=== PATIENT | female | born 1955 | race Caucasian/White ===

== ENCOUNTER 2022-08-01 12:58 | Outpatient (OUT) | payer MEDICARE, SELFPAY | END 2022-08-01 12:59 | disposition home or self-care (01) | LOC: WC 12:58 | PROVIDERS: PCP Podiatrist Foot & Ankle Surgery; Visit Provider Podiatrist Foot & Ankle Surgery | DX: L60.3 Nail dystrophy (principal) | CPT/HCPCS: 11721 ==

== ENCOUNTER 2023-01-10 15:08 | Outpatient (OUT) | payer MEDICARE, SELFPAY | END 2023-01-10 15:09 | disposition home or self-care (01) | LOC: WC 15:08 | PROVIDERS: PCP Podiatrist Foot & Ankle Surgery; Visit Provider Podiatrist Foot & Ankle Surgery | DX: L60.3 Nail dystrophy (principal); L03.115 Cellulitis of right lower limb; L97.512 Non-pressure chronic ulcer of other part of right foot with fat layer exposed; M20.42 Other hammer toe(s) (acquired), left foot; M20.41 Other hammer toe(s) (acquired), right foot; K74.00 Hepatic fibrosis, unspecified; M76.822 Posterior tibial tendinitis, left leg; L97.522 Non-pressure chronic ulcer of other part of left foot with fat layer exposed; M13.80 Other specified arthritis, unspecified site | CPT/HCPCS: 11721 ==

== ENCOUNTER 2023-04-11 15:27 | Outpatient (OUT) | payer MEDICARE, SELFPAY | END 2023-04-11 15:28 | disposition home or self-care (01) | LOC: WC 15:27 | PROVIDERS: PCP Podiatrist Foot & Ankle Surgery; Visit Provider Physician Assistant | DX: M13.80 Other specified arthritis, unspecified site (principal); L60.3 Nail dystrophy; M79.661 Pain in right lower leg; M79.662 Pain in left lower leg | CPT/HCPCS: 11721 ==

== ENCOUNTER 2023-07-22 10:05 | Outpatient (OUT) | payer MEDICARE, SELFPAY ==
--- NOTE | 2023-07-22 | XR_ITS ---
The [address] [address] Patient Name: LUIS ANTONIO VOSS MRN: [id number] date: 1955 Sex: F Assigned Patient Location: Current Patient Location: Accession/Order Number: [id number] Exam Date: 07/22/2023 10:06 Report Date: 07/22/2023 15:55 At the request of: ANGEL BRADLEY Procedure: XR foot LT min 3V PROCEDURE: XR foot LT min 3V COMPARISON: 10/12/2021 HISTORY: LEFT FOOT PAIN FINDINGS: BONES:Flattening of the plantar arch. Progression of degenerative changes with valgus deformity of the forefoot. Overlap of the first and second toes related to valgus deformity of the first toe. No focal lytic or sclerotic changes. SOFT TISSUES:Negative. No visible soft tissue swelling. EFFUSION:None visible. OTHER: Negative. XR/XR foot LT min 3V IMPRESSION: No plain film evidence of osteomyelitis Electronically authenticated by: TANVIR WALL Date: 07/22/2023 15:55
== END 2023-07-22 10:06 | disposition home or self-care (01) ==
LOC: WC 10:05
PROVIDERS: PCP Podiatrist Foot & Ankle Surgery; Visit Provider Physician Assistant
DX: M79.672 Pain in left foot (principal); L60.3 Nail dystrophy; L97.521 Non-pressure chronic ulcer of other part of left foot limited to breakdown of skin
CPT/HCPCS: 11042; 11721; 73630

== ENCOUNTER 2023-07-30 13:26 | Outpatient (OUT) | payer MEDICARE, SELFPAY | END 2023-07-30 13:27 | disposition home or self-care (01) | LOC: WC 13:26 | PROVIDERS: PCP Podiatrist Foot & Ankle Surgery; Visit Provider Podiatrist Foot & Ankle Surgery | DX: L97.521 Non-pressure chronic ulcer of other part of left foot limited to breakdown of skin (principal) | CPT/HCPCS: G0463 ==

== ENCOUNTER 2024-05-28 14:43 | Outpatient (OUT) | payer MEDICARE, SELFPAY ==
--- NOTE | 2024-05-28 15:16 | PM.WCHP ---
Wound Care H&P: HPI History of Present Illness Narrative: The patient is a pleasant 68-year-old female who presents for routine toenail care. The patient has ambulation difficulties due to history of femur fracture. She notes pain when toenails are elongated and pain relief when they are trimmed. She denies cramping in her calves or foot pain. Exam Narrative: Exam Narrative: Dermatologic: Partial-thickness ulcer on the dorsum of the left fourth toe with no sign of infection. Ulcer is dry. Skin is thin, atrophic, and dry. Musculoskeletal: Bilateral bunion, bilateral hammertoe deformity Vascular exam PT pulses are nonpalpable bilaterally. Dorsalis pedis pulses are 1/4 bilaterally. Capillary refill is less than 3 seconds. Varicosities are present. The skin is warm. There is no edema. Digital hair is absent bilaterally. Neurologic: Sensation is grossly intact bilaterally, normal muscle tone Assessment and Plan Assessment and Plan (1) Tinea unguium: (2) Diminished pulses in lower extremity: (3) Gait instability: (4) Disorder of nail due to another disorder: Acute Procedures Nail Procedure Nail Procedure Time out: Yes Nail procedure: other (nail debridement) Number of affected nails: 10 Location (toes): left and right Method of drainage: other (nail nippers) Procedure successful: Yes Patient tolerated procedure: well and no complications Additional comments: Toenails 1 through 10 were sharply debrided without incident with nail nippers. The patient noted pain relief postprocedure. Podiatry Nail Debridement Class B Findings Absent posterior tibial pulse: bilateral Advanced trophic changes as evidenced by any three of the following: decreased hair growth, nail changes (thickening) and skin texture (thin or shiny) Class C Findings Claudication: No Temperature changes: No Edema: No Nail debridement paresthesia (abnormal spontaneous sensations in the feet): Yes Burning: Yes Qualifies If: Qualifiers If:: A patient qualifies for nail debridement if they have: 1 class A finding (Q7) 2 class B findings (Q8) OR 1 class B & 2 class C findings in addition to a primary condition (Q9)
== END 2024-05-28 14:44 | disposition home or self-care (01) ==
LOC: WC 14:43
PROVIDERS: Visit Provider Physician Assistant
DX: B35.1 Tinea unguium (principal); R09.89 Other specified symptoms and signs involving the circulatory and respiratory systems; R26.89 Other abnormalities of gait and mobility; L60.8 Other nail disorders
CPT/HCPCS: 11721

== ENCOUNTER 2024-09-10 14:45 | Outpatient (OUT) | payer MEDICARE, SELFPAY ==
--- OUTSIDE RECORDS SUMMARY | 2023-10-31 09:00 | XMS_ITS ---
Author Organization The [facility] in [place] Address [address] [place] [address] Care Team Providers Care Fire Prevention Specialist Name Role Phone None, Unknown or Primary Care Provider Unavailab george Anel Nelson Unavailable [phone] Allergies No Known Allergies REASON FOR VISIT NAIL CARE ( F/U FROM WOUND) Medications Medication SIG (Take, Route, Frequency, Duration) Notes Start Date End Date Status Aspirin Low Dose 81 MG CHEW AND SWALLOW 1 TABLET BY MOUTH ONCE DAILY IN THE MORNING Oral for 90 Days Active buPROPion HCl ER (XL) 150 MG TAKE 1 TABL ET BY MOUTH EVERY DAY IN THE MORNING Oral for 90 Days Active amLODIPine Besylate 5 MG TAKE 1 TABLET B Y MOUTH EVERY DAY IN THE MORNING Oral for [address] 500 MG Oral for 30 Days Active traZODone HCl 100 MG Oral for 90 Days Active oxyCODONE HCl 10 MG Oral for 30 Days Active buPROPion HCl ER (XL) 150 MG Oral for 90 Days Active lamoTRIgine 150 MG Oral for 90 Days Active Furosemide 40 MG Oral for 90 Days Active Ferrous Sulfate 325 (65 Fe) MG TAKE 1 TABLET BY MOUTH EVERY DAY WITH BREAKFAST Oral for 30 Days Active Sertraline HCl 100 MG Oral for 90 Days Active Omeprazole 40 MG Oral for 90 Days Active amLODIPine Besylate 5 MG Oral for 90 Days Active Levothyroxine Sodium 200 MCG Oral for 90 Days Active Atorvastatin Calcium 10 MG Oral for 90 Days Active Famotidine 20 MG Oral for 90 Days Active Klor-Con M20 20 MEQ Oral for 90 Days Active Social History Tobacco Use: Social History Observation Description Date Details (start date - stop date) Never Smoker NA - NA Tobacco Control (Standard) Question Answer Notes Tobacco use: Nonsmoker Problems Problem Type SNOMED Code ICD Code Onset Dates Problem Status W/U Status Risk Notes Problem 1324931132 Hallux valgus (acquired), left foot (M20.12) Active confirmed Problem 030006830 Other hammer toe(s) (acquired), left foot (M20.42) Active confirmed Vital Signs Temperature 97.5 degrees Fahrenheit 10/31/19 24 Heart Rate 87 /min 10/31/2023 Height 65 in 10/31/2023 Weight 157 lbs 10/31/2023 BMI 26.12 kg/m2 10/31/2023 Oximetry 99 % 10/31/2023 Encounters Encounter Location Date Provider Diagnosis [facility] (PODIATRY) [address] [place] [address] [place] [address] 10/31/2023 Anel Nelson Hallux valgus (acquired), left foot M20.12 and Other hammer toe(s) (acquired), left foot M20.42 Assessments Encounter Date Diagnosis (ICD Code) Assessment Notes Treatment Notes Treatment Clinical Notes Section Notes 10/31/2023 Hallux valgus (acquired), left foot (ICD-10 - M20.12) The patient is a 68-year-old female with history of severe hammertoe contractures and previous wound who presents for evaluation of elongated painful toenails. After verbal consent, toenails 1 through 10 were sharply debrided with nail nippers without incident. The patient noted pain relief postprocedure. She does have a preulcerative lesion on the dorsal second toe, which is completely curled under her foot. Callus was pared on the toe. The patient obtained a new silicone toe sleeve which she plans to wear to protect the area. She will follow-up as needed. 10/31/2023 Other hammer toe(s) (acquired), left foot (ICD-10 - M20.42) Plan Of Treatment Treatment Notes Assessment Notes Hallux valgus (acquired), left foot The patient is a 68-year-old female with history of severe hammertoe contractures and previous wound who presents for evaluation of elongated painful toenails. After verbal consent, toenails 1 through 10 were sharply debrided with nail nippers without incident. The patient noted pain relief postprocedure. She does have a preulcerative lesion on the dorsal second toe, which is completely curled under her foot. Callus was pared on the toe. The patient obtained a new silicone toe sleeve which she plans to wear to protect the area. She will follow-up as needed. Next Appt Details Follow Up: prn, Reason: Progress Notes * Devika VOSS LDOB:1955 (68 yo F)Acc No.[id number]:10/31/2023 New Patient Patient: Devika NERI Provider: Reymundo Nelson PA-C :1955 A ge:68 Y S ex:Female Date:10/31/2023 Address:[address] [place] [address], [id number] Pcp:Unknown or None Check In:01:01 PM ESTCheck O ut:01:29 PM EST Subjective: * Chief Complaints: * N AIL CARE ( F/U FROM WOUND) * HPI: G eneral: Patient in office today due to diabetic toenail care. Patient has been seen in wound care clinic in the past. * ROS: G eneral/Constitutional: Chills d enies. F ever d enies. W eight gain?denies. W eight loss d enies. S kin: Skin Ulcers d enies. S kin lesion(s) d enies. ? C ardiovascular: Difficulty breathing on exertion d enies. L eg cramps?denies. E tc d enies. C hest pain d enies. R espiratory: Difficulty breathing d enies. D yspnea d enies.?Cough d enies. G astrointestinal: Diarrhea d enies. N ausea d enies. V omiting?denies. M usculoskeletal: Bone/Joint Symptoms d enies. C eleuterio Pain d enies.?Leg cramps d enies. N eurologic: Numbness d enies. T ingling d enies . G ait abnormality d enies. ? H ematology: Anemia D enies. E asy bruising d enies. ? A ll Other Systems: Review of Systems (ROS) S ee HPI for details,All others negative except those mentioned in HPI. * Active Problem List L97.521 Chronic ulcer of lef t foot limited to breakdown of skin Modified On:08/13/2023W/U Status:confirmed M20.12 Hallux valgus (acqui red), left foot Modified On:10/31/2023W/U Status:confirmed M20.42 Other hammer toe(s) (acquired), left foot Modified On:10/31/2023W/U Status:confirmed * Medical History: * Surgical History: T AVR - heart procedure * Hospitalization/Major Diagno stic Procedure: * Family History: N on-Contributory. * Social History: T obacco Use: T obacco Control (Standard) T obacco use: N onsmoker * Medications: T akingamLODIPine Besylate 5 MG Tablet Oral amLODIPine Besylate 5 MG Tablet TAKE 1 TABLET BY MOUTH EVERY DAY IN THE MORNING Oral Aspirin Low Dose(Aspirin) 81 MG Tablet Chewable CHEW AND SWALLOW 1 TABLET BY MOUTH ONCE DAILY IN THE MORNING Oral Atorvastatin Calcium 10 MG Tablet Oral buPROPion HCl ER (XL) 150 MG Tablet Extended Release 24 Hour Oral buPROPion HCl ER (XL) 150 MG Tablet Extended Release 24 Hour TAKE 1 TABLET BY MOUTH EVERY DAY IN THE MORNING Oral Famotidine 20 MG Tablet Oral Ferrous Sulfate 325 (65 Fe) MG Tablet TAKE 1 TABLET BY MOUTH EVERY DAY WITH BREAKFAST Oral Furosemide 40 MG Tablet Oral Klor-Con M20(Potassium Chloride Zainab ER) 20 MEQ Tablet Extended Release Oral lamoTRIgine 150 MG Tablet Oral Levothyroxine Sodium 200 MCG Tablet Oral Naproxen DR 500 MG Tablet Delayed Release Oral Omeprazole 40 MG Capsule Delayed Release Oral oxyCODONE HCl 10 MG Tablet Oral Sertraline HCl 100 MG Tablet Oral traZODone HCl 100 MG Tablet Oral Taking amLODIPine Besylate 5 MG Tablet Oral Taking amLODIPine Besylate 5 MG Tablet TAKE 1 TABLET BY MOUTH EVERY DAY IN THE MORNING Oral Taking Aspirin Low Dose(Aspirin) 81 MG Tablet Chewable CHEW AND SWALLOW 1 TABLET BY MOUTH ONCE DAILY IN THE MORNING Oral Taking Atorvastatin Calcium 10 MG Tablet Oral Taking buPROPion HCl ER (XL) 150 MG Tablet Extended Release 24 Hour Oral Taking buPROPion HCl ER (XL) 150 MG Tablet Extended Release 24 Hour TAKE 1 TABLET BY MOUTH EVERY DAY IN THE MORNING Oral Taking Famotidine 20 MG Tablet Oral Taking Ferrous Sulfate 325 (65 Fe) MG Tablet TAKE 1 TABLET BY MOUTH EVERY DAY WITH BREAKFAST Oral Taking Furosemide 40 MG Tablet Oral Taking Klor-Con M20(Potassium Chloride Zainab ER) 20 MEQ Tablet Extended Release Oral Taking lamoTRIgine 150 MG Tablet Oral Taking Levothyroxine Sodium 200 MCG Tablet Oral Taking Naproxen DR 500 MG Tablet Delayed Release Oral Taking Omeprazole 40 MG Capsule Delayed Release Oral Taking oxyCODONE HCl 10 MG Tablet Oral Taking Sertraline HCl 100 MG Tablet Oral Taking traZODone HCl 100 MG Tablet Oral * Allergies: N .K.D.A.no[Allergies Verified] Objective: * Vitals: W t:157lbs, Ht: 65 in, Temp:97.5F, HR:87/min, BMI:26.12Index, Pain scale:21-10, Oxygen sat %:99%, Ht-cm: 165.1 cm, Wt-k.21 kg. * Examination: P odiatry Examination: SKIN: P reulceration noted on the dorsal aspect of the left second toe, which purchases the ground in stance. No open wounds identified Toenails 1 through 10 are elongated and painful..? MUSCULOSKELETAL: L EFT: Severe bunion deformity on the left with rigid contracture of the second toe. The second toenail purchases the ground in stance.? Less severe contractures of toes 3 through 5 are noted. RIGHT: Bunion deformity and contractures of the lesser toes. NEUROLOGICAL: L ight touch sensation is grossly intact in all nerve distributions, protective sensation intact, normal muscle tone. VASCULAR: P alpable pedal pulses bilaterally, No swelling, No calf pain on squeeze. Assessment: * Assessment: 1. H allux valgus (acquired), left foot - M20.12 (Primary) 2 . O ther hammer toe(s) (acquired), left foot - M20.42 Plan: * Treatment: * Procedure Codes: * Follow Up: p rn * * Sign off status: Completed Visit Status: C HK (Check Out) true * Provider: Reymundo Nelson PA-C Date: 0 10/31/2023 Generated for Liz camp/Gadiel/Angelinaitting on: 0 09/10/2024 02:47 PM EDT History and Physical Notes * Examination Category Sub-Category Detail Notes Category Not es Podiatry Examination SKIN: Preulcerati on noted on the dorsal aspect of the left second toe, which purchases the ground in stance. No open wounds identified Toenails 1 through 10 are elongated and painful. MUSCULOSKELETAL: LEFT: Severe bunion deformity on the left with rigid contracture of the second toe. The second toenail purchases the ground in stance. Less severe contractures of toes 3 through 5 are noted. RIGHT: Bunion deformity and contractures of the lesser toes NEUROLOGICAL: Light touch sensatio n is grossly intact in all nerve distributions, protective sensation intact, normal muscle tone VASCULAR: Palpable pedal pulse s bilaterally, No swelling, No calf pain on squeeze
--- OUTSIDE RECORDS SUMMARY | 2024-01-21 09:15 | XMS_ITS ---
Author Organization The [facility] in [place] Address [address] [place] [address] Care Team Providers Care Manager Animal Name Role Phone None, Unknown or Primary Care Provider Unavailab Troy Tabares Unavailable [phone] REASON FOR VISIT ingrown nail and nail care, left foot pain Encounters Encounter Location Date Provider Diagnosis [facility] (PODIATRY) [address] [place] [address] [place] [address] 01/21/2024 Troy Wharton Hallux valgus (acquired), left foot M20.12 Assessments Encounter Date Diagnosis (ICD Code) Assessment Notes Treatment Notes Treatment Clinical Notes Section Notes 01/21/2024 Hallux valgus (acquired), left foot (ICD-10 - M20.12) Plan Of Treatment Pending Test Test Name Order Date XR Foot LT (3 views) * 01/21/2024 Progress Notes * Devika VOSS LDOB:1955 (68 yo F)Acc No.[id number]:01/21/2024 UNLOCKED PROGRESS NOTE Follow Up Patient: Christiano NERIjanine Sloan Provider: Venessa Wharton DPM, MS :1955 A ge:68 Y S ex:Female Date:01/21/2024 Address:[address] [place], [place] [id number] Pcp:Unknown or None Subjective: * Chief Complaints: * 1 . Ingrown nail and nail care, left foot pain. * Medical History: Objective: * Vitals: Assessment: * Assessment: 1. H allux valgus (acquired), left foot - M20.12 Plan: * Treatment: * * Electronic signature of Carlin Wharton DPM on 09/10/2024 at 02:48 PM EDT Sign off status: Pending Visit Status: N /S N/C (No Show/No Charge) * Provider: Venessa Wharton DPM, MS Date: 1 03/23/2023 Generated for Liz ng/Gadiel/eTransmitting on: 0 09/10/2024 02:48 PM EDT
--- OUTSIDE RECORDS SUMMARY | 2024-03-26 09:10 | XMS_ITS ---
Author Organization The [facility] in [place] Address [address] [place] [address] Care Team Providers Care Billet Bed Operator Name Role Phone None, Unknown or Primary Care Provider Unavailab Anel Ortega Unavailable [phone] REASON FOR VISIT Nail Care Encounters Encounter Location Date Provider Diagnosis [facility] (PODIATRY) [address] [place] [address] [place] [address] 03/26/2024 Anel Nelson Other hammer toe(s) (acquired), left foot M20.42 Assessments Encounter Date Diagnosis (ICD Code) Assessment Notes Treatment Notes Treatment Clinical Notes Section Notes 03/26/2024 Other hammer toe(s) (acquired), left foot (ICD-10 - M20.42) Plan Of Treatment No Information Progress Notes * Devika VOSS LDOB:1955 (68 yo F)Acc No.[id number]:03/26/2024 Nurse Visit Patient: Christiano NERIjanine Sloan Provider: Reymundo Nelson PA-C :1955 A ge:68 Y S ex:Female Date:03/26/2024 Address:[address] [place], [place] [id number] Pcp:Unknown or None Check In:01:18 PM ESTCheck O ut:01:33 PM EST Subjective: * Chief Complaints: * N ail Care * HPI: G eneral: Patient in office today for nail care. Nails were curled under toes and elongated. Nails 1-10 were trimmed and filed to her liking. * Active Problem List L97.521 Chronic ulcer of lef t foot limited to breakdown of skin Modified On:08/13/2023W/U Status:confirmed M20.12 Hallux valgus (acqui red), left foot Modified On:10/31/2023W/U Status:confirmed M20.42 Other hammer toe(s) (acquired), left foot Modified On:10/31/2023/U Status:confirmed * Medical History: * Surgical History: * Hospitalization/Major Diagno stic Procedure: * Medications: Objective: * Vitals: Assessment: * Assessment: 1. O ther hammer toe(s) (acquired), left foot - M20.42 (Primary) Plan: * Treatment: * Procedure Codes: * * Sign off status: Completed Visit Status: C HK (Check Out) true * Provider: Reymundo Nelson PA-C Date: 0 03/26/2024 Generated for [facility] zoë/Gadiel/eTransmitting on: 0 09/10/2024 02:48 PM EDT History and Physical Notes * HPI (History of Present Illness) Category Sub-Category Detail Notes Category Not es General Patient in offi ce today for nail care. Nails were curled under toes and elongated. Nails 1-10 were trimmed and filed to her liking.
--- OUTSIDE RECORDS SUMMARY | 2024-09-07 13:00 | XMS_ITS | Encounter Summary ---
Author Organization [facility] Address [address] [place] [address] Care Team Providers Care Senior Publications Specialist Name Role Phone Delilah Jackson MD Primary Care Provider [phone] Justina Maddox SOFTWARE ASSET MANAGEMENT ANALYST-SURGICAL PHYSICIAN ASSISTANT Unavailable Rosy Rodriguez RN Unavailable [phone] Reason for Visit * Reason Comments Med Management Follow-up Encounter Details Date Type Department Care Team (Late st Contact Info) Description 09/07/2024 1:00 PM EDT Office Visit [facility] [address] [facility] [address] [place] [address] Justina Maddox, SOFTWARE ASSET MANAGEMENT ANALYST-SURGICAL PHYSICIAN ASSISTANT [address] [facility] [address] [place] [address] Bipolar II disorder (HCC); Generalized anxiety disorder Social History Tobacco Use Types Packs/Day Years Used Date Smoking Tobacco: Former Cigarettes Q uit: 2013 Smokeless Tobacco: Never Alcohol Use Standard Drinks/Week Comments Not Currently 0 (1 standard drink = 0.6 oz pure alcohol) Alcohol: 1 or 2 drinks, 2 to 4 times a week; Caffeine: 1 cup a day AUDIT-C Answer Date Recorded Q1: How often do you have a drink containing alc ohol? Monthly or less 12/18/2022 Q2: How many drinks containi ng alcohol do you have on a typical day when you are drinking? 1 or 2 12/18/2022 Q3: How often do you have si x or more drinks on one occasion? Never 12/18/2022 PHQ-2 Answer Date Recorded Patient Health Questionnaire-2 Score 2 07/02/2024 Education Answer Date Recorded What is the highest level of school you have completed or the highest degree you have received? High school graduate 08/26/2022 Comments Unknown Sex and Gender Information Value Date Recorded Sex Assigned at Not on file Legal Sex Female 7:26 PM EDT Gender Identity Female 04/25/2022 7:26 PM EDT Sexual Orientation Not on file Occupation Industry Job Start Date Job End Date Retired Not on file Not on file Not on file documented as of this encounter Last Filed Vital Signs Vital Sign Reading Time Taken Comments Blood Pressure 138/86 09/07/2024 12:52 PM EDT Pulse 95 09/07/2024 12:52 PM EDT Temperature - - Respiratory Rate - - Oxygen Saturation - - Inhaled Oxygen Concentration - - Weight 89.8 kg (198 lb) 09/07/2024 12:52 PM EDT Height - - Body Mass Index 31.96 07/23/2024 2:49 PM EDT documented in this encounter Plan of Treatment Upcoming Encounters Date Type Department Care Team (Late st Contact Info) Description 10/05/2024 1:40 PM EDT Office Visit [facility] [address] [facility] [address] [place] [address] Josef Horan MD [address] [facility] [address] [address] 10/19/2024 3:30 PM EDT Office Visit [facility] [address] [facility] [address] [place] [address] Justina Maddox APRN-SURGICAL PHYSICIAN ASSISTANT [address] [facility] [address] [place] [address] documented as of this encounter Visit Diagnoses Diagnosis Bipolar II disorder (HCC) Other bipolar disorders Generalized anxiety disorder Generalized anxiety disorder documented in this encounter Additional Health Concerns Assessment Noted Time PHQ-9 Depression Total Score: 10 025 1:04 PM EDT documented as of this encounter Care Teams Senior Publications Specialist Relationship Specialty Start Date End Date Delilah Jackson MD [address] [place], [place] [id number] PCP - General Family Medicine 07/19/22 Justina Maddox, SOFTWARE ASSET MANAGEMENT ANALYST-SURGICAL PHYSICIAN ASSISTANT [address] [place] [address] Nurse Practitioner Behavioral Health 07/19/22 Rosy Rodriguez, RN [address] [place] [address] Registered Nurse Family Medicine 12/24/22 documented as of this encounter
--- OUTSIDE RECORDS SUMMARY | 2024-09-10 14:47 | XMS_ITS | Encounter Summary ---
Author Organization [facility] Address [address] [place] [address] Care Team Providers Care Geriatric Nurse Practitioner Name Role Phone Delilah Jackson MD Primary Care Provider [phone] Justina Maddox SOAP DRIER TENDER-HOUSEFELLOW Unavailable Rosy Rodriguez RN Unavailable [phone] Reason for Visit * Reason Comments Med Change Request Encounter Details Date Type Department Care Team ([facility] Contact Info) Description 09/07/2024 Refill [facility] [address] [place] [address] Sally Zhu STOPPER GRINDER 14[address] [place], [place] [id number] Obesity (BMI 30.0-34.9) Social History Tobacco Use Types Packs/Day Years [...] on file documented as of this encounter Miscellaneous Notes * Telephone Encounter - Sally Zhu NP - 09/07/2024 4:45 PM EDT Let patient know it is not covered with the obesity code. She will need to contact her insurance tofind out what diagnosis they cover it under documented in this encounter Plan of Treatment Upcoming Encounters Date Type Department Care Team (Late st Contact Info) Description 10/05/2024 1:40 PM EDT Office Visit [facility] [address] [facility] 310 [place] [address] Josef Horan MD 9344 [facility] [address] [address] 10/19/2024 3:30 PM EDT Office Visit [facility] 112 [facility] 160 [place] [address] Justina Maddox APRN-HOUSEFELLOW 112 [facility] 160 [place] [address] documented as of this encounter Visit Diagnoses Diagnosis Obesity (BMI 30.0-34.9) documented in this encounter Additional Health Concerns Assessment Noted Time PHQ-9 Depression Total Score: 10 025 1:04 PM EDT documented as of this encounter Care Teams Geriatric Nurse Practitioner Relationship Specialty Start Date End Date Delilah Jackson MD 1479 [facility] [address] [place], [place] [id number] PCP - General Family Medicine 07/19/22 Justina Maddox, SOAP DRIER TENDER-HOUSEFELLOW 112 [facility] 160 [place] [address] Nurse Practitioner Behavioral Health 07/19/22 Rosy Rodriguez, VANDANA 1479 [facility] [place] [address] Registered Nurse Family Medicine 12/24/22 documented as of this encounter
--- OUTSIDE RECORDS SUMMARY | 2024-09-10 14:47 | XMS_ITS | Encounter Summary ---
Author Organization [facility] Address [address] [place] [address] Care Team Providers Care Assisted Living Executive Director Name Role Phone Delilah Jackson MD Primary Care Provider [phone] Justina Maddox WARE CARRIER-LABOR RELATIONS MANAGER Unavailable Rosy Rodriguez RN Unavailable [phone] Myesha Bell BOOTMAKER HAND Unavailable [phone] Reason for Visit * Reason Comments Med Refill Encounter Details Date Type Department Care Team (Late st Contact Info) Description 09/19/[address] [facility] Family Medicine 14[address] [place] [address] Sally Zhu SUPERVISOR MACHINE SETTER 14[address] [place] [address] Acquired hypothyroidism (Primary Dx) Social History Tobacco Use Types Packs/Day Years Used Date Smoking Tobacco: Former Cigarettes Smokeless Tobacco: Never Alcohol Use Standard Drinks/Week Comments Not Currently 0 (1 standard drink = 0.6 oz pure alcohol) Alcohol: 1 or 2 drinks, 2 to 4 times a month; Caffeine: 2-3cups/day AUDIT-C Answer Date Recorded Q1: How often do you have a drink containing alc ohol? 2-4 times a month 06/20/2022 Q2: How many drinks containi ng alcohol do you have on a typical day when you are drinking? 1 or 2 06/20/2022 Q3: How often do you have si x or more drinks on one occasion? Less than monthly 06/20/2022 Education Answer Date Recorded What is the [...] encounter Miscellaneous Notes * Telephone Encounter - Delilah Jackson MD - 09/19/2022 6:59 PM EDT Refills sent. documented in this encounter Plan of Treatment Upcoming Encounters Date Type Department Care Team (Late st Contact Info) Description 10/05/2024 1:40 PM EDT Office Visit [facility] [address] [facility] 310 [place] [address] Josef Horan MD 5320 [facility] [address] [address] 10/19/2024 3:30 PM EDT Office [facility] 112 [facility] 160 [place] [address] Justina Maddox APRN-LABOR RELATIONS MANAGER 112 [facility] 160 [place] [address] documented as of this encounter Visit Diagnoses Diagnosis Acquired hypothyroidism- Primary Unspecified hypothyroidism documented in this encounter Care Teams Assisted Living Executive Director Relationship Specialty Start Date End Date Delilah Jackson MD [address] [place] [address] PCP - General Family Medicine 07/19/22 Justina Maddox APRN-LABOR RELATIONS MANAGER [address] [place] [address] Nurse Practitioner Behavioral Health 07/19/22 Rosy Rodriguez, RN [address] [facility] [place] [address] Registered Nurse Family Medicine 12/24/22 Myesha Bell, JESSIE [address] [place], [place] [address] Mcat Instructor Family Medicine 04/15/23 06/15/24 documented as of this encounter
--- OUTSIDE RECORDS SUMMARY | 2024-09-10 14:47 | XMS_ITS | Encounter Summary ---
Author Organization [facility] Address [address] [place] [address] Care Team Providers Care Making Machine Operator Name Role Phone Delilah Jackson MD Primary Care Provider [phone] Justina Maddox LITERACY EDUCATION PROFESSOR-GENERAL OFFICE ASSISTANT Unavailable Rosy Rodriguez RN Unavailable [phone] Reason for Visit * Reason Comments Med Refill Encounter Details Date Type Department Care Team ([facility] st Contact Info) Description 09/07/2024 Refill [facility] [place] [place] [facility] 14[address] [place] [address] Isaura Walter NP 1479 [place], [place] [phone] Mixed hyperlipidemia Social History Tobacco Use Types Packs/Day Years [...] on file documented as of this encounter Plan of Treatment Upcoming Encounters Date Type Department Care Team (Late st Contact Info) Description 10/05/2024 1:40 PM EDT Office Visit [facility] [address] [facility] 310 [place] [address] Josef Horan MD 5361 [facility] [address] [phone] 10/19/2024 3:30 PM EDT Office Visit [facility] 112 [facility] 160 [place] [address] Justina Maddox, LITERACY EDUCATION PROFESSOR-GENERAL OFFICE ASSISTANT 112 [facility] 160 [place] [address] documented as of this encounter Visit Diagnoses Diagnosis Mixed hyperlipidemia Mixed hyperlipidemia documented in this encounter Additional Health Concerns Assessment Noted Time PHQ-9 Depression Total Score: 10 025 1:04 PM EDT documented as of this encounter Care Teams Making Machine Operator Relationship Specialty Start Date End Date Delilah Jackson MD [address] [place] [address] PCP - General Family Medicine 07/19/22 Justina Maddox, LITERACY EDUCATION PROFESSOR-GENERAL OFFICE ASSISTANT 112 [facility] 160 [place] [address] Nurse Practitioner Behavioral Health 07/19/22 Rosy Rodriguez, RN [address] [place] [address] Registered Nurse Family Medicine 12/24/22 documented as of this encounter
--- OUTSIDE RECORDS SUMMARY | 2024-09-10 14:47 | XMS_ITS | Encounter Summary ---
Author Organization [facility] Address [address] [place] [address] Care Team Providers Care Behavioral Specialist Name Role Phone Delilah Jackson MD Primary Care Provider [phone] Justina Maddox FILLER SIFTER MACHINE-INSURANCE CLAIMS SUPERVISOR Unavailable Rosy Rodriguez RN Unavailable [phone] Myesha Bell PARTS COUNTER SALESPERSON Unavailable [phone] Reason for Visit * Reason Comments Med Refill Encounter Details Date Type Department Care Team (Late st Contact Info) Description 07/29/2022 Refill [facility] [address] [facility] [address] [place] [address] Justina Maddox, FILLER SIFTER MACHINE-INSURANCE CLAIMS SUPERVISOR 112 [facility] 160 [place] [address] Social History Tobacco Use Types Packs/Day Years Used Date Smoking Tobacco: Former Cigarettes Smokeless Tobacco: Never Alcohol Use Standard Drinks/Week Comments Not Currently 0 (1 standard drink = 0.6 oz pur e alcohol) AUDIT-C Answer Date Recorded Q1: How often do you have a drink containing alc ohol? 2-4 times a month 06/20/2022 Q2: How many drinks containi ng alcohol do you have on a typical day when you are drinking? 1 or 2 06/20/2022 Q3: How often do you have si x or more drinks on one occasion? Less than monthly 06/20/2022 Comments Unknown Sex and Gender Information Value Date Recorded Sex Assigned at Not on file Legal Sex Female 7:26 PM EDT Gender Identity Female 04/25/2022 7:26 PM EDT Sexual Orientation Not on file documented as of this encounter Plan of Treatment Upcoming Encounters Date Type Department Care Team (Late st Contact Info) Description 10/05/2024 1:40 PM EDT Office Visit [facility] [address] [facility] 310 [place] [address] Josef Horan MD 5319 [facility] [address] [place] [address] 10/19/2024 3:30 PM EDT Office Visit [facility] 112 [facility] 160 [place] [address] Justina Maddox, FILLER SIFTER MACHINE-INSURANCE CLAIMS SUPERVISOR 112 [facility] 160 [place] [address] documented as of this encounter Visit Diagnoses Not on filedocumented in this encounter Care Teams Behavioral Specialist Relationship Specialty Start Date End Date Delilah Jackson MD 1479 [place] [address] PCP - General Family Medicine 07/19/22 Justina Maddox, FILLER SIFTER MACHINE-INSURANCE CLAIMS SUPERVISOR 112 [facility] 160 [place] [address] Nurse Practitioner Behavioral Health 07/19/22 Rosy Rodriguez, VANDANA 1479 [place] [address] Registered Nurse Family Medicine 12/24/22 Myesha Bell LSW 1479 [place] [address] Proof Plate Maker Family Medicine 04/15/23 06/15/24 documented as of this encounter
--- OUTSIDE RECORDS SUMMARY | 2024-09-10 14:47 | XMS_ITS | Encounter Summary ---
Author Organization [facility] Address [address] [place] [address] Care Team Providers Care Diesel Scoop Operator Name Role Phone Delilah Jackson MD Primary Care Provider [phone] Justina Maddox INSURANCE SERVICE REPRESENTATIVE-MOTION PICTURE EQUIPMENT MACHINIST Unavailable Rosy Rodriguez RN Unavailable Reason for Visit * Reason Comments Med Change Request Encounter Details Date Type Department Care Team (Late st Contact Info) Description 09/09/2024 Refill [facility] [address] [place] [address] Sally Zhu, QUARTER TRIMMER 14[address] [place] [address] Essential hypertension ; Obesity (BMI 30.0-34.9); Mixed hyperlipidemia Social History Tobacco Use Types [...] Telephone Encounter - Sally Zhu NP - 09/09/2024 11:26 AM EDT Can you please do prior auth on this thanks * Telephone Encounter - Sally Zhu NP - 09/09/2024 10:51 AM EDT Didn't you send this alreadyd? documented in this encounter Plan of Treatment Upcoming Encounters Date Type Department Care Team (Late st Contact Info) Description 10/05/2024 1:40 PM EDT Office Visit [facility] [address] [facility] 310 [place] [address] Josef Horan MD 3727 [facility] [address] [address] 10/19/2024 3:30 PM EDT Office Visit [facility] 112 [facility] 160 [place] [address] Justina Maddox APRN-MOTION PICTURE EQUIPMENT MACHINIST 112 [facility] 160 [place] [address] documented as of this encounter Visit Diagnoses Diagnosis Essential hypertension Unspecified essential hypertension Obesity (BMI 30.0-34.9) Mixed hyperlipidemia Mixed hyperlipidemia documented in this encounter Additional Health Concerns Assessment Noted Time PHQ-9 Depression Total Score: 10 025 1:04 PM EDT documented as of this encounter Care Teams Diesel Scoop Operator Relationship Specialty Start Date End Date Delilah Jackson MD [address] [place] [address] PCP - General Family Medicine 07/19/22 Justina Maddox, INSURANCE SERVICE REPRESENTATIVE-MOTION PICTURE EQUIPMENT MACHINIST [address] [place] [address] Nurse Practitioner Behavioral Health 07/19/22 Rosy Rodriguez, RN [address] [place] [address] Registered Nurse Family Medicine 12/24/22 documented as of this encounter
--- OUTSIDE RECORDS SUMMARY | 2024-09-10 14:47 | XMS_ITS | Encounter Summary ---
Author Organization [facility] Address [address] [place] [address] Care Team Providers Care Cutter And Presser Name Role Phone Delilha Jackosn MD Primary Care Provider [phone] Justina Maddox CURING PICKLING PACKER-POLITICAL CARTOONIST Unavailable Rosy Rodriguez RN Unavailable [phone] Myesha Bell .NET DEVELOPER Unavailable [phone] Reason for Visit * Reason Comments Med Refill Encounter Details Date Type Department Care Team (Late st Contact Info) Description 04/11/2024 Refill [facility] 112 [facility] 160 [place] [address] Justina Maddox, CURING PICKLING PACKER-POLITICAL CARTOONIST [address] [facility] 160 [place] [address] Bipolar II disorder (HCC) Social History Tobacco Use Types Packs/Day Years Used Date Smoking Tobacco: Former Cigarettes Q uit: 2013 Smokeless Tobacco: Never Alcohol Use Standard Drinks/Week Comments Not Currently 0 (1 standard drink = 0.6 oz pure alcohol) Alcohol: 1 or 2 drinks, 2 to 4 times a month; Caffeine: 1 cup a day AUDIT-C Answer [...] Answer Date Recorded Patient Health Questionnaire-2 Score 4 12/17/2023 Education Answer Date Recorded What is the [...] Visit [facility] [address] [facility] 310 [place] [address] Josef Horan MD 6523 [facility] [address] [id number] 10/19/2024 3:30 PM EDT Office Visit [facility] 112 [facility] 160 [place] [address] Justina Maddox CURING PICKLING PACKER-POLITICAL CARTOONIST [address] [facility] 160 [place] [address] documented as of this encounter Visit Diagnoses Diagnosis Bipolar II disorder (HCC) Other bipolar disorders documented in this encounter Additional Health Concerns Assessment Noted Time PHQ-9 Depression Total Score: 13 024 2:18 PM EST documented as of this encounter Care Teams Cutter And Presser Relationship Specialty Start Date End Date Delilah Jackson MD [address] [place] [address] PCP - General Family Medicine 07/19/22 Justina Maddox CURING PICKLING PACKER-POLITICAL CARTOONIST [address] [facility] 160 [place] [address] Nurse Practitioner Behavioral Health 07/19/22 Rosy Rodriguez, RN [address] [facility] [place], [place] [address] Registered Nurse Family Medicine 12/24/22 Myesha Bell LSW 1479 [place] [address] Strategy Manager Family Medicine 04/15/23 06/15/24 documented as of this encounter
--- OUTSIDE RECORDS SUMMARY | 2024-09-10 14:47 | XMS_ITS | Encounter Summary ---
Author Organization [facility] Address [address] [place] [address] Care Team Providers Care Customer Service Agent Name Role Phone Delilah Jackson MD Primary Care Provider [phone] Justina Maddox PANEL CUTTER-REFINERY OPERATOR VISBREAKING Unavailable Rosy Rodriguez RN Unavailable [phone] Myesha Bell DIRECTOR OF ASSISTED LIVING Unavailable [phone] Encounter Details Date Type Department Care Team (Late st Contact Info) Description 01/21/2023 Abstract [facility] 47[address] [place] [address] Delilah Jackson MD 60[address] [place] [address] Social History Tobacco Use Types Packs/Day Years Used Date Smoking Tobacco: Former Cigarettes Q uit: 2013 Smokeless Tobacco: Never Alcohol Use Standard Drinks/Week Comments Not Currently 0 (1 standard drink = 0.6 oz pure alcohol) Alcohol: 1 or 2 drinks, 2 to 4 times a month; Caffeine: none at this time AUDIT-C Answer Date Recorded Q1: How often do you have a drink containing alc ohol? Monthly or less 12/18/2022 Q2: How many drinks containi ng alcohol do you have on a typical day when you are drinking? 1 or 2 12/18/2022 Q3: How often do you have si x or more drinks on one occasion? Never 12/18/2022 Education Answer Date Recorded What is the [...] Visit [facility] [address] [facility] 310 [place] [address] Josef Horan MD 5363 [facility] [address] [id number] 10/19/2024 3:30 PM EDT Office Visit [facility] 112 [facility] 160 [place] [address] Justina Maddox, PANEL CUTTER-REFINERY OPERATOR VISBREAKING 112 [facility] 160 [place] [address] documented as of this encounter Visit Diagnoses Not on filedocumented in this encounter Care Teams Customer Service Agent Relationship Specialty Start Date End Date Delilah Jackson MD 14[address] [place] [address] PCP - General Family Medicine 07/19/22 Justina Maddox, PANEL CUTTER-REFINERY OPERATOR VISBREAKING 112 [facility] 160 [place] [address] Nurse Practitioner Behavioral Health 07/19/22 Rosy Rodriguez, RN [address] [place] [address] Registered Nurse Family Medicine 12/24/22 Myesha Bell LSW [address] [place] [address] Special Events Manager Family Medicine 04/15/23 06/15/24 documented as of this encounter
--- OUTSIDE RECORDS SUMMARY | 2024-09-10 14:47 | XMS_ITS | Encounter Summary ---
Author Organization [facility] Address [address] [place] [address] Care Team Providers Care Paper Reel Operator Name Role Phone Delilah Jackson MD Primary Care Provider [phone] Justina Maddox PLANT PROPAGATOR-WILDLIFE CONSERVATIONIST Unavailable Rosy Rodriguez RN Unavailable [phone] Myesha Bell DECISION UNIT RN Unavailable [phone] Encounter Details Date Type Department Care Team (Late st Contact Info) Description 10/25/2023 Orders Only [facility] Family Medicine 14[address] [place] [address] Delilah Jackson MD [address] [place] [address] Mixed hyperlipidemia (Primary Dx) Social History Tobacco Use Types [...] Answer Date Recorded Patient Health Questionnaire-2 Score 1 06/05/2023 Education Answer Date Recorded What is the [...] [facility] [address] [facility] 310 [place] [address] Josef Horan MD 5346 [facility] [address] [id number] 10/19/2024 3:30 PM EDT Office Visit [facility] 112 [facility] 160 [place] [address] Justina Maddox PLANT PROPAGATOR-WILDLIFE CONSERVATIONIST 112 [facility] 160 [place] [address] documented as of this encounter Visit Diagnoses Diagnosis Mixed hyperlipidemia- Primary Mixed hyperlipidemia documented in this encounter Additional Health Concerns Assessment Noted Time PHQ-9 Depression Total Score: 4 03/14/19 24 3:00 PM EST documented as of this encounter Care Teams Paper Reel Operator Relationship Specialty Start Date End Date Delilah Jackson MD [address] [place] [address] PCP - General Family Medicine 07/19/22 Justina Maddox, PLANT PROPAGATOR-WILDLIFE CONSERVATIONIST 112 [facility] 160 [place] [address] Nurse Practitioner Behavioral Health 07/19/22 Rosy Rodriguez, RN [address] [place] [address] [place], [place] [address] Registered Nurse Family Medicine 12/24/22 Myesha Bell LSW [address] [place] [place], [place] [address] Power Saw Operator Family Medicine 04/15/23 06/15/24 documented as of this encounter
--- OUTSIDE RECORDS SUMMARY | 2024-09-10 14:47 | XMS_ITS | Encounter Summary ---
Author Organization [facility] Address [address] [place] [address] Care Team Providers Care Front Desk Agent Name Role Phone Delilah Jackson MD Primary Care Provider [phone] Justina Maddox BOX TOE STITCHER-TIME ANALYSIS CLERK Unavailable Rosy Rodriguez RN Unavailable [phone] Encounter Details Date Type Department Care Team (Late st Contact Info) Description 09/08/2024 Patient Outreach [facility] [address] [place] [address] Rosy Rodriguez, RN [address] [place] [address] Social History Tobacco Use Types [...] on file documented as of this encounter Progress Notes * Rosy Rodriguez RN - 09/08/2024 8:17 AM EDT Pt lm yesterday at 5pm, stated she has been on the phone for over 2 hrs trying to thru to someone about her wegovy, stated she was transferred to some who told her she should qualify if it, pt struggled during vm to recall what it was she could qualify for, then she commented that the person she talked to said she would qualify for medicare part d and under her income it would be filled for 20 dollars. States she has been back and forth with them, she wants someone to call and update them on what she needs . Noted other encounter that Sally said her insurance is not covering the med dt thedx code. September 09, 2024 8:52 AM Rosy Rodriguez RN pt lm stating [facility]. Called pt. Discussed that she may not qualify if she does not have the right dx code. Researched online dx codes for wegovy. Will have script sent with added dx codes to see if she qualifies. Pt appreciative. * Sally Zhu NP - 09/08/2024 8:17 AM EDT Yes that's fine thanks documented in this encounter Plan of Treatment Upcoming Encounters Date Type Department Care Team (Late st Contact Info) Description 10/05/2024 1:40 PM EDT Office Visit [facility] [address] [place] [address] Josef Horan MD [address] [address] 10/19/2024 3:30 PM EDT Office Visit [facility] 112 [facility] 160 [place] [address] Justina Maddox, [facility] 112 [facility] 160 [place] [address] documented as of this encounter Visit Diagnoses Diagnosis Essential hypertension- Primary Unspecified essential hypertension Bipolar II disorder (HCC) Other bipolar disorders Obesity (BMI 30.0-34.9) Mixed hyperlipidemia Mixed hyperlipidemia documented in this encounter Additional Health Concerns Assessment Noted Time PHQ-9 Depression Total Score: 10 025 1:04 PM EDT documented as of this encounter Care Teams Front Desk Agent Relationship Specialty Start Date End Date Delilah Jackson MD 1479 [facility] [place] [address] PCP - General Family Medicine 07/19/22 Justina Maddox, BOX TOE STITCHER[facility] [address] [address] [place] [address] Nurse Practitioner Behavioral Health 07/19/22 Rosy Rodriguez, VANDANA 1479 [facility] [place] [address] Registered Nurse Family Medicine 12/24/22 documented as of this encounter
--- OUTSIDE RECORDS SUMMARY | 2024-09-10 14:47 | XMS_ITS | Encounter Summary ---
Author Organization [facility] Address [address] [place] [address] Care Team Providers Care Board Attendant Name Role Phone Delilah Jackson MD Primary Care Provider [phone] Justina Maddox MARBLEIZING MACHINE TENDER-STAFF FORESTER Unavailable Rosy Rodriguez RN Unavailable [phone] Myesha Bell HAND STRAIGHTENER Unavailable [phone] Reason for Visit * Reason Comments Med Refill Encounter Details Date Type Department Care Team (Late st Contact Info) Description 11/22/2023 Refill [facility] Family Medicine [address] [place] [address] Delilah Jackson MD [address] [place] [address] Acquired hypothyroidism Social History Tobacco Use Types Packs/Day Years [...] encounter Miscellaneous Notes * Telephone Encounter - Emily Ball MA - 11/25/2023 2:11 PM EDT Approving, but needs appt for additional refills. documented in this encounter Plan of Treatment Upcoming Encounters Date Type Department Care Team (Late st Contact Info) Description 10/05/2024 1:40 PM EDT Office Visit [facility] [address] [facility] 310 [place] [address] Josef Horan MD 7861 [facility] [address] [address] 10/19/2024 3:30 PM EDT Office Visit [facility] 112 [facility] 160 [place] [address] Justina Maddox APRN-STAFF FORESTER 112 [facility] 160 [place] [address] documented as of this encounter Visit Diagnoses Diagnosis Acquired hypothyroidism Unspecified hypothyroidism documented in this encounter Additional Health Concerns Assessment Noted Time PHQ-9 Depression Total Score: 4 03/14/19 24 3:00 PM EST documented as of this encounter Care Teams Board Attendant Relationship Specialty Start Date End Date Delilah Jackson MD [address] [facility] [place], [place] [address] PCP - General Family Medicine 07/19/22 Justina Maddox, MARBLEIZING MACHINE TENDER-STAFF FORESTER 112 [facility] 160 [place] [address] Nurse Practitioner Behavioral Health 07/19/22 Rosy Rodriguez, RN [address] [place] [address] Registered Nurse Family Medicine 12/24/22 Myesha Bell, JESSIE [address] [place], [place] [address] Rail Track Layer Family Medicine 04/15/23 06/15/24 documented as of this encounter
--- OUTSIDE RECORDS SUMMARY | 2024-09-10 14:47 | XMS_ITS | Encounter Summary ---
Author Organization [facility] Address [address] [place] [address] Care Team Providers Care Meat Molder Name Role Phone Delilah Jackson MD Primary Care Provider [phone] Justina Maddox SALES MANAGER [place]-ARTIST MANAGER Unavailable Rosy Rodriguez RN Unavailable [phone] Myesha Bell MANAGER MASSAGE DEPARTMENT Unavailable [phone] Reason for Visit * Reason Comments Med Refill Encounter Details Date Type Department Care Team (Late st Contact Info) Description 10/07/2022 Refill [facility] Family Medicine [address] [place] [address] Sally Zhu RING ATTACHER [address] [place] [address] Essential hypertension (Primary Dx) Social History Tobacco Use Types [...] encounter Miscellaneous Notes * Telephone Encounter - Delilha Jackson MD - 10/08/2022 3:52 PM EDT Approving, but needs appt for additional refills. documented in this encounter Plan of Treatment Upcoming Encounters Date Type Department Care Team (Late st Contact Info) Description 10/05/2024 1:40 PM EDT Office Visit [facility] [address] [facility] 310 [place] [address] Josef Horan MD 1005 [facility] [address] [address] 10/19/2024 3:30 PM EDT Office Visit [facility] 112 [facility] 160 [place] [address] Justina Maddox APRN-ARTIST MANAGER 112 [facility] 160 [place] [address] documented as of this encounter Visit Diagnoses Diagnosis Essential hypertension- Primary Unspecified essential hypertension documented in this encounter Care Teams Meat Molder Relationship Specialty Start Date End Date Delilah Jackson MD [address] [place] [address] PCP - General Family Medicine 07/19/22 Justina Maddox APRN-ARTIST MANAGER [address] [place] 160 [place] [address] Nurse Practitioner Behavioral Health 07/19/22 Rosy Rodriguez, RN [address] [facility] [place] [address] Registered Nurse Family Medicine 12/24/22 Myesha Bell LSW 1479 [facility] [place] [address] Career Development Coordinator/Teacher Family Medicine 04/15/23 06/15/24 documented as of this encounter
--- OUTSIDE RECORDS SUMMARY | 2024-09-10 14:47 | XMS_ITS | Encounter Summary ---
Author Organization [facility] Address [address] [place] [address] Care Team Providers Care Wood Setter Name Role Phone Delilah Jackson MD Primary Care Provider [phone] Justina Maddox GEROPSYCHOLOGIST-CUSTOMER SUPPORT ANALYST Unavailable Rosy Rodriguez RN Unavailable [phone] Myesha Bell SERVICE OR WORK DISPATCHER Unavailable [phone] Reason for Visit * Reason Comments Med Change Request Encounter Details Date Type Department Care Team (Late st Contact Info) Description 01/26/2023 Refill [facility] 112 [facility] 160 [place] [address] Justina Maddox, GEROPSYCHOLOGIST-CUSTOMER SUPPORT ANALYST 112 [facility] 160 [place] [address] Bipolar II disorder (HCC); Generalized anxiety disorder [...] Visit [facility] [address] [facility] 310 [place] [address] Josef Horan MD [address] [id number] 10/19/2024 3:30 PM EDT Office Visit [facility] 112 [facility] 160 [place] [address] Justina Maddox GEROPSYCHOLOGIST-CUSTOMER SUPPORT ANALYST 112 [place] [facility] 160 [place] [address] documented as of this encounter Visit Diagnoses Diagnosis Bipolar II disorder (HCC) Other bipolar disorders Generalized anxiety disorder Generalized anxiety disorder documented in this encounter Care Teams Wood Setter Relationship Specialty Start Date End Date Delilah Jackson MD [address] [place] [address] PCP - General Family Medicine 07/19/22 Justina Maddox, GEROPSYCHOLOGIST-CUSTOMER SUPPORT ANALYST 112 [place] [facility] 160 [place] [address] Nurse Practitioner Behavioral Health 07/19/22 Rosy Rodriguez, VANDANA [address] [facility] [place] [address] Registered Nurse Family Medicine 12/24/22 Myesha Bell, JESSIE [address] [place] [address] Investment Recovery Technician Family Medicine 04/15/23 06/15/24 documented as of this encounter
--- OUTSIDE RECORDS SUMMARY | 2024-09-10 14:47 | XMS_ITS | Encounter Summary ---
Author Organization [facility] Address [address] [place] [address] Care Team Providers Care Brand Strategist Name Role Phone Delilah Jackson MD Primary Care Provider [phone] Justina Maddox VISUALIZER-COMPUTING SERVICES DIRECTOR Unavailable Rosy Rodriguez RN Unavailable [phone] Myesha Bell ACCOUNTING SUPERVISOR Unavailable [phone] Encounter Details Date Type Department Care Team (Late st Contact Info) Description 12/17/2023 Abstract [facility] [place] [facility] 112 [facility] 160 [place] [address] Justina Maddox, VISUALIZER-COMPUTING SERVICES DIRECTOR 112 [facility] 160 [place] [address] Social History Tobacco Use Types Packs/Day Years [...] on file documented as of this encounter Functional Status * Over the past 2 weeks, how often have you been bothered by any of the following problems? Question Answer Date of Assessment Author Little interest or pleasure in doing things More than half the days 12/17/2023 2:18 PM Karla Jorgensen Feeling down, depressed, or hopeless More than half the days 12/17/2023 2:18 PM Karla Jorgensen Patient Health Questionnaire-2 Score 4 12/17/2023 2:18 PM Karla Jorgensen * Question Answer Date of Assessment Author Trouble falling or staying asleep, or sleeping too much Nearly every day 12/17/2023 2:18 PM Karla Jorgensen Feeling tired or having little energy Nearly every day 12/17/2023 2:18 PM Karla Jorgensen Poor appetite or overeating More than half the days 12/17/2023 2:18 PM Karla Jorgensen Feeling bad about yourself - or that you are a failure or have let yourself or your family down Not at all 12/17/2023 2:18 PM Karla Jorgensen Trouble concentrating on things, such as reading the newspaper or watching television Several days 12/17/2023 2:18 PM Karla Jorgensen Moving or speaking so slowly that other people could have noticed? Or the opposite - being so fidgety or restless that you have been moving around a lot more than usual. Not at all 12/17/2023 2:18 PM Karla Jorgensen Thoughts that you would be better off or hurting yourself in some way Not at all 12/17/2023 2:18 PM EST Karla Lizarraga Patient Health Questionnaire-9 Score 13 12/17/2023 2:18 PM EST ElhamChelseaKarla * If you checked off any problems on this questionnaire so far, Question Answer Date of Assessment Author How difficult have these problems made it for you to do your work, take care of things at home, or get along with other people? Somewhat difficult 12/17/2023 2:18 PM EST ElhamKarla documented as of this encounter Plan of Treatment Upcoming Encounters Date Type Department Care Team (Late st Contact Info) Description 10/05/2024 1:40 PM EDT Office Visit [facility] [address] [facility] 310 [place] [address] Josef Horan MD 5388 [facility] [address] [id number] 10/19/2024 3:30 PM EDT Office Visit [facility] 112 [facility] 160 [place] [address] Justina Maddox, VISUALIZER-COMPUTING SERVICES DIRECTOR 112 [facility] 160 [place] [address] documented as of this encounter Visit Diagnoses Not on filedocumented in this encounter Additional Health Concerns Assessment Noted Time PHQ-9 Depression Total Score: 13 024 2:18 PM EST documented as of this encounter Care Teams Brand Strategist Relationship Specialty Start Date End Date Delilah Jackson MD [address] [place] [address] PCP - General Family Medicine 07/19/22 Justina Maddox, VISUALIZER-COMPUTING SERVICES DIRECTOR [address] [facility] 160 [place] [address] Nurse Practitioner Behavioral Health 07/19/22 Rosy Rodriguez, RN [address] [place] [address] Registered Nurse Family Medicine 12/24/22 Myesha Bell LSW 1479 [facility] [place] [address] Commissioned Sales Associate Family Medicine 04/15/23 06/15/24 documented as of this encounter
--- OUTSIDE RECORDS SUMMARY | 2024-09-10 14:47 | XMS_ITS | Encounter Summary ---
Author Organization [facility] Address [address] [place] [address] Care Team Providers Care Community Living Specialist Name Role Phone Delilah Jackson MD Primary Care Provider [phone] Justina Maddox SUPERVISOR RESEARCH KENNEL-WELDING MANAGER Unavailable Rosy Rodriguez RN Unavailable [phone] Myesha Bell PLANT CULTURE MANAGER Unavailable [phone] Encounter Details Date Type Department Care Team (Late st Contact Info) Description 10/30/2022 Abstract [facility] [place] [facility] [address] [place] [address] Tiny Ho MD 112 [facility] 110 [place], [place] [address] Social History Tobacco Use Types Packs/Day Years [...] Visit [facility] [address] [facility] 310 [place] [address] Josef Horan MD 5375 [facility] [address] [id number] 10/19/2024 3:30 PM EDT Office Visit [facility] 112 [facility] 160 [place] [address] Justina Maddox, SUPERVISOR RESEARCH KENNEL-WELDING MANAGER 112 [facility] 160 [place] [address] documented as of this encounter Visit Diagnoses Not on filedocumented in this encounter Care Teams Community Living Specialist Relationship Specialty Start Date End Date Delilah Jackson MD 1479 [place] [address] PCP - General Family Medicine 07/19/22 Justina Maddox, SUPERVISOR RESEARCH KENNEL-WELDING MANAGER 112 [facility] 160 [place] [address] Nurse Practitioner Behavioral Health 07/19/22 Rosy Rodriguez, VANDANA [address] [place] [address] Registered Nurse Family Medicine 12/24/22 Myesha Bell LSW [address] [place] [address] Teenage Program Director Family Medicine 04/15/23 06/15/24 documented as of this encounter
--- OUTSIDE RECORDS SUMMARY | 2024-09-10 14:47 | XMS_ITS | Encounter Summary ---
Author Organization [facility] Address [address] [place] [address] Care Team Providers Care Infrastructure Director Name Role Phone Delilah Jackson MD Primary Care Provider [phone] Justina Maddox GRAIN ELEVATOR CLERK-SUPERVISOR ASSEMBLY DEPARTMENT Unavailable Rosy Rodriguez RN Unavailable [phone] Myesha Bell BALLAST INSPECTOR Unavailable [phone] Reason for Visit * Reason Comments Med Refill Encounter Details Date Type Department Care Team (Late st Contact Info) Description 11/23/2022 Refill [facility] [place] [facility] 112 [facility] 160 [place] [address] Justina Maddox, GRAIN ELEVATOR CLERK-SUPERVISOR ASSEMBLY DEPARTMENT 112 [facility] 160 [place] [address] Bipolar II disorder (HCC) Social History Tobacco [...] Visit [facility] [address] [facility] 310 [place] [address] Josef Horan MD [address] [id number] 10/19/2024 3:30 PM EDT Office Visit [facility] 112 [facility] 160 [place] [address] Justina Maddox GRAIN ELEVATOR CLERK-SUPERVISOR ASSEMBLY DEPARTMENT 112 [facility] 160 [place] [address] documented as of this encounter Visit Diagnoses Diagnosis Bipolar II disorder (HCC) Other bipolar disorders documented in this encounter Care Teams Infrastructure Director Relationship Specialty Start Date End Date Delilah Jackson MD 1479 [facility] [place] [address] PCP - General Family Medicine 07/19/22 Justina Maddox GRAIN ELEVATOR CLERK-SUPERVISOR ASSEMBLY DEPARTMENT 112 [facility] 160 [place] [address] Nurse Practitioner Behavioral Health 07/19/22 Rosy Rodirguez, VANDANA 1479 [facility] [place] [address] Registered Nurse Family Medicine 12/24/22 Myesha Bell, BALLAST INSPECTOR [address] [place] [address] Boat Dock Operator Family Medicine 04/15/23 06/15/24 documented as of this encounter
--- OUTSIDE RECORDS SUMMARY | 2024-09-10 14:47 | XMS_ITS | Encounter Summary ---
Author Organization [facility] Address [address] [place] [address] Care Team Providers Care Photo Retoucher Name Role Phone Delilah Jackson MD Primary Care Provider [phone] Justina Maddox OIL FIELD LABORER-BUTTER FAT TESTER Unavailable Rosy Rodriguez RN Unavailable [phone] Myesha Bell FURNITURE PACKER Unavailable [phone] Encounter Details Date Type Department Care Team (Late st Contact Info) Description 09/19/2022 Abstract [facility] 4[address] [place] [address] Tran Manzo MD 5[address] [place] [address] Social History Tobacco Use [...] Visit [facility] [address] [facility] 310 [place] [address] Josef Horan MD 5311 [facility] [address] [id number] 10/19/2024 3:30 PM EDT Office Visit [facility] 112 [facility] 160 [place] [address] Justina Maddox, OIL FIELD LABORER-BUTTER FAT TESTER 112 [facility] 160 [place] [address] documented as of this encounter Visit Diagnoses Not on filedocumented in this encounter Care Teams Photo Retoucher Relationship Specialty Start Date End Date Delilah Jackson MD 1479 [place] [address] PCP - General Family Medicine 07/19/22 Justina Maddox, OIL FIELD LABORER-BUTTER FAT TESTER 112 [facility] 160 [place] [address] Nurse Practitioner Behavioral Health 07/19/22 Rosy Rodriguez, RN [address] [place] [address] Registered Nurse Family Medicine 12/24/22 Myesha Bell LSW [address] [place] [address] Multiple Effect Evaporator Operator Family Medicine 04/15/23 06/15/24 documented as of this encounter
--- OUTSIDE RECORDS SUMMARY | 2024-09-10 14:47 | XMS_ITS | Patient Health Record ---
Author Organization [facility] [place] Address [address] [place] [address] Care Team Providers Care Assembler Handbags Name Role Phone None, Unknown or Primary Care Provider Unavailab Troy Tabares Unavailable [phone] Anel Nelson Unavailable [phone] Allergies No Known Allergies Reason For Referral No Information Medications Medication SIG (Take, Route, Frequency, Duration) Notes Start Date End Date Status oxyCODONE HCl 10 MG Oral for 30 Days Active buPROPion HCl ER (XL) 150 MG Oral for 90 Days Active lamoTRIgine 150 MG Oral for 90 Days Active Sertraline HCl 100 MG Oral for 90 Days Active Omeprazole 40 MG Oral for 90 Days Active amLODIPine Besylate 5 MG Oral for 90 Days Active Levothyroxine Sodium 200 MCG Oral for 90 Days Active Atorvastatin Calcium 10 MG Oral for 90 Days Active Famotidine 20 MG Oral for 90 Days Active Klor-Con M20 20 MEQ Oral for 90 Days Active Aspirin Low Dose 81 MG CHEW AND [...] 100 MG Oral for 90 Days Active Furosemide 40 MG Oral for 90 Days Active Ferrous Sulfate 325 (65 Fe) MG TAKE 1 TABLET BY MOUTH EVERY DAY WITH BREAKFAST Oral for 30 Days Active Social History Tobacco Use: Social History Observation Description Date Details (start date - stop date) Never Smoker NA - NA Tobacco Control (Standard) Question Answer Notes Tobacco use: Nonsmoker Problems Problem Type SNOMED Code ICD Code Onset Dates Problem Status W/U Status Risk Notes Problem 1168201215 Hallux valgus (acquired), left foot (M20.12) Active confirmed Problem 779959570 Other hammer toe(s) (acquired), left foot (M20.42) Active confirmed Problem Ulcer of left foot (disorder) (479822475) 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) Active confirmed Vital Signs Heart Rate 87 /min 10/31/2023 Temperature 97.5 degrees Fahrenheit 10/31/2023 Oximetry 99 % 10/31/2023 Height 65 in 10/31/2023 Weight 157 lbs 10/31/2023 BMI 26.12 kg/m2 10/31/2023 Encounters Encounter Location Date Provider Diagnosis [facility] (PODIATRY) [address] [place] [address] [place] [address] 10/31/2023 Anel Hillen Hallux valgus (acquired), left foot M20.12 and Other hammer toe(s) (acquired), left foot M20.42 [facility] (PODIATRY) [address] [place] [address] [place] [address] 03/26/2024 Anel Hillen Other hammer toe(s) (acquired), left foot M20.42 [...] toe(s) (acquired), left foot (ICD-10 - M20.42) 03/26/2024 Other hammer toe(s) (acquired), left foot (ICD-10 - M20.42) Plan Of Treatment No Information Insurance Providers Payer Name Payer Address Payer Phone Subscriber Number Group Number Insured Name Patient Relationship to Insured Coverage Start Date Coverage End Date [employer] MEDICARE ADV PLAN [address] [address] [place] [address] [id number] Devika Ellis Self - patient is the insured Medical (General) History Medical History History ICD Code arthritis nail dystrophy bilateral lower leg pain hammertoes, bilateral liver disease left posterior tibial tendinitis Surgical History Surgery Date(Month/Year) TAVR - heart procedure
--- OUTSIDE RECORDS SUMMARY | 2024-09-10 14:47 | XMS_ITS | Clinical Summary ---
Author Organization [facility] Address [address] [facility], [address] [place] [address] Care Team Providers Care Toy Stuffer Name Role Phone ZhuSally chaudhry EXCHANGE OPERATOR - INSURANCE AUDITOR Primary Care P rovider Allergies No known active allergies Medications levothyroxine (SYNTHROID) 150 MCG tablet Take 175 mcg by mouth Daily Active furosemide (LASIX) 40 MG tablet Take 40 mg by mouth 2 times daily. Active citalopram (CELEXA) 20 MG tablet Take 40 mg by mouth daily. Active topiramate (TOPAMAX) 100 MG tablet Take 100 mg by mouth 2 times daily. Active naproxen (NAPROSYN) 500 MG tablet Take 500 mg by mouth 2 times daily (with meals). Active diphenhydrAMINE (BENADRYL) 25 MG tablet Take 25 mg by mouth as needed. Active fluticasone (VERAMYST) 27.5 MCG/SPRAY nasal spray 1 spray by Nasal route daily. Active morphine (DALILA) 30 MG extended release capsule Take 30 mg by mouth 2 times daily. Active oxyCODONE (ROXICODONE) 5 MG immediate release tablet Take 10 mg by mouth 3 times daily as needed for Pain. Active potassium chloride (KLOR-CON 10) 10 MEQ extended release tablet Take 10 mEq by mouth daily Active lamoTRIgine (LAMICTAL) 100 MG tablet Take 100 mg by mouth daily Active clobetasol (TEMOVATE) 0.05 % ointment Apply topically 2 times daily as needed Apply topically 2 times daily. Active Active Problems Problem Noted Date Diagnosed Date Mild depression 08/01/2012 Resolved Problems Problem Noted Date Diagnosed Date Resolved Date Combined forms of age-relate d cataract of left eye 11/16/2018 11/17/2018 Combined forms of age-relate d cataract of right eye 11/02/2018 11/03/2018 Social History Tobacco Use Types Packs/Day Years Used Date Smoking Tobacco: Former Cigars Q uit: 2016 Smokeless Tobacco: Never Alcohol Use Standard Drinks/Week Comments Yes 0 (1 standard drink = 0.6 oz pur e alcohol) occasionally Comments Unknown Sex and Gender Information Value Date Recorded Sex Assigned at Not on file Legal Sex Female 8:56 AM EST Gender Identity Not on file Sexual Orientation Not on file Last Filed Vital Signs Vital Sign Reading Time Taken Comments Blood Pressure 116/67 11/17/2018 10:51 AM EDT Pulse 70 11/17/2018 10:51 AM EDT Temperature 36.4 C (97.6 F) 11/17/2018 10:36 AM EDT Respiratory Rate 16 11/17/2018 10:51 AM EDT Oxygen Saturation 98% 11/17/2018 10:51 AM EDT Inhaled Oxygen Concentration - - Weight 67.1 kg (148 lb) 11/17/2018 9:27 AM EDT Height 166.4 cm (5' 5.5 ) 11/17/2018 9:27 AM EDT Body Mass Index 24.25 11/17/2018 9:27 AM EDT Plan of Treatment Not on file Medical Devices Implanted Type Area Tetryl Boiling Tub Operator Device Identifier Shelf Expiration Date Model / Serial / Lot Lens Iol Envista Mx60 23.5d - [id number] Implanted:Qty: 1 on 11/03/2018 by Shaan Mensah MD at [facility] Eye Right: Eye [employer]CH [employer] LOMB-PMM 05/11/2021 MX60 23.5D / [id number] / Lens Iol Envista Mx60 23.0d - [id number] Implanted:Qty: 1 on 11/17/2018 by Shaan Mensah MD at [facility] Eye Left: Eye BA[employer]CH [employer] LOMB-PMM 06/10/2021 MX60 23.0D / [id number] / Insurance [facility] MEDICARE Advance Directives * Full Code (Latest Code Status on File) Date Activated Date Inactivated Comments 11/17/2018 10:41 AM 11/17/2018 1:07 PM * Full Code Date Activated Date Inactivated Comments 11/17/2018 9:26 AM 11/17/2018 10:41 AM * Full Code Date Activated Date Inactivated Comments 11/03/2018 10:50 AM 11/03/2018 1:24 PM * Full Code Date Activated Date Inactivated Comments 11/03/2018 9:33 AM 11/03/2018 10:45 AM Care Teams Toy Stuffer Relationship Specialty Start Date End Date Sally Zhu APRN - INSURANCE AUDITOR [address] [place] [address] PCP - General Nurse Practitioner, Family 10/28/18
--- OUTSIDE RECORDS SUMMARY | 2024-09-10 14:47 | XMS_ITS | Encounter Summary ---
Author Organization [facility] Address [address] [place] [address] Care Team Providers Care Acid Treater Name Role Phone Delilah Jackson MD Primary Care Provider [phone] Justina Maddox RESEARCH ANIMAL FACILITY SUPERVISOR-COMMERCIAL COUNSEL Unavailable Rosy Rodriguez RN Unavailable [phone] Reason for Visit * Reason Comments Med Change Request Encounter Details Date Type Department Care Team ([facility] Contact Info) Description 09/08/2024 Refill [facility] [address] [place] [address] Sally Zhu [place] [address] [place], [place] [id number] Obesity (BMI 30.0-34.9) Social History Tobacco Use [...] Visit [facility] [address] [place] [address] Josef Horan MD 5335 [facility] [address] [id number] 10/19/2024 3:30 PM EDT Office Visit [facility] 112 [facility] 160 [place] [address] Justina Maddox RESEARCH ANIMAL FACILITY SUPERVISOR-COMMERCIAL COUNSEL 112 [facility] 160 [place] [address] documented as of this encounter Visit Diagnoses Diagnosis Obesity (BMI 30.0-34.9) documented in this encounter Additional Health Concerns Assessment Noted Time PHQ-9 Depression Total Score: 10 025 1:04 PM EDT documented as of this encounter Care Teams Acid Treater Relationship Specialty Start Date End Date Delilah Jackson MD [address] [place] [address] PCP - General Family Medicine 07/19/22 Justina Maddox, RESEARCH ANIMAL FACILITY SUPERVISOR-COMMERCIAL COUNSEL 112 [facility] 160 [place] [address] Nurse Practitioner Behavioral Health 07/19/22 Rosy Rodriguez, RN [address] [place] [address] Registered Nurse Family Medicine 12/24/22 documented as of this encounter
--- OUTSIDE RECORDS SUMMARY | 2024-09-10 14:47 | XMS_ITS | Encounter Summary ---
Author Organization [facility] Address [address] [place] [address] Care Team Providers Care Mechanic Welder Name Role Phone Delilah Jackson MD Primary Care Provider [phone] Justina Maddox RUBBER PRODUCTION MACHINE OPERATOR-PERSONNEL GENERALIST MANAGER Unavailable Rosy Rodriguez RN Unavailable [phone] Encounter Details Date Type Department Care Team (Late st Contact Info) Description 09/07/2024 Bamboo flowsheet [facility] [address] [facility] [address] [place] [address] Justina Maddox, RUBBER PRODUCTION MACHINE OPERATOR-PERSONNEL GENERALIST MANAGER [address] [facility] 160 [place] [address] Social History Tobacco Use Types Packs/Day Years [...] [facility] [address] [facility] [address] [place] [address] Josef Horan MD 5390 [facility] [address] [id number] 10/19/2024 3:30 PM EDT Office Visit [facility] 112 [facility] 160 [place] [address] Justina Maddox, RUBBER PRODUCTION MACHINE OPERATOR-PERSONNEL GENERALIST MANAGER 112 [place] [facility] 160 [place] [address] documented as of this encounter Visit Diagnoses Not on filedocumented in this encounter Additional Health Concerns Assessment Noted Time PHQ-9 Depression Total Score: 10 025 1:04 PM EDT documented as of this encounter Care Teams Mechanic Welder Relationship Specialty Start Date End Date Delilah Jackson MD [address] [place] [address] PCP - General Family Medicine 07/19/22 Justina Maddox, RUBBER PRODUCTION MACHINE OPERATOR-PERSONNEL GENERALIST MANAGER [address] [facility] 160 [place] [address] Nurse Practitioner Behavioral Health 07/19/22 Rosy Rodriguez, RN [address] [place] [address] Registered Nurse Family Medicine 12/24/22 documented as of this encounter
--- OUTSIDE RECORDS SUMMARY | 2024-09-10 14:47 | XMS_ITS | Encounter Summary ---
Author Organization [facility] Address [address] [place] [address] Care Team Providers Care Clinical Radiologist Name Role Phone Delilah Jackson MD Primary Care Provider [phone] Justina Maddox BEAUTY SCHOOL INSTRUCTOR-GRANULATOR Unavailable Rosy Rodriguez RN Unavailable [phone] Myesha Bell CLAIMS COUNSEL Unavailable [phone] Reason for Visit * Reason Comments Med Refill Encounter Details Date Type Department Care Team (Late st Contact Info) Description 06/30/2023 Refill [facility] 112 [facility] 160 [place] [address] Justina Maddox, BEAUTY SCHOOL INSTRUCTOR-GRANULATOR 112 [facility] 160 [place] [address] Bipolar II disorder (HCC) Social History Tobacco [...] Visit [facility] [address] [facility] 310 [place] [address] Josef Horan MD 0668 [facility] [address] [id number] 10/19/2024 3:30 PM EDT Office Visit [facility] 112 [facility] 160 [place] [address] Justina Maddox BEAUTY SCHOOL INSTRUCTOR-GRANULATOR 112 [facility] 160 [place] [address] documented as of this encounter Visit Diagnoses Diagnosis Bipolar II disorder (HCC) Other bipolar disorders documented in this encounter Additional Health Concerns Assessment Noted Time PHQ-9 Depression Total Score: 4 03/14/19 24 3:00 PM EST documented as of this encounter Care Teams Clinical Radiologist Relationship Specialty Start Date End Date Delilah Jackson MD [address] [place] [address] PCP - General Family Medicine 07/19/22 Justina Maddox BEAUTY SCHOOL INSTRUCTOR-GRANULATOR 112 [facility] 160 [place] [address] Nurse Practitioner Behavioral Health 07/19/22 Rosy Rodriguez, RN 14[address] [facility] [place], [place] [id number] Registered Nurse Family Medicine 12/24/22 Myesha Bell LSW [address] [place] [address] Power System Electrical Engineer Family Medicine 04/15/23 06/15/24 documented as of this encounter
--- OUTSIDE RECORDS SUMMARY | 2024-09-10 14:47 | XMS_ITS | Encounter Summary ---
Author Organization [facility] Address [address] [place] [address] Care Team Providers Care Boat Hoist Operator Helper Name Role Phone Delilah Jackson MD Primary Care Provider [phone] Justina Maddox PART TIME FLEXIBLE CLERK-PYTHON CONSULTANT Unavailable Rosy Rodriguez RN Unavailable [phone] Reason for Visit * Reason Comments Med Refill Encounter Details Date Type Department Care Team (Late st Contact Info) Description 09/07/2024 Refill [facility] 112 [facility] 160 [place] [address] Justina Maddox, [facility]-PYTHON CONSULTANT 112 [facility] 160 [place] [address] Bipolar II disorder (HCC); Generalized anxiety disorder [...] Visit [facility] [address] [facility] 310 [place] [address] Josef Horan MD [address] [id number] 10/19/2024 3:30 PM EDT Office Visit [facility] 112 [facility] 160 [place] [address] Justina Maddox PART TIME FLEXIBLE CLERK-PYTHON CONSULTANT 112 [facility] 160 [place] [address] documented as of this encounter Visit Diagnoses Diagnosis Bipolar II disorder (HCC) Other bipolar disorders Generalized anxiety disorder Generalized anxiety disorder documented in this encounter Additional Health Concerns Assessment Noted Time PHQ-9 Depression Total Score: 10 025 1:04 PM EDT documented as of this encounter Care Teams Boat Hoist Operator Helper Relationship Specialty Start Date End Date Delilah Jackson MD [address] [place] [address] PCP - General Family Medicine 07/19/22 Justina Maddox, PART TIME FLEXIBLE CLERK-PYTHON CONSULTANT 112 [facility] 160 [place] [address] Nurse Practitioner Behavioral Health 07/19/22 Rosy Rodriguez, RN [address] [place] [address] Registered Nurse Family Medicine 12/24/22 documented as of this encounter
--- OUTSIDE RECORDS SUMMARY | 2024-09-10 14:47 | XMS_ITS | Encounter Summary ---
Author Organization [facility] Address [address] [place] [address] Care Team Providers Care Hand Therapist Name Role Phone Delilah Jackson MD Primary Care Provider [phone] Justina Maddox NEWS AGENT-PLATE CORRECTOR Unavailable Rosy Rodriguez RN Unavailable [phone] Myesha Bell FIRE PROTECTION ENGINEER Unavailable [phone] Encounter Details Date Type Department Care Team (Late st Contact Info) Description 07/01/2023 Abstract [facility] [address] [place] [address] Myesha Bell, FIRE PROTECTION ENGINEER [address] [place] [address] Social History Tobacco Use Types Packs/Day Years [...] [facility] [address] [facility] [address] [place] [address] Josef Horan MD 5323 [facility] [address] [id number] 10/19/2024 3:30 PM EDT Office Visit [facility] 112 [facility] 160 [place] [address] Justina Maddox, NEWS AGENT-PLATE CORRECTOR 112 [facility] 160 [place] [address] documented as of this encounter Visit Diagnoses Not on filedocumented in this encounter Additional Health Concerns Assessment Noted Time PHQ-9 Depression Total Score: 4 03/14/19 24 3:00 PM EST documented as of this encounter Care Teams Hand Therapist Relationship Specialty Start Date End Date Delilah Jackson MD [address] [place] [address] PCP - General Family Medicine 07/19/22 Justina Maddox, NEWS AGENT-PLATE CORRECTOR 112 [facility] 160 [place] [address] Nurse Practitioner Behavioral Health 07/19/22 Rosy Rodriguez, RN [address] [place] [address] Registered Nurse Family Medicine 12/24/22 Myesha Bell LSW [address] [place] [address] Vb Net Programmer Family Medicine 04/15/23 06/15/24 documented as of this encounter
--- OUTSIDE RECORDS SUMMARY | 2024-09-10 14:47 | XMS_ITS | Encounter Summary ---
Author Organization [facility] Address [id number] [address] [place] [address] Care Team Providers Care Laborer Drying Department Name Role Phone Tran Manzo MD Primary Care Provider [phone] Encounter Details Date Type Department Care Team (Late st Contact Info) Description 11/01/2022 Telephone [facility] [address] [place] [address] Yamel Prajapati, PAMarciaC [address] [place] [address] Social History Tobacco Use Types Packs/Day Years Used Date Smoking Tobacco: Former Smokeless Tobacco: Never Alcohol Use Standard Drinks/Week Comments Yes 0 (1 standard drink = 0.6 oz pur e alcohol) rare Social Connection and Isolat ion Panel [NHANES] Answer Date Recorded In a typical week, how many times do you talk on the phone with family, friends, or neighbors? More than three times a week 04/20/2020 How often do you get togethe r with friends or relatives? More than three times a week 04/20/2020 How often do you attend chur ch or yazdanism services? Never 04/20/2020 Do you belong to any clubs o r organizations such as adventism groups, unions, fraternal or athletic groups, or school groups? No 04/20/2020 How often do you attend meet ings of the clubs or organizations you belong to? Never 04/20/2020 Are you , , di vorced, , never , or living with a partner? Never 04/20/2020 AUDIT-C Answer Date Recorded Q1: How often do you have a drink containing alc ohol? Monthly or less 09/19/2022 Q2: How many drinks containi ng alcohol do you have on a typical day when you are drinking? 1 or 2 09/19/2022 Q3: How often do you have si x or more drinks on one occasion? Never 09/19/2022 Overall Financial Resource Strain (CARDIA) Answe r Date Recorded How hard is it for you to pa y for the very basics like food, housing, medical care, and heating? Not hard at all 04/20/2020 PHQ-2 Answer Date Recorded Total Score 0 09/19/2022 [facility] Occupat ional Health - Occupational Stress Questionnaire Answer Date Recorded Do you feel stress - tense, restless, nervous, or anxious, or unable to sleep at night because your mind is troubled all the time - these days? To some extent 04/20/2020 Exercise Vital Sign Answer Date Recorde d On average, how many days pe r week do you engage in moderate to strenuous exercise (like a brisk walk)? 5 days 04/20/2020 On average, how many minutes do you engage in exercise at this level? 60 min 04/20/2020 PRAPARE - Transportation Answer Date Re corded In the past 12 months, has l ack of transportation kept you from medical appointments or from getting medications? Patient declined 04/20/2020 In the past 12 months, has l ack of transportation kept you from meetings, work, or from getting things needed for daily living? Patient declined 04/20/2020 Housing Instability Answer Date Recorde d Are you worried or concerned that in the next two months you may not have stable housing that you own, rent or stay in as a part of a household? No 09/24/2022 Childcare Answer Date Recorded Do problems getting child ca re make it difficult for you to work or study? No 04/20/2020 Employment Answer Date Recorded Do you need help finding a l al career center and/or a training program? No 04/20/2020 Hunger Screening Answer Date Recorded Within the past 12 months we worried whether our food would run out before we got money to buy more. Never True 10/22/2022 Within the past 12 months th e food we bought just didn't last and we didn't have money to get more. Never True 10/22/2022 Purpose - Life Answer Date Recorded I have a purpose and direction in my life. Bradyn gly Agree 04/20/2020 Comments No Sex and Gender Information Value Date Recorded Sex Assigned at Not on file Legal Sex Female 11:28 AM EDT Gender Identity Not on file Sexual Orientation Not on file documented as of this encounter Miscellaneous Notes * Telephone Encounter - Yamel Prajapati PA-C - 11/01/2022 1:51 PM EDT Images from the original note were not included. Spoke with patient regarding recent radiographs. She is 6 weeks out from operative stabilization ofher right medial condyle fracture. She is tolerating transfers with therapy. We discussed that it will be another 6 weeks however before we can advance her to full weight-bearing. She states that insurance is giving her some pushback. Unfortunately she lives at home by herself. I informed her that I will further discuss her case with Dr. Giles as she has formed a significant healing response on her x-rays. Potentially, we could progress her weight-bearing 50 lb per week however again I will haveto have him confirm this as typically the nonweightbearing course is 12 weeks. YAMEL PRAJAPATI PA-C documented in this encounter Plan of Treatment Upcoming Encounters Date Type Department Care Team (Late st Contact Info) Description 09/30/2024 1:45 PM EDT Office Visit [facility] [address] [place] [address] Gretta Rdyer MD [address] [place] [address] documented as of this encounter Goals Goal Patient Goal Type Associated Problems Recent Progress Patient-Stated? Author <enter goal here> General Yes Amaya Menard, VANDANA Note: Evaluation of progress towards goal: patient plans for a safe discharge to a snf facility on discharge. documented as of this encounter Visit Diagnoses Not on filedocumented in this encounter Additional Health Concerns Assessment Noted Time PHQ-9 Depression Total Score: 0 09/20/19 11:04 AM EDT documented as of this encounter Care Teams Laborer Drying Department Relationship Specialty Start Date End Date Tran Manzo MD PCP - General Family Medicine 09/18/22 documented as of this encounter
--- OUTSIDE RECORDS SUMMARY | 2024-09-10 14:47 | XMS_ITS ---
Author Organization [facility] Address [address] [place] [address] Care Team Providers Care Transfer Knitter Name Role Phone Delilah Jackson MD Primary Care Provider [phone] Justina Maddox APRN-PIG CASTING MACHINE OPERATOR Unavailable Rosy Rodriguez RN Unavailable [phone] Chronic Care Management (CCM) Status:Enrolled (Active) Start date:12/17/2022 Enrollment date:12/24/2022 Overview Addresses patients in need of care management services. 12/24/22, 1:58 PM - Rosy Rodriguez RN- Patient gives verbal consent to be enrolled in CCM Program and understands there could be a bill for this service. Case Team Name Relationship Phone Rosy Rodriguez RN(Responsible Staff) Registered Nurse [phone] Continued Care and Services Coordination
--- OUTSIDE RECORDS SUMMARY | 2024-09-10 14:47 | XMS_ITS | Clinical Summary ---
Author Organization [facility] Address [address] [place] [address] Care Team Providers Care Meter Tester Name Role Phone Delilah Jackson MD Primary Care Provider [phone] Justina Maddox INSPECTOR AND CLERK-SPRAY MACHINE OPERATOR Unavailable Rosy Rodriguez RN Unavailable [phone] Allergies Active Allergy Reactions Criticality Noted Date Comments Octacosanol 07/24/2022 Medications hydrOXYzine pamoate (Vistaril) 25 MG capsule Take 25 mg by mouth every 8 (eight) hours if needed for anxiety (1-2 cap) Active Calcium Carbonate-Vitami n D (Oyster Shell Calcium/D) 500-5 MG-MCG tablet Take 1 tablet by mouth Daily OTC Active spironolactone (Aldactone) 25 MG tablet Take 25 mg by mouth in the morning. Active cholecalciferol (Vitamin D-3) 25 MCG (1000 UT) tablet Take 1,000 Units by mouth in the morning. Active furosemide (Lasix) 40 MG tabletIndication s:Essential hypertension TAKE 1 TABLET TWICE DAILY 180 tablet 3 Active amLODIPine (Norvasc) 5 MG tabletIndication s:Essential hypertension TAKE 1 TABLET BY MOUTH EVERY DAY IN THE MORNING 90 tablet [address] 500 MG tablet delayed-release Take 1 tablet by mouth as needed in the morning and 1 tablet as needed in the evening. 024 Active KLOR-CON 20 MEQ ER tabletIndication s:Hypokalemia TAKE 1 TABLET BY MOUTH DAILY 90 tablet 1 025 Active traZODone (Desyrel) 100 MG tabletIndication s:Insomnia, uncontrolled Take 3 tablets (300 mg) by mouth as needed at bedtime for sleep 90 tablet 2 025 Active montelukast (Singulair) 10 MG tabletIndication s:Seasonal allergies Take 1 tablet (10 mg) by mouth at bedtime 30 tablet 11 025 2025 Active famotidine (Pepcid) 20 MG tabletIndication s:Dyspepsia TAKE 1 TABLET BY MOUTH EVERY DAY 90 tablet 025 Active ferrous sulfate 325 (65 Fe) MG tabletIndication s:Iron deficiency anemia, unspecified iron deficiency anemia type TAKE 1 TABLET BY MOUTH EVERY DAY IN THE MORNING WITH MEALS 90 tablet 1 025 Active pregabalin (Lyrica) 50 MG capsuleIndicatio ns:Neuropathy Take 1 capsule (50 mg) by mouth in the morning and 1 capsule (50 mg) in the evening and 1 capsule (50 mg) before bedtime. 90 capsule 2 025 2024 Active magnesium oxide (Mag-Ox) 400 mg tabletIndication s:Neuropathy Take 1 tablet (400 mg) by mouth Daily 30 tablet 2 025 Active omeprazole (PriLOSEC) [address] capsuleIndicatio ns:Gastroesophag eal reflux disease without esophagitis Take 1 capsule (40 mg) by mouth in the morning. 90 capsule 1 025 Active levothyroxine (Synthroid, Levoxyl) 200 MCG tabletIndication s:Acquired hypothyroidism TAKE 1 TABLET BY MOUTH IN THE MORNING. TAKE BEFORE MEALS. 90 tablet 025 Active buPROPion XL (Wellbutrin XL) 150 MG 24 hr tabletIndication s:Bipolar II disorder (HCC) Take 1 tablet (150 mg) by mouth in the morning. 90 tablet 025 Active lamoTRIgine (LaMICtal) 150 MG tabletIndication s:Bipolar II disorder (HCC) Take 1 tablet (150 mg) by mouth Daily 30 tablet 2 025 08/27/ 2025 Active sertraline (Zoloft) 100 MG tabletIndication s:Bipolar II disorder (HCC),Generalize d anxiety disorder Take 1.5 tablets (150 mg) by mouth Daily 135 tablet 025 2024 Active atorvastatin (Lipitor) 10 MG tabletIndication s:Mixed hyperlipidemia TAKE 1 TABLET (10 MG) BY MOUTH DAILY. 90 tablet 1 Active Semaglutide-Weig ht Management (Wegovy) 0.25 MG/0.5ML solution auto-injectorInd ications:Essenti al hypertension,Obe sity (BMI 30.0-34.9),Mixed hyperlipidemia Inject 0.25 mg under the skin 1 (one) time per week 2 mL 1 Active atorvastatin (Lipitor) 10 MG tabletIndication s:Mixed hyperlipidemia TAKE 1 TABLET (10 MG) BY MOUTH DAILY. 90 tablet 1 025 2024 Discontinued levothyroxine (Synthroid, Levoxyl) 200 MCG tabletIndication s:Acquired hypothyroidism TAKE 1 TABLET BY MOUTH IN THE MORNING. TAKE BEFORE MEALS. 90 tablet 025 2024 Discontinued lamoTRIgine (LaMICtal) 150 MG tabletIndication s:Bipolar II disorder (HCC) Take 1 tablet (150 mg) by mouth Daily 30 tablet 2 025 2024 Discontinued(R eorder) buPROPion XL (Wellbutrin XL) 150 MG 24 hr tabletIndication s:Bipolar II disorder (HCC) Take 1 tablet (150 mg) by mouth in the morning. 90 tablet 025 2024 Discontinued(R eorder) sertraline (Zoloft) 100 MG tabletIndication s:Bipolar II disorder (HCC),Generalize d anxiety disorder Take 1.5 tablets (150 mg) by mouth Daily 135 tablet 025 2024 Discontinued(R eorder) omeprazole (PriLOSEC) [address] capsuleIndicatilidia ns:Gastroesophag eal reflux disease without esophagitis TAKE 1 CAPSULE (40 MG) BY MOUTH IN THE MORNING 90 capsule 1 025 2024 Discontinued(R eorder) Semaglutide-Weig ht Management (Wegovy) 0.25 MG/0.5ML solution auto-injectorInd ications:Obesity (BMI 30.0-34.9) Inject 0.25 mg under the skin 1 (one) time per week 2 mL 1 025 2024 Discontinued Semaglutide-Weig ht Management (Wegovy) 0.25 MG/0.5ML solution auto-injectorInd ications:Obesity (BMI 30.0-34.9) INJECT 0.25 MG SUBCUTANEOUSLY WEEKLY 2 mL 1 025 2024 Discontinued Active Problems Problem Noted Date Diagnosed Date Traumatic incomplete tear of right rotator cuff 07/23/2024 New daily persistent headache 07/23/2024 Chronic bilateral low back pain with bilateral s ciatica 04/08/2024 Cervical radiculopathy 03/11/2024 S/p TAVR (transcatheter aort ic valve replacement), bioprosthetic 08/08/2023 Displaced fracture of medial condyle of right femur, initial encounter for closed fracture 09/19/2022 Abnormal finding on screening procedure 08/29/19 Acquired hallux valgus of left foot 08/28/2022 Acute idiopathic gout of right foot 08/28/2022 Chronic pain due to injury 08/28/2022 Cognitive disorder 08/28/2022 Heart murmur 08/28/2022 Hepatitis C virus infection 08/28/2022 History of hysterectomy 08/28/2022 Major depression 08/28/2022 Mixed hyperlipidemia 08/28/2022 Mood disorder 08/28/2022 Neuropathy 08/28/2022 Hereditary and idiopathic neuropathy, unspecifie d 08/28/2022 Obesity (BMI 30.0-34.9) 08/28/2022 Peripheral vascular disease 08/28/2022 Prurigo nodularis 08/28/2022 Shoulder joint pain 08/28/2022 Bipolar II disorder 06/20/2022 Generalized anxiety disorder 06/20/2022 Iron deficiency anemia 03/30/2022 Acquired hypothyroidism 03/20/2022 Anxiety 03/20/2022 Arthritis 03/20/2022 Asthma 03/20/2022 Overview (08/28/2022): childhood Essential hypertension 03/20/2022 Fibromyalgia, primary 03/20/2022 Infectious viral hepatitis 03/20/2022 Overview (08/28/2022): hepatitis c, received treatment Seizure 03/20/2022 Overview (08/28/2022): x2 in life, one related to opiate withdrawal Acute blood loss anemia 03/01/2022 Nonrheumatic aortic valve stenosis 09/02/2017 Resolved Problems Problem Noted Date Diagnosed Date Resolved Date Joint contracture of the ankle and foot 12/18/2022 03/17/2023 Fall 09/19/2022 03/17/2023 Menopausal disorder 08/28/2022 03/17/19 24 Other hammer toe(s) (acquired), left foot 08/28/2022 03/17/2023 Acquired hammer toe of left foot 08/28/2022 03/17/2023 Pain of left hand 08/28/2022 03/17/2023 Pain in right hand 08/28/2022 Other hammer toe(s) (acquired), right foot 08/28/2022 03/17/2023 Hypokalemia 04/20/2020 03/17/2023 Mild depression 08/01/2012 03/17/2023 Encounters Date Type Department Care Team Description 09/09/2024 Refill [facility] [address] [place] [address] Sally Zhu NP Essential hypertension ; Obesity (BMI 30.0-34.9); Mixed hyperlipidemia 09/08/2024 Refill [facility] [address] [place] [address] Sally Zhu NP Obesity (BMI 30.0-34.9) 09/08/2024 Patient Outreach [facility] [address] [place] [address] Rosy Rodriguez RN 09/07/2024 1:00 PM EDT Office Visit [facility] [address] [facility] [address] [place] [phone] Mela-Nossek, Justina M, INSPECTOR AND CLERK-SPRAY MACHINE OPERATOR Bipolar II disorder (HCC); Generalized anxiety disorder 09/07/2024 Refill [facility] [address] [place] [phone] Sally Zhu NP Obesity (BMI 30.0-34.9) 09/07/2024 Refill [facility] [address] [facility] [address] [place] [phone] Mela-Nossek, Justina M, INSPECTOR AND CLERK-SPRAY MACHINE OPERATOR Bipolar II disorder (HCC); Generalized anxiety disorder 09/07/2024 [facility] [address] [place] [phone] Isaura Walter NP Mixed hyperlipidemia 09/07/2024 Bamboo flowsheet [facility] [address] [facility] [address] [place] [phone] Mela-NosseKelsie chaudhryJustina M, INSPECTOR AND CLERK-SPRAY MACHINE OPERATOR 09/07/2024 Travel 09/02/2024 [facility] [address] [place] [phone] Sally Zhu NP Obesity (BMI 30.0-34.9) (Primary Dx) 09/02/2024 Patient Outreach [facility] [address] [place] [phone] Rosy Rodriguez, VANDANA 08/28/2024 Refill [facility] [address] [facility] [address] [place] [phone] Mela-NossekKelsieJustina M, INSPECTOR AND CLERK-SPRAY MACHINE OPERATOR Bipolar II disorder (HCC); Insomnia, uncontrolled 08/27/2024 Refill [facility] [address] [facility] [address] [place] [phone] Mela-Nossek, Justina M, INSPECTOR AND CLERK-SPRAY MACHINE OPERATOR Bipolar II disorder (HCC); Generalized anxiety disorder 08/19/2024 Results Follow-Up [facility] [address] [facility] [place] [address] Isaura Walter NP 08/19/[address] [facility] [address] [facility] [place] [phone] Odette Blue NP Acquired hypothyroidism 08/18/2024 9:30 AM EDT Ancillary Procedure [facility] [address] [facility] [address] [facility] [phone] Lump on neck; Family history of thyroid cancer 08/18/2024 Travel 08/17/[address] [facility] [address] [facility] [place] [phone] Delilah Jackson MD Gastroesophageal reflux disease without esophagitis; Hiatal hernia 08/13/2024 Patient Outreach [address] [place] [address] Rosy Rodriguez RN 08/12/[address] [facility] [address] [facility] [place] [phone] Delilah Jackson MD 08/11/2024 11:00 AM EDT Ancillary Procedure [facility] [address] [facility] [address] [place] [phone] New daily persistent headache 08/11/2024 10:15 AM EDT Ancillary Procedure [facility] [address] [facility] [address] [place] [phone] Traumatic incomplete tear of right rotator cuff, subsequent encounter 08/11/2024 9:30 AM EDT Office Visit [facility] [address] [facility] [place] [phone] Sally Zhu NP Lump on neck (Primary Dx); Family history of thyroid cancer; New daily persistent headache; Essential hypertension ; Acquired hypothyroidism 08/11/[address] [facility] [address] [facility] [place] [address] Sally Zhu NP 08/11/2024 Travel 07/23/2024 2:40 PM EDT [facility] [address] [place] [phone] Josef Horan MD New daily persistent headache (Primary Dx); Neuropathy; Traumatic incomplete tear of right rotator cuff, subsequent encounter 07/23/2024 Travel 07/23/2024 Patient Outreach [facility] [address] [place] [place] [phone] Rosy Rodriguez RN 07/22/2024 1:00 PM EDT Clinical Support [facility] [address] [place] [address] 07/22/2024 Travel 07/21/[address] [facility] [address] [place] [phone] Emily Ball MA 07/10/[address] [facility] [address] [place] [phone] Sally Zhu NP Gastroesophageal reflux disease without esophagitis 07/05/[address] [facility] [address] [place] [phone] Sally Zhu NP Dyspepsia; Iron deficiency anemia, unspecified iron deficiency anemia type 07/02/2024 1:00 PM EDT Office Visit [facility] [address] [facility] [address] [place] [phone] Justina Maddox, INSPECTOR AND CLERK-SPRAY MACHINE OPERATOR Bipolar II disorder (HCC); Generalized anxiety disorder 07/02/2024 Bamboo flowsheet [facility] [address] [facility] [address] [place] [phone] Justina Maddox INSPECTOR AND CLERK-SPRAY MACHINE OPERATOR 07/02/2024 Travel 07/01/[address] [facility] [address] [place] [address] Sally Zhu NP Seasonal allergies (Primary Dx) 06/29/2024 Patient Outreach [facility] [address] [place] [address] Rosy Rodriguez RN 06/15/2024 Patient Outreach [facility] [address] [place] [address] Myesha Bell, JESSIE 06/14/[address] [facility] [address] [place] [facility] [place] [address] Sally Zhu NP Dyspepsia from Last 3 Months Immunizations Immunization Administration Dates Next Due Influenza Whole 11/27/2006 Influenza, High-dose Seasona l, Quadrivalent, Preservative Free 11/23/2021 Influenza, injectable, MDCK, preservative free, quadrivalent 03/21/2021 Influenza, injectable, quadrivalent 11/29/2017,1 Influenza, injectable, quadr ivalent, preservative free 11/10/2019,10/16/2018,12/07/2015 Pneumococcal Conjugate PCV 13 11/29/2016, 017 Pneumococcal Conjugate PCV 20 05/05/2024 Td (adult), 5 Lf tetanus tox oid, preservative free, adsorbed 12/12/2011 Zoster, Recombinant 02/10/2019,10/24/2018 Family History Medical History Relation Name Comments Bipolar disorder Father Hypertension Father Bipolar disorder Sister 1 Rosa Clotting disorder Sister 2 Relation Name Status Comments Father Mother Sister 1 Rosa Alive Sister 2 Alive Vet services Social History Tobacco Use Types Packs/Day Years Used Date Smoking Tobacco: Former Cigarettes Q uit: 2013 Smokeless Tobacco: Never Tobacco Cessation:Counseling Given: Not Answered Alcohol Use Standard Drinks/Week Comments Not Currently [...] file Not on file Not on file Last Filed Vital Signs Vital Sign Reading Time Taken Comments Blood Pressure 138/86 09/07/2024 12:52 PM EDT Pulse 95 09/07/2024 12:52 PM EDT Temperature 36.3 C (97.4 F) 08/11/2024 9:36 AM EDT Respiratory Rate 20 03/14/2023 3:04 PM EST Oxygen Saturation 95% 01/22/2023 2:05 PM EST Inhaled Oxygen Concentration - - Weight 89.8 kg (198 lb) 09/07/2024 12:52 PM EDT Height 167.6 cm (5' 6 ) 07/23/2024 2:49 PM EDT Body Mass Index 31.96 07/23/2024 2:49 PM EDT Plan of Treatment Upcoming Encounters Date Type Department Care Team (Late st Contact Info) Description 10/05/2024 1:40 PM EDT Office Visit [facility] [address] [facility] [address] [place] [address] Josef Horan MD [address] [facility] [address] [place] [address] 10/19/2024 3:30 PM EDT Office Visit [facility] [address] [facility] [address] [place] [phone] Justina Maddox, INSPECTOR AND CLERK-SPRAY MACHINE OPERATOR [address] [facility] [address] [place] [address] Health Maintenance Due Date Last Done Comments CT Colonography 1956 FIT 1956 FOBT 1955 Sigmoidoscopy 1955 FIT-DNA 07/08/2020 07/08/2017 Influenza Vaccine (#1) 2024 , 03/21/2021, 11/10/2019, Additional history exists Mammogram 05/05/2025 05/05/2024, 03/14, 03/22/2022, Additional history exists Medicare Annual Wellness (AWV) 05/05/2025 0 05/05/2024, 05/05/2024, 03/14/2023, Additional history exists Colonoscopy 07/20/2032 07/20/2022, 08/29/2017 Colorectal Cancer Screening 07/20/2032 Pneumococcal Vaccine: 65+ Years Completed 05/05/2024, 11/29/2016, 11/29/2016 Procedures Procedure Name Priority Date/Time Associated Diagnosis Comments US HEAD NECK SOFT TISSUE Routine 08/18/2024 9:56 AM EDT Lump on neck Family history of thyroid cancer MR BRAIN WO CONTRAST Routine 08/11/2024 11:15 AM EDT New daily persistent headache MR SHOULDER RIGHT WO IV CONTRAST Routine 08/11/2024 10:54 AM EDT Traumatic incomplete tear of right rotator cuff, subsequent encounter BI MAMMOGRAM SCREENING TOMOSYNTHESIS BILATERAL Routine 05/05/2024 1:01 PM EDT Encounter for screening mammogram for breast cancer COLONOSCOPY Routine 08/29/2017 12:00 PM EDT from Last 3 Months or Most Recently Relevant to Health Maintenance Results * US head neck soft tissue (08/18/2024 9:56 AM EDT) Anatomical Region Laterality Modality Head, Neck Ultrasound 08/18/2024 1:10 PM EDT Impressions 08/18/2024 1:13 PM EDT No suspicious thyroid nodules. Heterogeneous thyroid. Please note that description of thyroid nodules in this report is based on the 2017 Thyroid Imaging, Reporting and Data System (TI- RADS) established by the [employer] to help provide guidance regarding management of thyroid nodules based on their appearance. These are offered in an attempt to assist the referring physician in their decision process and help address the current over diagnosis of thyroid cancer. These guidelines are considered recommendations and guidance and do not represent rules or absolute standards of care ELECTRONICALLY SIGNED BY: Ho Dutton MD Narrative 08/18/2024 1:13 PM EDT EXAMINATION: THYROID ULTRASOUND HISTORY: Neck lump. TECHNIQUE: Sonography and Doppler imaging of the thyroid was performed. Images were obtained and stored in a permanent archive. COMPARISON: None. RESULT: RIGHT LOBE: 3.6 x 1.3 x 1.9 cm; heterogeneous echogenicity, expected vascular flow LEFT LOBE: 4.2 x 1.5 x 1.4 cm; heterogeneous echogenicity, expected vascular flow ISTHMUS: 0.3 cm Nodules: Possible TR 3 nodule versus area of heterogeneous parenchyma measuring around 1.1 cm in the right thyroid, not requiring further follow-up. Possible 0.9 cm TR 3 nodule left thyroid, not requiring follow-up. Tiny cyst or nodule within the left thyroid measuring 5 mm, not requiring follow-up. No suspicious thyroid nodules. Lymph nodes: No enlarged cervical lymph nodes. Procedure Note Ho Dutton MD - 08/18/2024 EXAMINATION: THYROID ULTRASOUND HISTORY: Neck lump. TECHNIQUE: Sonography and Doppler imaging of the thyroid was performed.Images were obtained and stored in a permanent archive. COMPARISON: None. RESULT: RIGHT LOBE: 3.6 x 1.3 x 1.9 cm; heterogeneous echogenicity, expectedvascular flow LEFT LOBE: 4.2 x 1.5 x 1.4 cm; heterogeneous echogenicity, expectedvascular flow ISTHMUS: 0.3 cm Nodules: Possible TR 3 nodule versus area of heterogeneous parenchymameasuring around 1.1 cm in the right thyroid, not requiring furtherfollow-up. Possible 0.9 cm TR 3 nodule left thyroid, not requiringfollow-up. Tiny cyst or nodule within the left thyroid measuring 5 mm, notrequiring follow-up. No suspicious thyroid nodules. Lymph nodes: No enlarged cervical lymph nodes. IMPRESSION: No suspicious thyroid nodules. Heterogeneous thyroid. Please note that description of thyroid nodules in this report is based onthe 2017 Thyroid Imaging, Reporting and Data System (TI- RADS) establishedby the [employer] to help provide guidance regardingmanagement of thyroid nodules based on their appearance. These areoffered in an attempt to assist the referring physician in theirdecision process and help address the current over diagnosis of thyroidcancer. These guidelines are considered recommendations and guidance anddo not represent rules or absolute standards of care ELECTRONICALLY SIGNED BY: Ho Dutton MD us Sally Zhu NP IMG US PROCEDURES Final Result * MR brain wo contrast (08/11/2024 11:15 AM EDT) Anatomical Region Laterality Modality Brain Magnetic Resonan ce 08/11/2024 2:57 PM EDT Impressions 08/11/2024 2:59 PM EDT No acute intracranial process. Generalized parenchymal volume loss and nonspecific white matter findings most compatible with chronic small vessel ischemic changes in a patient of this age. ELECTRONICALLY SIGNED BY: Ced Muñiz DO Narrative 08/11/2024 2:59 PM EDT EXAM: MR BRAIN WO CONTRAST History: new daily persistent headache Technique: Multiplanar multisequence MRI of the brain was performed without contrast. Comparison: CT brain November 12, 2023 Findings: Areas of hyperintense T2/FLAIR signal within the bilateral supratentorial white matter are nonspecific but are most likely due to chronic small vessel ischemic changes in a patient of this age. Prominence of the sulci and ventricles compatible with mild generalized parenchymal volume loss. No acute hemorrhage, mass, mass effect, midline shift, or abnormal extra-axial fluid collection. Midline structures are within normal limits. The posterior fossa is within normal limits. There is no diffusion restriction. No susceptibility artifact is identified on the gradient echo sequence. The major intracranial vascular flow voids are maintained. Cranial nerve 7/8 complexes appear grossly unremarkable. The visualized paranasal sinuses are clear. Trace fluid within the bilateral mastoid air cells compatible with nonspecific mastoid air cell effusions. Procedure Note Ced Muñiz DO - 08/11/2024 EXAM: MR BRAIN WO CONTRAST History: new daily persistent headache Technique: Multiplanar multisequence MRI of the brain was performedwithout contrast. Comparison: CT brain November 12, 2023 Findings: Areas of hyperintense T2/FLAIR signal within the bilateral supratentorialwhite matter are nonspecific but are most likely due to chronic smallvessel ischemic changes in a patient of this age. Prominence of the sulci and ventricles compatible with mild generalizedparenchymal volume loss. No acute hemorrhage, mass, mass effect, midlineshift, or abnormal extra-axial fluid collection. Midline structures arewithin normal limits. The posterior fossa is within normal limits. There is no diffusion restriction. No susceptibility artifact isidentified on the gradient echo sequence. The major intracranial vascular flow voids are maintained. Cranial nerve7/8 complexes appear grossly unremarkable. The visualized paranasalsinuses are clear. Trace fluid within the bilateral mastoid air cellscompatible with nonspecific mastoid air cell effusions. IMPRESSION: No acute intracranial process. Generalized parenchymal volume loss and nonspecific white matter findingsmost compatible with chronic small vessel ischemic changes in a patient ofthis age. ELECTRONICALLY SIGNED BY: Ced Muñiz DO us Josef Horan MD IM MRI PROCEDURES Final Resu lt * MR shoulder right wo IV contrast (08/11/2024 10:54 AM EDT) Anatomical Region Laterality Modality Upper Extremities, Shoulder Right Magn etic Resonance 08/11/2024 2:48 PM EDT Impressions 08/11/2024 2:50 PM EDT Advanced glenohumeral osteoarthritis. Mild supraspinatus and subscapularis tendinosis. Mild long head biceps tendinosis. ELECTRONICALLY SIGNED BY: Ced Muñiz DO Narrative 08/11/2024 2:50 PM EDT EXAM: MR SHOULDER RIGHT WO IV CONTRAST HISTORY: Shoulder pain and limited range of motion TECHNIQUE: Multiplanar multisequence MRI of the shoulder was performed Without contrast. COMPARISON: None available FINDINGS: Mild degenerative changes of the acromioclavicular joint without undersurface osteophyte formation. Slight lateral downsloping of the acromion. The acromion is flat. Coracoclavicular ligament intact. No subacromial/subdeltoid bursal fluid. Mild supraspinatus and subscapularis tendinosis. Infraspinatus and teres minor tendons are intact. No atrophy or fatty infiltration of the rotator cuff musculature. The intra-articular and extra-articular long head biceps tendon is intact. Mild long head biceps tendinosis. The biceps tendon resides within the bicipital groove. Advanced glenohumeral osteoarthritis including full-thickness cartilage loss of the majority of the humeral head and glenoid, remodeling of the glenoid, small medial humeral head marginal osteophyte formation, and subcortical cyst formation of the glenoid. Mild bone marrow edema of the medial humeral head and glenoid. Diffuse labral degeneration/tearing. Small glenohumeral joint effusion . Procedure Note Ced Muñiz, DO - 08/11/2024 EXAM: MR SHOULDER RIGHT WO IV CONTRAST HISTORY: Shoulder pain and limited range of motion TECHNIQUE: Multiplanar multisequence MRI of the shoulder was performedWithout contrast. COMPARISON: None available FINDINGS: Mild degenerative changes of the acromioclavicular joint withoutundersurface osteophyte formation. Slight lateral downsloping of theacromion. The acromion is flat. Coracoclavicular ligament intact. Nosubacromial/subdeltoid bursal fluid. Mild supraspinatus and subscapularis tendinosis. Infraspinatus and teresminor tendons are intact. No atrophy or fatty infiltration of the rotatorcuff musculature. The intra-articular and extra-articular long head biceps tendon is intact.Mild long head biceps tendinosis. The biceps tendon resides within thebicipital groove. Advanced glenohumeral osteoarthritis including full-thickness cartilageloss of the majority of the humeral head and glenoid, remodeling of theglenoid, small medial humeral head marginal osteophyte formation, andsubcortical cyst formation of the glenoid. Mild bone marrow edema of themedial humeral head and glenoid. Diffuse labral degeneration/tearing. Small glenohumeral joint effusion . IMPRESSION: Advanced glenohumeral osteoarthritis. Mild supraspinatus and subscapularis tendinosis. Mild long head biceps tendinosis. ELECTRONICALLY SIGNED BY: Ced Muñiz DO Josef Horan MD IMG MRI PROCEDURES Final Resu lt * Bilateral screening mammogram with tomosynthesis (05/05/2024 1:01 PM EDT) Anatomical Region Laterality Modality Breast Bilateral Mammography 05/06/2024 11:3 8 AM EDT Impressions 05/06/2024 11:45 AM EDT Impression: No specific evidence of malignancy seen in either breast. BIRADS 2 - Benign Findings DENSITY: The breasts are almost entirely fatty. FOLLOW-UP: Routine Screening Mammogram ELECTRONICALLY SIGNED BY: Jose Elias Hancock M.D. Narrative 05/06/2024 11:45 AM EDT Examination: BI MAMMOGRAM SCREENING TOMOSYNTHESIS BILATERAL Clinical History: screening for breast cancer Technique: Screening digital mammography study of both breasts was performed with 2-D and 3-D tomosynthesis imaging. Study was compared to the prior exam dated 03/28/2023. Findings: There is no evidence of interval dominant spiculated mass, grouped microcalcifications, or skin thickening which would be suggestive of malignancy. Mild benign-appearing calcifications including vascular calcifications are noted bilaterally. Axillary lymph nodes are noted bilaterally which appear grossly unremarkable. Procedure Note Jose Elias Hancock MD - 05/06/2024 Examination: BI MAMMOGRAM SCREENING TOMOSYNTHESIS BILATERAL Clinical History: screening for breast cancer Technique: Screening digital mammography study of both breasts wasperformed with 2-D and 3-D tomosynthesis imaging. Study was compared tothe prior exam dated 03/28/2023. Findings: There is no evidence of interval dominant spiculated mass,grouped microcalcifications, or skin thickening which would be suggestiveof malignancy. Mild benign-appearing calcifications including vascular calcifications arenoted bilaterally. Axillary lymph nodes are noted bilaterally which appeargrossly unremarkable. IMPRESSION: Impression: No specific evidence of malignancy seen in either breast. BIRADS 2 - Benign Findings DENSITY: The breasts are almost entirely fatty. FOLLOW-UP: Routine Screening Mammogram ELECTRONICALLY SIGNED BY: Jose Elias Hancock M.D. Sally Zhu OVER HAULER HELPER IMG BI PROCEDURES Final Result * Colonoscopy (08/29/2017 12:00 PM EDT) Anatomical Region Laterality Modality Endoscopy 08/29/2017 12:0 0 PM EDT Narrative 03/06/2022 12:00 PM EST PERFORMED AT [facility] LOCATION:[id number] Procedure Note CONVERSION, GENERIC - 06/27/2022 PERFORMED AT [facility] LOCATION:[id number] us Delilah Jackson MD ENDOSCOPY PROCEDURE ORDERABLE S Final Result from Last 3 Months or Most Recently Relevant to Health Maintenance Insurance [employer] MEDICARE ADVANTAGE MEDICAID [place] Care Teams Meter Tester Relationship Specialty Start Date End Date Delilah Jackson MD [address] [place] [address] PCP - General Family Medicine 07/19/22 Justina Maddox APRN-SPRAY MACHINE OPERATOR [address] [address] Nurse Practitioner Behavioral Health 07/19/22 Rosy Rodriguez, VANDANA [address] [place] [address] Registered Nurse Family Medicine 12/24/22
--- OUTSIDE RECORDS SUMMARY | 2024-09-10 14:47 | XMS_ITS | Encounter Summary ---
Author Organization [facility] Address [address] [place] [address] Care Team Providers Care Network Specialist Name Role Phone Delilah Jackson MD Primary Care Provider [phone] Justina Maddox HUMAN FACTORS SPECIALIST-WAFER POLISHER Unavailable Rosy Rodriguez RN Unavailable [phone] Myesha Bell COMPENSATION AGENT Unavailable [phone] Encounter Details Date Type Department Care Team (Late st Contact Info) Description 09/24/2022 Abstract [facility] [address] [place] [address] Tran Manzo MD [address] [place] [address] Social History Tobacco Use Types [...] Visit [facility] [address] [facility] [address] [place] [address] Josef Horan MD 5355 [facility] [address] [id number] 10/19/2024 3:30 PM EDT Office Visit [facility] 112 [facility] 160 [place] [address] Justina Maddox, HUMAN FACTORS SPECIALIST-WAFER POLISHER 112 [facility] 160 [place] [address] documented as of this encounter Visit Diagnoses Not on filedocumented in this encounter Care Teams Network Specialist Relationship Specialty Start Date End Date Delilah Jackson MD [address] [place] [address] PCP - General Family Medicine 07/19/22 Justina Maddox, HUMAN FACTORS SPECIALIST-WAFER POLISHER 112 [facility] 160 [place] [address] Nurse Practitioner Behavioral Health 07/19/22 Rosy Rodriguez, RN [address] [place] [address] Registered Nurse Family Medicine 12/24/22 Myesha Bell LSW [address] [place] [address] Account Installation Specialist Family Medicine 04/15/23 06/15/24 documented as of this encounter
--- OUTSIDE RECORDS SUMMARY | 2024-09-10 14:47 | XMS_ITS | Encounter Summary ---
Author Organization [facility] Address [address] [place] [address] Care Team Providers Care Optical Systems Engineer Name Role Phone Delilah Jackson MD Primary Care Provider [phone] Justina Maddox SUPERVISOR TILE AND MOTTLE-TAR POT WORKER Unavailable Rosy Rodriguez RN Unavailable [phone] Myesha Bell POWER BRAKE REBUILDER Unavailable [phone] Reason for Visit * Reason Comments Med Refill Encounter Details Date Type Department Care Team (Late st Contact Info) Description 04/26/2024 Refill [facility] 112 [facility] 160 [place] [address] Justina Maddox, SUPERVISOR TILE AND MOTTLE-TAR POT WORKER 112 [facility] 160 [place] [address] Generalized anxiety disorder ; Bipolar II disorder (HCC) Social History Tobacco [...] Visit [facility] [address] [email or web address] 310 [place] [phone] Josef Horan MD 5397 [facility] [address] [address] 10/19/2024 3:30 PM EDT Office Visit [facility] [address] [facility] 160 [place] [address] Justina Maddox SUPERVISOR TILE AND MOTTLE-TAR POT WORKER [address] [facility] 160 [place] [address] documented as of this encounter Visit Diagnoses Diagnosis Generalized anxiety disorder Generalized anxiety disorder Bipolar II disorder (HCC) Other bipolar disorders documented in this encounter Additional Health Concerns Assessment Noted Time PHQ-9 Depression Total Score: 13 024 2:18 PM EST documented as of this encounter Care Teams Optical Systems Engineer Relationship Specialty Start Date End Date Delilah Jackson MD [address] [place] [address] PCP - General Family Medicine 07/19/22 Justina Maddox, SUPERVISOR TILE AND MOTTLE-TAR POT WORKER [address] [address] Nurse Practitioner Behavioral Health 07/19/22 Rosy Rodriguez, RN [address] [place] [address] Registered Nurse Family Medicine 12/24/22 Myesha Bell LSW [address] [place] [address] Manager Benefit Family Medicine 04/15/23 06/15/24 documented as of this encounter
--- OUTSIDE RECORDS SUMMARY | 2024-09-10 14:48 | XMS_ITS | Encounter Summary ---
Author Organization [facility] Address [id number] [address] [place] [address] Care Team Providers Care Aws Consultant Name Role Phone Tran Manzo MD Primary Care Provider [phone] Reason for Visit * Reason Comments Med Refill Encounter Details Date Type Department Care Team (Late Contact Info) Description 09/03/2018 Refill [facility] [address] [place] [phone] Sally Zhu, CAGE TENDER-BONSAI TENDER [address] [place] [address] Social History Tobacco Use Types Packs/Day Years Used Date Smoking Tobacco: Former Smokeless Tobacco: Never Alcohol Use Standard Drinks/Week Comments Yes 0 (1 standard drink = 0.6 oz pur e alcohol) rare Childcare Answer Date Recorded Childcare Unknown 07/23/2018 Employment Answer Date Recorded Employment Unknown 07/23/2018 Comments No Sex and Gender Information Value Date Recorded Sex Assigned at Not on file Legal Sex Female 11:28 AM EDT Gender Identity Not on file Sexual Orientation Not on file documented as of this encounter Plan of Treatment Upcoming Encounters Date Type Department Care Team (Late Contact Info) Description 09/30/2024 1:45 PM EDT Office Visit [facility] [address] [place] [phone] Gretta Ryder MD [address] [place] [address] documented as of this encounter Visit Diagnoses Not on filedocumented in this encounter Care Teams Aws Consultant Relationship Specialty Start Date End Date Tran Manzo MD PCP - General Family Medicine 09/18/22 documented as of this encounter
--- OUTSIDE RECORDS SUMMARY | 2024-09-10 14:48 | XMS_ITS | Encounter Summary ---
Author Organization [employer] Sys tem Address [id number] [address] [place] [address] Care Team Providers Care Supervisor Shaving And Splitting Name Role Phone Tran Manzo MD Primary Care Provider [phone] Reason for Visit * Reason Comments Med Change Request Encounter Details Date Type Department Care Team (Late st Contact Info) Description 08/30/2023 Refill [facility] [address] [place] [id number] Eloise Luis, [place] [address] [id number] Med Change Request Social History Tobacco Use Types Packs/Day Years Used Date Smoking Tobacco: Former Cigarettes Smokeless Tobacco: Never Alcohol Use Standard Drinks/Week Comments Yes 0 (1 standard drink = 0.6 oz pur e alcohol) social use [employer] Utilities Answer Date Recorded In the past 12 months has [employer], gas, oil, or water [employer] threatened to shut off services in your home? No 07/31/2023 Social Connection and Isolat ion Panel [NHANES] Answer Date Recorded In a typical week, how many times do you talk on the phone with family, friends, or neighbors? More than three times a week 04/20/2020 How often do you get togethe r with friends or relatives? More than three times a week 04/20/2020 How often do you attend chur ch or quaker services? Never 04/20/2020 Do you belong to any clubs o r organizations such as muslim groups, unions, fraternal or athletic groups, or school groups? No 04/20/2020 How often do you attend meet ings of the clubs or organizations you belong to? Never 04/20/2020 Are you , , di vorced, , never , or living with a partner? Never 04/20/2020 AUDIT-C Answer Date Recorded Q1: How often do you have a drink containing alc ohol? Monthly or less 07/31/2023 Q2: How many drinks containi ng alcohol do you have on a typical day when you are drinking? 1 or 2 07/31/2023 Q3: How often do you have si x or more drinks on one occasion? Never 07/31/2023 Overall Financial Resource Strain (CARDIA) Answe r Date Recorded How hard is it for you to pa y for the very basics like food, housing, medical care, and heating? Not hard at all 07/31/2023 PHQ-2 Answer Date Recorded Total Score 0 07/31/2023 [facility] of Occupat ional Health - Occupational Stress [...] from medical appointments or from getting medications? No 07/12 In the past 12 months, has l ack of transportation kept you from meetings, work, or from getting things needed for daily living? No 07/31/2023 Housing Instability Answer Date Recorde d Are you worried or concerned that in the next two months you may not have stable housing that you own, rent or stay in as a part of a household? No 07/31/2023 Childcare Answer Date Recorded Do problems getting child ca re make it difficult for you to work or study? No 04/20/2020 Employment Answer Date Recorded Do you need help finding a [facility] career center and/or a training program? No 04/20/2020 Hunger Screening Answer Date Recorded Within the past 12 months we worried whether our food would run out before we got money to buy more. Never True 07/31/2023 Within the past 12 months th e food we bought just didn't last and we didn't have money to get more. Never True 07/31/2023 Purpose - Life Answer Date Recorded I have a purpose and direction in my life. Stron gly Agree 04/20/2020 Comments No Sex and Gender Information Value Date Recorded Sex Assigned at Not on file Legal Sex Female 11:28 AM EDT Gender Identity Not on file Sexual Orientation Not on file documented as of this encounter Miscellaneous Notes * Telephone Encounter - Lashonda Jiang RN - 08/30/2023 1:32 PM EDT 08/08/23 off note; She was started on iron for her chronic iron deficiency anemia and advised to follow-up further with PCP PCP to address further documented in this encounter Plan of Treatment Upcoming Encounters Date Type Department Care Team (Late st Contact Info) Description 09/30/2024 1:45 PM EDT Office Visit [facility] [address] [place] [phone] Gretta Ryder MD [address] [place], [place] [address] documented as of this encounter Goals Goal Patient Goal Type Associated Problems Recent Progress Patient-Stated? Author <enter goal here> General Yes Amaya Menard RN Note: Evaluation of progress towards goal: patient plans for a safe discharge to a fdc facility on discharge. documented as of this encounter Visit Diagnoses Not on filedocumented in this encounter Additional Health Concerns Assessment Noted Time PHQ-9 Depression Total Score: 0 07/31/19 6:16 PM EDT documented as of this encounter Care Teams Supervisor Shaving And Splitting Relationship Specialty Start Date End Date Tran Manzo MD PCP - General Family Medicine 09/18/22 documented as of this encounter
--- OUTSIDE RECORDS SUMMARY | 2024-09-10 14:48 | XMS_ITS | Encounter Summary ---
Author Organization [facility] Address [address] [place] [address] Care Team Providers Care Center Sales And Service Associate Name Role Phone Delilah Jackson MD Primary Care Provider [phone] Justina Maddox CALL CENTER SUPPORT REPRESENTATIVE-DOOR REPAIRER BUS Unavailable Rosy Rodriguez RN Unavailable [phone] Myesha Bell TANGIBLE PERSONAL PROPERTY APPRAISER Unavailable [phone] Reason for Visit * Reason Comments Med Refill Encounter Details Date Type Department Care Team (Late st Contact Info) Description 02/26/2024 Refill [facility] 112 [facility] 160 [place] [address] Justina Maddox, CALL CENTER SUPPORT REPRESENTATIVE-DOOR REPAIRER BUS 112 [facility] 160 [place] [address] Insomnia, uncontrolled Social History Tobacco Use Types Packs/Day Years [...] Visit [facility] [address] [facility] 310 [place] [address] Josef Horan MD 1566 [facility] [address] [id number] 10/19/2024 3:30 PM EDT Office Visit [facility] 112 [facility] 160 [place] [address] Justina Maddox CALL CENTER SUPPORT REPRESENTATIVE-DOOR REPAIRER BUS [address] [place] [address] documented as of this encounter Visit Diagnoses Diagnosis Insomnia, uncontrolled documented in this encounter Additional Health Concerns Assessment Noted Time PHQ-9 Depression Total Score: 13 024 2:18 PM EST documented as of this encounter Care Teams Center Sales And Service Associate Relationship Specialty Start Date End Date Delilah Jackson MD [address] [place], [place] [phone] PCP - General Family Medicine 07/19/22 Justina Maddox, CALL CENTER SUPPORT REPRESENTATIVE-DOOR REPAIRER BUS 112 [facility] 160 [place] [address] Nurse Practitioner Behavioral Health 07/19/22 Rosy Rodriguez, RN [address] [place], [place] [phone] Registered Nurse Family Medicine 12/24/22 Myesha Bell LSW [address] [place] [address] Applications Engineering Manager Family Medicine 04/15/23 06/15/24 documented as of this encounter
--- OUTSIDE RECORDS SUMMARY | 2024-09-10 14:48 | XMS_ITS | Encounter Summary ---
Author Organization [facility] Address [address] [place] [address] Care Team Providers Care Concrete Pipe Machine Operator Name Role Phone Delilah Jacskon MD Primary Care Provider Justina Maddox ELEMENTARY SCHOOL SOCIAL WORKER-WATERSHED COORDINATOR Unavailable Rosy Rodriguez RN Unavailable [phone] Myesha Bell PLATE WORKER HELPER Unavailable [phone] Reason for Visit * Reason Comments Med Refill Encounter Details Date Type Department Care Team (Late st Contact Info) Description 04/27/2024 Refill [facility] 112 [facility] 160 [place] [address] Justina Maddox, ELEMENTARY SCHOOL SOCIAL WORKER-WATERSHED COORDINATOR 112 [facility] 160 [place] [address] Bipolar II disorder (HCC) Social History Tobacco [...] Visit [facility] [address] [facility] [address] [place] [address] Josef Horan MD 9717 [facility] [address] [id number] 10/19/2024 3:30 PM EDT Office Visit [facility] 112 [facility] 160 [place] [address] Justina Maddox ELEMENTARY SCHOOL SOCIAL WORKER-WATERSHED COORDINATOR 112 [facility] 160 [place] [address] documented as of this encounter Visit Diagnoses Diagnosis Bipolar II disorder (HCC) Other bipolar disorders documented in this encounter Additional Health Concerns Assessment Noted Time PHQ-9 Depression Total Score: 13 024 2:18 PM EST documented as of this encounter Care Teams Concrete Pipe Machine Operator Relationship Specialty Start Date End Date Delilah Jackson MD [address] [place] [address] PCP - General Family Medicine 07/19/22 Justina Maddox ELEMENTARY SCHOOL SOCIAL WORKER-WATERSHED COORDINATOR 112 [facility] 160 [place] [address] Nurse Practitioner Behavioral Health 07/19/22 Rosy Rodriguez, RN 1479 N [facility] [place], [place] [phone] Registered Nurse Family Medicine 12/24/22 Myesha Bell LSW [address] [place] [address] Radiology Clerk Family Medicine 04/15/23 06/15/24 documented as of this encounter
--- OUTSIDE RECORDS SUMMARY | 2024-09-10 14:48 | XMS_ITS | Encounter Summary ---
Author Organization [employer] Address [id number] [address] [place] [address] Care Team Providers Care Sole Seamer Name Role Phone Tran Manzo MD Primary Care Provider [phone] Encounter Details Date Type Department Care Team (Late st Contact Info) Description 08/01/2023 Telephone [facility] [address] [place] [phone] Milagros Griffin Social History Tobacco Use Types Packs/Day Years Used Date Smoking Tobacco: Former Cigarettes Smokeless Tobacco: Never Alcohol Use Standard Drinks/Week Comments Yes 0 (1 standard drink = 0.6 oz pur e alcohol) social use [facility] Utilities Answer Date Recorded In the past 12 months has [employer] electric, gas, oil, or water company threatened to shut off services in your [...] often do you attend chur ch or scientology services? Never 04/20/2020 Do you belong to any clubs o r organizations such as alevism groups, unions, fraternal or athletic groups, or [...] Answer Date Recorded Total Score 0 07/31/2023 [facility] of Occupat ional Health - Occupational Stress [...] Do you need help finding a l ocal career center and/or a training program? No [...] Cardiology [address] [place] [phone] Gretta Ryder MD [address] [place], [place] [address] documented as of this encounter Goals Goal Patient Goal Type Associated Problems Recent Progress Patient-Stated? Author <enter goal here> General Yes Amaya Menard, RN Note: Evaluation of progress towards goal: patient plans for a safe discharge to a group home facility on discharge. documented as of this encounter Visit Diagnoses Not on filedocumented in this encounter Additional Health Concerns Assessment Noted Time PHQ-9 Depression Total Score: 0 07/31/19 24 6:16 PM EDT documented as of this encounter Care Teams Sole Seamer Relationship Specialty Start Date End Date Tran Manzo MD PCP - General Family Medicine 09/18/22 documented as of this encounter
--- OUTSIDE RECORDS SUMMARY | 2024-09-10 14:49 | XMS_ITS | Encounter Summary ---
Author Organization [facility] Address [address] [place] [address] Care Team Providers Care Global Implementation Manager Name Role Phone Delilah Jackson MD Primary Care Provider [phone] Justina Maddox WORKGROUP LEADER-MANAGER SUPPORT SERVICES Unavailable Rosy Rodriguez RN Unavailable [phone] Reason for Visit * Reason Comments Med Refill Encounter Details Date Type Department Care Team (Late st Contact Info) Description 08/27/2024 Refill [facility] 112 [facility] 160 [place] [address] Justina Maddox, [facility]MANAGER SUPPORT SERVICES 112 [facility] 160 [place] [address] Bipolar II disorder (HCC); Generalized anxiety disorder [...] Visit [facility] [address] [facility] 310 [place] [address] Josfe Horan MD [address] [id number] 10/19/2024 3:30 PM EDT Office Visit [facility] 112 [facility] 160 [place] [address] Justina Maddox WORKGROUP LEADER-MANAGER SUPPORT SERVICES 112 [facility] 160 [place] [address] documented as of this encounter Visit Diagnoses Diagnosis Bipolar II disorder (HCC) Other bipolar disorders Generalized anxiety disorder Generalized anxiety disorder documented in this encounter Additional Health Concerns Assessment Noted Time PHQ-9 Depression Total Score: 10 025 1:04 PM EDT documented as of this encounter Care Teams Global Implementation Manager Relationship Specialty Start Date End Date Delilah Jackson MD [address] [place] [address] PCP - General Family Medicine 07/19/22 Justina Maddox, WORKGROUP LEADER-MANAGER SUPPORT SERVICES 112 [facility] 160 [place] [address] Nurse Practitioner Behavioral Health 07/19/22 Rosy Rodriguez, RN [address] [place] [address] Registered Nurse Family Medicine 12/24/22 documented as of this encounter
--- OUTSIDE RECORDS SUMMARY | 2024-09-10 14:49 | XMS_ITS | Encounter Summary ---
Author Organization [facility] Address [address] [place] [address] Care Team Providers Care Spout Positioner Name Role Phone Delilah Jackson MD Primary Care Provider [phone] Justina Maddox PROGRAM MANAGER RN-METAL RECLAMATION KETTLE TENDER Unavailable Rosy Rodriguez RN Unavailable [phone] Encounter Details Date Type Department Care Team (Late st Contact Info) Description 08/19/2024 Results Follow-Up [facility] Family Medicine [address] [place] [address] Isaura Walter NP [address] [place] [address] Social History Tobacco Use Types [...] Visit [facility] [address] [facility] 310 [place] [address] Josef Horan MD 5358 [facility] [address] [id number] 10/19/2024 3:30 PM EDT Office Visit [facility] 112 [facility] 160 [place] [address] Justina Maddox PROGRAM MANAGER RN-METAL RECLAMATION KETTLE TENDER 112 [facility] 160 [place] [address] documented as of this encounter Visit Diagnoses Not on filedocumented in this encounter Additional Health Concerns Assessment Noted Time PHQ-9 Depression Total Score: 10 025 1:04 PM EDT documented as of this encounter Care Teams Spout Positioner Relationship Specialty Start Date End Date Delilah Jackson MD [address] [place] [address] PCP - General Family Medicine 07/19/22 Justina Maddox, PROGRAM MANAGER RN-METAL RECLAMATION KETTLE TENDER 112 [facility] 160 [place] [address] Nurse Practitioner Behavioral Health 07/19/22 Rosy Rodriguez, VANDANA [address] [place] [address] Registered Nurse Family Medicine 12/24/22 documented as of this encounter
--- OUTSIDE RECORDS SUMMARY | 2024-09-10 14:49 | XMS_ITS | Encounter Summary ---
Author Organization [facility] Address [address] [place] [address] Care Team Providers Care Program Coordinator For Residence Life Name Role Phone Delilah Jackson MD Primary Care Provider [phone] Justina Maddox TRAUMA REGISTRAR-DIRECTOR OCCUPATIONAL Unavailable Rosy Rodriguez RN Unavailable [phone] Encounter Details Date Type Department Care Team (Late st Contact Info) Description 09/02/2024 Patient Outreach [facility] [address] [place] [address] Rosy Rodriguez, RN [address] [place] [address] Social History Tobacco Use Types [...] Progress Notes * Rosy Rodriguez RN - 09/02/2024 3:00 PM EDT Received call from pt. States she is waiting to hear if she will be prescribed the wegovy. Informedpt ccm will check with Sally and let pt know. * Sally Zhu NP - 09/02/2024 3:00 PM EDT Sent please make appointment for 4 weeks after starting * Rosy Rodriguez RN - 09/02/2024 3:00 PM EDT Pt notified documented in this encounter Plan of Treatment Upcoming Encounters Date Type Department Care Team (Late st Contact Info) Description 10/05/2024 1:40 PM EDT Office Visit [facility] [address] [facility] [address] [place] [address] Josef Horan MD 2884 [facility] [address] [address] 10/19/2024 3:30 PM EDT Office Visit [facility] [address] [facility] 160 [place] [address] Justina Maddox, TRAUMA REGISTRAR-DIRECTOR OCCUPATIONAL 112 [facility] 160 [place] [address] documented as of this encounter Visit Diagnoses Diagnosis Essential hypertension- Primary Unspecified essential hypertension Anxiety disorder, unspecified type documented in this encounter Additional Health Concerns Assessment Noted Time PHQ-9 Depression Total Score: 10 025 1:04 PM EDT documented as of this encounter Care Teams Program Coordinator For Residence Life Relationship Specialty Start Date End Date Delilah Jackson MD [address] [place] [address] PCP - General Family Medicine 07/19/22 Justina Maddox APRN-DIRECTOR OCCUPATIONAL 112 [facility] 160 [place] [address] Nurse Practitioner Behavioral Health 07/19/22 Rosy Rodriguez RN [address] [place] [address] Registered Nurse Family Medicine 12/24/22 documented as of this encounter
--- OUTSIDE RECORDS SUMMARY | 2024-09-10 14:49 | XMS_ITS | Encounter Summary ---
Author Organization [facility] Address [address] [place] [address] Care Team Providers Care Lion Tamer Name Role Phone Delilah Jackson MD Primary Care Provider [phone] Justina Maddox POULTRY HUSBANDMAN-PANELBOARD OPERATOR Unavailable Rosy Rodriguez RN Unavailable [phone] Myesha Bell CAR DISTRIBUTOR Unavailable [phone] Encounter Details Date Type Department Care Team (Late st Contact Info) Description 06/20/2022 Orders Only [facility] [address] [place] [address] [place] [address] Marilyn Garcia LPN Social History Tobacco Use Types Packs/Day Years Used Date Smoking Tobacco: Former Cigarettes Smokeless Tobacco: Never Tobacco Cessation:Counseling Given: Not Answered AUDIT-C Answer Date Recorded Q1: How often [...] as of this encounter Functional Status * Audit-C Score Answer Date of Assessment Author 3 06/20/2022 10:06 AM EDT Marilyn Garcia LPN * Question Answer Date of Assessment Author Q1: How often do you have a drink containing alcohol? 2-4 times a month 06/20/2022 10:06 AM EDT Marilyn Garcia L PN Q2: How many drinks containing alcohol do you have on a typical day when you are drinking? 1 or 2 06/20/2022 10:06 AM EDT Marilyn Garcia L PN Q3: How often do you have six or more drinks on one occasion? Less than monthly 06/20/2022 10:06 AM EDT Marilyn Garcia L PN documented as of this encounter Plan of Treatment Upcoming Encounters Date Type Department Care Team (Late st Contact Info) Description 10/05/2024 1:40 PM EDT Office Visit [facility] [address] [facility] 310 [place] [address] Josef Horan MD 8063 [facility] [address] [id number] 10/19/2024 3:30 PM EDT Office Visit [facility] [address] [facility] 160 [place] [address] Justina Maddox, POULTRY HUSBANDMAN-PANELBOARD OPERATOR [address] [facility] 160 [place] [address] documented as of this encounter Visit Diagnoses Not on filedocumented in this encounter Care Teams Lion Tamer Relationship Specialty Start Date End Date Delilah Jackson MD 1479 [facility] [place] [address] PCP - General Family Medicine 07/19/22 Justina Maddox, POULTRY HUSBANDMAN-PANELBOARD OPERATOR [address] [facility] 160 [place] [address] Nurse Practitioner Behavioral Health 07/19/22 Rosy Rodriguez, VANDANA [address] [place] [address] Registered Nurse Family Medicine 12/24/22 Myesha Bell LSW [address] [place] [address] Game Programer Family Medicine 04/15/23 06/15/24 documented as of this encounter
--- OUTSIDE RECORDS SUMMARY | 2024-09-10 14:49 | XMS_ITS | Encounter Summary ---
Author Organization [facility] Address [address] [place] [address] Care Team Providers Care Curriculum Facilitator Name Role Phone Delilah Jackson MD Primary Care Provider [phone] Justina Maddox SHOOTER HELPER-ECONOMIC GEOGRAPHER Unavailable Rosy Rodriguez RN Unavailable [phone] Myesha Bell PUBLIC SERVICE ADMINISTRATOR Unavailable [phone] Reason for Visit * Reason Comments Med Refill Encounter Details Date Type Department Care Team (Late st Contact Info) Description 07/24/2022 Refill [facility] [address] [facility] [address] [place] [address] Justina Maddox, SHOOTER HELPER-ECONOMIC GEOGRAPHER 112 [facility] 160 [place] [address] Social History Tobacco Use Types Packs/Day Years [...] Visit [facility] [address] [facility] [address] [place] [address] Josef Horan MD 5319 [facility] [address] [place] [address] 10/19/2024 3:30 PM EDT Office Visit [facility] 112 [facility] 160 [place] [address] Justina Maddox, SHOOTER HELPER-ECONOMIC GEOGRAPHER 112 [facility] 160 [place] [address] documented as of this encounter Visit Diagnoses Not on filedocumented in this encounter Care Teams Curriculum Facilitator Relationship Specialty Start Date End Date Delilah Jackson MD [address] [place] [address] PCP - General Family Medicine 07/19/22 Justina Maddox, SHOOTER HELPER-ECONOMIC GEOGRAPHER 112 [facility] 160 [place] [address] Nurse Practitioner Behavioral Health 07/19/22 Rosy Rodriguez, VANDANA [address] [place] [address] Registered Nurse Family Medicine 12/24/22 Myesha Bell LSW [address] [place] [address] Vice President Tax Family Medicine 04/15/23 06/15/24 documented as of this encounter
--- OUTSIDE RECORDS SUMMARY | 2024-09-10 14:49 | XMS_ITS | Encounter Summary ---
Author Organization [facility] Address [address] [place] [address] Care Team Providers Care Hand Stitcher Name Role Phone Delilah Jackson MD Primary Care Provider [phone] Justina Maddox NEWSAGENT-DENTAL PATIENT COORDINATOR Unavailable Rosy Rodriguez RN Unavailable [phone] Myesha Bell LENS FINISHER Unavailable [phone] Encounter Details Date Type Department Care Team (Late st Contact Info) Description 09/16/2023 Abstract [facility] [address] [place] [address] Myesha Bell, LENS FINISHER [address] [place] [address] Social History Tobacco Use Types Packs/Day Years [...] Visit [facility] [address] [facility] 310 [place] [address] Josef Horan MD 5352 [facility] [address] [id number] 10/19/2024 3:30 PM EDT Office Visit [facility] 112 [facility] 160 [place] [address] Justina Maddox, NEWSAGENT-DENTAL PATIENT COORDINATOR 112 [facility] [address] [place] [address] documented as of this encounter Visit Diagnoses Not on filedocumented in this encounter Additional Health Concerns Assessment Noted Time PHQ-9 Depression Total Score: 4 03/14/19 24 3:00 PM EST documented as of this encounter Care Teams Hand Stitcher Relationship Specialty Start Date End Date Delilah Jackson MD [address] [place] [address] PCP - General Family Medicine 07/19/22 Justina Maddox, NEWSAGENT-DENTAL PATIENT COORDINATOR 112 [facility] 160 [place] [address] Nurse Practitioner Behavioral Health 07/19/22 Rosy Rodriguez, RN [address] [place] [address] Registered Nurse Family Medicine 12/24/22 Myesha Bell LSW [address] [place] [place] [address] Banana Grader Family Medicine 04/15/23 06/15/24 documented as of this encounter
--- OUTSIDE RECORDS SUMMARY | 2024-09-10 14:49 | XMS_ITS | Encounter Summary ---
Author Organization [facility] Address [address] [place] [address] Care Team Providers Care E Business Manager Name Role Phone Delilah Jackson MD Primary Care Provider [phone] Justina Maddox PANEL MACHINE SETTER-WILLOW MACHINE TENDER Unavailable Rosy Rodriguez RN Unavailable [phone] Reason for Visit * Reason Comments Med Refill Encounter Details Date Type Department Care Team (Late st Contact Info) Description 08/28/2024 Refill [facility] 112 [facility] 160 [place] [address] Justina Maddox, [facility]-WILLOW MACHINE TENDER 112 [facility] 160 [place] [address] Bipolar II disorder (HCC); Insomnia, uncontrolled Social History Tobacco Use Types [...] encounter Miscellaneous Notes * Telephone Encounter - Marilyn Garcia LPN - 08/28/2024 5:45 PM EDT Has appt 09/01 will be renewed at time of appt documented in this encounter Plan of Treatment Upcoming Encounters Date Type Department Care Team (Late st Contact Info) Description 10/05/2024 1:40 PM EDT Office Visit [facility] [address] [facility] 310 [place] [address] Josef Horan MD 4635 [facility] [address] [address] 10/19/2024 3:30 PM EDT Office Visit [facility] 112 [facility] 160 [place] [address] Justina Maddox APRN-WILLOW MACHINE TENDER 112 [facility] 160 [place] [address] documented as of this encounter Visit Diagnoses Diagnosis Bipolar II disorder (HCC) Other bipolar disorders Insomnia, uncontrolled documented in this encounter Additional Health Concerns Assessment Noted Time PHQ-9 Depression Total Score: 10 025 1:04 PM EDT documented as of this encounter Care Teams E Business Manager Relationship Specialty Start Date End Date Delilah Jackson MD [address] [facility] [place] [address] PCP - General Family Medicine 07/19/22 Justina Maddox APRN-WILLOW MACHINE TENDER 112 [facility] 160 [place] [address] Nurse Practitioner Behavioral Health 07/19/22 Rosy Rodriguez RN [address] [place] [address] Registered Nurse Family Medicine 12/24/22 documented as of this encounter
--- OUTSIDE RECORDS SUMMARY | 2024-09-10 14:49 | XMS_ITS | Encounter Summary ---
Author Organization [facility] Address [address] [place] [address] Care Team Providers Care Computer Science Instructor Name Role Phone Delilah Jackson MD Primary Care Provider [phone] Justina Maddox SOLAR PV INSTALLER-GRAPHICS ARTIST Unavailable Rosy Rodriguez RN Unavailable [phone] Encounter Details Date Type Department Care Team (Latest Contact Info) Description 09/07/2024 Travel Social History Tobacco Use Types Packs/Day Years [...] [facility] [address] [facility] 310 [place] [address] Josef Horan MD 5308 [facility] [address] [place] [address] 10/19/2024 3:30 PM EDT Office Visit [facility] [address] [facility] 160 [place] [address] Justina Maddox SOLAR PV INSTALLER-GRAPHICS ARTIST [address] [place] [facility] 160 [place] [address] documented as of this encounter Visit Diagnoses Not on filedocumented in this encounter Additional Health Concerns Assessment Noted Time PHQ-9 Depression Total Score: 10 025 1:04 PM EDT documented as of this encounter Care Teams Computer Science Instructor Relationship Specialty Start Date End Date Delilah Jackson MD [address] [place] [address] PCP - General Family Medicine 07/19/22 Justina Maddox, SOLAR PV INSTALLER-GRAPHICS ARTIST [address] [place] [facility] 160 [place] [address] Nurse Practitioner Behavioral Health 07/19/22 Rosy Rodriguez, RN [address] [place] [address] Registered Nurse Family Medicine 12/24/22 documented as of this encounter
--- OUTSIDE RECORDS SUMMARY | 2024-09-10 14:49 | XMS_ITS | Clinical Summary ---
Author Organization [employer] Address [id number] [address] [place] [address] Care Team Providers Care Field Administrator Name Role Phone Tran Manzo MD Primary Care Provider [phone] Allergies No known active allergies Medications lamoTRIgine (LaMICtal) 100 mg tablet Take 1 tablet (100 mg total) by mouth in the morning and 1 tablet (100 mg total) before bedtime. Active levothyroxine (SYNTHROID, LEVOTHROID) 200 MCG tablet Take 1 tablet (200 mcg total) by mouth in the morning. Active buPROPion XL (WELLBUTRIN XL) 150 mg 24 hr tablet Take 1 tablet (150 mg total) by mouth in the morning. Active traZODone (DESYREL) 100 mg tablet Take 2 tablets (200 mg total) by mouth as needed. Active sertraline (ZOLOFT) 100 mg tablet Take 1.5 tablets (150 mg total) by mouth in the morning. Active calcium carbonate-vitam in D3 (CALCIUM 500 + D) 500 mg(1,250mg) -200 units per tablet Take 1 tablet by mouth in the morning and 1 tablet in the evening. Take with meals. Active LYSINE HCL ORAL Take by mouth daily. Active omeprazole (PriLOSEC) 40 mg capsule Take 1 capsule (40 mg total) by mouth in the morning. 30 capsule 2 08/03/2022 Active spironolactone (ALDACTONE) 25 mg tablet Take 1 tablet (25 mg total) by mouth in the morning. 90 tablet 2 09/24/2022 Active atorvastatin (LIPITOR) 10 mg tablet Take 1 tablet (10 mg total) by mouth in the morning. Active oxyCODONE (OxyCONTIN) 10 mg 12 hr tablet Take 1 tablet (10 mg total) by mouth every 6 (six) hours as needed. Active cholecalciferol 1,000 units tablet Take 1 tablet (1,000 Units total) by mouth in the morning. Active diphenhydrAMINE (BENADRYL) 50 mg capsule Take 1 capsule (50 mg total) by mouth every 6 (six) hours as needed for itching. Active potassium chloride (K-TAB,KLOR-CON ) 10 MEQ CR tablet Take 1 tablet (10 mEq total) by mouth in the morning. Active aspirin 81 mg chewable tablet Chew 1 tablet (81 mg total) and swallow in the morning. 30 tablet 11 08/02/2023 Active ferrous sulfate 325 (65 FE) mg tablet Take 1 tablet (325 mg total) by mouth daily with breakfast. 30 tablet 08/02/2023 Active furosemide (LASIX) 40 mg tablet Take 1 tablet (40 mg total) by mouth daily. 08/08/2023 Active Active Problems Problem Noted Date Diagnosed Date S/p TAVR (transcatheter aort ic valve replacement), bioprosthetic 08/08/2023 Severe aortic stenosis 05/03/2023 Fall 09/19/2022 Displaced fracture of medial condyle of right femur, initial encounter for closed fracture 09/19/2022 EUGENIO (iron deficiency anemia) 03/30/2022 Anxiety 03/20/2022 Arthritis 03/20/2022 Asthma 03/20/2022 Overview (03/20/2022): childhood Depression 03/20/2022 Fibromyalgia, primary 03/20/2022 Hypertension 03/20/2022 Hypothyroidism 03/20/2022 Infectious viral hepatitis 03/20/2022 Overview (03/20/2022): hepatitis c, received treatment Seizures 03/20/2022 Overview (03/20/2022): x2 in life, one related to opiate withdrawal Acute blood loss anemia 03/01/2022 Hypokalemia 04/20/2020 Nonrheumatic aortic valve stenosis 09/02/2017 Resolved Problems Problem Noted Date Diagnosed Date Resolved Date Cardiac arrhythmia 09/02/2017 2 Encounters Date Type Department Care Team Description 08/06/2024 12:56 PM EDT - 08/06/2024 11:59 PM EDT Hospital Encounter [facility] - [facility] [address] [place] [address] Venessa Vizcaino MD S/p TAVR (transcatheter aortic valve replacement), bioprosthetic Discharge Disposition: Home 08/06/2024 Travel 06/29/2024 Orders Only [facility] [address] [place] [address] Venessa Vizcaino MD S/p TAVR (transcatheter aortic valve replacement), bioprosthetic (Primary Dx) 06/28/2024 Refill [facility] [address] [place] [address] Eloise Luis, PA Med Refill from Last 3 Months Immunizations Immunization Administration Dates Next Due Influenza Whole 11/27/2006 Influenza, High-dose, Quadrivalent 11/23/2021 Influenza, Injectable, Mdck, Preservative Free, Quad 03/21/2021 Influenza, Injectable, Quadrivalent 11/29/2017,1 Influenza, Injectable, quadrivalent (PF) 020,10/16/2018,12/07/2015 Pneumococcal Conjugate 13-Valent 11/29/2016,11/11 Td (adult), 5 Lf tetanus tox oid, preservative free, adsorbed 12/12/2011 Zoster Vaccine Recombinant 02/10/2019,10/24/2018 Family History Medical History Relation Name Comments Heart disease Father Hypertension Father Stroke Father Cancer Mother Thyroid disease Mother Breast cancer Neg Hx Relation Name Status Comments Father Maternal Grandmother Mother Social History Tobacco Use Types Packs/Day Years Used Date Smoking Tobacco: Former Cigarettes Smokeless Tobacco: Never Alcohol Use Standard Drinks/Week Comments Yes 0 (1 standard drink = 0.6 oz pur e alcohol) social use [facility] Utilities Answer Date Recorded In the past 12 months has [employer] ([employer]), gas, oil, or water [employer] threatened to shut off services in your [...] often do you attend chur ch or zoroastrianism services? Never 04/20/2020 Do you belong to any clubs o r organizations such as presybeterian groups, unions, fraternal or athletic groups, or [...] Answer Date Recorded Total Score 0 07/31/2023 [facility] - Occupational Stress Questionnaire Answer Date [...] Recorded Do you need help finding a [facility] career center and/or a training program? [...] Sign Reading Time Taken Comments Blood Pressure 159/72 09/13/2023 2:58 PM EDT Pulse 86 09/13/2023 2:58 PM EDT Temperature 37.1 C (98.8 F) 08/01/2023 11:00 AM EDT Respiratory Rate 18 08/01/2023 2:00 PM EDT Oxygen Saturation 97% 08/08/2023 1:38 PM EDT Inhaled Oxygen Concentration - - Weight 88.9 kg (196 lb) 09/13/2023 2:58 PM EDT Height 165.1 cm (5' 5 ) 09/13/2023 2:58 PM EDT Body Mass Index 32.62 09/13/2023 2:58 PM EDT Plan of Treatment Upcoming Encounters Date Type Department Care Team (Late st Contact Info) Description 09/30/2024 1:45 PM EDT Office Visit [facility] [address] [place] [address] Gretta Ryder MD [address] [place] [address] Health Maintenance Due Date Last Done Comments Adult BMI Follow Up Plan 1974 Fall Risk Screening 2021 DTaP,Tdap and Td Vaccines (2 - Td or Tdap) 12/11/2021 12/12/2011 COVID-19 Vaccine (5 - 2023-2 5 season) 2023 11/23/2021, 03/21/2021, 07/29/2020, Additional history exists Depression Screening 07/30/2024 07/31/2023 Tobacco Screening 08/07/2024 08/08/2023 Adult BMI Screening 09/12/2024 09/13/2023 Influenza Vaccine 10/12/2024 11/23/2021, , 11/10/2019, Additional history exists Zoster (Shingles) Vaccine Completed 02/10/2019, Goals Goal Patient Goal Type Associated Problems Recent Progress Patient-Stated? Author <enter goal here> General Yes Amaya Menard, RN Note: Evaluation of progress towards goal: patient plans for a safe discharge to a fpc facility on discharge. Medical Devices Implanted Type Area Firewall Administrator Device Identifier Shelf Expiration Date Model / Serial / Lot Valve Aor Evolut Fx 29mm - [id number] Implanted:Qty : 1 on 07/31/2023 by Venessa Vizcaino MD at [facility] Implant Valve [employer] 11/14/2024 EVOLUT FX- 29 / / Wire Fx Krsh 2mm 150mm Troc Tip Ss Ns Rpl [id number] - [id number] Implanted:Qty : 2 on 09/20/2022 by Giovanni Giles MD at [facility] Orthopedic Implant [employer] SALES 292.20 / / Plate Bn 10g45m4.5mm Std 3 Hle/Shft Lck Cmpr Precnt Lcp Cmbn - [id number] Implanted:Qty : 1 on 09/20/2022 by Giovanni Giles MD at [facility] Plate DEPU[employer] SALES 241.901 / / Screw Bn 34mm 3.5mm 2.[address] St Lck Strdr Cncl Hd Ss T15 Ft Ns - [id number] Implanted:Qty : 1 on 09/20/2022 by Giovanni Giles MD at [facility] Screw [employer] SALES 212.113 / / Screw Bn 38mm 3.5mm 2[address] Lck Strdr Cncl Hd Ss T15 Ft Ns Rpl [id number] - [id number] Implanted:Qty : 1 on 09/20/2022 by Giovanni Giles MD at [facility] Screw [employer] SALES 212.116 / / Screw Bn 42mm 3.5mm 2[address] Lck Strdr Cncl Hd Ss T15 Ft Ns - [id number] Implanted:Qty : 1 on 09/20/2022 by Giovanni Giles MD at [facility] Screw [employer] SALES 212.118 / / Screw Bn 46mm 3.5mm 2[address] Lck Strdr Cncl Hd Ss T15 Ft Ns Rpl [id number] - [id number] Implanted:Qty : 1 on 09/20/2022 by Giovanni Giles MD at [facility] Screw [employer] SALES 212.136 / / Screw Bn 45mm 3.5mm [address] St Lp Hd Sm Hex Sckt Oc Ss 2.5mm - [id number] Implanted:Qty : 1 on 09/20/2022 by Giovanni Giles MD at [facility] Screw [employer] SALES 204.845 / / Screw Bn 55mm 4mm Canc Ft - [id number] Implanted:Qty : 1 on 09/20/2022 by Giovanni Giles MD at [facility] Screw [employer] SALES 206.055 / / Procedures Procedure Name Priority Date/Time Associated Diagnosis Comments ECHO COMPLETE W CONTRAST Routine 08/06/2024 2:07 PM EDT S/p TAVR (transcatheter aortic valve replacement), bioprosthetic from Last 3 Months Results * Echo complete W/ contrast (08/06/2024 2:07 PM EDT) GLS -10 % XCELERA GLS triplane (3P) A4C -[id number] % XCELERA GLS triplane (3P) A3C -10.716896 [id number] % XCELERA GLS triplane (3P) A2C -11.066966 [id number] % XCELERA TDI 10.10 cm/s XCELERA MV TDI E' (medial) 5.98 cm/s XCELERA LA Volume Index 78.0 mL/m2 XCELERA TR max adriano 2.80 m/s XCELERA E/A ratio 1.30 XCELERA E/E' ratio 18.00 XCELERA MV E' average 8.0 cm/s XCELERA RA area 16.3 cm2 XCELERA TR Peak Adriano 2.8 m/s XCELERA RV Peak Systolic Pressure 34 mmHg XCELERA Est. RA pressure 3 mmHg XCELERA MV mean gradient 5.00 mmHg XCELERA MV peak gradient 11.00 mmHg XCELERA Left ventricular stroke volume 94.00 cc XCELERA DI/DVI 0.6 XCELERA AV mechanical size in mm 29 mm XCELERA AV mn grad prosthesis 5.0 mmHg XCELERA EOA 1.0 cm2 XCELERA Pk grad prosthesis 15.0 mmHg XCELERA Anatomical Region Laterality Modality Chest N/A Ultrasound Narrative 08/06/2024 3:04 PM EDT Left Ventricle: Left ventricle is mildly dilated. Systolic function is low normal to mildly decreased with an ejection fraction of 50-55%. Unable to assess diastolic function due to valve repair/replacement. Calculation of the global longitudinal strain revealed a strain rate of -10%. Lateral E' is 10.10 cm/s. Medial E' is 5.98 cm/s. Average E' is 8.0 cm/s. Aortic Valve: There is a 29 mm Evolut Fx bioprosthetic valve. The prosthetic valve appears well-seated. The prosthetic valve estimated orifice area is 1.0 cm2. The prosthetic valve peak gradient is 15.0 mmHg. The prosthetic valve mean gradient is 5.0 mmHg. Left Atrium: Left atrium volume index is severely increased. The left atrial volume index is 78.0 mL/m2. Mitral Valve: There is severe annular calcification. The mitral valve leaflets are calcified and demonstrate restricted mobility. There is mild to moderate regurgitation. There is moderate stenosis. The mean gradient is 5.00 mmHg. The peak gradient is 11.00 mmHg. Tricuspid Valve: There is mild regurgitation. The tricuspid valve regurgitation jet is central. There is no evidence of tricuspid valve stenosis. Left Ventricle Left ventricle is mildly dilated. There is mild asymmetric increased wall thickness/hypertrophy. Systolic function is low normal to mildly decreased with an ejection fraction of 50-55%. See wall score diagram for wall motion abnormalities. There is abnormal septal motion. Unable to assess diastolic function due to valve repair/replacement. Calculation of the global longitudinal strain revealed a strain rate of -10%. Lateral E' is 10.10 cm/s. Medial E' is 5.98 cm/s. Average E' is 8.0 cm/s. Right Ventricle Right ventricular size appears normal. Normal tricuspid annular plane systolic excursion. Abnormal systolic excursion velocity by TDI (<9.5cm/s). Left Atrium Left atrium volume index is severely increased. The left atrial volume index is 78.0 mL/m2. Right Atrium Right atrium is normal in size. The right atrial area is 16.3 cm2. IVC/SVC The right atrial pressure is estimated at 3 mmHg. There is normal collapse with deep inspiration. Mitral Valve The leaflets are moderately thickened. There is severe annular calcification. The mitral valve leaflets are calcified and demonstrate restricted mobility. There is mild to moderate regurgitation. There is moderate stenosis. The mean gradient is 5.00 mmHg. The peak gradient is 11.00 mmHg. Tricuspid Valve The leaflets are mildly thickened. There is mild regurgitation. The tricuspid valve regurgitation jet is central. There is no evidence of tricuspid valve stenosis. RVSP calculated at 34 mmHg. RVSP is based on RA pressure of 3 mmHg. Aortic Valve There is a 29 mm Evolut Fx bioprosthetic valve. The prosthetic valve appears well-seated. The prosthetic valve estimated orifice area is 1.0 cm2. The prosthetic valve peak gradient is 15.0 mmHg. The prosthetic valve mean gradient is 5.0 mmHg. There is no regurgitation. The gradient recorded across the prosthetic aortic valve is within the expected range. Pulmonic Valve The pulmonic valve was not well visualized. Pulmonic valve structure is grossly normal. There is trace regurgitation. There is no evidence of pulmonic valve stenosis. Ascending Aorta The aortic root is normal in size. Pericardium The pericardium has a fat pad. Study Details A complete echo was performed using complete 2D, color flow Doppler and spectral Doppler. Definity study was performed. Overall the study quality was adequate. The study was difficult due to patient's body habitus. BP 188/81 Wall Scoring Baseline Score Index: 1.29 The following segments are hypokinetic: basal anteroseptal, basal inferoseptal, mid anteroseptal, mid inferoseptal and apical septal. All other segments are normal. P Uriel Vizcaino MD CV ECHO ORDERABLES Final Re sult from Last 3 Months Insurance [employer] MEDICARE MEDICAID [place] Advance Directives * Full Code (Latest Code Status on File) Date Activated Date Inactivated Comments 08/01/2023 1:01 PM 08/01/2023 6:12 PM * Full Code Date Activated Date Inactivated Comments 09/19/2022 5:57 AM 09/24/2022 6:07 PM * Full Code Date Activated Date Inactivated Comments 03/01/2022 5:50 PM 03/03/2022 4:09 PM * Full Code Date Activated Date Inactivated Comments 04/21/2020 8:00 AM 04/21/2020 6:00 PM Care Teams Field Administrator Relationship Specialty Start Date End Date Tran Manzo MD PCP - General Family Medicine 09/18/22
--- OUTSIDE RECORDS SUMMARY | 2024-09-10 14:49 | XMS_ITS | Clinical Summary ---
Author Organization [facility] Address [address] [place], [place] [address] Care Team Providers Care Steel Welder Name Role Phone Angelica Duncan MD, Ramos Damon Primary Care Provider Allergies No known active allergies Medications ZESTRIL 20 MG TAB Take one(1) tablet twice daily. 0 03/01/2005 Active PAXIL 30 MG TAB Take one(1) tablet daily. 0 03/01/2005 Active Active Problems Problem Noted Date Diagnosed Date Myalgia and myositis, unspecified 03/01/2005 Social History Tobacco Use Types Packs/Day Years Used Date Smoking Tobacco: Every Day Cigarettes Alcohol Use Standard Drinks/Week Comments Yes 0 (1 standard drink = 0.6 oz pur e alcohol) Comments No Sex and Gender Information Value Date Recorded Sex Assigned at Not on file Legal Sex Female 9:36 AM EST Gender Identity Not on file Sexual Orientation Not on file Last Filed Vital Signs Vital Sign Reading Time Taken Comments Blood Pressure 141/103 03/01/2005 2:40 PM EST Pulse 93 03/01/2005 2:40 PM EST Temperature - - Respiratory Rate - - Oxygen Saturation - - Inhaled Oxygen Concentration - - Weight - - Height - - Body Mass Index - - Plan of Treatment Health Maintenance Due Date Last Done Comments Anxiety Screening 1974 Depression Screening 1974 DTaP,Tdap,Td Vaccine (1 - Tdap) 10/15/[address] Colonography 2001 Cologuard (FIT-DNA) 2001 Colonoscopy 2001 Colorectal Cancer Screening 2001 Diabetes Screening 2001 Fecal Occult Blood 2001 Lipid Screening 2001 Sigmoidoscopy 2001 Pneumococcal Vaccine: 50+ (1 of 1 - PCV) 2006 Shingrix Vaccine (1 of 2) 2006 Bone Density Screening 2021 Advance Directive Discussion 02/12/2024 Influenza Vaccine (#1) 2024 RSV Vaccine (1 - 1-dose 75+ series) 10/15/2031 Hepatitis C Screening Completed 07/13/1999 Procedures Procedure Name Priority Date/Time Associated Diagnosis Comments HEPATITIS C VIRUS (HCV) RNA, QUANTITATIVE PCR, PLASMA/SERUM 07/13/1999 11:11 AM EDT from Last 3 Months or Most Recently Relevant to Health Maintenance Results * HEP C VIRAL LOAD (07/13/1999 11:11 AM EDT) Pathologist [facility] HCV RNA by PCR 905,000 [facility] Comment: IU/mL 2,397,027 copies/ml of Hepatitis C virus RNA detected. Please note reporting change. HCV RNA results are now reported in IU/mL (International Units/mL), the WHO International Standard. Copies/mL will continue to be reported along with the new IU/mL designation for approximately 3 months. This test was developed and its performance characteristics determined by the Clinical Laboratories of the [facility]. It has not been cleared or approved by the US Food and Drug Administration. The FDA has determined that such clearance or approval is not necessary. 07/13/1999 11:1 1 AM EDT us [facility] Eloise wallace Result [facility] [address] [place] [address] from Last 3 Months or Most Recently Relevant to Health Maintenance Insurance [employer] Care Teams Steel Welder Relationship Specialty Start Date End Date Ramos Dominguez Jr., MD [address] [place] [address] PCP - General 05/21/00
--- OUTSIDE RECORDS SUMMARY | 2024-09-10 14:49 | XMS_ITS | Encounter Summary ---
Author Organization [facility] Address [address] [place] [address] Care Team Providers Care Corporate Planner Name Role Phone Delilha Jackson MD Primary Care Provider [phone] Justina Maddox BLACK PICKLER-ELECTRIC METER INSTALLER HELPER Unavailable Rosy Rodriguez RN Unavailable [phone] Encounter Details Date Type Department Care Team (Late st Contact Info) Description 09/02/2024 Orders Only General acute hospital Family Medicine [address] [place] [address] Sally Zhu NP [address] [place], [place] [phone] Obesity (BMI 30.0-34.9) (Primary Dx) Social History Tobacco Use Types [...] as of this encounter Progress Notes * Sally Zhu NP - 09/02/2024 3:09 PM EDT Prescription sent documented in this encounter Plan of Treatment Upcoming Encounters Date Type Department Care Team (Late st Contact Info) Description 10/05/2024 1:40 PM EDT Office Visit [facility] [address] [facility] [address] [place] [address] Josef Horan MD [address] [facility] [address] [id number] 10/19/2024 3:30 PM EDT Office Visit [facility] [address] [facility] [address] [place] [address] Justina Maddox APRN-ELECTRIC METER INSTALLER HELPER [address] [facility] [address] [place] [address] documented as of this encounter Visit Diagnoses Diagnosis Obesity (BMI 30.0-34.9)- Primary documented in this encounter Additional Health Concerns Assessment Noted Time PHQ-9 Depression Total Score: 10 025 1:04 PM EDT documented as of this encounter Care Teams Corporate Planner Relationship Specialty Start Date End Date Delilah Jackson MD [address] [place], [place] [phone] PCP - General Family Medicine 07/19/22 Justina Maddox, BLACK PICKLER-ELECTRIC METER INSTALLER HELPER 112 [facility] [address] [place] [address] Nurse Practitioner Behavioral Health 07/19/22 Rosy Rodriguez, RN [address] [place], [place] [phone] Registered Nurse Family Medicine 12/24/22 documented as of this encounter
--- OUTSIDE RECORDS SUMMARY | 2024-09-10 14:49 | XMS_ITS | Encounter Summary ---
Author Organization [employer] Address [id number] [address] [place] [address] Care Team Providers Care Public Information Officer Name Role Phone Tran Manzo MD Primary Care Provider [phone] Encounter Details Date Type Department Care Team (Late st Contact Info) Description 03/05/2022 Orders Only [facility] [address] [place] [phone] Rosa Gardner, ENAMEL BURNER-KIER TENDER [address] [place] [address] Acute blood loss anemia Social History Tobacco Use Types Packs/Day Years [...] often do you attend chur ch or orthodoxy services? Never 04/20/2020 Do you belong to any clubs o r organizations such as episcopalian groups, unions, fraternal or athletic groups, or school groups? No 04/20/2020 How often do you attend meet ings of the clubs or organizations you belong to? Never 04/20/2020 Are you , , di vorced, , never , or living with a partner? Never 04/20/2020 Overall Financial Resource Strain (CARDIA) Answe r Date Recorded How hard is it for you to pa y for the very basics like food, housing, medical care, and heating? Not hard at all 04/20/2020 PHQ-2 Answer Date Recorded Total Score 0 04/20/2020 [facility] - Occupational Stress [...] needed for daily living? Patient declined 04/20/2020 Childcare Answer Date Recorded Do problems getting child ca re make it difficult for you to work or study? No 04/20/2020 Employment Answer Date Recorded Do you need help finding a [facility] career center and/or a training program? No 04/20/2020 Purpose - Life Answer Date Recorded I have a purpose and direction in my life. Stron gly Agree 04/20/2020 Comments No Sex and Gender Information Value Date Recorded Sex Assigned at Not on file Legal Sex Female 11:28 AM EDT Gender Identity Not on file Sexual Orientation Not on file COVID-19 Exposure Response Date Recorded In the last month, have you been in contact with someone who was confirmed or suspected to have Coronavirus / COVID-19? No / Unsure 03/01/2022 2:37 PM EST documented as of this encounter Progress Notes * Rosa Gardner APRN-BRIAN - 03/05/2022 8:38 AM EST Reviewed. documented in this encounter Plan of Treatment Upcoming Encounters Date Type Department Care Team (Late st Contact Info) Description 09/30/2024 1:45 PM EDT Office Visit [facility] [address] [place] [phone] Gretta Ryder MD [address] [place], [place] [phone] documented as of this encounter Procedures Procedure Name Priority Date/Time Associated Diagnosis Comments RETICULOCYTES Add-On 03/03/2022 5:53 AM EST VITAMIN B12 Add-On 03/03/2022 5:53 AM EST documented in this encounter Results * (ABNORMAL) Reticulocytes (03/03/2022 5:53 AM EST) Reticulocyte 2.7(H) 0.4 - 2.2 % 03/05/2022 2:30 PM EST [facility] Blood / Unknown 03/03/2022 5 :53 AM EST 03/03/2022 9:08 AM EST us Rosa RUBIO LAB BLOOD ORDERABLES Final Result [facility] [address] [facility] [facility] [place] [address] * Vitamin B12 (03/03/2022 5:53 AM EST) Vitamin B-12 332 180 - 914 pg/mL 03/05/2022 3:06 PM EST [facility] Serum / Unknown 03/03/2022 5 :53 AM EST 03/03/2022 9:08 AM EST us Rosa Kendra ENAMEL BURNER-KIER TENDER LAB BLOOD ORDERABLES Final Result [facility] [address] [place] [address] documented in this encounter Visit Diagnoses Diagnosis Acute blood loss anemia Acute posthemorrhagic anemia documented in this encounter Additional Health Concerns Assessment Noted Time PHQ-9 Depression Total Score: 0 04/21/19 21 8:00 PM EST documented as of this encounter Care Teams Public Information Officer Relationship Specialty Start Date End Date Tran Manzo MD PCP - General Family Medicine 09/18/22 documented as of this encounter
--- OUTSIDE RECORDS SUMMARY | 2024-09-10 14:49 | XMS_ITS | Encounter Summary ---
Author Organization [facility] Address [address] [place] [address] Care Team Providers Care Crm Solution Architect Name Role Phone Delilah Jackson MD Primary Care Provider [phone] Justina Maddox MAJOR GIFTS OFFICER-CERAMIC TILE INSTALLER Unavailable Rosy Rodriguez RN Unavailable [phone] Myesha Bell MEDICAL DEVICE Unavailable [phone] Reason for Visit * Reason Comments Med Refill Encounter Details Date Type Department Care Team (Late st Contact Info) Description 08/10/2023 Refill [facility] Family Medicine [address] [place] [address] Delilah Jackson MD [address] [place] [address] Dyspepsia Social History Tobacco Use Types Packs/Day Years [...] Telephone Encounter - Delilah Jackson MD - 08/10/2023 10:27 AM EDT Approving, but needs appt for additional refills. documented in this encounter Plan of Treatment Upcoming Encounters Date Type Department Care Team (Late st Contact Info) Description 10/05/2024 1:40 PM EDT Office Visit [facility] [address] [facility] [address] [place] [address] Josef Horan MD 6902 [facility] [address] [address] 10/19/2024 3:30 PM EDT Office Visit [facility] 112 [facility] 160 [place] [address] Justina Maddox APRN-CERAMIC TILE INSTALLER 112 [facility] 160 [place] [address] documented as of this encounter Visit Diagnoses Diagnosis Dyspepsia Dyspepsia and other specified disorders of function of stomach documented in this encounter Additional Health Concerns Assessment Noted Time PHQ-9 Depression Total Score: 4 03/14/19 24 3:00 PM EST documented as of this encounter Care Teams Crm Solution Architect Relationship Specialty Start Date End Date Delilah Jackson MD [address] [place] [address] PCP - General Family Medicine 07/19/22 Justina Maddox, MAJOR GIFTS OFFICER-CERAMIC TILE INSTALLER 112 [facility] 160 [place] [address] Nurse Practitioner Behavioral Health 07/19/22 Rosy Rodriguez, VANDANA [address] [facility] [place] [address] Registered Nurse Family Medicine 12/24/22 Myesha Bell LSW [address] [place], [place] [id number] Hand Touch Up Painter Family Medicine 04/15/23 06/15/24 documented as of this encounter
--- NOTE | 2024-09-10 15:06 | PM.WCHP ---
Exam Narrative: Exam Narrative: Dermatologic: Partial-thickness ulcer on the dorsum of the left fourth toe with no sign of infection. Ulcer is dry. Skin is thin, atrophic, and dry. Toenails 1-10 are elongated, thickened, and mycotic. Musculoskeletal: Bilateral bunion, bilateral hammertoe deformity Vascular exam: PT pulses are nonpalpable bilaterally. Dorsalis pedis pulses are 1/4 bilaterally. Capillary refill is less than 3 seconds. Varicosities are present. The skin is warm. There is no edema. Digital hair is absent bilaterally. Neurologic: Vibratory sensation is present but decreased bilaterally, Achilles deep tendon reflex is 0+ bilaterally.? Protective sensation was tested with a monofilament and is present in 1/5 areas tested on the right and 0/5 areas tested on the left.? Assessment and Plan Assessment and Plan (1) Disorder of nail due to another disorder: (2) Gait instability: (3) Diminished pulses in lower extremity: (4) Tinea unguium: (5) Hammertoe, bilateral: Plan Routine nail care performed without incident. Follow-up in 3 months, sooner if any issues arise. Acute Procedures Podiatry Nail Debridement Class B Findings Absent posterior tibial pulse: bilateral Advanced trophic changes as evidenced by any three of the following: decreased hair growth, nail changes (thickening), pigmentary changes (discoloring) and skin texture (thin or shiny) Class C Findings Claudication: No Temperature changes: Yes Edema: No Nail debridement paresthesia (abnormal spontaneous sensations in the feet): No Burning: No Qualifies If: Qualifiers If:: A patient qualifies for nail debridement if they have: 1 class A finding (Q7) 2 class B findings (Q8) OR 1 class B & 2 class C findings in addition to a primary condition (Q9) Nail Procedure Nail Procedure Time out: Yes Nail procedure: other (Toenail debridement) Number of affected nails: 10 Location (toes): left and right Procedure successful: Yes Patient tolerated procedure: well and no complications Additional comments: Toenails 1 through 10 were sharply debrided with nail nippers without incident.
== END 2024-09-10 14:46 | disposition home or self-care (01) ==
LOC: WC 14:45
PROVIDERS: Visit Provider Physician Assistant
DX: B35.1 Tinea unguium (principal); L60.8 Other nail disorders; R26.81 Unsteadiness on feet; I70.213 Atherosclerosis of native arteries of extremities with intermittent claudication, bilateral legs; M20.42 Other hammer toe(s) (acquired), left foot; M20.41 Other hammer toe(s) (acquired), right foot
CPT/HCPCS: 11721

== ENCOUNTER 2024-11-05 15:09 | Outpatient (OUT) | payer MEDICARE, SELFPAY ==
--- OUTSIDE RECORDS SUMMARY | 2024-01-21 09:15 | XMS_ITS ---
Author Organization The [facility] in [place] Address [address] [place] [address] Care Team Providers Care Pipe Coverer Name Role Phone None, Unknown or Primary Care Provider Unavailab Troy Tabares Unavailable [phone] REASON FOR VISIT ingrown nail and nail care, left foot pain Encounters Encounter Location Date Provider Diagnosis [facility] (PODIATRY) [address] [place] [address] [place] [address] 01/21/2024 Troy Wharton Hallux valgus (acquired), left foot M20.12 Assessments Encounter Date Diagnosis (ICD Code) Assessment Notes Treatment Notes Treatment Clinical Notes Section Notes 01/21/2024 Hallux valgus (acquired), left foot (ICD-10 - M20.12) Plan Of Treatment Pending Test Test Name Order Date XR Foot LT (3 views) * 01/21/2024 Progress Notes * BIPIN Devika LDOB:1955 (69 yo F)Acc No.[id number]:01/21/2024 UNLOCKED PROGRESS NOTE Follow Up Patient: Christiano NERIjanine Sloan Provider: Venessa Wharton DPM, MS :1955 A ge:68 Y S ex:Female Date:01/21/2024 Address:[address] [place], [place] [id number] Pcp:Unknown or None Subjective: * Chief Complaints: * 1 . Ingrown nail and nail care, left foot pain. * Medical History: Objective: * Vitals: Assessment: * Assessment: 1. H allux valgus (acquired), left foot - M20.12 Plan: * Treatment: * * Electronic signature of Carlin Wharton DPM on 11/05/2024 at 03:17 PM EDT Sign off status: Pending Visit Status: N /S N/C (No Show/No Charge) * Provider: Venessa Wharton DPM, MS Date: 1 03/23/2023 Generated for Noyi ng/Gadiel/eTransmitting on: 0 11/05/2024 03:17 PM EDT
--- OUTSIDE RECORDS SUMMARY | 2024-10-27 15:00 | XMS_ITS | Encounter Summary ---
Author Organization [facility] Address [address] [place] [address] Care Team Providers Care Cyber Forensic Specialist Name Role Phone Delilah Jackson MD Primary Care Provider [phone] Justina Maddox APRN-BONING ROOM WORKER Unavailable Rosy Rodriguez RN Unavailable [phone] Tran Manzo MD Unavailable Reason for Referral * Rehabilitation - Outpatient (Routine) - Authorized Specialty Diagnoses / Procedures Referred By Rosalind gallardo Referred To Contact Physical Therapy Diagnoses At high risk for injury related to fall Unsteady gait Procedures NM OFFICE/OUTPATIENT NEW HIGH MDM 60 MINUTES Sally Zhu NP [address] [place] [address] Phone: tel: fax: Ina Perez PT Referral ID Status Reason Start Date Expiration Date Visits Requested Visits Authorized [id number] Authorized Specialty Services Required 11/11/2024 01/11/2025 8 8 Reason for Visit * Reason Comments Follow-up Encounter Details Date Type Department Care Team ([facility] Contact Info) Description 10/27/2024 3:00 PM EDT Office Visit [facility] Family Medicine [address] [place] [phone] Sally Zhu NP [address] [place] [address] 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); Cognitive disorder; At high risk for injury related to fall; Unsteady gait Social History Tobacco Use Types Packs/Day Years [...] Sign Reading Time Taken Comments Blood Pressure 136/82 10/27/2024 3:07 PM EDT Pulse 86 10/27/2024 3:07 PM EDT Temperature 36.4 C (97.5 F) 10/27/2024 3:07 PM EDT Respiratory Rate - - Oxygen Saturation 98% 10/27/2024 3:07 PM EDT Inhaled Oxygen Concentration - - Weight 94.8 kg (209 lb) 10/27/2024 3:07 PM EDT Height - - Body Mass Index 33.73 07/23/2024 2:49 PM EDT documented in this encounter Progress Notes * Sally Zhu NP - 10/27/2024 3:00 PM EDTAssociated Problem(s): Chronic pain due to injury * Sally Zhu NP - 10/27/2024 3:00 PM EDTAssociated Problem(s): Cognitive disorder * Sally Zhu NP - 10/27/2024 3:00 PM EDT Subjective ?Quick Links Last Note in Specialty Snapshot Edit RFV/CC Edit Screenings Current Meds Patient ID: Devika Ellis is a 69 y.o. female who presents for Follow-up. HPI History of Present Illness The patient presents for evaluation of weight management, head injury, and shoulder pain. No LOC. No headache. No dizziness. Patient reports she tripped and fell while she was rushing to neurology office. Declines xrays at this time. She reports a decrease in her weight from 213 to 203 pounds. She is currently on Wegovy and requires a refill at this time. She experienced an ankle sprain while walking, which was accompanied by pain. She has been using a cane for mobility but expresses a lack of confidence due to occasional vertigo. She has applied a bandage and used ice for relief. The swelling has since subsided, leading her to believe that the ankle is not fractured. Declines xrays at this time. Six days ago, she fell and hit her head while rushing for a doctor's appointment. She did not lose consciousness or experience any neck pain. However, she notes increased tenderness in the area of impact. She is not on any anticoagulant therapy and has not had any headaches since the incident. She is under the care of Dr. Horan for neurological conditions. She had a thyroid ultrasound done in 08/2024 and an MRI of her brain, both of which were normal. ?Quick Review Review Full History Edit History Meds - amLODIPine (Norvasc) 5 MG tablet atorvastatin (Lipitor) 10 MG tablet buPROPion XL (Wellbutrin XL) 150 MG 24 hr tablet Calcium Carbonate-Vitamin D (Oyster Shell Calcium/D) 500-5 MG-MCG tablet cholecalciferol (Vitamin D-3) 25 MCG (1000 UT) tablet famotidine (Pepcid) 20 MG tablet ferrous sulfate 325 (65 Fe) MG tablet furosemide (Lasix) 40 MG tablet hydrOXYzine pamoate (Vistaril) 25 MG capsule KLOR-CON 20 MEQ ER tablet lamoTRIgine (LaMICtal) 150 MG tablet levothyroxine (Synthroid, Levoxyl) 200 MCG tablet magnesium oxide (Mag-Ox) 400 mg tablet montelukast (Singulair) [address] 500 MG tablet delayed-release omeprazole (PriLOSEC) [address] capsule pregabalin (Lyrica) 50 MG capsule Semaglutide-Weight Management (Wegovy) 0.25 MG/0.5ML solution auto-injector sertraline (Zoloft) 100 MG tablet spironolactone (Aldactone) 25 MG tablet traZODone (Desyrel) 100 MG tablet --- PMH - Acute autonomic neuropathy Allergy-induced asthma (HCC) Anxiety Benign hypertension Broken femur (CMS-HCC) Bulging lumbar disc Chronic pain Depression Ear infection Excoriation of periwound skin Gout H/O bilateral cataract extraction H/O tubal ligation Heart murmur Hepatitis C History of being hospitalized History of carpal tunnel release History of lumbar surgery History of open reduction and internal fixation (ORIF) procedure History of selective injection of anesthetic agent around lumbar nerve root History of stomach ulcers History of tonsillectomy and adenoidectomy Hypothyroid Liver disease Major depression Obesity Seizure (HCC) Urinary problem Vision problem Objective ?Quick Links Add Vitals Timeline (Adult) Labs Imaging Results Review Trend Vitals ?? Avoid pulling in long tables of results. Comment on relevant results to support your medical decision making. There were no vitals taken for this visit. Review of Systems Constitutional: Negative for chills and fatigue. HENT: Negative for ear discharge, ear pain, rhinorrhea and sore throat. Eyes: Negative for pain and redness. Respiratory: Negative for cough and chest tightness. Cardiovascular: Negative for chest pain and palpitations. Gastrointestinal: Negative for abdominal distention and abdominal pain. Genitourinary: Negative for difficulty urinating and frequency. Musculoskeletal: Negative for arthralgias and gait problem. Skin: Negative. Neurological: Negative for dizziness, tremors, facial asymmetry, speech difficulty, weakness, light-headedness, numbness and headaches. Endocrine: Negative. Allergic/Immunologic: Negative. Physical Exam Vitals reviewed. Cardiovascular: Rate and Rhythm: Normal rate and regular rhythm. Pulses: Normal pulses. Heart sounds: Normal heart sounds. Pulmonary: Effort: Pulmonary effort is normal. Breath sounds: Normal breath sounds. Abdominal: General: Abdomen is flat. Bowel sounds are normal. Palpations: Abdomen is soft. Musculoskeletal: General: Normal range of motion. Skin: General: Skin is warm and dry. Neurological: General: No focal deficit present. Mental Status: She is oriented to person, place, and time. Physical Exam Head: Mild tenderness noted on palpation due to recent fall. Respiratory: Clear to auscultation, no wheezing, rales or rhonchi Extremities: No swelling noted on the ankle due to recent sprain. ?Quick Links Full Problem List Allergy Asthma Back Pain Cardiology CHF Chronic Pain COPD GI Headache Hypertension Thyroid Assessment & Plan Chronic pain due to injury Cognitive disorder At high risk for injury related to fall Orders: Ambulatory referral to Physical Therapy; Future Unsteady gait Orders: Ambulatory referral to Physical Therapy; Future Assessment & Plan 1. Weight management: - Weight has decreased from 213 to 203 pounds. - A prescription for Wegovy will be provided. 2. Ankle sprain: - Reports spraining her ankle while walking, resulting in pain and initial swelling. - She has been using a bandage and icing the ankle. No further treatment is required at this time. 3. Head injury: - Fell and hit her head 6 days ago, resulting in tenderness but no loss of consciousness or headaches. - If she experiences headaches or worsening dizziness, she should inform the clinic immediately. Declines any radiological studies at this time. 4. Shoulder pain: - She is following up with Dr. Horan for her shoulder pain. - No additional treatment is required at this time. 5. Health maintenance: - Blood pressure is 136/82, which is within acceptable range. - Previous thyroid, kidney, and liver function tests were normal. - No labs are needed today. 6. Physical therapy: - An order for physical therapy will be placed at [facility]. - If she does not receive a response within a week, she should contact the clinic. Follow-up: A follow-up visit is scheduled in 3 months. Diagnoses and all orders for this visit: Chronic pain due to injury Cognitive disorder At high risk for injury related to fall - Ambulatory referral to Physical Therapy; Future Unsteady gait - Ambulatory referral to Physical Therapy; Future documented in this encounter Plan of Treatment Upcoming Encounters Date Type Department Care Team (Late st Contact Info) Description 11/10/2024 2:00 PM EDT Office Visit [facility] 14[address] [facility] [place] [address] Sally Zhu NP [address] [place], [place] [address] 11/11/2024 11:30 AM EDT Evaluation [facility] [address] [facility] [address] [place] [address] Ina Perez, PT 12/03/2024 2:30 PM EDT Office Visit [facility] [address] [place] [address] Jenifer Rust, CANDY DEPOSITING MACHINE OPERATOR-WHEEL AND PINION INSPECTOR 53[address] [facility] [place] [address] 12/14/2024 3:00 PM EST Office Visit [facility] [address] [place] [address] Justina Maddox, CANDY DEPOSITING MACHINE OPERATOR-BONING ROOM WORKER [address] [place] [address] 01/28/2025 2:00 PM EST Office Visit [facility] 14[address] [facility] [place] [address] Sally Zhu NP [address] [place], [place] [phone] Scheduled Referrals Name Type Priority Associated Diagnoses Order Schedule Ambulatory referral to Physical Therapy Outpatient Referral Routine At high risk for injury related to fall Unsteady gait Expected: 10/27/2024 (Approximate), Expires: 04/26/2025 documented as of this encounter Visit Diagnoses Diagnosis Chronic pain due to injury- Primary Chronic pain due to trauma Cognitive disorder Unspecified persistent mental disorders due to conditions classified elsewhere At high risk for injury related to fall Unsteady gait Abnormality of gait documented in this encounter Additional Health Concerns Assessment Noted Time PHQ-9 Depression Total Score: 10 025 1:04 PM EDT documented as of this encounter Care Teams Cyber Forensic Specialist Relationship Specialty Start Date End Date Delilah Jackson MD [address] [place], [place] [phone] PCP - General Family Medicine 07/19/22 Tran Manzo MD 1479 [facility] [place], [place] [address] PCP - [employer] 12/12/17 Justina Maddox APRN-BONING ROOM WORKER [address] [facility] 160 [place] [address] Nurse Practitioner Behavioral Health 07/19/22 Rosy Rodriguez, VANDANA 1479 [facility] [place] [address] Registered Nurse Family Medicine 12/24/22 documented as of this encounter
--- OUTSIDE RECORDS SUMMARY | 2024-11-05 15:13 | XMS_ITS | Encounter Summary ---
Author Organization [facility] Address [address] [place] [address] Care Team Providers Care Senior Software Engineering Manager Name Role Phone Delilah Jackson MD Primary Care Provider [phone] Justina Maddox STRAW HAT BRIM CUTTER OPERATOR-INSTRUMENT LENS GRINDER APPRENTICE Unavailable Rosy Rodriguez RN Unavailable [phone] Tran Manzo MD Unavailable Encounter Details Date Type Department Care Team (Latest Contact Info) Description 10/27/2024 Travel Social History Tobacco Use Types Packs/Day [...] 11/10/2024 2:00 PM EDT Office Visit [facility] [address] [place] [address] Sally Zhu NP [address] [place] [address] 11/11/2024 11:30 AM EDT Evaluation [facility] [address] [place] [address] Ina Perez, PT 12/03/2024 2:30 PM EDT Office Visit [facility] [address] [place] [address] Jenifer Rust, STRAW HAT BRIM CUTTER OPERATOR-ARRANGING FUNERAL DIRECTOR 53[address] [facility] [place] [address] 12/14/2024 3:00 PM EST Office Visit [facility] [place] [facility] [address] [place] [address] Justina Maddox, STRAW HAT BRIM CUTTER OPERATOR-INSTRUMENT LENS GRINDER APPRENTICE [address] [place] [address] 01/28/2025 2:00 PM EST Office Visit [facility] [address] [place] [address] Sally Zhu NP [address] [place], [place] [phone] documented as of this encounter Visit Diagnoses Not on filedocumented in this encounter Additional Health Concerns Assessment Noted Time PHQ-9 Depression Total Score: 10 025 1:04 PM EDT documented as of this encounter Care Teams Senior Software Engineering Manager Relationship Specialty Start Date End Date Delilah Jackson MD [address] [place], [place] [phone] PCP - General Family Medicine 07/19/22 Tran Manzo MD 1479 [facility] [place], [place] [address] PCP - [employer] 12/12/17 Justina Maddox, STRAW HAT BRIM CUTTER OPERATOR-INSTRUMENT LENS GRINDER APPRENTICE [address] [place] [address] Nurse Practitioner Behavioral Health 07/19/22 Rosy Rodriguez, RN [address] [place] [address] Registered Nurse Family Medicine 12/24/22 documented as of this encounter
--- OUTSIDE RECORDS SUMMARY | 2024-11-05 15:13 | XMS_ITS | Encounter Summary ---
Author Organization [facility] Address [address] [place] [address] Care Team Providers Care Airport Ramp Agent Name Role Phone Delilah Jackson MD Primary Care Provider [phone] Justina Maddox OIL LABORATORY ANALYST-MOTION STUDY ANALYST Unavailable Rosy Rodriguez RN Unavailable [phone] Tran Manzo MD Unavailable Encounter Details Date Type Department Care Team (Late st Contact Info) Description 10/29/2024 Refill [facility] [address] [place] [address] Delilah Jackson MD [address] [place] [address] Essential hypertension ; Obesity (BMI [...] 11/10/2024 2:00 PM EDT Office Visit [facility] [address] [place] [address] Sally Zhu NP [address] [place], [place] [phone] 11/11/2024 11:30 AM EDT Evaluation [facility] [address] [facility] [address] [place] [address] Ina Perez, RORY 12/03/2024 2:30 PM EDT Office Visit [facility] [address] [facility] [address] [place] [address] Jenifer Rust, OIL LABORATORY ANALYST-RESPIRATORY SUPERVISOR [address] [facility] [address] 12/14/2024 3:00 PM EST Office Visit [facility] 112 [facility] 160 [place] [phone] Justina Maddox, OIL LABORATORY ANALYST-MOTION STUDY ANALYST [address] [facility] [address] [place] [address] 01/28/2025 2:00 PM EST Office Visit [facility] [address] [place] [address] Sally Zhu NP [address] [place] [address] documented as of this encounter Visit Diagnoses Diagnosis Essential hypertension Unspecified essential hypertension Obesity (BMI 30.0-34.9) Mixed hyperlipidemia documented in this encounter Additional Health Concerns Assessment Noted Time PHQ-9 Depression Total Score: 10 025 1:04 PM EDT documented as of this encounter Care Teams Airport Ramp Agent Relationship Specialty Start Date End Date Delilah Jackson MD [address] [place], [place] [phone] PCP - General Family Medicine 07/19/22 Tran Manzo MD [address] [place] [address] PCP - [employer] 12/12/17 Justina Maddox, OIL LABORATORY ANALYST-MOTION STUDY ANALYST [address] [place] [address] Nurse Practitioner Behavioral Health 07/19/22 Rosy Rodriguez, RN [address] [place] [address] Registered Nurse Family Medicine 12/24/22 documented as of this encounter
--- OUTSIDE RECORDS SUMMARY | 2024-11-05 15:13 | XMS_ITS | Encounter Summary ---
Author Organization [facility] Address [address] [place] [address] Care Team Providers Care Dye Reel Operator Name Role Phone Delilah Jackson MD Primary Care Provider [phone] Justina Maddox APRN-VOICE OVER ANNOUNCER Unavailable Rosy Rodriguez RN Unavailable [phone] Tran Manzo MD Unavailable Encounter Details Date Type Department Care Team (Late st Contact Info) Description 10/22/2024 Patient Outreach [facility] [address] [place] [address] Rosy Rodriguez, RN [address] [place] [address] Social History Tobacco Use Types [...] Progress Notes * Rosy Rodriguez RN - 10/22/2024 2:24 PM EDT Received vm from pt stating she thought she had an appt but she fell and can't come in, states the person who transferred her call said she should talk to this nurse. Returned her call. States this morning she was going to get into the shower and fell hitting her head which caused bleeding. States she was able to get the bleeding under control, she knew she had anappt today, she remembered it was with neuro, states she called and had to leave a message at neurooffice informing them that she could not come in. Attempted to get pt scheduled in this office but she refused stating she feels fine, actually said she feels the best that she has in awhile. Pt is scheduled with this office on 10/27 and plans to keep appt. Encouraged to seek er if headaches, visionchanges, uncontrolled bleeding, dizziness. * Katina Rangel NP - 10/22/2024 2:24 PM EDT Lou please call and see if patient is doing okay. She has appointment with Jenifer in a month. documented in this encounter Plan of Treatment Upcoming Encounters Date Type Department Care Team (Late st Contact Info) Description 11/10/2024 2:00 PM EDT Office Visit [facility] [address] [place] [address] Sally Zhu [facility] [address] [facility] [place] [address] 11/11/2024 11:30 AM EDT Evaluation [facility] [address] [facility] [address] [place] [address] Ina Perez, PT 12/03/2024 2:30 PM EDT Office Visit [facility] [address] [place] [address] Jenifer Rust, GEOPHYSICAL MANAGER-OIL INSPECTOR [address] [place], [place] [address] 12/14/2024 3:00 PM EST Office Visit [facility] [place] [facility] [address] [facility] [address] [place] [phone] Justina Maddox, GEOPHYSICAL MANAGER-VOICE OVER ANNOUNCER [address] [facility] 160 [place] [address] 01/28/2025 2:00 PM EST Office Visit [facility] [address] [facility] [place] [address] Sally Zhu [facility] [address] [facility] [place] [address] documented as of this encounter Visit Diagnoses Diagnosis Essential hypertension- Primary Unspecified essential hypertension Bipolar II disorder (HCC) Other bipolar disorders documented in this encounter Additional Health Concerns Assessment Noted Time PHQ-9 Depression Total Score: 10 025 1:04 PM EDT documented as of this encounter Care Teams Dye Reel Operator Relationship Specialty Start Date End Date Delilah Jackson MD 1479 [facility] [place], [place] [phone] PCP - General Family Medicine 07/19/22 Tran Manzo MD [address] [place] [address] PCP - [employer] 12/12/17 Justina Maddox, GEOPHYSICAL MANAGER-VOICE OVER ANNOUNCER 112 [facility] 160 [place] [address] Nurse Practitioner Behavioral Health 07/19/22 Rosy Rodriguez, VANDANA 14[address] [facility] [place] [address] Registered Nurse Family Medicine 12/24/22 documented as of this encounter
--- OUTSIDE RECORDS SUMMARY | 2024-11-05 15:13 | XMS_ITS | Encounter Summary ---
Author Organization [facility] Address [address] [facility] [place] [address] Care Team Providers Care Bank Guard Name Role Phone Delilah Jackson MD Primary Care Provider [phone] Justina Maddox ALUMINIZER-RN EMBEDDED Unavailable Rosy Rodriguez RN Unavailable [phone] Tran Manzo MD Unavailable Reason for Visit * Reason Comments Med Refill Encounter Details Date Type Department Care Team (Late st Contact Info) Description 11/01/2024 Refill [facility] [place] [facility] [address] [facility] 310 [place] [address] Josef Horan MD [address] [facility] [address] [place] [address] Polyneuropathy, unspecified (Primary Dx) Social History Tobacco Use Types [...] Office Visit [facility] 1479 [place] [address] Sally Zhu RAIL MAINTENANCE WORKER 1479 [place] [address] 11/11/2024 11:30 AM EDT Evaluation [facility] [address] [facility] 170 [place] [address] Ina Perez, PT 12/03/2024 2:30 PM EDT Office Visit [facility] [address] [place] [address] Jenifer Rust, ALUMINIZER-LEAD AUDITOR [address] [facility] [place] [address] 12/14/2024 3:00 PM EST Office Visit [facility] 112 [facility] 160 [place] [address] Justina Maddox, ALUMINIZER-RN EMBEDDED [address] [facility] 160 [place] [address] 01/28/2025 2:00 PM EST Office Visit [facility] 1479 [place] [address] Sally Zhu NP 1479 [place] [address] documented as of this encounter Visit Diagnoses Diagnosis Polyneuropathy, unspecified- Primary documented in this encounter Additional Health Concerns Assessment Noted Time PHQ-9 Depression Total Score: 10 025 1:04 PM EDT documented as of this encounter Care Teams Bank Guard Relationship Specialty Start Date End Date Delilah Jackson MD [facility]9 [place], [place] [address] PCP - General Family Medicine 07/19/22 Tran Manzo MD [facility]9 [place], [place] [address] PCP - [employer] 12/12/17 Justina Maddox, ALUMINIZER-RN EMBEDDED [address] [place] [address] Nurse Practitioner Behavioral Health 07/19/22 Rosy Rodriguez, RN 1479 [place] [address] Registered Nurse Family Medicine 12/24/22 documented as of this encounter
--- OUTSIDE RECORDS SUMMARY | 2024-11-05 15:13 | XMS_ITS | Encounter Summary ---
Author Organization [facility] Address [address] [place] [address] Care Team Providers Care Welding Tester Name Role Phone Delilah Jackson MD Primary Care Provider [phone] Justina Maddox RECEIVER/LABORER-CLOTH FEEDER Unavailable Rosy Rodriguez RN Unavailable [phone] Tran Manzo MD Unavailable Encounter Details Date Type Department Care Team (Late st Contact Info) Description 10/27/2024 Bamboo flowsheet [facility] Family Medicine 1479 [place] [address] Sally Zhu NP 14[address] [place] [address] Social History Tobacco Use Types [...] Office Visit [facility] 1479 [place] [address] Sally Zhu NP [address] [place], [place] [address] 11/11/2024 11:30 AM EDT Evaluation [facility] [address] [facility] 170 [place] [address] Ina Perez, RORY 12/03/2024 2:30 PM EDT Office Visit [facility] [address] [place] [address] Jenifer Rust, RECEIVER/LABORER-SPEECH CORRECTION ASSISTANT 5319 [facility] [place] [address] 12/14/2024 3:00 PM EST Office Visit [facility] [address] [facility] 160 [place] [address] Justina Maddox, RECEIVER/LABORER-CLOTH FEEDER [address] [facility] 160 [place] [address] 01/28/2025 2:00 PM EST Office Visit [facility] [address] [place] [address] Sally Zhu NP 1479 [place], [place] [address] documented as of this encounter Visit Diagnoses Not on filedocumented in this encounter Additional Health Concerns Assessment Noted Time PHQ-9 Depression Total Score: 10 025 1:04 PM EDT documented as of this encounter Care Teams Welding Tester Relationship Specialty Start Date End Date Delilah Jackson MD 1479 [place], [place] [address]100[address] PCP - General Family Medicine 07/19/22 Tran Manzo MD 1479 [place], [place] [address] PCP - [employer] 12/12/17 Justina Maddox, RECEIVER/LABORER-CLOTH FEEDER [address] [place] [address] Nurse Practitioner Behavioral Health 07/19/22 Rosy Rodriguez, RN 1479 [place] [address] Registered Nurse Family Medicine 12/24/22 documented as of this encounter
--- OUTSIDE RECORDS SUMMARY | 2024-11-05 15:14 | XMS_ITS | Encounter Summary ---
Author Organization [facility] Address [address] [place] [address] Care Team Providers Care Cable Engineer Outside Plant Name Role Phone Delilah Jackson MD Primary Care Provider [phone] Justina Maddox DECORATING SUPERVISOR-TEACHER DANCING Unavailable Rosy Rodriguez RN Unavailable Tran Manzo MD Unavailable Reason for Visit * Reason Comments Med Refill Encounter Details Date Type Department Care Team (Late st Contact Info) Description 09/07/2024 Refill [facility] [place] [facility] 112 [facility] 160 [place] [address] Justina Maddox, DECORATING SUPERVISOR-TEACHER DANCING 112 [facility] 160 [place] [address] Bipolar II disorder (HCC); Generalized anxiety disorder [...] Office Visit [facility] 1479 [place] [address] Sally Zhu NP 1479 [place] [address] 11/11/2024 11:30 AM EDT Evaluation [facility] [address] [facility] 170 [place] [address] Ina Perez, PT 12/03/2024 2:30 PM EDT Office Visit [facility] [address] [facility] 310 [place] [address] Jenifer Rust, DECORATING SUPERVISOR-TEXTILE COLORIST DYER [address] [facility] [place] [address] 12/14/2024 3:00 PM EST Office Visit [facility] 112 [facility] 160 [place] [address] Justina Maddox, DECORATING SUPERVISOR-TEACHER DANCING [address] [facility] 160 [place] [address] 01/28/2025 2:00 PM EST Office Visit [facility] 1479 [place] [address] Sally Zhu NP 1479 [place] [address] documented as of this encounter Visit Diagnoses Diagnosis Bipolar II disorder (HCC) Other bipolar disorders Generalized anxiety disorder documented in this encounter Additional Health Concerns Assessment Noted Time PHQ-9 Depression Total Score: 10 025 1:04 PM EDT documented as of this encounter Care Teams Cable Engineer Outside Plant Relationship Specialty Start Date End Date Delilah Jackson MD [facility]9 [place] [address] PCP - General Family Medicine 07/19/22 Tran Manzo MD [facility]9 [place] [address] PCP - [employer] 12/12/17 Justina Maddox APRN-TEACHER DANCING [address] [facility] 160 [place] [address] Nurse Practitioner Behavioral Health 07/19/22 Rosy Rodriguez, RN [address] [facility] [place] [address] Registered Nurse Family Medicine 12/24/22 documented as of this encounter
--- OUTSIDE RECORDS SUMMARY | 2024-11-05 15:14 | XMS_ITS | Patient Health Record ---
Author Organization [facility] [place] Address [address] [place] [address] Care Team Providers Care Property Utilization Officer Name Role Phone None, Unknown or Primary Care Provider Unavailab Troy Tabares Unavailable [phone] ErskineAnel harris Unavailable [phone] Allergies No Known Allergies Reason For Referral No Information Medications Medication SIG (Take, Route, Frequency, Duration) Notes Start Date End Date Status oxyCODONE HCl 10 MG Oral; Duration: 30 Days Active buPROPion HCl ER (XL) 150 MG Oral; Duration: 90 Days Active lamoTRIgine 150 MG Oral; Duration: 90 Days Active Sertraline HCl 100 MG Oral; Duration: 90 Days Active Omeprazole 40 MG Oral; Duration: 90 Days Active amLODIPine Besylate 5 MG Oral; Duration: 90 Days Active Levothyroxine Sodium 200 MCG Oral; Duration: 90 Days Active Atorvastatin Calcium 10 MG Oral; Duration: 90 Days Active Famotidine 20 MG Oral; Duration: 90 Days Active Klor-Con M20 20 MEQ Oral; Duration: 90 Days Active Aspirin Low Dose 81 MG CHEW AND SWALLOW 1 TABLET BY MOUTH ONCE DAILY IN THE MORNING Oral; Duration: 90 Days Active buPROPion HCl ER (XL) 150 MG TAKE 1 TABL ET BY MOUTH EVERY DAY IN THE MORNING Oral; Duration: 90 Days Active amLODIPine Besylate 5 MG TAKE 1 TABLET B Y MOUTH EVERY DAY IN THE MORNING Oral; Duration: [address] 500 MG Oral; Duration: 30 Days Active traZODone HCl 100 MG Oral; Duration: 90 Days Active Furosemide 40 MG Oral; Duration: 90 Days Active Ferrous Sulfate 325 (65 Fe) MG TAKE 1 TABLET BY MOUTH EVERY DAY WITH BREAKFAST Oral; Duration: 30 Days Active Social History Tobacco Use: Social History Observation Description Date Details (start date - stop date) Never Smoker NA - NA Tobacco Control (Standard) Question Answer Notes Tobacco use: Nonsmoker Problems Problem Type SNOMED Code ICD Code Onset Dates Problem Status W/U Status Risk Notes Problem Acquired hallux valgus (87801539) Hallux valgus (acquired), left foot (M20.12) Active confirmed Problem Acquired hammer toe of left foot (8303706639646 103) Other hammer toe(s) (acquired), left foot (M20.42) Active confirmed Problem Ulcer of left foot (disorder) (260576827) 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) Active confirmed Encounters Encounter Location Date Provider Diagnosis [facility] [place] (PODIATRY) [address] [place] [address] [place] [address] 03/26/2024 Anel Omar Other hammer toe(s) (acquired), left foot M20.42 [...] Date [employer] MEDICARE ADV PLAN [address] [address] [place] [address] [phone] [id number] Devika Ellis Self - patient is the insured Medical (General) History Medical History History ICD Code arthritis nail dystrophy bilateral lower leg pain hammertoes, bilateral liver disease left posterior tibial tendinitis Surgical History Surgery Date(Month/Year) TAVR - heart procedure
--- OUTSIDE RECORDS SUMMARY | 2024-11-05 15:14 | XMS_ITS | Encounter Summary ---
Author Organization [facility] Address [address] [place] [address] Care Team Providers Care Metallurgy Teacher Name Role Phone Delilah Jackson MD Primary Care Provider [phone] Justina Maddox GAS PUMPING STATION HELPER-CLERICAL ASSISTANT Unavailable Rosy Rodriguez RN Unavailable [phone] Myesha Bell WAISTLINE JOINER LOCKSTITCH Unavailable [phone] Tran Manzo MD Unavailable Reason for Visit * Reason Comments Med Refill Encounter Details Date Type Department Care Team ([facility] Contact Info) Description 07/29/2022 Refill [facility] [place] [facility] [address] [facility] 300 [place] [address] Justina Maddox, GAS PUMPING STATION HELPER-CLERICAL ASSISTANT 112 [facility] 160 [place] [address] Social History Tobacco Use Types Packs/Day Years [...] Office Visit [facility] 1479 [place] [address] Sally Zhu NP 1479 [place] [address] 11/11/2024 11:30 AM EDT Evaluation [facility] [address] [facility] 170 [place] [address] Ina Perez, RORY 12/03/2024 2:30 PM EDT Office Visit [facility] [address] [place] [address] Jenifer Rust, GAS PUMPING STATION HELPER-WHEEL PRESS OPERATOR 5319 [facility] [place] [address] 12/14/2024 3:00 PM EST Office Visit [facility] 112 [facility] 160 [place] [address] Justina Maddox, GAS PUMPING STATION HELPER-CLERICAL ASSISTANT 112 [facility] 160 [place] [address] 01/28/2025 2:00 PM EST Office Visit [facility] 14[address] [place] [address] Sally Zhu NP 1479 [place], [place] [address] documented as of this encounter Visit Diagnoses Not on filedocumented in this encounter Care Teams Metallurgy Teacher Relationship Specialty Start Date End Date Delilah Jackson MD 1479 [place] [address] PCP - General Family Medicine 07/19/22 Tran Manzo MD 1479 [place] [address] PCP - [employer] 12/12/17 Justina Maddox, GAS PUMPING STATION HELPER-CLERICAL ASSISTANT 112 [facility] 160 [place] [address] Nurse Practitioner Behavioral Health 07/19/22 Rosy Rodriguez, RN 1479 [place] [address] Registered Nurse Family Medicine 12/24/22 Myesha Bell LSW 1479 [place] [address] Blow Mold Operator Family Medicine 04/15/23 06/15/24 documented as of this encounter
--- OUTSIDE RECORDS SUMMARY | 2024-11-05 15:14 | XMS_ITS | Encounter Summary ---
Author Organization [facility] Address [address] [place] [address] Care Team Providers Care Printed Circuit Designer Name Role Phone Delilah Jackson MD Primary Care Provider [phone] Justina Maddox SAND SLINGER-IRRIGATION SERVICE TECHNICIAN Unavailable Rosy Rodriguez RN Unavailable [phone] Myesha Bell SHEEP FARMER Unavailable [phone] Tran Manzo MD Unavailable Reason for Visit * Reason Comments Med Refill Encounter Details Date Type Department Care Team ([facility] Contact Info) Description 09/19/2022 [facility] 14[address] [place] [address] Sally Zhu SCIENTIFIC RESEARCH ASSOCIATE 1479 [place] [address] Acquired hypothyroidism (Primary Dx) Social [...] 11/10/2024 2:00 PM EDT Office Visit [facility] 14[address] [place] [address] Sally Zhu NP 1479 [place], [place] [address] 11/11/2024 11:30 AM EDT Evaluation [facility] [address] [place] [address] Ina Perez, RORY 12/03/2024 2:30 PM EDT Office Visit [facility] [place] [facility] [address] [place] [address] Jenifer Rust, SAND SLINGER-CARDING SUPERVISOR [address] [facility] [address] [place], [place] [address] 12/14/2024 3:00 PM EST Office Visit [facility] [address] [place] [address] Justina Maddox, [facility] SL[facility]ER[facility] 112 [facility] 160 [place] [address] 01/28/2025 2:00 PM EST Office Visit [facility] 1479 [facility] [place] [address] Sally Zhu NP 1479 [facility] [place] [address] documented as of this encounter Visit Diagnoses Diagnosis Acquired hypothyroidism- Primary Unspecified hypothyroidism documented in this encounter Care Teams Printed Circuit Designer Relationship Specialty Start Date End Date Delilah Jackson MD 1479 [facility] [place] [address] PCP - General Family Medicine 07/19/22 Tran Manzo MD 1479 [facility] [place] [address] PCP - Hum[employer] 12/12/17 Justina Maddox, [facility]AND SL[facility]ER[facility] [address] [facility] 160 [place] [address] Nurse Practitioner Behavioral Health 07/19/22 Rosy Rodriguez, RN 1479 [place] [address] Registered Nurse Family Medicine 12/24/22 Myesha Bell LSW 14[address] [place] [address] Flying Squad Worker Family Medicine 04/15/23 06/15/24 documented as of this encounter
--- OUTSIDE RECORDS SUMMARY | 2024-11-05 15:14 | XMS_ITS | Encounter Summary ---
Author Organization [facility] Address [address] [place] [address] Care Team Providers Care Analytical Data Miner Name Role Phone Delilah Jackson MD Primary Care Provider [phone] Justina Maddox BEEF FARMER-SUPERVISOR FIBERGLASS BOAT ASSEMBLY Unavailable Rosy Rodriguez RN Unavailable [phone] Myesha Bell PROFESSOR COMPUTER SCIENCE Unavailable [phone] Tran Manzo MD Unavailable Reason for Visit * Reason Comments Med Refill Encounter Details Date Type Department Care Team ([facility] Contact Info) Description 11/22/2023 Refill [facility] Family [facility] 1479 [place] [address] Delilah Jackson MD [address] [place] [address] Acquired hypothyroidism Social History Tobacco [...] Office Visit [facility] 1479 [place] [address] Sally Zhu NP 1479 [place], [place] [address] 11/11/2024 11:30 AM EDT Evaluation [facility] [address] [place] [address] Ina Perez, RORY 12/03/2024 2:30 PM EDT Office Visit [facility] [address] [place] [address] Jenifer Rust APRN-REED CLEANER 53[address] [facility] [place] [address] 12/14/2024 3:00 PM EST Office Visit [facility] [address] [place] [address] Justina Maddox, BEEF FARMER-SUPERVISOR FIBERGLASS BOAT ASSEMBLY 112 [facility] 160 [place] [address] 01/28/2025 2:00 PM EST Office Visit [facility] 1479 [facility] [place] [address] Sally Zhu NP 1479 [facility] [place] [address] documented as of this encounter Visit Diagnoses Diagnosis Acquired hypothyroidism Unspecified hypothyroidism documented in this encounter Additional Health Concerns Assessment Noted Time PHQ-9 Depression Total Score: 4 03/14/19 3:00 PM EST documented as of this encounter Care Teams Analytical Data Miner Relationship Specialty Start Date End Date Delilah Jackson MD 1479 [facility] [place] [address] PCP - General Family Medicine 07/19/22 Tran Manzo MD 1479 [facility] [place] [address] PCP - Hum[employer] 12/12/17 Justina Maddox, BEEF FARMER-SUPERVISOR FIBERGLASS BOAT ASSEMBLY 112 [facility] 160 [place] [address] Nurse Practitioner Behavioral Health 07/19/22 Rosy Rodriguez, RN [address] [facility] [address] [facility] [place] [address] Registered Nurse Family Medicine 12/24/22 Myesha Bell LSW 1479 [facility] [place] [address] Process Lead Family Medicine 04/15/23 06/15/24 documented as of this encounter
--- OUTSIDE RECORDS SUMMARY | 2024-11-05 15:14 | XMS_ITS | Encounter Summary ---
Author Organization [facility] Address [address] [place] [address] Care Team Providers Care Netsuite Consultant Name Role Phone Delilah Jackson MD Primary Care Provider [phone] Justina Maddox INSECT CONTROL INSPECTOR-HELPDESK ADMINISTRATOR Unavailable Rosy Rodriguez RN Unavailable [phone] Myesha Bell SUPERVISOR LOGGING Unavailable [phone] Tran Manzo MD Unavailable Encounter Details Date Type Department Care Team (Late st Contact Info) Description 12/17/2023 Abstract [facility] [place] [facility] 112 [facility] 160 [place] [address] Justina Maddox, INSECT CONTROL INSPECTOR-HELPDESK ADMINISTRATOR 112 [facility] 160 [place] [address] Social History Tobacco Use Types Packs/Day Years [...] way Not at all 12/17/2023 2:18 PM Karla Jorgensen Patient Health Questionnaire-9 Score 13 12/17/2023 2:18 PM Karla Jorgensen * If you checked off any problems on this questionnaire so far, Question Answer Date of Assessment Author How difficult have these problems made it for you to do your work, take care of things at home, or get along with other people? Somewhat difficult 12/17/2023 2:18 PM Karla Jorgensen documented as of this encounter Plan of Treatment Upcoming Encounters Date Type Department Care Team (Late st Contact Info) Description 11/10/2024 2:00 PM EDT Office Visit [facility] 14[address] [place] [address] Sally Zhu NP 1479 [place], [place] [address] 11/11/2024 11:30 AM EDT Evaluation [facility] [address] [facility] 170 [place] [address] Ina Perez, RORY 12/03/2024 2:30 PM EDT Office Visit [facility] [address] [place] [address] Jenifer Rust, INSECT CONTROL INSPECTOR-GARMENT SEWER HAND 5319 [facility] [place] [address] 12/14/2024 3:00 PM EST Office Visit [facility] [address] [facility] 160 [place] [address] Justina Maddox, INSECT CONTROL INSPECTOR-HELPDESK ADMINISTRATOR [address] [facility] 160 [place] [address] 01/28/2025 2:00 PM EST [facility] 1479 [place] [address] Sally Zhu, RUBBER MOLDER 1479 [place] [address] documented as of this encounter Visit Diagnoses Not on filedocumented in this encounter Additional Health Concerns Assessment Noted Time PHQ-9 Depression Total Score: 13 024 2:18 PM EST documented as of this encounter Care Teams Netsuite Consultant Relationship Specialty Start Date End Date Delilah Jackson MD 1479 [place] [address] PCP - General Family Medicine 07/19/22 Tran Manzo MD 1479 [place] [address] PCP - [employer] 12/12/17 Justina Maddox APRN-HELPDESK ADMINISTRATOR [address] [place] [address] Nurse Practitioner Behavioral Health 07/19/22 Rosy Rodriguez, RN 1479 [place] [address] Registered Nurse Family Medicine 12/24/22 Myesha Bell LSW 1479 [place] [address] Forest Patrolman Family Medicine 04/15/23 06/15/24 documented as of this encounter
--- OUTSIDE RECORDS SUMMARY | 2024-11-05 15:14 | XMS_ITS | Encounter Summary ---
Author Organization [facility] Address [address] [place] [address] Care Team Providers Care Manager Poker Name Role Phone Delilah Jackson MD Primary Care Provider [phone] Justina Maddox QUICK MIXER OPERATOR-FUSE COILER Unavailable Rosy Rodriguez RN Unavailable [phone] Myesha Bell GENERAL REPAIR MECHANIC Unavailable [phone] Tran Manzo MD Unavailable Encounter Details Date Type Department Care Team (Late st Contact Info) Description 01/21/2023 Abstract [facility] 1479 [place] [address] Delilah Jackson MD 1473 [place] [address] Social History Tobacco Use Types [...] Office Visit [facility] 1479 [place] [address] Sally Zhu NP 1479 [facility], [place] [address] 11/11/2024 11:30 AM EDT Evaluation [facility] [address] [facility] 170 [place] [address] Ina Perez, PT 12/03/2024 2:30 PM EDT Office Visit [facility] [address] [place] [address] Jenifer Rust, QUICK MIXER OPERATOR-SHIPPER RECEIVER 5319 [facility] [place] [address] 12/14/2024 3:00 PM EST Office Visit [facility] [address] [facility] 160 [place] [address] Justina Maddox, QUICK MIXER OPERATOR-FUSE COILER [address] [facility] 160 [place] [address] 01/28/2025 2:00 PM EST Office Visit [facility] 1479 [place] [address] Sally Zhu NP 1479 [place] [address] documented as of this encounter Visit Diagnoses Not on filedocumented in this encounter Care Teams Manager Poker Relationship Specialty Start Date End Date Delilah Jackson MD [address] [place] [id number] PCP - General Family Medicine 07/19/22 Tran Manzo MD [facility]9 [place], [place] [address] PCP - [employer] 12/12/17 Justina Maddox APRN-FUSE COILER 112 [facility] 160 [place] [address] Nurse Practitioner Behavioral Health 07/19/22 Rosy Rodriguez, RN 1479 [place] [address] Registered Nurse Family Medicine 12/24/22 Myesha Bell LSW 1479 [place] [address] Contract Coordinator Family Medicine 04/15/23 06/15/24 documented as of this encounter
--- OUTSIDE RECORDS SUMMARY | 2024-11-05 15:14 | XMS_ITS | Encounter Summary ---
Author Organization [facility] Address [address] [place] [address] Care Team Providers Care Hat Body Inspector Name Role Phone Delilah Jackson MD Primary Care Provider [phone] Justina Maddox CERTIFIED ALCOHOL DRUG COUNSELOR-CUT OUT AND MARKING MACHINE OPERATOR Unavailable Rosy Rodriguez RN Unavailable [phone] Myesha Bell LIME MIXER TENDER Unavailable [phone] Tran Manzo MD Unavailable Reason for Visit * Reason Comments Med Change Request Encounter Details Date Type Department Care Team ([facility] Contact Info) Description 01/26/2023 Refill [facility] [address] [facility] [address] [place] [address] Justina Madodx, CERTIFIED ALCOHOL DRUG COUNSELOR-CUT OUT AND MARKING MACHINE OPERATOR [address] [facility] [address] [place] [address] Bipolar II disorder (HCC); Generalized anxiety disorder [...] Office Visit [facility] [address] [place] [phone] Sally Zhu NP [address] [place] [address] 11/11/2024 11:30 AM EDT Evaluation [facility] [address] [facility] [address] [place] [address] Ina Perez, PT 12/03/2024 2:30 PM EDT Office Visit [facility] [address] [place] [address] Jenifer Ruts, CERTIFIED ALCOHOL DRUG COUNSELOR-CELL PHONE REPAIR TECHNICIAN [address] [place] [address] 12/14/2024 3:00 PM EST Office Visit [facility] [address] [facility] [address] [place] [phone] Justina Maddox, CERTIFIED ALCOHOL DRUG COUNSELOR-CUT OUT AND MARKING MACHINE OPERATOR [address] [facility] [address] [place] [address] 01/28/2025 2:00 PM EST Office Visit [facility] [address] [place] [address] Sally Zhu NP [address] [place] [address] documented as of this encounter Visit Diagnoses Diagnosis Bipolar II disorder (HCC) Other bipolar disorders Generalized anxiety disorder documented in this encounter Care Teams Hat Body Inspector Relationship Specialty Start Date End Date Delilah Jackson MD [facility]9 [place] [address] PCP - General Family Medicine 07/19/22 Tran Manzo MD [facility]9 [place] [address] PCP - [employer] 12/12/17 Justina Maddox APRN-CUT OUT AND MARKING MACHINE OPERATOR [address] [place] [address] [address] [place] [address] Nurse Practitioner Behavioral Health 07/19/22 Rosy Rodriguez, RN [address] [place] [address] Registered Nurse Family Medicine 12/24/22 Myesha Bell LSW [address] [place] [address] Hardboard Supervisor Family Medicine 04/15/23 06/15/24 documented as of this encounter
--- OUTSIDE RECORDS SUMMARY | 2024-11-05 15:15 | XMS_ITS | Encounter Summary ---
Author Organization [facility] Address [address] [place] [address] Care Team Providers Care Blower Blast Furnace Name Role Phone Delilah Jackson MD Primary Care Provider Justina Maddox TECHNICAL OPERATOR-HISTOTECHNOLOGIST Unavailable Rosy Rodriguez RN Unavailable [phone] Myesha Bell SALON DESIGNER Unavailable [phone] Tran Manzo MD Unavailable Encounter Details Date Type Department Care Team (Late st Contact Info) Description 09/19/2022 Abstract [facility] [address] [place] [address] Tran Manzo MD [address] [place] [address] Social History Tobacco Use Types [...] Office Visit [facility] [address] [place] [phone] Salyl Zhu NP [address] [facility] [place] [id number] 11/11/2024 11:30 AM EDT Evaluation [facility] [address] [facility] [address] [place] [address] Ina Perez, PT 12/03/2024 2:30 PM EDT Office Visit [facility] [address] [place] [address] Jenifer Rust, TECHNICAL OPERATOR-[employer]S SUPERINTENDENT [address] [facility] [place] [address] 12/14/2024 3:00 PM EST Office Visit [facility] [address] [facility] 160 [place] [address] Justina Maddox, TECHNICAL OPERATOR-HISTOTECHNOLOGIST [address] [facility] 160 [place] [address] 01/28/2025 2:00 PM EST Office Visit [facility] [address] [place] [phone] Sally Zhu NP [address] [place] [address] documented as of this encounter Visit Diagnoses Not on filedocumented in this encounter Care Teams Blower Blast Furnace Relationship Specialty Start Date End Date Delilah Jackson MD [address] [place] [phone] PCP - General Family Medicine 07/19/22 Tran Manzo MD [facility] [place], [place] [phone] PCP - [employer] 12/12/17 Justina Maddox APRN-HISTOTECHNOLOGIST 112 [facility] 160 [place] [address] Nurse Practitioner Behavioral Health 07/19/22 Rosy Rodriguez, RN [address] [place] [address] Registered Nurse Family Medicine 12/24/22 Myesha Bell LSW [address] [place] [address] Food Services Manager Family Medicine 04/15/23 06/15/24 documented as of this encounter
--- OUTSIDE RECORDS SUMMARY | 2024-11-05 15:15 | XMS_ITS | CCD ---
Author Organization [facility] Care Team Providers Care Rib Chopper Name Role Phone Sally Zhu Primary Care Provider SHAAN THORNTON Admitting Unavailable SHAAN THORNTON Attending Unavailable SALLY ZHU Primary Care Unavailab SHAAN Goetz Admitting Unavailable SHAAN THORNTON Attending Unavailable SALLY ZHU Primary Care Unavailab ANGEL Ortega Attending Unavailable DR RUBEN ANTHONY Consulting Unavailable ANGEL BRADLEY Admitting Unavailable ANGEL BRADLEY Consulting Unavailable CARLIE SALCEDO Attending Unavailable HIGHLANDERCARLIE Admitting Unavailable HIGHLANDER, CARLIE Costa Attending Unavailable HIGHLANDERCARLIE Admitting Unavailable HIGHLANDER, CARLIE Costa Attending Unavailable HIGHLCARLIE HALL Admitting Unavailable HIGHLANDER, CARLIE Costa Attending Unavailable HIGHLCARLIE HALL Admitting Unavailable Delilah Jackson MD Primary Care Provider Aime LANDIN-Melvina RANDALL M Unavailable Jennifer ROSS, Rosy Unavailable Unavailable CHARIS, P URIEL Attending Unavailable WILMAR POPE Referring Unavailable JOVANY, TRAN F Primary Care Unavailable DAKOTA LUIS Referring Unavailable JOVANY, TRAN F Primary Care Unavailable TYRELL DALY Admitting Unavailable AMANDASEYTYRELL Attending Unavailable JOVANY, TRAN F Primary Care Unavailable NEPTALI PAGE Attending Unavailable JOVANY, TRAN F Referring Unavailable JOVANY, TRAN F Primary Care Unavailable CHARIS, P URIEL Admitting Unavailable CHARIS, P URIEL Attending Unavailable JOVANY, TRAN F Primary Care Unavailable DAKOTA LUIS Referring Unavailable JOVANY, TRAN F Primary Care Unavailable MIKE DELANEY Attending Unavailable JOVANY, TRAN F Primary Care Unavailable DAKOTA LUIS Attending Unavailable TRAN MANZO Referring Unavailable TRAN MANZO Primary Care Unavailable Jennifer ROSS, Crystal Unavailable [phone] Ray CULTURE MEDIA LABORATORY ASSISTANT, Myesha Unavailable Jovany AGUIRRE, Tran Brooks Primary Care Provider Jovany AGUIRRE, Tran Brooks Primary Care Provider [phone] Jovany AGUIRRE, Tran Brooks Primary Care Provider Jovany AGUIRRE, Tran Brooks Primary Care Provider [phone] Jennifer ROSS, Crystal Unavailable ADONAY NATH Referring Unavailable TRAN MANZO Primary Care Unavailable Venessa VIZCAINO Attending Unavailable Venessa VIZCAINO Referring Unavailable TRAN MANZO Primary Care Unavailable JOEY RYDER Attending Unavailable TRAN MANZO Referring Unavailable TRAN MANZO Primary Care Unavailable Jovany AGUIRRE, Tran Brooks Unavailable SHERITA HORAN Attending Unavailable ZHUSALLY Dwyer Referring Unavailab le ZHU, SALLY Doherty Attending Unavailab le MELA-NOSSEKMELVINA Attending Unavailab le MELA-NOSSEKMELVINA Attending Unavailab le HORANSHERITA WILKERSON Attending Unavailable ZHUSALLY Attending Unavailab le HORANSHERITA WILKERSON Referring Unavailable SHERITA HORAN Referring Unavailable ZHU, SALLY Doherty Referring Unavailab le MELA-NOSSEKMELVINA Attending Unavailab le MELA-NOSSEKMELVINA Attending Unavailab le ZHUSALLY Attending Unavailab le ZHUSALLY Referring Unavailab le ZHU, SALLY Doherty Attending Unavailab le MELA-NOSSEKMELVINA Attending Unavailab le ZHU, SALLY Doherty Attending Unavailab le HORANSHERITA WILKERSON Attending Unavailable ZHU, SALLY Doherty Attending Unavailab le Allergies Allergy Classification Reported Allergen(s) Allergy Type Date of Onset Reaction(s) Facility (20 sources) Octacosanol Propensity to adverse reactions 3 [facility] Medications Current Medications Medication Drug Class(es) Dates Sig (Normalized) Sig (Original) amitriptyline hydrochloride 25 mg oral tablet (5 sources) Tricyclic Antidepressant take 1 tablet by mouth once daily amitriptyline (ELAVIL) 25 mg tablet Take 1 tablet (25 mg total) by mouth nightly. 0 Active amLODIPine 5 mg oral tablet (20 sources) Dihydropyridine Calcium Channel Alberto Start: 01-22-2023 End: 10-31-2023 take 1 tablet by mouth once daily in the morning amLODIPine (Norvasc) 5 MG tablet Indications: Essential hypertension TAKE 1 TABLET BY MOUTH EVERY DAY IN THE MORNING 90 tablet 3 10/31/2023 Active amoxicillin 500 mg oral capsule (1 source) Penicillin-class Antibacterial Start: 05-06-2024 End: 05-13-2024 take 1 capsule by mouth in the morning amoxicillin (Amoxil) 500 MG capsule Indications: Acute left otitis media Take 1 capsule (500 mg) by mouth in the morning and 1 capsule (500 mg) before bedtime. Do all this for 7 days. 14 capsule 05/06/2024 05/13/2024 Active aspirin 81 mg chewable tablet (20 sources) Platelet Aggregation Inhibitor, Nonsteroidal Anti-inflammatory Drug Start: 08-02-2023 End: 05-05-2024 aspirin 81 mg chewable tablet Chew 1 tablet (81 mg total) and swallow in the morning. 30 tablet 11 08/02/2023 Active atorvastatin 10 mg oral tablet (20 sources) HMG-CoA Reductase Inhibitor Start: 10-25-2023 End: 10-24-2024 take 1 tablet by mouth once daily atorvastatin (Lipitor) 10 MG tablet Indications: Mixed hyperlipidemia TAKE 1 TABLET (10 MG) BY MOUTH DAILY. 90 tablet 1 09/07/2024 Active 168 hr buprenorphine 0.005 mg/hr transdermal system (3 sources) Partial Opioid Agonist Start: 04-08-2023 apply 1 dose transdermal route every week buprenorphine (BUTRANS) 5 mcg/hour patch weekly Place 1 patch on the skin once a week. 0 04/08/2023 Active 24 hr buPROPion hydrochloride 150 mg extended release oral tablet (20 sources) Aminoketone Start: 08-29-2023 End: 10-19-2024 take 1 tablet by mouth every twenty-four hours in the morning buPROPion XL (Wellbutrin XL) 150 MG 24 hr tablet Indications: Bipolar II disorder (HCC) Take 1 tablet (150 mg) by mouth in the morning. 90 tablet 10/19/2024 Active Start: 01-29-2023 End: 04-29-2023 take 1 tablet by mouth every twenty-four hours in the morning buPROPion XL (Wellbutrin XL) 150 MG 24 hr tablet Indications: Bipolar II disorder (CMS/HCC) Take 1 tablet (150 mg) by mouth in the morning. Do not crush, chew, or split.. 90 tablet 0 01/29/2023 04/29/2023 Active calcium carbonate 1250 mg / cholecalciferol 200 unt oral tablet (20 sources) Vitamin D take 1 tablet by mouth once daily Calcium Carbonate-Vitamin D (Oyster Shell Calcium/D) 500-5 MG-MCG tablet Take 1 tablet by mouth Daily OTC Active take 1 tablet by ira th once in the morning, then take 1 tablet by mouth once at mealtime Calcium Carbonate-Vitamin D (Oyster Mariela l Calcium/D) 500-5 MG-MCG tablet Take 1 tablet by mouth in the morning and 1 tablet in the evening. Take with meals. Active cholecalciferol 0.025 mg oral tablet (20 sources) Vitamin D take 1 tablet by mouth in the morning cholecalciferol (Vitamin D-3) 25 MCG (1000 UT) tablet Take 1,000 Units by mouth in the morning. Active citalopram 20 mg oral tablet (2 sources) Serotonin Reuptake Inhibitor take 2 tablets by mouth once daily citalopram (CELEXA) 20 MG tablet Take 40 mg by mouth daily. 0 Active clobetasol propionate 0.0005 mg/mg topical ointment (2 sources) Corticosteroid clobetasol (MARICRUZ VATE) 0.05 % ointment Apply topically 2 times daily as needed Apply topically 2 times daily. 0 Active diphenhydrAMINE hydrochloride 50 mg oral capsule (20 sources) Histamine-1 Receptor Antagonist take 1 capsule by mouth every six hours as needed diphenhydrAMINE (BENADRYL) 50 mg capsule Take 1 capsule (50 mg total) by mouth every 6 (six) hours as needed for itching. Active take 1 tablet by ira th once daily as needed for sleep diphenhydrAMINE (SOMINEX) 25 mg tablet T cassie 1 tablet (25 mg total) by mouth nightly as needed for sleep. Suspended famotidine 20 mg oral tablet (20 sources) Histamine-2 Receptor Antagonist Start: 06-15-2024 End: 07-07-2024 take 1 tablet by mouth once daily famotidine (Pepcid) 20 MG tablet Indications: Dyspepsia TAKE 1 TABLET BY MOUTH EVERY DAY 90 tablet 07/07/2024 Active Start: 08-12-2023 End: 03-11-2024 take 1 tablet by mouth once daily famotidine (Pepcid) 20 MG tablet Indications: Dyspepsia TAKE 1 TABLET BY MOUTH EVERY DAY 90 tablet 03/11/2024 Active ferrous sulfate 325 mg oral tablet (20 sources) Start: 08-02-2023 End: 07-07-2024 take 1 tablet by mouth once daily at mealtime ferrous sulfate 325 (65 Fe) MG tablet Indications: Iron deficiency anemia, unspecified iron deficiency anemia type TAKE 1 TABLET BY MOUTH EVERY DAY IN THE MORNING WITH MEALS 90 tablet 1 07/07/2024 Active Start: 03-03-2022 End: 05-22-2022 take 1 tablet by mouth once daily at breakfast ferrous sulfate 325 (65 FE) mg tablet Take 1 tablet (325 mg total) by mouth daily with breakfast. 30 tablet 0 03/03/2022 05/22/2022 Discontinued (Therapy completed) furosemide 40 mg oral tablet (20 sources) Loop Diuretic Start: 10-13-2024 take 1 tablet by mouth in the morning furosemide (Lasix) 40 MG tablet Indications: Essential hypertension Take 1 tablet (40 mg) by mouth in the morning and 1 tablet (40 mg) before bedtime. 180 tablet 3 10/13/2024 Active Start: 08-08-2023 take 1 tablet by ira once daily furosemide (LASIX) 40 mg tablet Take 1 tablet (40 mg total) by mouth daily. 08/08/2023 Active Start: 08-01-2023 End: 08-08-2023 take 2 tablets by mouth once daily furosemide (LASIX) 20 mg tablet Take 2 tablets (40 mg total) by mouth daily. 08/01/2023 08/08/2023 Discontinued Start: 03-04-2023 End: 10-13-2024 furosemide (Lasix) 40 MG tab let Indications: Essential hypertension TAKE 1 TABLET TWICE DAILY 180 tablet 3 03/04/2023 10/13/2024 Discontinued (Reorder) take 1 tablet by ira th once daily furosemide (LASIX) 20 mg tablet Take 1 tablet (20 mg total) by mouth daily. Suspended take 1 tablet by ira th twice daily furosemide (LASIX) 40 MG tablet Take 40 mg by mouth 2 times daily. 0 Active hydrOXYzine pamoate 25 mg oral capsule (20 sources) Antihistamine Start: 10-19-2024 hydrOXYzine pa moate (Vistaril) 25 MG capsule Indications: Generalized anxiety disorder Take 1 capsule (25 mg) by mouth every 8 (eight) hours if needed for anxiety (1-2 cap) 30 capsule 1 10/19/2024 Active Start: 11-29-2021 End: 10-19-2024 take 1 capsule by mouth every eight hours as needed for anxiety hydrOXYzine pamoate (Vistaril) 25 MG capsule Take 25 mg by mouth every 8 (eight) hours if needed for anxiety (1-2 cap) 11/29/2021 10/19/2024 Discontinued (Reorder) lamoTRIgine 150 mg oral tablet (20 sources) Mood Stabilizer, Anti-epileptic Agent Start: 05-28-2024 End: 01-17-2025 take 1 tablet by mouth once daily lamoTRIgine (LaMICtal) 150 MG tablet Indications: Bipolar II disorder (HCC) Take 1 tablet (150 mg) by mouth Daily 90 tablet 10/19/2024 01/17/2025 Active Start: 12-17-2023 End: 12-16-2024 take 1 tablet by mouth once daily lamoTRIgine (LaMICtal) 200 MG tablet Indications: Bipolar II disorder (CMS/HCC) TAKE 1 TABLET BY MOUTH EVERY DAY 90 tablet 01/13/2024 05/28/2024 Discontinued Start: 08-29-2023 End: 12-17-2023 take 1 tablet by mouth in the morning lamoTRIgine (LaMICtal) 150 MG tablet Indications: Bipolar II disorder (CMS/HCC) Take 1 tablet (150 mg) by mouth in the morning and 1 tablet (150 mg) before bedtime. 180 tablet 08/29/2023 12/17/2023 Discontinued Start: 01-29-2023 End: 04-29-2023 take 1 tablet by mouth in the morning lamoTRIgine (LaMICtal) 150 MG tablet Indications: Bipolar II disorder (CMS/HCC) Take 1 tablet (150 mg) by mouth in the morning and 1 tablet (150 mg) before bedtime. 180 tablet 0 01/29/2023 04/29/2023 Active take 1 tablet by ira th in the morning, then take 1 tablet by mouth at bedtime lamoTRIgine (LaMICtal) 100 mg tablet Take 1 tablet (100 mg total) by mouth in the morning and 1 tablet (100 mg total) before bedtime. Active take 1.5 tablets by mouth in the morning, then take 1.5 tablets by mouth at bedtime lamoTRIgine (LaMICtal) 100 mg tablet Take 1.5 tablets (150 mg total) by mouth in the morning and 1.5 tablets (150 mg total) before bedtime. 0 Active levothyroxine sodium 0.2 mg oral tablet (20 sources) l-Thyroxine Start: 08-19-2024 take 1 tablet by mouth before mealtime levothyroxine (Synthroid, Levoxyl) 200 MCG tablet Indications: Acquired hypothyroidism TAKE 1 TABLET BY MOUTH IN THE MORNING. TAKE BEFORE MEALS. 90 tablet 08/19/2024 Active Start: 02-20-2024 End: 05-23-2024 take 1 tablet by mouth before mealtime levothyroxine (Synthroid, Levoxyl) 200 MCG tablet Indications: Acquired hypothyroidism TAKE 1 TABLET BY MOUTH IN THE MORNING. TAKE BEFORE MEALS. 90 tablet 05/23/2024 Active Start: 11-25-2023 take 1 tablet by ira th before mealtime levothyroxine (Synthroid, Levoxyl) 200 MCG tablet Indications: Acquired hypothyroidism (CMS/HCC) TAKE 1 TABLET BY MOUTH IN THE MORNING. TAKE BEFORE MEALS. 90 tablet 11/25/2023 Active Start: 03-13-2023 End: 06-11-2023 take 1 tablet by mouth before mealtime levothyroxine (Synthroid, Levoxyl) 200 MCG tablet Indications: Acquired hypothyroidism (CMS/HCC) TAKE 1 TABLET BY MOUTH IN THE MORNING. TAKE BEFORE MEALS. 90 tablet 1 05/10/2023 Active levothyroxine (S YNTHROID) 150 MCG tablet Take 175 mcg by mouth Daily 0 Active Lysine (19 sources) LYSINE HCL ORAL Take by mouth in the morning. Active LYSINE HCL ORAL Take by mouth daily. Suspended LYSINE HCL ORAL Take by mouth daily. Active LYSINE HCL ORAL Take by mouth daily. 0 Active magnesium oxide 400 mg oral tablet (17 sources) Start: 07-23-2024 take 1 tablet by mouth once daily magnesium oxide (Mag-Ox) 400 mg tablet Indications: Neuropathy Take 1 tablet (400 mg) by mouth Daily 30 tablet 2 07/23/2024 Active montelukast 10 mg oral tablet (20 sources) Leukotriene Receptor Antagonist Start: 07-01-2024 End: 07-01-2025 take 1 tablet by mouth at bedtime montelukast (Singulair) 10 MG tablet Indications: Seasonal allergies Take 1 tablet (10 mg) by mouth at bedtime 30 tablet 11 07/01/2024 07/01/2025 Active naproxen 500 mg delayed release oral tablet (20 sources) Nonsteroidal Anti-inflammatory Drug Start: 10-04-[address] 500 MG tablet delayed-release Take 1 tablet by mouth as needed in the morning and 1 tablet as needed in the evening. 10/04/2023 Active take 1 tablet by ira th twice daily at mealtime naproxen (NAPROSYN) 500 MG tablet Take 5 00 mg by mouth 2 times daily (with meals). 0 Active omeprazole 40 mg delayed release oral capsule (20 sources) Proton Pump Inhibitor Start: 08-17-2024 take 1 capsule by mouth in the morning omeprazole (PriLOSEC) [address] capsule Indications: Gastroesophageal reflux disease without esophagitis Take 1 capsule (40 mg) by mouth in the morning. 90 capsule 1 08/17/2024 Active Start: 08-03-2022 End: 11-04-2023 take 1 capsule by mouth in the morning omeprazole (PriLOSEC) [address] capsule Indications: Gastroesophageal reflux disease without esophagitis Take 1 capsule (40 mg) by mouth in the morning. 90 capsule 1 08/17/2024 Active 2 ml ondansetron 2 mg/ml injection (2 sources) Serotonin-3 Receptor Antagonist Start: 11-17-2018 ondansetron (ZOFRAN) injection 4 mg Start: 11-03-2018 ondansetron (Z OFRAN) injection 4 mg microencapsulated potassium chloride 20 meq extended release oral tablet (20 sources) Start: 05-21-2023 End: 05-12-2024 take 1 tablet by mouth once daily KLOR-CON 20 MEQ ER tablet Indications: Hypokalemia TAKE 1 TABLET BY MOUTH DAILY 90 tablet 1 05/12/2024 Active End: 11-03-2018 potassium chloride (K-TAB,KL OR-CON) 10 MEQ CR tablet Take 1 tablet (10 mEq total) by mouth in the morning. Active End: 09-19-2022 take 2 tablets by mouth in the morning potassium chloride (KLOR-CON M) 20 MEQ CR tablet Take 2 tablets (40 mEq total) by mouth in the morning. 0 09/19/2022 Discontinued (Therapy completed) potassium chlori de CR (Klor-Con M20) 20 MEQ ER tablet Take 20 mEq by mouth in the morning. 0 Active take 1 tablet by ira th once daily, then take 1 tablet by mouth potassium chloride (KLOR-CON 10) 10 MEQ extended release tablet Take 10 mEq by mouth daily 0 Active pregabalin 50 mg oral capsule (20 sources) Start: 07-23-2024 End: 10-21-2024 take 1 capsule by mouth in the morning, then take 1 capsule by mouth in the evening, then take 1 capsule by mouth at bedtime pregabalin (Lyrica) 50 MG capsule Indications: Neuropathy Take 1 capsule (50 mg) by mouth in the morning and 1 capsule (50 mg) in the evening and 1 capsule (50 mg) before bedtime. 90 capsule 2 07/23/2024 Active Start: 04-20-2024 End: 07-23-2024 take 1 capsule by mouth in the morning, then take 1 capsule by mouth in the evening, then take 1 capsule by mouth at bedtime pregabalin (Lyrica) 25 MG capsule Indications: Neuropathy Take 1 capsule (25 mg) by mouth in the morning and 1 capsule (25 mg) in the evening and 1 capsule (25 mg) before bedtime. 90 capsule 2 04/20/2024 07/23/2024 Discontinued (Reorder) semaglutide, weight loss, (WEGOVY) 0.25 mg/0.5 mL pen injector (1 source) semaglutide, janny ght loss, (WEGOVY) 0.25 mg/0.5 mL pen injector Inject under the skin every 7 days. Active Semaglutide-Weight Management (Wegovy) 0.25 MG/0.5ML solution auto-injector (12 sources) Start: 09-23-2024 inject 0.25 mg by subcutaneous injection every week Semaglutide-Weight Management (Wegovy) 0.25 MG/0.5ML solution auto-injector Indications: Essential hypertension , Obesity (BMI 30.0-34.9) , Mixed hyperlipidemia Inject 0.25 mg under the skin 1 (one) time per week 2 mL 1 09/23/2024 Active Start: 09-02-2024 inject 0.25 mg by richardson bcutaneous injection every week Semaglutide-Weight Management (Wegovy) 0.25 MG/0.5ML solution auto-injector Indications: Obesity (BMI 30.0-34.9) Inject 0.25 mg under the skin 1 (one) time per week 2 mL 1 09/02/2024 Active sertraline 100 mg oral tablet (20 sources) Serotonin Reuptake Inhibitor Start: 08-29-2023 End: 01-17-2025 take 1.5 tablets by mouth once daily sertraline (Zoloft) 100 MG tablet Indications: Bipolar II disorder (HCC) , Generalized anxiety disorder Take 1.5 tablets (150 mg) by mouth Daily 135 tablet 10/19/2024 01/17/2025 Active Start: 01-29-2023 End: 04-29-2023 take 1.5 tablets by mouth in the morning sertraline (Zoloft) 100 MG tablet Indications: Bipolar II disorder (CMS/HCC) , Generalized anxiety disorder (CMS/HCC) Take 1.5 tablets (150 mg) by mouth in the morning. 135 tablet 0 01/29/2023 04/29/2023 Active 3 ml sodium chloride 9 mg/ml injection (6 sources) Start: 11-17-2018 sodium chlorid e flush 0.9 % injection 10 mL Start: 11-17-2018 End: 11-17-2018 0.9 % sodium chloride infusi on Start: 11-03-2018 sodium chlorid e flush 0.9 % injection 10 mL Start: 11-03-2018 0.9 % sodium c hloride infusion spironolactone 25 mg oral tablet (20 sources) Aldosterone Antagonist Start: 09-26-2021 End: 09-19-2022 take 1 tablet by mouth in the morning spironolactone (Aldactone) 25 MG tablet Take 25 mg by mouth in the morning. 09/26/2021 Active tetracaine hydrochloride 5 mg/ml ophthalmic solution (1 source) January Local Anesthetic Start: 11-03-2018 tetracaine (TETRAVISC) 0.5 % ophthalmic solution 1 drop topiramate 100 mg oral tablet (2 sources) take 1 tablet by mouth twice daily topiramate (TOPAMAX) 100 MG tablet Take 100 mg by mouth 2 times daily. 0 Active traZODone hydrochloride 100 mg oral tablet (20 sources) Serotonin Reuptake Inhibitor Start: 08-29-2023 End: 08-26-2024 traZODone (Desyrel) 100 MG tablet Indications: Insomnia, uncontrolled Take 3 tablets (300 mg) by mouth as needed at bedtime for sleep 90 tablet 2 05/28/2024 Active Start: 01-29-2023 End: 04-29-2023 take 2 tablets by mouth at bedtime traZODone (Desyrel) 100 MG tablet Indications: Insomnia, uncontrolled Take 2 tablets (200 mg) by mouth at bedtime 180 tablet 0 01/29/2023 04/29/2023 Active Completed/Discontinued Medications Medication Drug Class(es) Dates Sig (Normalized) Sig (Original) acetaminophen 500 mg oral tablet (5 sources) End: 05-05-2024 take 1 tablet by mouth every six hours as needed for pain acetaminophen (Tylenol) 500 MG tablet Take 500 mg by mouth every 6 (six) hours if needed for mild pain OTC brand 05/05/2024 Discontinued (Therapy completed) diazePAM 10 mg oral tablet (1 source) Benzodiazepine End: 11-03-2018 take 1 tablet by mouth three times daily as needed diazepam (VALIUM) 10 MG tablet Take 10 mg by mouth 3 times daily as needed. 0 11/03/2018 Discontinued (LIST CLEANUP) dicyclomine hydrochloride 20 mg oral tablet (1 source) Anticholinergic End: 11-03-2018 take 1 tablet by mouth every six hours dicyclomine (BENTYL) 20 MG tablet Take 20 mg by mouth every 6 hours. 0 11/03/2018 Discontinued (LIST CLEANUP) docusate sodium 100 mg oral capsule (11 sources) take 1 capsule by mouth in the morning, then take 1 capsule by mouth at bedtime docusate sodium (COLACE) 100 mg capsule Take 1 capsule (100 mg total) by mouth in the morning and 1 capsule (100 mg total) before bedtime. Suspended 0.4 ml enoxaparin sodium 100 mg/ml prefilled syringe (11 sources) Low Molecular Weight Heparin enoxaparin (LOVENOX) 40 mg/0.4 mL syringe Inject under the skin daily. Suspended fluticasone furoate 0.0275 mg/actuat metered dose nasal spray (13 sources) Corticosteroid take 1 spray(s) nasal route in the morning fluticasone (VERAMYST) 27.5 mcg/actuation nasal spray Administer 1 spray into each nostril in the morning. Suspended fluticasone (SENIA AMYST) 27.5 MCG/SPRAY nasal spray 1 spray by Nasal route daily. 0 Active lisinopril 20 mg oral tablet (1 source) Angiotensin Converting Enzyme Inhibitor End: 11-03-2018 take 1 tablet by mouth once daily lisinopril (PRINIVIL;ZESTRIL) 20 MG tablet Take 20 mg by mouth daily. 0 11/03/2018 Discontinued (LIST CLEANUP) morphine sulfate 15 mg extended release oral tablet (3 sources) Opioid Agonist End: 05-22-2022 take 1 tablet by mouth three times daily morphine (MS CONTIN) 15 mg 12 hr tablet Take 1 tablet (15 mg total) by mouth 3 (three) times a day. 0 05/22/2022 Discontinued (Alternate therapy) take 1 capsule by mouth twice da jin morphine (DALILA) 30 MG extended release capsule Take 30 mg by mouth 2 times daily. 0 Active oxyCODONE hydrochloride 10 mg oral tablet (20 sources) Opioid Agonist Start: 12-12-2022 End: 05-05-2024 take 1 tablet by mouth every four hours as needed for pain and pain oxyCODONE (Roxicodone) 10 MG immediate release tablet Take 10 mg by mouth every 4 (four) hours if needed for moderate pain or severe pain (max 5 tablets daily). 12/12/2022 05/05/2024 Discontinued (Therapy completed) take 10 mg by mouth every six hours as needed oxyCODONE (OxyCONTIN) 10 mg 12 hr tablet Take 1 tablet (10 mg total) by mouth every 6 (six) hours as needed. Active End: 09-19-2022 oxyCODONE (OXY-IR) 5 mg caps ule Take 3 capsules (15 mg total) by mouth in the morning and 3 capsules (15 mg total) at noon and 3 capsules (15 mg total) in the evening and 3 capsules (15 mg total) before bedtime. 0 09/19/2022 Discontinued (Therapy completed) take 2 tablets by mo uth three times daily as needed for pain, then take 1 tablet by mouth as needed for pain oxyCODONE (ROXICODONE) 5 MG immediate release tablet Take 10 mg by mouth 3 times daily as needed for Pain. 0 Active phenylephrine hydrochloride 25 mg/ml ophthalmic solution (2 sources) alpha-1 Adrenergic Agonist Start: 11-17-2018 End: 11-17-2018 phenylephrine (MYDFRIN) 2.5 % ophthalmic solution 1 drop Start: 11-03-2018 phenylephrine (MYDFRIN) 2.5 % ophthalmic solution 1 drop tropicamide 10 mg/ml ophthalmic solution (2 sources) Anticholinergic Start: 11-17-2018 End: 11-17-2018 tropicamide (MYDRIACYL) 1 % ophthalmic solution 1 drop Start: 11-03-2018 tropicamide (M YDRIACYL) 1 % ophthalmic solution 1 drop Problems Active Problems Problem Classification Problem Date Documented Date Episodic/Chronic Abdominal pain (2 sources) Indigestion; Translations: [Epigastric pain] 03-11-2024 Episodic Acquired foot deformities (20 sources) Other hammer toe(s) (acquired), left foot; Translations: [Acquired left hallux valgus] Onset: 10-12-2021 Resolved: 03-17-2023 Chronic Anxiety disorders (20 sources) Generalized anxiety disorder; Translations: [Generalized anxiety disorder] Onset: 03-20-2022 06-20-2022 Chronic Asthma (20 sources) Asthma; Translations: [Unspecified asthma, uncomplicated] Onset: 03-20-2022 08-28-2022 Chronic Cardiac dysrhythmias (1 source) Palpitations; Translations: [PALPITATIONS] Onset: 05-02-2022 Episodic Chronic obstructive pulmonary disease and bronchiectasis (2 sources) Pulmonary emphysema; Translations: [Emphysema, unspecified] 05-16-2024 Chronic Chronic ulcer of skin (6 sources) Non-pressure chronic ulcer of other part of right foot with fat layer exposed; Translations: [Non-pressure chronic ulcer of other part of left foot with fat layer exposed] Onset: 02-01-2022 Chronic Conditions associated with dizziness or vertigo (4 sources) Dizziness; Translations: [Dizziness and giddiness] 11-12-2023 Episodic Congestive heart failure; nonhypertensive (2 sources) Chronic systolic heart failure; Translations: [Chronic systolic (congestive) heart failure] 05-16-2024 Chronic Delirium, dementia, and amnestic and other cognitive disorders (20 sources) Cognitive disorder; Translations: [Unspecified mental disorder due to known physiological condition] Onset: 08-28-2022 08-28-2022 Chronic Disorders of lipid metabolism (20 sources) Mixed hyperlipidemia; Translations: [Mixed hyperlipidemia] Onset: 08-28-2022 08-28-2022 Chronic Esophageal disorders (1 source) Gastroesophageal reflux disease without esophagitis; Translations: [Gastro-esophageal reflux disease without esophagitis] 11-04-2023 Chronic Essential hypertension (20 sources) Essential hypertension; Translations: [Essential (primary) hypertension] Onset: 03-20-2022 08-28-2022 Chronic Gout and other crystal arthropathies (20 sources) Primary gout; Translations: [Idiopathic gout, right ankle and foot] Onset: 08-28-2022 08-28-2022 Chronic Headache; including migraine (20 sources) New daily persistent headache; Translations: [New daily persistent headache (NDPH)] Onset: 07-23-2024 07-23-2024 Chronic Headache; including migraine (2 sources) Acute headache; Translations: [Acute intractable headache, unspecified headache type] 11-12-2023 Episodic Heart valve disorders (20 sources) Aortic stenosis, non-rheumatic ; Translations: [Nonrheumatic aortic (valve) stenosis] Onset: 09-02-2017 08-28-2022 Chronic Immunizations and screening for infectious disease (2 sources) Vaccination needed; Translations: [Encounter for immunization] 05-05-2024 Episodic Mood disorders (20 sources) Mild depression; Translations: [Bipolar II disorder] Onset: 08-01-2012 Resolved: 03-17-2023 08-01-2012 Chronic Nutritional deficiencies (2 sources) Vitamin D deficiency; Translations: [Vitamin D deficiency, unspecified] 05-05-2024 Chronic Osteoarthritis (20 sources) Unspecified osteoarthritis, unspecified site; Translations: [Arthritis] Onset: 03-20-2022 08-28-2022 Chronic Other connective tissue disease (1 source) Posterior tibial tendinitis, left leg; Translations: [POSTERIOR TIBIAL TENDINITIS LT LEG] Onset: 05-02-2022 Episodic Other injuries and conditions due to external causes (4 sources) At risk for injury due to fall; Translations: [History of falling] 10-27-2024 Episodic Other lower respiratory disease (4 sources) Interstitial lung disease; Translations: [Interstitial pulmonary disease, unspecified] 12-03-2023 Chronic Other nervous system disorders (1 source) Polyneuropathy, unspecified; Translations: [POLYNEUROPATHY UNSPECIFIED] Onset: 05-02-2022 Chronic Other nervous system disorders (20 sources) Chronic pain due to injury; Translations: [Chronic pain due to trauma] Onset: 08-28-2022 08-28-2022 Chronic Other nervous system disorders (20 sources) Neuropathy; Translations: [Polyneuropathy, unspecified] Onset: 08-28-2022 08-28-2022 Chronic Other nervous system disorders (20 sources) Disorder of the peripheral nervous system; Translations: [Hereditary and idiopathic neuropathy, unspecified] Onset: 08-28-2022 08-28-2022 Chronic Other nervous system disorders (4 sources) Abnormal gait; Translations: [Unsteadiness on feet] 10-27-2024 Episodic Other non-traumatic joint disorders (1 source) Other specified arthritis, unspecified site; Translations: [OTHER SPECIFIED ARTHRITIS UNS SITE] Onset: 11-29-2021 Chronic Other nutritional; endocrine; and metabolic disorders (20 sources) Obese class I; Translations: [Obesity, unspecified] Onset: 08-28-2022 08-28-2022 Chronic Other screening for suspected conditions (not mental disorders or infectious disease) (4 sources) Patient encounter status; Translations: [Encounter for screening mammogram for malignant neoplasm of breast] 03-14-2023 Episodic Other skin disorders (5 sources) Nail dystrophy; Translations: [NAIL DYSTROPHY] Onset: 02-08-2022 Episodic Other skin disorders (2 sources) Mass of neck; Translations: [Localized swelling, mass and lump, neck] 08-11-2024 Episodic Other upper respiratory disease (1 source) Seasonal allergy; Translations: [Other seasonal allergic rhinitis] 07-01-2024 Chronic Otitis media and related conditions (1 source) Acute left otitis media; Translations: [Otitis media, unspecified, left ear] 05-06-2024 Episodic Peripheral and visceral atherosclerosis (20 sources) Peripheral vascular disease; Translations: [Peripheral vascular disease, unspecified] Onset: 08-28-2022 08-28-2022 Chronic Pulmonary heart disease (4 sources) Pulmonary hypertension; Translations: [Pulmonary hypertension, unspecified] 11-16-2023 Chronic Residual codes; unclassified (2 sources) Insomnia; Translations: [Insomnia, unspecified] 05-28-2024 Episodic Residual codes; unclassified (2 sources) Family history of malignant neoplasm of thyroid; Translations: [Family history of malignant neoplasm of other organs or systems] 08-11-2024 Episodic Skin and subcutaneous tissue infections (1 source) Cellulitis of right lower limb; Translations: [CELLULITIS OF RIGHT LOWER LIMB] Onset: 05-02-2022 Episodic Thyroid disorders (20 sources) Acquired hypothyroidism; Translations: [Hypothyroidism, unspecified] Onset: 03-20-2022 08-28-2022 Chronic Unclassified (4 sources) HEPATIC FIBROSIS UNSPECIFIED; Translations: [HEPATIC FIBROSIS UNSPECIFIED] Onset: 10-31-2021 Unclassified (1 source) New Patient Onset: 04-26-2023 Unclassified (1 source) Cardiac Valve Problem Onset: 04-26-2023 Unclassified (1 source) Dental Inquiry Onset: 04-26-2023 Past or Other Problems Problem Classification Problem Date Documented Date Episodic/Chronic Acquired foot deformities (20 sources) Other hammer toe(s) (acquired), right foot; Translations: [Acquired hallux malleus] Onset: 05-02-2022 Resolved: 03-17-2023 08-28-2022 Chronic Acute posthemorrhagic anemia (20 sources) Acute posthemorrhagic anemia; Translations: [Acute posthemorrhagic anemia] Onset: 03-01-2022 08-28-2022 Episodic Cardiac dysrhythmias (20 sources) Cardiac arrhythmia; Translations: [Cardiac arrhythmia, unspecified] Onset: 09-02-2017 Resolved: 05-16-2021 05-16-2021 Chronic Cataract (3 sources) Combined form of senile cataract; Translations: [Combined forms of age-related cataract of right eye] Onset: 11-02-2018 Resolved: 11-17-2018 11-03-2018 Chronic Deficiency and other anemia (20 sources) Iron deficiency anemia; Translations: [Iron deficiency anemia, unspecified] Onset: 03-30-2022 08-28-2022 Episodic E Codes: Fall (20 sources) Fall; Translations: [Unspecified fall, initial encounter] Onset: 09-19-2022 Resolved: 03-17-2023 12-18-2022 Episodic Epilepsy; convulsions (20 sources) Seizure; Translations: [Unspecified convulsions] Onset: 03-20-2022 08-28-2022 Episodic Fluid and electrolyte disorders (20 sources) Hypokalemia; Translations: [Hypokalemia] Onset: 04-20-2020 Resolved: 03-17-2023 08-28-2022 Episodic Fracture of lower limb (20 sources) Closed fracture distal femur, medial condyle ; Translations: [Displaced fracture of medial condyle of right femur, initial encounter for closed fracture] Onset: 09-19-2022 12-18-2022 Episodic Heart valve disorders (20 sources) Heart murmur; Translations: [Cardiac murmur, unspecified] Onset: 08-28-2022 08-28-2022 Episodic Hepatitis (20 sources) Viral hepatitis C; Translations: [Unspecified viral hepatitis C without hepatic coma] Onset: 03-20-2022 08-28-2022 Episodic Menopausal disorders (20 sources) Disorder associated with menstruation AND/OR menopause; Translations: [Unspecified menopausal and perimenopausal disorder] Onset: 08-28-2022 Resolved: 03-17-2023 08-28-2022 Chronic Mood disorders (20 sources) Mood disorders Onset: 03-14-2023 Resolved: 07-02-2024 03-14-2023 Other acquired deformities (20 sources) Joint contracture of the ankle and foot; Translations: [Contracture, unspecified ankle] Onset: 12-18-2022 Resolved: 03-17-2023 12-18-2022 Chronic Other connective tissue disease (1 source) Pain in left foot; Translations: [PAIN IN LEFT FOOT] Onset: 11-29-2021 Episodic Other connective tissue disease (20 sources) Primary fibromyalgia syndrome; Translations: [Fibromyalgia] Onset: 03-20-2022 08-28-2022 Episodic Other connective tissue disease (20 sources) Pain of left hand; Translations: [Pain in left hand] Onset: 08-28-2022 Resolved: 03-17-2023 08-28-2022 Episodic Other connective tissue disease (20 sources) Pain in right hand; Translations: [Pain in right hand] Onset: 08-28-2022 Resolved: 03-17-2023 08-28-2022 Episodic Other inflammatory condition of skin (20 sources) Prurigo nodularis; 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] Onset: 08-28-2022 08-28-2022 Episodic Other lower respiratory disease (1 source) Dyspnea; Translations: [Shortness of breath] 07-12-2023 Episodic Other non-traumatic joint disorders (20 sources) Shoulder joint pain; Translations: [Pain in unspecified shoulder] Onset: 08-28-2022 08-28-2022 Episodic Other skin disorders (1 source) Onychogryphosis; Translations: [ONYCHOGRYPHOSIS] Onset: 11-29-2021 Episodic Other skin disorders (1 source) Corns and callosities; Translations: [CORNS AND CALLOSITIES] Onset: 11-29-2021 Episodic Residual codes; unclassified (20 sources) Abnormal finding on screening procedure; Translations: [Other general symptoms and signs] Onset: 08-28-2022 08-28-2022 Episodic Spondylosis; intervertebral disc disorders; other back problems (20 sources) Chronic low back pain; Translations: [Lumbago with sciatica, left side] Onset: 10-10-2023 01-22-2024 Episodic Sprains and strains (19 sources) Strain of muscle(s) and tendon(s) of the rotator cuff of right shoulder, subsequent encounter; Translations: [Other specified aftercare] Onset: 07-23-2024 07-23-2024 Episodic Unclassified (1 source) HEPATIC FIBROSIS UNSPECIFIED; Translations: [HEPATIC FIBROSIS UNSPECIFIED] Onset: 10-20-2021 Unclassified (2 sources) Traumatic incomplete tear of right rotator cuff, subsequent encounter 07-23-2024 Results Test Name Value Interpretation Reference Range Facility POCT EKGOrdered By: [facility] NECK SOFT TISSUEon 0 08-18-2024 US HEAD NECK SOFT TISSUE EXAMINATION: THYROID ULTRASOUND HISTORY: Neck lump. TECHNIQUE: [...] Data System (TI- RADS) established by the [employer] to help provide guidance [...] care ELECTRONICALLY SIGNED BY: Ho Dutton MD Normal Not Available MR BRAIN WO CONTRASTon 08-11 MR BRAIN WO CONTRAST EXAM: MR BRAIN WO CONTRAST History: new [...] compatible with nonspecific mastoid air cell effusions. IMPRESSION: No acute intracranial process. Generalized parenchymal volume loss and nonspecific white matter findings most compatible with chronic small vessel ischemic changes in a patient of this age. ELECTRONICALLY SIGNED BY: Wilmar Muñiz DO Normal Not Available MR SHOULDER RIGHT WO IV CONT Bishnu 08-11-2024 MR SHOULDER RIGHT WO IV CONTRAST EXAM: MR SHOULDER RIGHT WO IV CONTRAST [...] long head biceps tendinosis. ELECTRONICALLY SIGNED BY: Wilmar Muñiz, DO Normal Not Available CBC W Auto Differential pane l (Bld)on 05-06-2024 Basophils (Bld) [#/Vol] 73 10*3/uL [facility] Basophils/100 WBC (Bld) 1.1 % [facility] Eosinophils (Bld) [#/Vol] 244 10*3/uL [facility] Eosinophils/100 WBC (Bld) 3.7 % [facility] Erythrocyte distribution width (RBC) [Ratio] 15.6 % High 11.0 - 15.0 % [facility] Hematocrit (Bld) [Volume fraction] 39.4 % 35.0 - 45.0 % [facility] Hemoglobin (Bld) [Mass/Vol] 12.5 g/dL 11.7 - 15.5 g/dL [facility] Lymphocytes (Bld) [#/Vol] 1346 10*3/uL [facility] Lymphocytes/100 WBC (Bld) 20.4 % [facility] MCH (RBC) [Entitic mass] 32.1 pg 27.0 - 33.0 pg [facility] MCHC (RBC) [Mass/Vol] 31.7 g/dL Low 32.0 - 36.0 g/dL [facility] Comment on above: For adults, a slight decrease in the calculated MCHC value (in the range of 30 to 32 g/dL) is most likely not clinically significant; however, it should be interpreted with caution in correlation with other red cell parameters and the patient's clinical condition. MCV (RBC) [Entitic vol] 101 fL High 80.0 - 100.0 fL [facility] Monocytes (Bld) [#/Vol] 673 10*3/uL [facility] Monocytes/100 WBC (Bld) 10.2 % [facility] Neutrophils (Bld) [#/Vol] 4264 10*3/uL [facility] Neutrophils/100 WBC (Bld) 64.6 % [facility] Platelet mean volume (Bld) [Entitic vol] 10.4 fL 7.5 - 12.5 fL [facility] Platelets (Bld) [#/Vol] 212 10*3/uL [facility] RBC (Bld) [#/Vol] 3.9 10*6/uL [facility] WBC (Bld) [#/Vol] 6.6 10*3/uL [facility] Laboratory - Chemistry and C hemistry - challengeon 05-06-2024 Albumin [Mass/Vol] 4.2 g/dL 3.6 - 5.1 g/dL [facility] Albumin/Globulin [Mass ratio] 1.2 {ratio} [facility] ALP [Catalytic activity/Vol] 93 U/L 37 - 153 U/L [facility] ALT [Catalytic activity/Vol] 18 U/L 6 - 29 U/L [facility] AST [Catalytic activity/Vol] 22 U/L 10 - 35 U/L [facility] Bilirubin [Mass/Vol] 0.2 mg/dL 0.2 - 1 .2 mg/dL [facility] Calcium [Mass/Vol] 9.3 mg/dL 8.6 - 10. 4 mg/dL [facility] Chloride [Moles/Vol] 104 mmol/L 98 - 11 0 mmol/L [facility] CO2 [Moles/Vol] 25 mmol/L 20 - 32 mmol/L [facility] Creatinine [Mass/Vol] 0.87 mg/dL 0.50 - 1.05 mg/dL [facility] GFR/1.73 sq M.predicted among non-blacks MDRD (S/P/Bld) [Vol rate/Area] 73 mL/min/{1.73_m2} > OR = 60 mL/min/1.73m2 [facility] Globulin (S) [Mass/Vol] 3.4 g/dL [facility] Glucose [Mass/Vol] 88 mg/dL 65 - 99 mg/dL [facility] Comment on above: Fasting reference interval Potassium [Moles/Vol] 3.8 mmol/L 3.5 - 5.3 mmol/L [facility] Protein [Mass/Vol] 7.6 g/dL 6.1 - 8.1 g/dL [facility] Sodium [Moles/Vol] 141 mmol/L 135 - 146 mmol/L [facility] TSH Qn 1.92 m[IU]/L [facility] Urea nitrogen [Mass/Vol] 26 mg/dL High 7 - 25 mg/dL [facility] Urea nitrogen/Creatinine [Mass ratio] 30 mg/mg High [facility] Lipid 1996 panelon 5 Cholesterol [Mass/Vol] 202 mg/dL High NINF - 200 mg/dL [facility] Cholesterol in HDL [Mass/Vol] 114 mg/dL > OR = 50 [facility] Cholesterol in LDL [Mass/Vol] 72 mg/dL mg/dL (calc) [facility] Comment on above: Reference range: <10 0 Desirable range <100 mg/dL for primary prevention; <70 mg/dL for patients with CHD or diabetic patients with > or = 2 CHD risk factors. LDL-C is now calculated using the Jeffry calculation, which is a validated novel method providing better accuracy than the Friedewald equation in the estimation of LDL-C. Flo DUBON et al. JANICE. 2013;310(19): 9603-9436 (http://education.SingOn/faq/JRR867) Cholesterol non HDL [Mass/Vol] 88 mg/dL [facility] Comment on above: For patients with di abetes plus 1 major ASCVD risk factor, treating to a non-HDL-C goal of <100 mg/dL (LDL-C of <70 mg/dL) is considered a therapeutic option. Cholesterol.total/Ch olesterol in HDL [Mass ratio] 1.8 {ratio} [facility] Triglyceride [Mass/Vol] 79 mg/dL [facility] - 150 mg/dL [facility] No Panel Informationon 05-06 Interpretation and review of laboratory results Abnormal [facility] Performing Organization Information Site ID: QPT Name: [facility] Address: [address] [place] [address], [address] [place] [phone] Director: Ishaan Denny MD [facility] BI MAMMOGRAM SCREENING TOMOS YNTHESIS BILATERALon 05-05-2024 BI MAMMOGRAM SCREENING TOMOSYNTHESIS BILATERAL This is a summary report. The complete report is available in the patient's medical record. If you cannot access the medical record, please contact the sending organization for a detailed fax or copy. Examination: BI MAMMOGRAM SCREENING TOMOSYNTHESIS BILATERAL Clinical [...] are noted bilaterally which appear grossly unremarkable. IMPRESSION: Impression: No specific evidence of malignancy seen in either breast. BIRADS 2 - Benign Findings DENSITY: The breasts are almost entirely fatty. FOLLOW-UP: Routine Screening Mammogram ELECTRONICALLY SIGNED BY: Jose Elias Hancock M.D. Normal Not Available CBC W Auto Differential pane l (Bld)on 11-13-2023 Basophils (Bld) [#/Vol] 68 10*3/uL [facility] Basophils/100 WBC (Bld) 0.9 % [facility] Eosinophils (Bld) [#/Vol] 315 10*3/uL [facility] Eosinophils/100 WBC (Bld) 4.2 % [facility] Erythrocyte distribution width (RBC) [Ratio] 17.1 % High 11.0 - 15.0 % [facility] Hematocrit (Bld) [Volume fraction] 32.7 % Low 35.0 - 45.0 % [facility] Hemoglobin (Bld) [Mass/Vol] 10.1 g/dL Low 11.7 - 15.5 g/dL [facility] Lymphocytes (Bld) [#/Vol] 1553 10*3/uL [facility] Lymphocytes/100 WBC (Bld) 20.7 % [facility] MCH (RBC) [Entitic mass] 27.8 pg 27.0 - 33.0 pg [facility] MCHC (RBC) [Mass/Vol] 30.9 g/dL Low 32.0 - 36.0 g/dL [facility] Comment on above: For adults, a slight decrease in the calculated MCHC value (in the range of 30 to 32 g/dL) is most likely not clinically significant; however, it should be interpreted with caution in correlation with other red cell parameters and the patient's clinical condition. MCV (RBC) [Entitic vol] 90.1 fL 80.0 - 100.0 fL [facility] Monocytes (Bld) [#/Vol] 638 10*3/uL [facility] Monocytes/100 WBC (Bld) 8.5 % [facility] Neutrophils (Bld) [#/Vol] 4928 10*3/uL [facility] Neutrophils/100 WBC (Bld) 65.7 % [facility] Platelet mean volume (Bld) [Entitic vol] 9.4 fL 7.5 - 12.5 fL [facility] Platelets (Bld) [#/Vol] 312 10*3/uL [facility] RBC (Bld) [#/Vol] 3.63 10*6/uL Low [facility] WBC (Bld) [#/Vol] 7.5 10*3/uL [facility] Laboratory - Chemistry and C hemistry - challengeon 11-13-2023 Albumin [Mass/Vol] 3.7 g/dL 3.6 - 5.1 g/dL [facility] Albumin/Globulin [Mass ratio] 1.0 {ratio} [facility] ALP [Catalytic activity/Vol] 79 U/L 37 - 153 U/L [facility] ALT [Catalytic activity/Vol] 12 U/L 6 - 29 U/L [facility] AST [Catalytic activity/Vol] 23 U/L 10 - 35 U/L [facility] Bilirubin [Mass/Vol] 0.2 mg/dL 0.2 - 1 .2 mg/dL [facility] Calcium [Mass/Vol] 8.6 mg/dL 8.6 - 10. 4 mg/dL [facility] Chloride [Moles/Vol] 98 mmol/L 98 - 11 0 mmol/L [facility] CO2 [Moles/Vol] 24 mmol/L 20 - 32 mmol/L [facility] Creatinine [Mass/Vol] 0.94 mg/dL 0.50 - 1.05 mg/dL [facility] GFR/1.73 sq M.predicted among non-blacks MDRD (S/P/Bld) [Vol rate/Area] 67 mL/min/{1.73_m2} > OR = 60 mL/min/1.73m2 [facility] Globulin (S) [Mass/Vol] 3.7 g/dL [facility] Glucose [Mass/Vol] 95 mg/dL 65 - 99 mg/dL [facility] Comment on above: Fasting reference interval Potassium [Moles/Vol] 3.1 mmol/L Low 3.5 - 5.3 mmol/L [facility] Protein [Mass/Vol] 7.4 g/dL 6.1 - 8.1 g/dL [facility] Sodium [Moles/Vol] 138 mmol/L 135 - 146 mmol/L [facility] TSH Qn 3.98 m[IU]/L [facility] Urea nitrogen [Mass/Vol] 18 mg/dL 7 - 25 mg/dL [facility] Urea nitrogen/Creatinine [Mass ratio] SEE NOTE: [facility] Comment on above: Not Reported: BUN an d Creatinine are within reference range. No Panel Informationon 11-12 Interpretation and review of laboratory results Abnormal [facility] Performing Organization Information Site ID: QPT Name: [facility] Address: [address] [place] [address], [address] [place] [phone] Director: Ishaan Denny MD [facility] CT HEAD WO IV CONTRASTon CT HEAD WO IV CONTRAST TITLE OF EXAM: CT - CT HEAD WITHOUT CONTRAST REASON FOR EXAM: Fell recently, hit head TECHNIQUE: Axial CT of the head COMPARISON: None. FINDINGS: Brain and intracranial structures: The ventricles and extra-axial spaces are normal in size and configuration for age. Moderate to severe near concentric calcific arteriosclerosis of the cavernous internal carotid arteries. No mass lesion, hemorrhage, or acute infarct. Skull/scalp: Normal. Orbits and face (included portions): Normal. Paranasal sinuses and mastoid air cells (included portions): Clear. IMPRESSION: No hemorrhage or other acute intracranial abnormality. DICTATED ON: 11/12/2023 2:00 PM This report has been electronically signed in approved by the interpreting radiologist. Electronically Signed Neptali Hillman M.D. 2023-11-12 14:02:03 Normal Not Available Comment on above: Order Comment: RADHA RECENTLY, FREQUENT MIGRAINES FOR [address] Head WO contraston 2023 TITLE OF EXAM: CT - CT HEAD WITHOUT CONTRAST REASON FOR EXAM: , hit head TECHNIQUE: Axial CT of the head COMPARISON: None. FINDINGS: Brain and intracranial structures: The ventricles and extra-axial spaces are normal in size and configuration for age. Moderate to severe near concentric calcific arteriosclerosis of the cavernous internal carotid arteries. No mass lesion, hemorrhage, or acute infarct. Skull/scalp: Normal. Orbits and face (included portions): Normal. Paranasal sinuses and mastoid air cells (included portions): Clear. IMPRESSION: No hemorrhage or other acute intracranial abnormality. DICTATED ON: 11/12/2023 2:00 PM This report has been electronically signed in approved by the interpreting radiologist. Electronically Signed Neptali Hillman M.D. 2023-11-12 14:02:03 IMAGING Burton Hillman MD - 11/12/2023 TITLE OF EXAM: CT - CT HEAD WITHOUT CONTRAST REASON FOR EXAM: , hit head TECHNIQUE: Axial CT of the head COMPARISON: None. FINDINGS: Brain and intracranial structures: The ventricles and extra-axial spaces are normal in size and configuration for age. Moderate to severe near concentric calcific arteriosclerosis of the cavernous internal carotid arteries. No mass lesion, hemorrhage, or acute infarct. Skull/scalp: Normal. Orbits and face (included portions): Normal. Paranasal sinuses and mastoid air cells (included portions): Clear. IMPRESSION: No hemorrhage or other acute intracranial abnormality. DICTATED ON: 11/12/2023 2:00 PM This report has been electronically signed in approved by the interpreting radiologist. Electronically Signed Neptali Hillman M.D. 2023-11-12 14:02:03 [facility] Radiology Study observation (narrative) [facility] CT Head WO contrastOrdered B y: IgorJessica Rafy on 11-12-2023 [facility] [employer] Work Phone: Glucose (Bld) [Mass/Vol]on 1 Glucose Blood, POC 138 mg/dL [facility] MR LUMBAR SPINE WO CONTon MR LUMBAR SPINE WO CONT MR LUMBAR SPINE WO CONT MR LUMBAR SPINE WO CONT HISTORY: Lumbar radiculopathy, spinal stenosis, neurogenic claudication, chronic back pain COMPARISON: MRI lumbar spine 11/29/2020 TECHNIQUE: Multisequence, multiplanar images of the lumbar spine without intravenous contrast. FINDINGS: Posterior spinous process fixation hardware at the L4 vertebral levels. Adjacent susceptibility artifact. Unremarkable bone marrow signal. 5 mm (grade 1) anterolisthesis of L3 on L4. 2 mm retrolisthesis of L2 on L3. No compression deformities. Degenerative intervertebral disc space narrowing at all levels with disc desiccation. Modic type II changes at L5-S1. Multilevel Schmorl's nodes. The visualized cord is within normal limits. Normal appearance of the cauda equina nerve roots. The conus medullaris terminates at L1. Fatty atrophy of the bilateral paraspinous musculature. Visualized intra-abdominal contents are within normal limits. Left renal simple cyst. Level by level: T11-T12: Disc bulge which is partially evaluated, mild thecal sac stenosis. T12-L1: No significant disc herniation. No thecal sac stenosis. No neural foraminal narrowing. L1-2: Circumferential disc bulging with mild ligamentum flavum hypertrophy. Mild thecal sac stenosis. No neural foraminal narrowing. L2-3: Circumferential disc bulging, mild facet arthropathy and prominent dorsal epidural fat.. Mild thecal sac stenosis. Mild bilateral neural foraminal narrowing. L3-4: Disc bulge in combination with moderate facet hypertrophy, greater on the left side, and ligamentum flavum thickening. Mild to moderate thecal sac stenosis and mild to moderate bilateral neural foraminal narrowing. L4-5: Disc bulge and correlation with mild to moderate bilateral facet hypertrophy and ligamentum flavum thickening. Resultant mild thecal sac stenosis, mild right neural foraminal narrowing, and moderate left neural foraminal narrowing. L5-S1: Circumferential disc bulging with left foraminal zone disc protrusion, ligamentum flavum thickening, and facet arthropathy. Mild thecal sac stenosis. Moderate right and moderate to severe left neural foraminal narrowing with abutment of the exiting left L5 nerve root. IMPRESSION: * Multilevel degenerative changes of the lumbar spine without high-grade thecal sac stenosis throughout. Moderate to severe left neural foraminal stenosis at the L5-S1 level with abutment of the exiting nerve root. This has progressed compared to prior examination. Approved by Resident: Rolando Chan DO on 10/11/2023 9:53 AM I, Axel Tran MD have personally reviewed the image(s) and agree with and/or edited the report Finalized by Axel Tran MD on 10/11/2023 1:23 PM Normal [facility] BASIC METABOLIC PANLon 07-31 Anion gap [Moles/Vol] 9 mmol/L Normal 5-15 [facility] Comment on above: Performed By: #### C BCA, PINR, BMP, FEPR, 2276-4 #### [facility] ([id number]) [address], [address] [place] [address] Calcium [Mass/Vol] 8.2 mg/dL Low 8.5-10.5 [facility] Comment on above: Performed By: #### C BCA, PINR, BMP, FEPR, 2276-4 #### [facility] ([id number]) [address], [address] [place] [address] Chloride [Moles/Vol] 103 mmol/L Normal 98-109 [facility] Comment on above: Performed By: #### C BCA, PINR, BMP, FEPR, 2276-4 #### [facility] ([id number]) [address], [address] [place] [address] CO2 [Moles/Vol] 26 mmol/L Normal 22-32 [facility] Comment on above: Performed By: #### C BCA, PINR, BMP, FEPR, 6-4 #### [facility] ([id number]) [address] [address] [place] [address] Creatinine [Mass/Vol] 0.95 mg/dL Normal 0.40-1.00 [facility] Comment on above: Result Comment: METH OD TRACEABLE TO IDMS STANDARD Performed By: #### C BCA, PINR, BMP, FEPR, 6-4 #### [facility] ([id number]) [address] [address] GFR/1.73 sq M.predicted among non-blacks MDRD (S/P/Bld) [Vol rate/Area] 66 mL/min/{1.73_m2} Normal >59 [facility] Comment on above: Result Comment: Reported eGFR is based on the CKD-EPI 2020 equation that does not use a race coefficient. Performed By: #### C BCA, PINR, BMP, FEPR, 2275-4 #### [facility] ([id number]) [address] [address] Glucose [Mass/Vol] 135 mg/dL High 65-99 [facility] Comment on above: Performed By: #### C BCA, PINR, BMP, FEPR, 2275-4 #### [facility] ([id number]) [address] [address] Potassium [Moles/Vol] 3.7 mmol/L Normal 3.5-5.0 [facility] Comment on above: Performed By: #### C BCA, PINR, BMP, FEPR, 6-4 #### [facility] ([id number]) [address] [address] Sodium [Moles/Vol] 138 mmol/L Normal 134-146 [facility] Comment on above: Performed By: #### C BCA, PINR, BMP, FEPR, 2276-4 #### [facility] ([id number]) [address] [address] [place] [address] Urea nitrogen [Mass/Vol] 11 mg/dL Normal 5-27 [facility] Comment on above: Performed By: #### C BCA, PINR, BMP, FEPR, 4 #### [facility] ([id number]) [address] [address] [place] [address] CBC AND AUTO DIFFon 07-31- 24 ABSOLUTE BASOPHIL 0.1 X10E9/L Normal 0.0-0.2 [facility] Comment on above: Performed By: #### C BCA, PINR, BMP, FEPR, 4 #### [facility] ([id number]) [address] [address] ABSOLUTE NEUTROPHIL 5.2 X10E9/L Normal 1.5-6.6 [facility] Comment on above: Performed By: #### C BCA, PINR, BMP, FEPR, 2275-05 #### [facility] ([id number]) [address] [address] Basophils/100 WBC (Bld) 1.3 % Normal [facility] Comment on above: Performed By: #### C BCA, PINR, BMP, FEPR, 2275-05 #### [facility] ([id number]) [address], [facility] [address] [place] [address] Eosinophils (Bld) [#/Vol] 0.6 10*3/uL High 0.0-0.4 [facility] Comment on above: Performed By: #### C BCA, PINR, BMP, FEPR, 2275-05 #### [facility] ([id number]) [address] [address] [place] [address] Eosinophils/100 WBC (Bld) 7.4 % Normal [facility] Comment on above: Performed By: #### C BCA, PINR, BMP, FEPR, 4 #### [facility] ([id number]) [address] [address] [place] [address] Erythrocyte distribution width (RBC) [Ratio] 20.8 % High 11.5-15.0 [facility] Comment on above: Performed By: #### C BCA, PINR, BMP, FEPR, 2275-4 #### [facility] ([id number]) [address] [address] Hematocrit (Bld) [Volume fraction] 24.5 % Low 35-47 [facility] Comment on above: Performed By: #### C BCA, PINR, BMP, FEPR, 4 #### [facility] ([id number]) [address] [address] Hemoglobin (Bld) [Mass/Vol] 7.7 g/dL Low 11.7-15.5 [facility] Comment on above: Performed By: #### C BCA, PINR, BMP, FEPR, 4 #### [facility] ([id number]) [address] [address] Lymphocytes (Bld) [#/Vol] 1.2 10*3/uL Normal 1.0-3.5 [facility] Comment on above: Performed By: #### C BCA, PINR, BMP, FEPR, 4 #### [facility] ([id number]) [address] [address] Lymphocytes/100 WBC (Bld) 15.4 % Normal [facility] Comment on above: Performed By: #### C BCA, PINR, BMP, FEPR, 4 #### [facility] ([id number]) [address] [address] MCH (RBC) [Entitic mass] 23.1 pg Low 27-34 [facility] Comment on above: Performed By: #### C BCA, PINR, BMP, FEPR, 2275-4 #### [facility] ([id number]) [address] [address] [place] [address] MCHC (RBC) [Mass/Vol] 31.3 g/dL Low 32-36 [facility] Comment on above: Performed By: #### C BCA, PINR, BMP, FEPR, 2275-05 #### [facility] ([id number]) [address] [address] [place] [address] MCV (RBC) [Entitic vol] 74 fL Low 80-100 [facility] Comment on above: Performed By: #### C BCA, PINR, BMP, FEPR, 4 #### [facility] ([id number]) [address] [address] [place] [address] Monocytes (Bld) [#/Vol] 0.6 10*3/uL Normal 0-0.9 [facility] Comment on above: Performed By: #### C BCA, PINR, BMP, FEPR, 4 #### [facility] ([id number]) [address] [address] [place] [address] Monocytes/100 WBC (Bld) 8.3 % Normal [facility] Comment on above: Performed By: #### C BCA, PINR, BMP, FEPR, 4 #### [facility] ([id number]) [address] [address] [place] [address] Neutrophils/100 WBC (Bld) 67.6 % Normal [facility] Comment on above: Performed By: #### C BCA, PINR, BMP, FEPR, 4 #### [facility] ([id number]) [address], [facility] [address] [place] [address] Platelet mean volume (Bld) [Entitic vol] 7.9 fL Normal 7-12 [facility] Comment on above: Performed By: #### C BCA, PINR, BMP, FEPR, 2275-4 #### [facility] ([id number]) [address] [address] Platelets (Bld) [#/Vol] 280 10*3/uL Normal 150-450 [facility] Comment on above: Performed By: #### C BCA, PINR, BMP, FEPR, 2275-4 #### [facility] ([id number]) [address] [address] RBC COUNT 3.31 X10E12/L Low 3.80-5.20 [facility] Comment on above: Performed By: #### C BCA, PINR, BMP, FEPR, 2275-4 #### [facility] ([id number]) [address] [address] WBC (Bld) [#/Vol] 7.7 10*3/uL Normal 4.0-11.0 [facility] Comment on above: Performed By: #### C BCA, PINR, BMP, FEPR, 2275-4 #### [facility] ([id number]) [address] [address] Calcium.ionized (Bld) [Mass/ Vol]on 08-01-2023 IONIZED CALCIUM 4.7 mg/dL Normal 4.5-5.3 [facility] Comment on above: Performed By: #### 3 8230-9, 53228-3 #### [facility] ([id number]) [address] [address] FERRITINon 08-01-2023 Ferritin [Mass/Vol] 19 ng/mL Normal 11-307 [facility] Comment on above: Performed By: #### C BCA, PINR, BMP, FEPR, 2275- #### [facility] ([id number]) [address] [address] [place] [address] HGB AND HCTon 08-01-2023 Hematocrit (Bld) [Volume fraction] 26.1 % Low 35-47 [facility] Comment on above: Performed By: #### 6 298-4 #### [facility] ([id number]) [address] [place] [address] Hemoglobin (Bld) [Mass/Vol] 7.9 g/dL Low 11.7-15.5 [facility] Comment on above: Performed By: #### 6 298-4 #### [facility] ([id number]) [address] [place] [address] IRON PROFILEon 08-01-2023 Iron [Mass/Vol] 21 ug/dL Low 50-170 [facility] Comment on above: Performed By: #### C BCA, PINR, BMP, FEPR, 2276-4 #### [facility] ([id number]) [address], [address] [place] [address] IRON BINDING 407 ug/dL Normal 250-425 [facility] Comment on above: Performed By: #### C BCA, PINR, BMP, FEPR, 2276-4 #### [facility] ([id number]) [address], [address] [place] [address] IRON SATURATION 5 % SATURATION Low 15-50 [facility] Comment on above: Performed By: #### C BCA, PINR, BMP, FEPR, 2276-4 #### [facility] ([id number]) [address], [address] [place] [address] Magnesium Ionized ISE (Bld) [Moles/Vol]on 08-01-2023 Magnesium [Moles/Vol] 0.55 mmol/L Normal 0.45-0.74 [facility] Comment on above: Result Comment: NEW REFERENCE RANGE Performed By: #### 6 298-4 #### [facility] ([id number]) [address] [place] [address] Magnesium [Moles/Vol] 0.44 mmol/L Low 0.45-0.74 [facility] Comment on above: Result Comment: NEW REFERENCE RANGE Performed By: #### 6 298-4 #### [facility] ([id number]) [address] [place] [address] POTASSIUMon 08-01-2023 Potassium [Moles/Vol] 3.8 mmol/L Normal 3.5-5.0 [facility] Comment on above: Performed By: #### 6 298-4 #### [facility] ([id number]) [address] [place] [address] PROTIME AND INRon 08-01-2023 INR Coag (PPP) [Relative time] 1.3 {INR} High 0.8-1.1 [facility] Comment on above: Performed By: #### C BCA, PINR, BMP, FEPR, 2276-4 #### [facility] ([id number]) [address], [address] [place] [address] PT Coag (PPP) [Time] 15.2 s High 9.8-13.2 [facility] Comment on above: Performed By: #### C BCA, PINR, BMP, FEPR, 2276-4 #### [facility] ([id number]) [address], [address] [place] [address] Glucose Glucometer (BldC) [M ass/Vol]on 07-31-2023 Glucose [Mass/Vol] 114 mg/dL High 65-99 [facility] XR CHEST 1 VWon 07-31-2023 XR CHEST 1 VW XR CHEST 1 VW HISTORY AND/OR TECH NOTES tavr Follow-up valve replacement PROCEDURE AP chest COMPARISON September 18 FINDINGS Aortic heart valve stent in place with mild cardiomediastinal prominence There is congestion and granular and interstitial opacity bilaterally suggesting pulmonary edema Confluent density in the left suprahilar region thought likely relate to confluent congested vessels There is a small nodule again seen in the lingula presumably granuloma There is no lobar collapse or consolidation seen No significant pleural effusion No visible pneumothorax IMPRESSION: Aortic valve stent placed without pleural effusion or pneumothorax Cardiomediastinal prominence and congestion with suggestion of some increased fullness near expected hiatal hernia Suggestion mild pulmonary edema without lobar collapse or consolidation Small nodule in the lingula presumably related to granuloma with additional nodular confluent density in the left suprahilar region probably confluence of vascular markings Suggest follow-up imaging to document clearing and normalization, PA and lateral views when appropriate ----- Finalized by Melvin Hilton MD on 07/31/2023 3:46 PM Normal [facility] Potassium (Bld) [Moles/Vol]o n 05-23-2023 Potassium [Moles/Vol] 4.6 mmol/L Normal 3.5-5.0 [facility] Comment on above: Performed By: #### 6 298-4 #### [facility] ([id number]) [address] [place] [address] CT CTA TAVRon 05-09-[address] CTA TAVR STUDY: CT angiography of the chest, abdomen and pelvis with contrast TAVR CLINICAL HISTORY: Severe aortic stenosis COMPARISON: CT chest without contrast 09/18/2022. TECHNIQUE: CT Angiography of the chest, abdomen and pelvis was performed utilizing thin section gated CTA of the chest following the uneventful administration of 100 ml Omnipaque 350 nonionic intravenous contrast. 3D volume rendered reformatted images were generated and reviewed on an independent workstation under concurrent physician supervision. All CT scans at this facility use dose modulation, iterative reconstruction, and/or weight based dosing when appropriate to reduce radiation dose to as low as reasonably achievable FINDINGS: Aortic valve: Trileaflet, moderate to severe valve leaflet calcification. Aortic valve calcium score 1434. Aortic annulus: 19.70 x 27.00 mm. Aortic annulus area is approximately 4.22 sq cm. Annulus perimeter 75.90 mm. Sinus cusp measurements: R: 27.04 mm N: 30.51 mm L: 29.69 mm Sinotubular junction: CPR: 30.50 mm MPR: 29.42 mm Right coronary artery ostium to annulus: 12.43 mm Left coronary artery ostium to annulus: 11.81 mm Minimal diameter (millimeter), area (square millimeter): Left common carotid: 3.80, 24.60 Left subclavian: 6.20, 41.00 Right brachycephalic: 12.30, 131.40 Right side: Mid common iliac: 9.20, 66.60 Common iliac:7.90, 54.10 External iliac:7.40, 52.70 Femoral: 7.30, 49.40 Left side: Mid common iliac:9.20, 74.40 Common iliac: 9.00, 72.10 External iliac: 6.80, 41.70 Femoral: 7.50, 48.30 Degree of right common iliac, external iliac, and common femoral artery calcification: Trace Degree of left common iliac, external iliac, and common femoral arterial calcification: Trace Chest: No enlarged mediastinal or axillary lymph nodes. Stable 3 mm right middle lobe lung nodule. No new lung nodules. Small calcified. Minimal lingular segment left upper lobe. Moderate hiatal hernia. Mitral annulus calcifications. Heavy coronary artery calcifications. No pleural pericardial effusions. Mild paraseptal emphysematous changes. Abdomen: Liver, spleen, pancreas, glands and kidneys within normal limits. Gallbladder within normal limits. No enlarged lymph nodes. No abdominal aortic aneurysm. Stable partly calcified 3 mm soft tissue nodule right paracolic gutter. Pelvis: No dilated bowel loops or pericolonic fat stranding. Mild sigmoid diverticulosis without diverticulitis. Hysterectomy. No enlarged lymph nodes. No urinary tract obstruction. Intact spinous process fusion hardware L4-5. Moderate right hip osteoarthritis. IMPRESSION: Trileaflet aortic valve with moderate to severe valve leaflet calcifications. Minimal calcified plaque in the thoracoabdominal aorta and branching vessels. No high-grade stenosis. Finalized by Ruben Rodriguez MD on 05/09/2023 9:35 AM Normal [facility] - Chemistry and C hemistry - challengeon 03-15-2023 Free T4 [Mass/Vol] 0.7 ng/dL Low 0.8 - 1.8 ng/dL [facility] TSH Qn 21.53 m[IU]/L High [facility] Lipid 1996 panelon 4 Cholesterol [Mass/Vol] 244 mg/dL High [facility] - 200 mg/dL [facility] Cholesterol in HDL [Mass/Vol] 139 mg/dL > OR = 50 [facility] Cholesterol in LDL [Mass/Vol] 90 mg/dL mg/dL (calc) [facility] Comment on above: Reference range: <10 0 Desirable range <100 mg/dL for primary prevention; <70 mg/dL for patients with CHD or diabetic patients with > or = 2 CHD risk factors. LDL-C is now calculated using the Jeffry calculation, which is a validated novel method providing better accuracy than the Friedewald equation in the estimation of LDL-C. Flo DUBON et al. JANICE. 2013;310(19): 9662-1117 (http://education.SingOn/faq/NSU035) Cholesterol non HDL [Mass/Vol] 105 mg/dL [facility] Comment on above: For patients with di abetes plus 1 major ASCVD risk factor, treating to a non-HDL-C goal of <100 mg/dL (LDL-C of <70 mg/dL) is considered a therapeutic option. Cholesterol.total/Ch olesterol in HDL [Mass ratio] 1.8 {ratio} [facility] Interpretation and review of laboratory results Abnormal [facility] Triglyceride [Mass/Vol] 66 mg/dL [facility] - 150 mg/dL [facility] Information Site ID: QPT Name: [facility] Address: [address] [place], [place] [id number] Director: Ishaan Denny MD [facility] No Panel Informationon 03-15 Interpretation and review of laboratory results Abnormal [facility] Information Site ID: QPT Name: [facility] Address: [address] [place], [place] [id number] Director: Ishaan Denny MD [facility] Vital Signs Date Time Vital Sign Value Performing Clinician Dinorah andrade 10-27-2024 15:07-0400 Body mass index (BMI) [Ratio] 33.73 kg/m2 Sally Burgerk TERRITORY ACCOUNT EXECUTIVE Work Phone: [facility] 10-27-2024 15:07-0400 Body temperature 97.5 [degF] Sally Nayaktrick TERRITORY ACCOUNT EXECUTIVE Work Phone: [facility] 10-27-2024 15:07-0400 Body weight 94.8 kg Sally Burgerk TERRITORY ACCOUNT EXECUTIVE Work Phone: [facility] 10-27-2024 15:07-0400 Diastolic blood pressure 82 mm[Hg] Sally Burgerk TERRITORY ACCOUNT EXECUTIVE Work Phone: [facility] 10-27-2024 15:07-0400 Heart rate 86 /min Sally Burgerk TERRITORY ACCOUNT EXECUTIVE Work Phone: [facility] 10-27-2024 15:07-0400 SaO2% (BldA) [Mass fraction] 98 % Sally Burgerk TERRITORY ACCOUNT EXECUTIVE Work Phone: [facility] 10-27-2024 15:07-0400 Systolic blood pressure 136 mm[Hg] Sally Burgerk TERRITORY ACCOUNT EXECUTIVE Work Phone: [facility] 10-19-2024 15:36-0400 Body mass index (BMI) [Ratio] 33.41 kg/m2 Melvina Mela-Nossek FISH LIVER SORTER-EVENT DECORATOR AND DESIGNER Work Phone: [facility] 10-19-2024 15:36-0400 Body weight 93.89 kg Melvina Mela-Nossek FISH LIVER SORTER-EVENT DECORATOR AND DESIGNER Work Phone: [facility] 10-19-2024 15:36-0400 Diastolic blood pressure 84 mm[Hg] Melvina Mela-Nossek FISH LIVER SORTER-EVENT DECORATOR AND DESIGNER Work Phone: [facility] 10-19-2024 15:36-0400 Heart rate 99 /min Melvina Mela-Nossek FISH LIVER SORTER-EVENT DECORATOR AND DESIGNER Work Phone: [facility] 10-19-2024 15:36-0400 Systolic blood pressure 130 mm[Hg] Melvina Mela-Nossek FISH LIVER SORTER-EVENT DECORATOR AND DESIGNER Work Phone: [facility] 09-30-2024 13:23-0400 Body height 165.1 cm Joey Ryder MD Work Phone: [facility] 09-30-2024 13:23-0400 Body mass index (BMI) [Ratio] 35.28 kg/m2 Joey Ryder MD Work Phone: [facility] 09-30-2024 13:23-0400 Body weight 96.16 kg Joey Ryder MD Work Phone: [facility] 09-30-2024 13:23-0400 Diastolic blood pressure 90 mm[Hg] Joey Ryder MD Work Phone: [facility] 09-30-2024 13:23-0400 Heart rate 75 /min Joey Ryder MD Work Phone: [facility] 09-30-2024 13:23-0400 SaO2% (BldA) [Mass fraction] 96 % Joey Ryder MD Work Phone: [facility] 09-30-2024 13:23-0400 Systolic blood pressure 158 mm[Hg] Joey Ryder MD Work Phone: [facility] 09-07-2024 12:52-0400 Body mass index (BMI) [Ratio] 31.96 kg/m2 Melvina Mela-Nossek FISH LIVER SORTER-EVENT DECORATOR AND DESIGNER Work Phone: [facility] 09-07-2024 12:52-0400 Body weight 89.81 kg Melvina Mela-Nossek FISH LIVER SORTER-EVENT DECORATOR AND DESIGNER Work Phone: [facility] 09-07-2024 12:52-0400 Diastolic blood pressure 86 mm[Hg] Melvina Mela-Nossek FISH LIVER SORTER-EVENT DECORATOR AND DESIGNER Work Phone: [facility] 09-07-2024 12:52-0400 Heart rate 95 /min Melvina Salomon FISH LIVER SORTER-EVENT DECORATOR AND DESIGNER Work Phone: [facility] 09-07-2024 12:52-0400 Systolic blood pressure 138 mm[Hg] Melvina Salomon FISH LIVER SORTER-EVENT DECORATOR AND DESIGNER Work Phone: [facility] 08-11-2024 09:36-0400 Body mass index (BMI) [Ratio] 31.96 kg/m2 Sally Maldonadozpatrick TERRITORY ACCOUNT EXECUTIVE Work Phone: [facility] 08-11-2024 09:36-0400 Body temperature 97.39 [degF] Sally Pintopatrick TERRITORY ACCOUNT EXECUTIVE Work Phone: [facility] 08-11-2024 09:36-0400 Body weight 89.81 kg Sally Pintopatrick TERRITORY ACCOUNT EXECUTIVE Work Phone: [facility] 08-11-2024 09:36-0400 Diastolic blood pressure 64 mm[Hg] Sally Maldonadozpatrick TERRITORY ACCOUNT EXECUTIVE Work Phone: [facility] 08-11-2024 09:36-0400 Systolic blood pressure 120 mm[Hg] Sally Maldonadozpatrick TERRITORY ACCOUNT EXECUTIVE Work Phone: [facility] 07-23-2024 14:49-0400 Body height 167.6 cm Sherita Horan MD Work Phone: [facility] 07-23-2024 14:49-0400 Body mass index (BMI) [Ratio] 32.77 kg/m2 Sherita Horan MD Work Phone: [facility] 07-23-2024 14:49-0400 Body weight 92.08 kg Sherita Horan MD Work Phone: [facility] 07-23-2024 14:49-0400 Diastolic blood pressure 81 mm[Hg] Sherita Horan MD Work Phone: [facility] 07-23-2024 14:49-0400 Heart rate 85 /min Sherita Horan MD Work Phone: [facility] 07-23-2024 14:49-0400 Systolic blood pressure 168 mm[Hg] Sherita Horan MD Work Phone: [facility] 05-28-2024 13:29-0400 Body mass index (BMI) [Ratio] 33.13 kg/m2 Melvina Mela-Nossek FISH L[employer] SORTER-EVENT DECORATOR AND DESIGNER Work Phone: [facility] 05-28-2024 13:29-0400 Body weight 86.18 kg Melvina Mela-Nossek [employer] L[employer]TER-EVENT DECORATOR AND DESIGNER Work Phone: [facility] 05-28-2024 13:29-0400 Diastolic blood pressure 86 mm[Hg] Melvina Mela-Nossek [employer] L[employer]TER-EVENT DECORATOR AND DESIGNER Work Phone: [facility] 05-28-2024 13:29-0400 Heart rate 106 /min Melvina Mela-Nossek [employer] L[employer] S[employer]TER-EVENT DECORATOR AND DESIGNER Work Phone: [facility] 05-28-2024 13:29-0400 Systolic blood pressure 146 mm[Hg] Melvina Mela-Nossek [employer] L[employer]TER-EVENT DECORATOR AND DESIGNER Work Phone: [facility] 05-05-2024 13:05-0400 Body mass index (BMI) [Ratio] 33.27 kg/m2 Sally Zhu TERRITORY ACCOUNT EXECUTIVE Work Phone: [facility] 05-05-2024 13:05-0400 Body temperature 97.39 [degF] Sally Zhu TERRITORY ACCOUNT EXECUTIVE Work Phone: [facility] 05-05-2024 13:05-0400 Body weight 86.55 kg Aslly Hzu TERRITORY ACCOUNT EXECUTIVE Work Phone: [facility] 05-05-2024 13:05-0400 Diastolic blood pressure 80 mm[Hg] Sally Zhu TERRITORY ACCOUNT EXECUTIVE Work Phone: [facility] 05-05-2024 13:05-0400 Systolic blood pressure 140 mm[Hg] Sally Zhu TERRITORY ACCOUNT EXECUTIVE Work Phone: [facility] 04-16-2024 14:10-0500 Body height 161.3 cm Sherita Horan MD Work Phone: [facility] 04-16-2024 14:10-0500 Body mass index (BMI) [Ratio] 32.26 kg/m2 Sherita Horan MD Work Phone: [facility] 04-16-2024 14:10-0500 Body weight 83.92 kg Sheirta Horan MD Work Phone: [facility] 04-16-2024 14:10-0500 Diastolic blood pressure 88 mm[Hg] Sherita Horan MD Work Phone: [facility] 04-16-2024 14:10-0500 Systolic blood pressure 142 mm[Hg] Sherita Horan MD Work Phone: [facility] 01-22-2024 13:43-0500 Body height 161.3 cm Sherita Horan MD Work Phone: [facility] 01-22-2024 13:43-0500 Body mass index (BMI) [Ratio] 32.95 kg/m2 Sherita Horan MD Work Phone: [facility] 01-22-2024 13:43-0500 Body weight 85.73 kg Sherita Horan MD Work Phone: [facility] 12-31-2023 14:29-0500 Body mass index (BMI) [Ratio] 33.72 kg/m2 Sally Pintopatrick TERRITORY ACCOUNT EXECUTIVE Work Phone: [facility] 12-31-2023 14:29-0500 Body temperature 97.39 [degF] Sally Pintopatrick TERRITORY ACCOUNT EXECUTIVE Work Phone: [facility] 12-31-2023 14:29-0500 Body weight 87.73 kg Sally Pintopatrick TERRITORY ACCOUNT EXECUTIVE Work Phone: [facility] 12-31-2023 14:29-0500 Diastolic blood pressure 90 mm[Hg] Sally Zhu TERRITORY ACCOUNT EXECUTIVE Work Phone: [facility] 12-31-2023 14:29-0500 Systolic blood pressure 144 mm[Hg] Sally Zhu TERRITORY ACCOUNT EXECUTIVE Work Phone: [facility] 12-17-2023 14:11-0500 Body mass index (BMI) [Ratio] 33.48 kg/m2 Melvina Mela-Nossek FISH L[employer] SORTER-EVENT DECORATOR AND DESIGNER Work Phone: [facility] 12-17-2023 14:110500 Body weight 87.09 kg Melvina Mela-Nossek FISH L[employer] SORTER-EVENT DECORATOR AND DESIGNER Work Phone: [facility] 12-17-2023 14:11-0500 Diastolic blood pressure 86 mm[Hg] Melvina Mela-Nossek [employer] L[employer] SORTER-EVENT DECORATOR AND DESIGNER Work Phone: [facility] 12-17-2023 14:11-0500 Heart rate 95 /min Melvina Mela-Nossek [employer] L[employer] SORTER-EVENT DECORATOR AND DESIGNER Work Phone: [facility] 12-17-2023 14:11-0500 Systolic blood pressure 146 mm[Hg] Melvina Mela-Nossek [employer] L[employer] SORTER-EVENT DECORATOR AND DESIGNER Work Phone: [facility] 12-03-2023 14:24-0400 Body mass index (BMI) [Ratio] 33.55 kg/m2 Sally Zhu TERRITORY ACCOUNT EXECUTIVE Work Phone: [facility] 12-03-2023 14:24-0400 Body temperature 97.39 [degF] Sally Zhu TERRITORY ACCOUNT EXECUTIVE Work Phone: [facility] 12-03-2023 14:24-0400 Body weight 87.27 kg Sally Zhu TERRITORY ACCOUNT EXECUTIVE Work Phone: [facility] 12-03-2023 14:24-0400 Diastolic blood pressure 72 mm[Hg] Sally Zhu TERRITORY ACCOUNT EXECUTIVE Work Phone: [facility] 12-03-2023 14:24-0400 Systolic blood pressure 136 mm[Hg] Sally Zhu TERRITORY ACCOUNT EXECUTIVE Work Phone: [facility] 11-12-2023 14:09-0400 Body mass index (BMI) [Ratio] 33.48 kg/m2 Sally Zhu TERRITORY ACCOUNT EXECUTIVE Work Phone: [facility] 11-12-2023 14:09-0400 Body temperature 97.39 [degF] Sally Zhu TERRITORY ACCOUNT EXECUTIVE Work Phone: [facility] 11-12-2023 14:09-0400 Body weight 87.09 kg Sally Zhu TERRITORY ACCOUNT EXECUTIVE Work Phone: [facility] 11-12-2023 14:09-0400 Diastolic blood pressure 80 mm[Hg] Sally Burgerk TERRITORY ACCOUNT EXECUTIVE Work Phone: [facility] 11-12-2023 14:09-0400 Systolic blood pressure 138 mm[Hg] Sally Burgerk TERRITORY ACCOUNT EXECUTIVE Work Phone: [facility] 08-08-2023 13:38-0400 Body height 165.1 cm Dakota Luis PA Work Phone: [facility] 08-08-2023 13:38-0400 Body mass index (BMI) [Ratio] 32.62 kg/m2 Dakota Luis PA Work Phone: [facility] 08-08-2023 13:38-0400 Body weight 88.91 kg Dakota Luis PA Work Phone: [facility] 08-08-2023 13:38-0400 Diastolic blood pressure 64 mm[Hg] Dakota Luis PA Work Phone: [facility] 08-08-2023 13:38-0400 Heart rate 88 /min Dakota Luis PA Work Phone: [facility] 08-08-2023 13:38-0400 SaO2% (BldA) [Mass fraction] 97 % Dakota Luis PA Work Phone: [facility] 08-08-2023 13:38-0400 Systolic blood pressure 134 mm[Hg] Dakota BHATIA Work Phone: [facility] 06-26-2023 10:41-0400 Body mass index (BMI) [Ratio] 32.95 kg/m2 Neptali Page MD Work Phone: [facility] 06-26-2023 10:41-0400 Body temperature 97.2 [degF] Neptali Page MD Work Phone: [facility] 06-26-2023 10:41-0400 Body weight 89.81 kg Neptali Page MD Work Phone: [facility] 06-26-2023 10:41-0400 Diastolic blood pressure 65 mm[Hg] Neptali Page MD Work Phone: [facility] 06-26-2023 10:41-0400 Heart rate 90 /min Neptali Page MD Work Phone: [facility] 06-26-2023 10:41-0400 Respiratory rate 18 /min Neptali Page MD Work Phone: [facility] 06-26-2023 10:41-0400 SaO2% (BldA) [Mass fraction] 94 % Neptali Page MD Work Phone: [facility] 06-26-2023 10:41-0400 Systolic blood pressure 149 mm[Hg] Neptali Page MD Work Phone: [facility] 04-26-2023 14:13-0400 Body height 165.1 cm VIRGILIO Vizcaino MD Work Phone: [facility] 03-14-2023 15:56-0500 Diastolic blood pressure 80 mm[Hg] Sally Zhu TERRITORY ACCOUNT EXECUTIVE Work Phone: [facility] 03-14-2023 15:56-0500 Systolic blood pressure 142 mm[Hg] Sally Zhu TERRITORY ACCOUNT EXECUTIVE Work Phone: [facility] 03-14-2023 15:04-0500 Body height 161.3 cm Sally Nayaktrick TERRITORY ACCOUNT EXECUTIVE Work Phone: [facility] 03-14-2023 15:04-0500 Body mass index (BMI) [Ratio] 34.35 kg/m2 Sally Pintopatrick TERRITORY ACCOUNT EXECUTIVE Work Phone: [facility] 03-14-2023 15:04-0500 Body weight 89.36 kg Sally Nayaktrick TERRITORY ACCOUNT EXECUTIVE Work Phone: [facility] 03-14-2023 15:04-0500 Heart rate 100 /min Sally Nayaktrick TERRITORY ACCOUNT EXECUTIVE Work Phone: [facility] 03-14-2023 15:04-0500 Respiratory rate 20 /min Sally Nayaktrick TERRITORY ACCOUNT EXECUTIVE Work Phone: [facility] 11-17-2018 10:51-0400 BP Diastolic 67 mm[Hg] [place], [place] 11-17-2018 10:51-0400 BP Systolic 116 mm[Hg] [place] 11-17-2018 10:51-0400 Pulse (Heart Rate) 70 /min [place], [place] 11-17-2018 10:51-0400 Pulse Oximetry 98 % [place] 11-17-2018 10:51-0400 Respiratory Rate 16 /min [place] 11-17-2018 10:36-0400 Body Temperature 97.59 [degF] [place] 11-17-2018 09:27-0400 BMI (Body Mass Index) 24.25 kg/m2 [place] 11-17-2018 09:27-0400 Body weight 67.13 kg [place] 11-17-2018 09:27-0400 Height 166.4 cm [place] 11-03-2018 11:15-0400 BP Diastolic 61 mm[Hg] [place] 11-03-2018 11:15-0400 BP Systolic 107 mm[Hg] Shaan Alegria [facility] 11-03-2018 11:15-0400 Pulse (Heart Rate) 74 /min Shaan Alegria [facility] 11-03-2018 11:15-0400 Pulse Oximetry 98 % Shaan Alegria [facility] 11-03-2018 11:15-0400 Respiratory Rate 16 /min Shaan Alegria [facility] 11-03-2018 09:45-0400 BMI (Body Mass Index) 25.4 kg/m2 Shaan Alegria [facility] 11-03-2018 09:45-0400 Body Temperature 97.39 [degF] [facility]-03-2018 09:45-0400 Body weight 70.31 kg Shaan Alegria [facility] 11-03-2018 09:45-0400 Height 166.4 cm Shaan Alegria [facility] Encounters Encounter Date Encounter Type Care Provider Facility Start: 10-27-2024 End: 10-27-2024 ambulatory SALLY ZHU Not Available Start: 10-27-2024 End: 10-27-2024 Office outpatient visit 25 minutes Sally Zhu TERRITORY ACCOUNT EXECUTIVE Work Phone: [facility] Comment on above: 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); Cognitive disorder; At high risk for injury related to fall; Unsteady gait Start: 10-27-2024 End: 10-27-2024 Bamboo flowsheet Sally Zhu TERRITORY ACCOUNT EXECUTIVE Work Phone: [facility] Start: 10-27-2024 End: 10-27-2024 Bamboo flowsheet Sally Zhu TERRITORY ACCOUNT EXECUTIVE Work Phone: [facility] Start: 10-19-2024 End: 10-19-2024 ambulatory MELVINA SALOMON Not Available Start: 10-19-2024 End: 10-19-2024 Office outpatient visit 40 minutes Melvina Salomon FISH LIVER SORTER-EVENT DECORATOR AND DESIGNER Work Phone: [facility] Comment on above: Bipolar II disorder (HCC); Generalized anxiety disorder Start: 10-19-2024 End: 10-19-2024 Bamboo flowsheet Melvina Radha Mela-Nossek FISH LIVER SORTER-EVENT DECORATOR AND DESIGNER Work Phone: [facility] Start: 10-19-2024 End: 10-19-2024 Bamboo flowsheet Melvina M Mela-Nossek FISH LIVER SORTER-EVENT DECORATOR AND DESIGNER Work Phone: [facility] Start: 10-13-2024 End: 10-13-2024 Orders Only Sally Zhu NP Work Phone: [facility] Comment on above: Essential hypertensi on Start: 09-30-2024 End: 09-30-2024 Office outpatient visit 25 minutes Joey Ryder MD Work Phone: [facility] Comment on above: Nonrheumatic aortic valve stenosis (Primary Dx) Start: 09-30-2024 End: 09-30-2024 ambulatory JOEY RYDER [facility] Start: 09-29-2024 End: 09-29-2024 Telephone encounter Maggi Bower CMA [facility] Start: 09-23-2024 End: 09-23-2024 Latoya Jackson MD Work Phone: [facility] Comment on above: Essential hypertensi on ; Obesity (BMI 30.0-34.9); Mixed hyperlipidemia Start: 09-07-2024 End: 09-07-2024 Bamboo flowsheet Melvina Radha Mela-Nossek FISH LIVER SORTER-EVENT DECORATOR AND DESIGNER Work Phone: [facility] Start: 09-07-2024 End: 09-07-2024 Bamboo flowsheet Melvina Radha Mela-Nossek FISH LIVER SORTER-EVENT DECORATOR AND DESIGNER Work Phone: [facility] Start: 09-07-2024 End: 09-07-2024 Office outpatient visit 40 minutes Melvina Ivoryor-Nossek FISH LIVER SORTER-EVENT DECORATOR AND DESIGNER Work Phone: [facility] Comment on above: Bipolar II disorder (HCC); Generalized anxiety disorder Start: 09-07-2024 End: 09-07-2024 ambulatory MELVINA Garcia AIME Not Available Start: 09-02-2024 End: 09-02-2024 Orders Only Sally Zhu TERRITORY ACCOUNT EXECUTIVE Work Phone: [facility] Comment on above: Obesity (BMI 30.0-34 .9) (Primary Dx) Start: 08-18-2024 End: 08-18-2024 ambulatory SALLY ZHU Not Available Start: 08-11-2024 End: 08-11-2024 Bamboo flowsheet Sally Pintopatrick TERRITORY ACCOUNT EXECUTIVE Work Phone: [facility] Start: 08-11-2024 End: 08-11-2024 Bamboo flowsheet Sally Nayaktrick TERRITORY ACCOUNT EXECUTIVE Work Phone: [facility] Start: 08-11-2024 End: 08-11-2024 ambulatory SHERITA HORAN Not Available Start: 08-11-2024 End: 08-11-2024 Office outpatient visit 25 minutes Sally Zhu TERRITORY ACCOUNT EXECUTIVE Work Phone: [facility] Comment on above: Lump on neck (Primar y Dx); Family history of thyroid cancer; New daily persistent headache; Essential hypertension ; Acquired hypothyroidism Start: 08-06-2024 End: 08-06[facility]20[facility] Start: 07-23-[facility]24 End: 07-23-2024 ambulatory SHERITA HORAN Not Available Start: 07-23-2024 End: 07-23-2024 Office outpatient visit 25 minutes Sherita Horan MD Work Phone: [facility] Comment on above: New daily persistent headache (Primary Dx); Neuropathy; Traumatic incomplete tear of right rotator cuff, subsequent encounter Start: 07-22-2024 End: 07-22-2024 ambulatory SHERITA HORAN Not Available Start: 07-21-2024 End: 07-21-2024 Telephone encounter Emily Ball MA [facility] Start: 07-05-2024 End: 07-07-2024 Refill Sally Zhu TERRITORY ACCOUNT EXECUTIVE Work Phone: [facility] Comment on above: Dyspepsia; Iron deficiency anemia, unspecified iron deficiency anemia type Start: 07-02-2024 End: 07-02-2024 ambulatory MELVINA IVORYOR-NOSSEK Not Available Start: 07-01-2024 End: 07-01-2024 Orders Only Sally Zhu TERRITORY ACCOUNT EXECUTIVE Work Phone: [facility] Comment on above: Seasonal allergies ( Primary Dx) Start: 06-29-2024 End: 06-29-2024 Orders Only P Uriel Vizcaino MD Work Phone: [facility] Comment on above: S/p TAVR (transcathe ter aortic valve replacement), bioprosthetic (Primary Dx) Start: 06-28-2024 End: 06-28-2024 Refill Dakota BHATIA Work Phone: [facility] Comment on above: Med Refill Start: 06-09-2024 End: 06-09-2024 Telephone encounter Venessa Vizcaino MD Work Phone: [facility] Start: 05-28-2024 End: 05-28-2024 Bamboo flowsheet Melvina Radha Mela-Nossek FISH LIVER SORTER-EVENT DECORATOR AND DESIGNER Work Phone: [facility] Start: 05-28-2024 End: 05-28-2024 Bamboo flowsheet Melvina Radha Mela-Nossek FISH LIVER SORTER-EVENT DECORATOR AND DESIGNER Work Phone: [facility] Start: 05-28-2024 End: 05-28-2024 Office outpatient visit 40 minutes Melvina Garcia Mela-Nossek FISH LIVER SORTER-EVENT DECORATOR AND DESIGNER Work Phone: [facility] Comment on above: Bipolar II disorder (CMS/HCC) (Primary Dx); Insomnia, uncontrolled; Generalized anxiety disorder (CMS/HCC) Start: 05-28-2024 End: 05-28-2024 ambulatory MELVINA Garcia AIME Not Available Start: 05-23-2024 End: 05-23-2024 Latoya Jackson MD Work Phone: [facility] Comment on above: Acquired hypothyroid ism (CMS/HCC) Start: 05-06-2024 End: 05-06-2024 Orders Only Sally Zhu TERRITORY ACCOUNT EXECUTIVE Work Phone: [facility] Comment on above: Acute left otitis me mitchel (Primary Dx) Start: 05-05-2024 End: 05-05-2024 Patient encounter procedure Sally Zhu TERRITORY ACCOUNT EXECUTIVE Work Phone: [facility] Comment on above: Need for vaccination (Primary Dx); Encounter for annual wellness exam in Medicare patient; Bipolar II disorder (CMS/HCC); Generalized anxiety disorder (CMS/HCC) ; Acquired hypothyroidism (CMS/HCC); Asthma, unspecified asthma severity, unspecified whether complicated, unspecified whether persistent (CMS/HCC); Essential hypertension (CMS/HCC); Hepatitis C virus infection without hepatic coma, unspecified chronicity (CMS/HCC); Major depressive disorder, remission status unspecified, unspecified whether recurrent (CMS/HCC); Mixed hyperlipidemia (CMS/HCC) ; Mood disorder (CMS/HCC); Peripheral vascular disease (CMS/HCC); Acute blood loss anemia; Fibromyalgia, primary; Heart murmur; S/p TAVR (transcatheter aortic valve replacement), bioprosthetic; Pulmonary hypertension, unspecified (CMS/HCC); Seizure (CMS/HCC); Vitamin D deficiency; Interstitial pulmonary disease, unspecified (CMS/HCC); Emphysema, unspecified (CMS/HCC); Chronic systolic (congestive) heart failure (CMS/HCC) Start: 05-05-2024 End: 05-05-2024 ambulatory SALLY ZHU Not Available Start: 04-16-2024 End: 04-16-2024 ambulatory SHERITA HORAN Not Available Start: 04-16-2024 End: 04-16-2024 Bamboo flowsheet Sherita Horan MD Work Phone: [facility] Start: 04-16-2024 End: 04-16-2024 Bamboo flowsheet Sherita Horan MD Work Phone: [facility] Start: 04-16-2024 End: 04-16-2024 Office outpatient visit 25 minutes Sherita Horan MD Work Phone: [facility] Comment on above: Neuropathy (Primary Dx); Chronic bilateral low back pain with bilateral sciatica Start: 03-11-2024 End: 03-11-2024 Refill Sally Zhu TERRITORY ACCOUNT EXECUTIVE Work Phone: [facility] Comment on above: Dyspepsia Start: 03-11-2024 End: 03-11-2024 ambulatory SHERITA HORAN Not Available Start: 02-27-2024 End: 02-27-2024 ambulatory SHERITA HORAN Not Available Start: 02-16-2024 End: 02-17-2024 Refill Sally Zhu TERRITORY ACCOUNT EXECUTIVE Work Phone: [facility] Comment on above: Iron deficiency anem ia, unspecified iron deficiency anemia type Start: 01-26-2024 End: 01-30-2024 Refill Delilah Jackson MD Work Phone: [facility] Comment on above: Mixed hyperlipidemia (CMS/HCC) Start: 01-22-2024 End: 01-22-2024 Bamboo flowsheet Sherita Horan MD Work Phone: [facility] Start: 01-22-2024 End: 01-22-2024 Bamboo flowsheet Sherita Horan MD Work Phone: [facility] Start: 01-22-2024 End: 01-22-2024 Office outpatient new 45 minutes Sherita Horan MD Work Phone: [facility] Comment on above: Chronic bilateral lo w back pain with bilateral sciatica (Primary Dx); Cervical radiculopathy Start: 01-22-2024 End: 01-22-2024 ambulatory SHERITA HORAN Not Available Start: 12-31-2023 End: 12-31-2023 Office outpatient visit 25 minutes Sally Zhu TERRITORY ACCOUNT EXECUTIVE Work Phone: [facility] Comment on above: Essential hypertensi on (CMS/HCC) (Primary Dx); Dizziness; Iron deficiency anemia, unspecified iron deficiency anemia type Start: 12-31-2023 End: 12-31-2023 ambulatory SALLY NAYAKTRICK Not Available Start: 12-31-2023 End: 12-31-2023 Bamboo flowsheet Sally Burgerk TERRITORY ACCOUNT EXECUTIVE Work Phone: [facility] Start: 12-31-2023 End: 12-31-2023 Bamboo flowsheet Sally Nayaktrick TERRITORY ACCOUNT EXECUTIVE Work Phone: [facility] Start: 12-17-2023 End: 12-17-2023 ambulatory MELVINA SALOMON Not Available Start: 12-17-2023 End: 12-17-2023 Office outpatient visit 40 minutes Melvina Plaza-Narciso FISH LIVER SORTER-EVENT DECORATOR AND DESIGNER Work Phone: [facility] Comment on above: Bipolar II disorder (CMS/HCC) Start: 12-03-2023 End: 12-03-2023 Office outpatient visit 25 minutes Sally Zhu TERRITORY ACCOUNT EXECUTIVE Work Phone: [facility] Comment on above: Essential hypertensi on (CMS/HCC) (Primary Dx); Interstitial pulmonary disease, unspecified (CMS/HCC); Iron deficiency anemia, unspecified iron deficiency anemia type Start: 12-03-2023 End: 12-03-2023 ambulatory SALLY NAYAKTRICK Not Available Start: 11-20-2023 End: 11-20-2023 Orders Only Sally Nayaktrick TERRITORY ACCOUNT EXECUTIVE Work Phone: [facility] Comment on above: Hypokalemia (Primary Dx) Start: 11-12-2023 End: 11-12-2023 ambulatory SALLY NAYAKTRICK Not Available Start: 11-12-2023 End: 11-12-2023 ambulatory SALLY ZHU Not Available Start: 11-12-2023 End: 11-12-2023 Bamboo flowsheet Sally Zhu TERRITORY ACCOUNT EXECUTIVE Work Phone: [facility] Start: 11-12-2023 End: 11-12-2023 Bamboo flowsheet Sally Zhu TERRITORY ACCOUNT EXECUTIVE Work Phone: [facility] Start: 11-12-2023 End: 11-12-2023 Office outpatient visit 25 minutes Sally Zhu TERRITORY ACCOUNT EXECUTIVE Work Phone: [facility] Comment on above: Dizziness (Primary D x); Essential hypertension (CMS/HCC); Obesity (BMI 30.0-34.9); Generalized anxiety disorder (CMS/HCC); Acute intractable headache, unspecified headache type; Neuropathy; Pulmonary hypertension, unspecified (CMS/HCC) Start: 11-10-2023 End: 11-11-2023 Refill Sally Zhu TERRITORY ACCOUNT EXECUTIVE Work Phone: [facility] Comment on above: Hypokalemia Start: 11-04-2023 End: 11-04-2023 Refill Delilah Jackson MD Work Phone: [facility] Comment on above: Gastroesophageal ref lux disease without esophagitis Start: 10-31-2023 End: 10-31-2023 Refill Sally Zhu TERRITORY ACCOUNT EXECUTIVE Work Phone: [facility] Comment on above: Essential hypertensi on (CMS/HCC) Start: 10-21-2023 End: 10-21-2023 Telephone encounter Emily Ball MA [facility] Start: 10-10-2023 End: 10-10-2023 ambulatory ADONAY NATH [facility] Start: 10-04-2023 End: 10-09-2023 Telephone encounter Concepcion Browne Chas [facility] Start: 09-19-2023 End: 09-19-2023 Orders Only Dakota BHATIA Work Phone: [facility] Comment on above: S/p TAVR (transcathe ter aortic valve replacement), bioprosthetic (Primary Dx) Start: 08-08-2023 End: 08-08-2023 Office outpatient visit 25 minutes Dakota BHATIA Work Phone: [facility] Comment on above: S/p TAVR (transcathe ter aortic valve replacement), bioprosthetic (Primary Dx); Nonrheumatic aortic valve stenosis Start: 08-08-2023 End: 08-08-2023 ambulatory DAKOTA Dwyer MASOUD [facility] Start: 08-02-2023 End: 08-02-2023 Evaluation and management of inpatient MIKE DELANEY [facility] Start: 08-01-2023 End: 08-01-2023 Telephone encounter Milagros Griffin [facility] [address] Start: 07-31-2023 End: 07-31-2023 ambulatory DAKOTA Dwyer MASOUD [facility] Start: 07-31-2023 End: 08-01-2023 Evaluation and management of inpatient P URIEL VIZCAINO [facility] Start: 07-29-2023 End: 07-29-2023 Telephone encounter [facility] Start: 07-12-2023 End: 07-12-2023 Orders Only Ines Spann RN [facility] Comment on above: Nonrheumatic aortic valve stenosis (Primary Dx); Shortness of breath Start: 06-28-2023 End: 06-28-2023 Documentation procedure Dakota BHATIA Work Phone: [facility] Comment on above: TAVR Instructions Start: 06-28-2023 End: 07-02-2023 Telephone encounter Dakota BHATIA Work Phone: [facility] Start: 06-26-2023 End: 06-26-2023 ambulatory NEPTALI PAGE [facility] Start: 06-26-2023 End: 06-26-2023 Office consultation new/estab patient 30 min Neptali Page MD Work Phone: [facility] - Jed Zhao Comment on above: Severe aortic stenos is (Primary Dx) Start: 05-23-2023 End: 05-23-2023 ambulatory TYRELL DALY [facility] Start: 05-08-2023 End: 05-08-2023 ambulatory DAKOTA LUIS [facility] Start: 04-26-2023 End: 04-26-2023 ambulatory Venessa VIZCAINO [facility] Start: 04-26-2023 End: 04-26-2023 Phys/qhp telephone evaluation 11-20 min Venessa Vizcaino MD Work Phone: [facility] Comment on above: Nonrheumatic aortic valve stenosis Start: 04-26-2023 Documentation procedure Dakota BHATIA Work Phone: [facility] Comment on above: shc cath Start: 04-26-2023 Telephone encounter Dakota BHATIA Work Phone: [facility] [facility] Comment on above: sh ct Start: 03-21-2023 Telephone encounter Milly Luo MD [facility] Start: 03-14-2023 End: 03-14-2023 Patient encounter procedure Sally Zhu TERRITORY ACCOUNT EXECUTIVE Work Phone: [facility] Comment on above: Encounter for wellne ss examination (Primary Dx); Encounter for screening mammogram for breast cancer; Screening for colon cancer; Seizure (CMS/HCC); Cognitive disorder; Neuropathy; Hereditary and idiopathic neuropathy, unspecified; Chronic pain due to injury; Prurigo nodularis; Asthma, unspecified asthma severity, unspecified whether complicated, unspecified whether persistent (CMS/HCC); Nonrheumatic aortic valve stenosis; Essential hypertension (CMS/HCC); Heart murmur; Peripheral vascular disease (CMS/HCC); Hepatitis C virus infection without hepatic coma, unspecified chronicity (CMS/HCC); Infectious viral hepatitis; Acute blood loss anemia; Iron deficiency anemia, unspecified iron deficiency anemia type; Bipolar II disorder ([facility]); Generalized anxiety disorder ([facility]); Abnormal finding on screening procedure; Anxiety; History of hysterectomy; Acquired hypothyroidism ([facility]); Obesity (BMI 30.0-34.9); Acquired hallux valgus of left foot; Acute idiopathic gout of right foot; Arthritis; Fibromyalgia, primary; Arthralgia of shoulder, unspecified laterality; Displaced fracture of medial condyle of right femur, initial encounter for closed fracture ([facility]); Major depressive disorder, remission status unspecified, unspecified whether recurrent ([facility]); Mixed hyperlipidemia ([facility]); Mood disorder ([facility]) Start: 03-14-2023 End: 03-14-2023 Patient encounter status Sally Zhu TERRITORY ACCOUNT EXECUTIVE Work Phone: [facility] Work Phone: Start: 03-14-2023 [employer] Sally Zhu TERRITORY ACCOUNT EXECUTIVE Work Phone: [facility] Start: 03-14-2023 [employer] Sally Zhu TERRITORY ACCOUNT EXECUTIVE Work Phone: [facility] Start: 03-13-2023 Telephone encounter Dakota BHATIA Work Phone: [facility] Start: 04-18-2022 End: 04-19-2022 ambulatory [facility] Facility:H1 Start: 04-03-2022 Telephone encounter Sanjuanita Atkinson [facility] Start: 02-01-2022 End: 02-02-2022 ambulatory [facility] Facility:H1 Start: 11-17-2021 End: 11-18-2021 ambulatory [facility] Facility:H1 Start: 10-20-2021 End: 10-21-2021 ambulatory [facility] Facility:H1 Start: 10-12-2021 End: 10-13-2021 ambulatory [facility] Facility:H1 Start: 11-17-2018 End: 11-17-2018 Patient encounter procedure SHAAN THORNTON [facility] Start: 11-17-2018 End: 11-17-2018 Subsequent hospital visit by physician Shaan Thornton Work Phone: [facility] Start: 11-03-2018 End: 11-03-2018 Patient encounter procedure SHAAN THORNTON [facility] Start: 11-03-2018 End: 11-03-2018 Subsequent hospital visit by physician Shaan Thornton Work Phone: [facility] Procedures Date Procedure Procedure Detail Performing Clinician Start: 09-30-2024 Ecg routine ecg w/least 12 lds w/i&r Joey Ryder MD Work Phone: Start: 09-30-2024 Follow-up visit Follow-up JOEY RYDER Start: 05-05-2024 Complete blood count with white cell differential, automated Sally Zhu TERRITORY ACCOUNT EXECUTIVE Work Phone: Start: 05-05-2024 Comprehensive metabolic panel Sally Zhu TERRITORY ACCOUNT EXECUTIVE Work Phone: Start: 05-05-2024 Lipid panel Sally dwyer TERRITORY ACCOUNT EXECUTIVE Work Phone: Start: 05-05-2024 TSH W/REFLEX TO FT4 Sally dwyer TERRITORY ACCOUNT EXECUTIVE Work Phone: Start: 05-05-2024 Mammography Sally Zhu TERRITORY ACCOUNT EXECUTIVE Work Phone: Start: 11-12-2023 Complete blood count with white cell differential, automated Sally Zhu TERRITORY ACCOUNT EXECUTIVE Work Phone: Start: 11-12-2023 End: 11-12-2023 Comprehensive metabolic panel Sally Zhu TERRITORY ACCOUNT EXECUTIVE Work Phone: Start: 11-12-2023 TSH W/REFLEX TO FT4 Sally dwyer TERRITORY ACCOUNT EXECUTIVE Work Phone: Start: 08-08-2023 Follow-up visit Follow-up DAKOTA LUIS Start: 07-31-2023 Adult depression screening assessment Milagros Griffin Start: 03-28-2023 Mammography Emily Ball MA Start: 03-14-2023 Assay of free thyroxine Sally ludwig TERRITORY ACCOUNT EXECUTIVE Work Phone: Start: 03-14-2023 TSH W/REFLEX TO FT4 Sally dwyer TERRITORY ACCOUNT EXECUTIVE Work Phone: Start: 03-14-2023 Lipid panel Sally dwyer TERRITORY ACCOUNT EXECUTIVE Work Phone: Start: 09-19-2022 Adult depression screening assessment Dakota Yejeannieemily PA Work Phone: Start: 08-28-2022 H/O: hysterectomy History of hysterectomy Sally diaz TERRITORY ACCOUNT EXECUTIVE Work Phone: Start: 07-20-2022 Colonoscopy Sally Zhu TERRITORY ACCOUNT EXECUTIVE Work Phone: Start: 03-22-2022 Mammography Sally Zhu TERRITORY ACCOUNT EXECUTIVE Work Phone: Start: 11-17-2018 INITIATE OXYGEN THERAPY PROTOCOL SHAAN Start: 11-17-2018 NURSING COMMUNICATION SHAAN Start: 11-17-2018 DIET GENERAL SHAAN Start: 11-17-2018 FULL CODE SHAAN Start: 11-17-2018 VITAL SIGNS Start: 11-17-2018 DISCHARGE PATIENT Start: 11-17-2018 INITIATE OXYGEN THERAPY PROTOCOL SHAAN Start: 11-17-2018 NOTIFY PHYSICIAN (SPECIFY) SHAAN Start: 11-17-2018 NURSING COMMUNICATION SHAAN Start: 11-17-2018 VERIFY INFORMED CONSENT Start: 11-17-2018 VITAL SIGNS Start: 11-03-2018 DIET GENERAL SHAAN Start: 11-03-2018 FULL CODE SHAAN Start: 11-03-2018 INITIATE OXYGEN THERAPY PROTOCOL SHAAN Start: 11-03-2018 NURSING COMMUNICATION SHAAN Start: 11-03-2018 VITAL SIGNS Start: 11-03-2018 DISCHARGE PATIENT SHAAN Start: 11-03-2018 INITIATE OXYGEN THERAPY PROTOCOL SHAAN Start: 11-03-2018 NOTIFY PHYSICIAN (SPECIFY) SHAAN Start: 11-03-2018 NURSING COMMUNICATION SHAAN Start: 11-03-2018 VERIFY INFORMED CONSENT Start: 11-03-2018 VITAL SIGNS SHAAN H/O: hysterectomy History of hysterectomy Sally Zhu TERRITORY ACCOUNT EXECUTIVE Work Phone: Plan of Treatment Date Care Activity Detail Author Start: 07-20-2032 Screening for malignant neoplasm of colon [facility] Start: 05-05-2025 Medicare Annual Wellness (AWV) Medicare Annual Wellness (AWV) [facility] Start: 05-05-2025 Screening for malignant neoplasm of breast Mammogram [facility] Start: 01-28-2025 End: 01-28-2025 Patient encounter procedure 01/28/2025 2:00 PM EST Office Visit [facility] [address] [place] [phone] Sally Zhu NP [address] [place] [address] [facility] Start: 12-14-2024 End: 12-14-2024 Patient encounter procedure 12/14/2024 3:00 PM EST [facility] [address] [facility] [address] [place] [address] Melvina Salomon, [facility] [address] [facility] [address] [place] [address] [facility] Start: 12-03-2024 End: 12-03-2024 Patient encounter procedure 12/03/2024 2:30 PM EDT Office Visit [facility] [address] [place] [address] Jenifer Rust, [facility] [address] [facility] [place] [address] [facility] Start: 10-27-2024 End: 10-27-2024 Patient encounter procedure 10/27/2024 3:00 PM EDT Office Visit [facility] [address] [place] [phone] Sally Zhu NP [address] [place] [address] [facility] Start: 10-22-2024 End: 10-22-2024 Patient encounter procedure 10/22/2024 1:00 PM EDT Office Visit [facility] [address] [place] [address] Jenifer Rust, FISH LIVER SORTER-OPERATIONS SUPERVISOR [employer] [address] [facility] [address] [facility] [place] [id number] [facility] [facility] Start: 10-19-2024 End: 10-19-2024 Patient encounter procedure 10/19/2024 3:30 PM EDT Office Visit [facility] [address] [place] [phone] Melvina Salomon, [facility] [address] [place] [address] [facility] Start: 10-12-2024 Influenza vaccination [facility] Start: 10-05-2024 End: 10-05-2024 Patient encounter procedure [facility] Start: 09-30-2024 End: 09-30-2024 Patient encounter procedure 09/30/2024 1:45 PM EDT Office Visit [facility] [address] [place] [phone] Joey Ryder MD [address] [place] [address] [facility] Start: 09-12-2024 Adult BMI Screening Adult BMI Screening [facility] Start: 09-07-2024 End: 09-07-2024 Patient encounter procedure [facility] Comment on above: Arrived Start: 09-01-2024 End: 09-01-2024 Patient encounter procedure 09/01/2024 2:00 PM EDT Office Visit [facility] [address] [place] [phone] Melvina Salomon, [facility] [address] [facility] [address] [place] [address] [facility] Start: 08-27-2024 End: 08-27-2024 Patient encounter procedure 08/27/2024 1:30 PM EDT Office Visit [facility] [address] [facility] [address] [place] [address] Melvina Salomon, [facility] [address] [facility] [address] [place] [address] [facility] Start: 08-18-2024 End: 08-18-2024 Professional / ancillary services management 08/18/2024 9:30 AM EDT Ancillary Procedure [facility] [address] [facility] [address] [place] [phone] [facility] Start: 08-14-2024 End: 09-18-2024 Echo complete W/O contrast Echo complete W/O contrast Echocardiography Routine S/p TAVR (transcatheter aortic valve replacement), bioprosthetic Expected: 08/14/2024, Expires: 09/18/2024 [facility] Work Phone: Comment on above: Expected: 08/14/2024, Expires: Start: 08-13-2024 End: 08-13-2024 Patient encounter procedure 08/13/2024 1:00 PM EDT Office Visit [facility] [address] [place] [phone] Sally Zhu NP [address] [place], [place] [phone] [facility] Start: 08-11-2024 End: 08-11-2025 US Head and neck soft tissue US head neck soft tissue Imaging Routine Lump on neck Family history of thyroid cancer Expected: 08/11/2024, Expires: 08/11/2025 [facility] Work Phone: Comment on above: Expected: 08/11/2024, Expires: Start: 08-11-2024 End: 08-11-2024 Professional / ancillary services management [facility] Start: 08-07-2024 Adult BMI Screening Adult BMI Screening [facility] Start: 08-07-2024 Tobacco Screening Tobacco Screening [facility] Start: 08-06-2024 End: 08-06-2024 Patient encounter procedure 08/06/2024 1:00 PM EDT Appointment [facility] Cardiovascular [address] [place] [phone] Venessa Vizcaino MD [address] [place] [address] [facility] Start: 07-30-2024 Adult BMI Screening Adult BMI Screening [facility] Start: 07-30-2024 Depression Screening Depression Screening [facility] Start: 07-30-2024 Tobacco Screening Tobacco Screening [facility] Start: 07-23-2024 End: 07-23-2024 Patient encounter procedure [facility] Start: 07-23-2024 End: 07-23-2025 Functional MR Brain for motor function MR head functional motor Imaging Routine New daily persistent headache Expected: 07/23/2024, Expires: 07/23/2025 [facility] Work Phone: Comment on above: Expected: 07/23/2024, Expires: Start: 07-23-2024 End: 07-23-2025 MR Shoulder - right WO contrast MR shoulder right wo IV contrast Imaging Routine Traumatic incomplete tear of right rotator cuff, subsequent encounter Expected: 07/23/2024, Expires: 07/23/2025 [facility] Comment on above: Expected: 07/23/2024, Expires: Start: 07-22-2024 End: 07-22-2024 Clinical Support 07/22/2024 1:00 PM EDT Clinical Support [facility] [address] [place] [address] [facility] Start: 07-02-2024 End: 07-02-2024 Patient encounter procedure 07/02/2024 1:00 PM EDT Office Visit [facility] [address] [place] [phone] Melvina Salomon, FISH LIVER SORTER-EVENT DECORATOR AND DESIGNER [address] [place] [address] [facility] Start: 06-29-2024 End: 06-29-2025 Echo complete W/Strain Imaging Echo complete W/Strain Imaging Echocardiography Routine S/p TAVR (transcatheter aortic valve replacement), bioprosthetic Expected: 06/29/2024, Expires: 06/29/2025 [facility] Work Phone: Comment on above: Expected: 06/29/2024, Expires: Start: 06-25-2024 Adult BMI Screening Adult BMI Screening [facility] Start: 05-28-2024 End: 05-28-2024 Patient encounter procedure 05/28/2024 1:30 PM EDT Office [facility] [address] [place] [address] Melvina Salomon, FISH LIVER SORTER-EVENT DECORATOR AND DESIGNER [address] [place] [address] Arrived [facility] Comment on above: Arrived Start: 05-25-2024 End: 05-25-2024 Patient encounter procedure 05/25/2024 4:00 PM EDT Office Visit [facility] [address] [place] [phone] Melvina Salomon, FISH LIVER SORTER-EVENT DECORATOR AND DESIGNER [address] [place] [address] [facility] Start: 05-22-2024 Adult BMI Screening Adult BMI Screening [facility] Start: 05-22-2024 Tobacco Screening Tobacco Screening [facility] Start: 05-05-2024 End: 05-05-2025 25-hydroxyvitamin D3 [Mass/volume] in Serum or Plasma Vitamin D 25 hydroxy Lab Routine Vitamin D deficiency Expected: 05/05/2024 (Approximate), Expires: 05/05/2025 [facility] Work Phone: Comment on above: Expected: 05/05/2024 (Approximate), Expi res: 05/05/2025 Start: 04-25-2024 Tobacco Screening Tobacco Screening [facility] Start: 04-23-2024 End: 04-23-2024 Patient encounter procedure 04/23/2024 1:00 PM EDT Office Visit [facility] [address] [place] [phone] Salyl Zhu TERRITORY ACCOUNT EXECUTIVE [address] [place] [facility] [place] [address] [facility] Start: 04-23-2024 End: 04-23-2024 Professional / ancillary services management 04/23/2024 12:30 PM EDT Ancillary Procedure [facility] [address] [facility] [address] [place] [address] [facility] Start: 04-22-2024 End: 04-22-2024 Patient encounter procedure 04/22/2024 10:30 AM EDT Office Visit [facility] [address] [facility] [address] [place] [address] Melvina Salomon, FISH LIVER SORTER-EVENT DECORATOR AND DESIGNER [address] [facility] [address] [place] [address] [facility] Start: 03-28-2024 Screening for malignant neoplasm of breast Mammogram [facility] Start: 03-14-2024 Medicare Annual Wellness (AWV) Medicare Annual Wellness (AWV) [facility] Start: 03-13-2024 End: 03-13-2024 Patient encounter procedure 03/13/2024 11:30 AM EST Office Visit [facility] [address] [place] [phone] Sherita Horan MD [address] [facility] [address] [address] [facility] Start: 03-11-2024 Adult BMI Screening Adult BMI Screening [facility] Start: 02-25-2024 Influenza vaccination Influenza Vaccine (#1) [facility] Comment on above: Postponed from 10/13/2023 (Patient Refus ed) Start: 02-20-2024 End: 02-20-2024 Patient encounter procedure 02/20/2024 1:00 PM EST Procedure Visit [facility] [address] [address] [facility] Start: 02-13-2024 End: 02-13-2024 Patient encounter procedure 02/13/2024 1:00 PM EST Procedure Visit [facility] [address] [address] [facility] Start: 02-11-2024 End: 02-11-2024 Patient encounter procedure 02/11/2024 1:00 PM EST Office Visit [facility] [address] [facility] [address] [place] [address] Melvina Salomon, FISH LIVER SORTER-EVENT DECORATOR AND DESIGNER [address] [facility] [address] [place] [address] [facility] Start: 02-04-2024 End: 02-04-2024 Patient encounter procedure 02/04/2024 10:00 AM EST Office Visit [facility] [address] [facility] 1 [place] [address] Jed Ragsdale MD [address] [place], [place] [phone] [facility] Start: 01-30-2024 End: 01-30-2024 Patient encounter procedure 01/30/2024 2:00 PM EST Procedure Visit [facility] [address] [place] [phone] [facility] Start: 01-27-2024 End: 01-27-2024 Patient encounter procedure 01/27/2024 2:00 PM EST Procedure Visit [facility] [address] [place] [phone] [facility] Start: 01-22-2024 End: 01-22-2024 Patient encounter procedure [facility] Comment on above: Arrived Start: 12-31-2023 End: 12-31-2023 Patient encounter procedure [facility] Comment on above: Arrived Start: 12-31-2023 End: 12-30-2024 CBC W Auto Differential panel - Blood CBC and differential Lab Routine Dizziness Iron deficiency anemia, unspecified iron deficiency anemia type Expected: 12/31/2023 (Approximate), Expires: 12/30/2024 [facility] Work Phone: Comment on above: Expected: 12/31/2023 (Approximate), Expi res: 12/30/2024 Start: 12-17-2023 End: 12-17-2023 Patient encounter procedure 12/17/2023 2:00 PM EST Office Visit [facility] [address] [facility] [address] [place] [phone] Melvina Salomon, FISH LIVER SORTER-EVENT DECORATOR AND DESIGNER [address] [facility] [address] [place] [address] [facility] Start: 12-13-2023 Tobacco Screening Tobacco Screening [facility] Start: 11-27-2023 End: 11-27-2023 Patient encounter procedure 11/27/2023 10:00 AM EDT Office Visit [facility] [address] [place] [phone] Melvina Salomon, FISH LIVER SORTER-EVENT DECORATOR AND DESIGNER [address] [facility] [address] [place] [address] [facility] Start: 11-25-2023 End: 11-25-2023 Patient encounter procedure 11/25/2023 2:30 PM EDT Office Visit [facility] [address] [facility] [place] [phone] Sally Zhu NP [address] [facility] [place] [address] [facility] Start: 11-20-2023 End: 11-19-2024 Potassium [Moles/volume] in Serum or Plasma Potassium Lab Routine Hypokalemia Expected: 11/20/2023 (Approximate), Expires: 11/19/2024 [facility] Work Phone: Comment on above: Expected: 11/20/2023 (Approximate), Expi res: 11/19/2024 Start: 11-12-2023 End: 11-12-2023 Patient encounter procedure [facility] Start: 10-13-2023 COVID-19 Vaccine ( season) COVID-19 Vaccine ( season) [facility] Start: 10-13-2023 Influenza vaccination [facility] Start: 10-10-2023 End: 10-10-2023 Patient encounter procedure 10/10/2023 12:45 PM EDT Appointment [facility] [address] [place] [phone] [facility] Start: 09-24-2023 End: 09-24-2023 Patient encounter procedure 09/24/2023 9:15 AM EDT Appointment [facility] [address] [place] [phone] [facility] Start: 09-20-2023 Depression Screening Depression Screening [facility] Start: 08-29-2023 End: 08-07-2024 Echo complete W/Strain Imaging Echo complete W/Strain Imaging Echocardiography Routine S/p TAVR (transcatheter aortic valve replacement), bioprosthetic Expected: 08/29/2023, Expires: 08/07/2024 [facility] Work Phone: Comment on above: Expected: 08/29/2023, Expires: Start: 08-29-2023 End: 08-29-2023 Patient encounter procedure 08/29/2023 9:30 AM EDT Appointment [facility] Cardiovascular [address] [place] [phone] [facility] Start: 08-08-2023 End: 08-08-2023 Patient encounter procedure 08/08/2023 1:45 PM EDT Office Visit [facility] [address] [phone] [place] Luis, [place] [address] [address] [facility] Start: 07-31-2023 End: 07-31-2023 Admission to same day surgery center 07/31/2023 1:00 PM EDT - 07/31/2023 3:30 PM EDT Surgery [facility] Cardiac Cath [address] [place] [phone] Venessa Vizcaino MD [address] [place] [address] Transcutaneous aortic valve replacement/Transfemoral /Medtronic [facility] - Cardiac Cath Comment on above: Transcutaneous aortic valve replacement/ Transfemoral/Medtronic Start: 07-31-2023 Subsequent hospital visit by physician 07/31/2023 1:00 PM EDT Hospital Encounter [facility] Cardiac Cath [address] [place] [phone] Venessa Vizcaino MD [address], [place] [phone] Severe aortic stenosis [facility] Comment on above: Severe aortic stenosis Start: 07-31-2023 End: 07-31-2023 Patient encounter procedure [facility] - Echocardiogram Start: 07-12-2023 End: 07-11-2024 Echo Lmtd (Structural Heart) wocon w Doppler Echo Lmtd (Structural Heart) wocon w Doppler Echocardiography Routine Nonrheumatic aortic valve stenosis Expected: 07/12/2023, Expires: 07/11/2024 [facility] Work Phone: Comment on above: Expected: 07/12/2023, Expires: Start: 05-23-2023 End: 05-23-2023 Admission to same day surgery center 05/23/2023 12:00 PM EDT - 05/23/2023 1:00 PM EDT Surgery [facility] Cardiac Cath [address] [place] [address] Tyrell Daly MD [address] [place] [address] Coronary angiogram only [38498 (CPT )] [facility] Cardiac Cath Comment on above: Coronary angiogram only [67023 (CPT )] Start: 05-23-2023 Subsequent hospital visit by physician 05/23/2023 12:00 PM EDT Hospital Encounter [facility] Cardiac Cath [address] [place] [address] Tyrell Daly MD [address] [place] [address] Severe aortic stenosis [facility] Cardiac Cath Comment on above: Severe aortic stenosis Start: 05-08-2023 End: 05-08-2023 Patient encounter procedure 05/08/2023 9:00 AM EDT Appointment [facility] [address] [place] [address] [facility] Start: 04-26-2023 End: 04-25-2024 CTA Chest vessels and Abdominal vessels and Pelvis vessels W contrast IV CT CTA TAVR Imaging Routine Nonrheumatic aortic valve stenosis Expected: 04/26/2023, Expires: 04/25/2024 [facility] Work Phone: Comment on above: Expected: 04/26/2023, Expires: Start: 04-04-2023 End: 04-04-2023 Patient encounter procedure 04/04/2023 3:00 PM EST Office Visit [facility] [address] [place] [address] Milly Luo MD [address] [place] [address] [facility] Start: 03-28-2023 End: 03-28-2023 Professional / ancillary services management 03/28/2023 9:00 AM EST Ancillary Procedure [facility] [address] [facility] [facility] [address] [place] [phone] [facility] Start: 03-26-2023 End: 03-26-2023 Patient encounter procedure 03/26/2023 9:00 AM EST Office Visit [facility] [address] [facility] [address] [place] [address] Melvina Salomon, FISH LIVER SORTER-EVENT DECORATOR AND DESIGNER [address] [facility] [address] [place] [address] [facility] Start: 03-22-2023 Screening for malignant neoplasm of breast Mammogram [facility] Start: 03-14-2023 End: 05-12-2024 DBT Breast - bilateral screening Bilateral screening mammogram with tomosynthesis Imaging Routine Encounter for screening mammogram for breast cancer Expected: 03/14/2023, Expires: 05/12/2024 [facility] Work Phone: Comment on above: Expected: 03/14/2023, Expires: 04/01/202 5 Start: 10-12-2022 COVID-19 Vaccine ( season) COVID-19 Vaccine ( season) [facility] Start: 10-12-2022 Influenza vaccination [facility] Start: 12-11-2021 DTaP,Tdap and Td Vaccines (2 - Td or Tdap) DTaP,Tdap and Td Vaccines (2 - Td or Tdap) [facility] Start: 2021 Fall Risk Screening Fall Risk Screening [facility] Start: 07-08-2020 Screening for malignant neoplasm of colon FIT-DNA [facility] Start: 11-17-2018 End: 11-17-2018 Hospital Encounter [facility] Comment on above: EYE CATARACT EMULSIFICATION IOL IMPLANT Start: 11-03-2018 Annual Wellness Visit (AWV) Annual Wellness Visit (AWV) [place] Start: 10-12-2018 Influenza vaccination Flu vaccine (#1) [place] Start: 01-24-2017 Pneumococcal Vaccine: 65+ Years (2 - PPSV23 or PCV20) Pneumococcal Vaccine: 65+ Years (2 - PPSV23 or PCV20) [facility] Start: 01-24-2017 Pneumococcal Vaccine: 65+ Years (2 of 2 - PPSV23 or PCV20) Pneumococcal Vaccine: 65+ Years (2 of 2 - PPSV23 or PCV20) [facility] Start: 2006 Breast cancer screen Breast cancer screen [place], [place] Start: 2006 Colon cancer screen colonoscopy Colon cancer screen colonoscopy [place] Start: 2006 Shingles Vaccine (1 of 2) Shingles Vaccine (1 of 2) [place] Start: 1996 Diabetes screen Diabetes screen [place] Start: 1996 Lipid screen Lipid screen [place] Start: 1977 Cervical cancer screen Cervical cancer screen [place] Start: 10-15-1975 DTaP/Tdap/Td vaccine (1 - Tdap) DTaP/Tdap/Td vaccine (1 - Tdap) [place] Start: 1974 Adult BMI Follow Up Plan Adult BMI Follow Up Plan [facility] Start: 10-15-1971 HIV screen HIV screen [place], [place] Start: 1956 Creatinine monitoring Creatinine monitoring [place], [place] Start: 1956 Hepatitis C screen Hepatitis C screen [place] Start: 1956 Medicare Annual Wellness (AWV) Medicare Annual Wellness (AWV) [facility] Start: 1956 Medicare Annual Wellness Visit Medicare Annual Wellness Visit [facility] Start: 1956 Potassium monitoring Potassium monitoring [place] Start: 1955 Screening for malignant neoplasm of colon [facility] End: 07-11-2024 Albumin [Mass/volume] in Serum or Plasma Albumin Lab Routine Nonrheumatic aortic valve stenosis 1 Occurrences starting 07/12/2023 until 07/11/2024 [facility] Comment on above: 1 Occurrences starting 07/12/2023 until 07/11/2024 End: 07-11-2024 Basic metabolic 2000 panel - Serum or Plasma Basic Metabolic Panel Lab Routine Nonrheumatic aortic valve stenosis 1 Occurrences starting 07/12/2023 until 07/11/2024 [facility] Comment on above: 1 Occurrences starting 07/12/2023 until 07/11/2024 End: 04-25-2024 Basic metabolic 2000 panel - Serum or Plasma Basic Metabolic Panel Lab Routine Nonrheumatic aortic valve stenosis 1 Occurrences starting 04/26/2023 until 04/25/2024 [facility] Comment on above: 1 Occurrences starting 04/26/2023 until 04/25/2024 End: 04-25-2024 CBC panel - Blood by Automated count CBC Lab Routine Nonrheumatic aortic valve stenosis 1 Occurrences starting 04/26/2023 until 04/25/2024 [facility] Comment on above: 1 Occurrences starting 04/26/2023 until 04/25/2024 End: 07-11-2024 CBC W Auto Differential panel - Blood CBC auto differential Lab Routine Nonrheumatic aortic valve stenosis 1 Occurrences starting 07/12/2023 until 07/11/2024 [facility] Comment on above: 1 Occurrences starting 07/12/2023 until 07/11/2024 EMG 2 Extremities [facility] Work Phone: Comment on above: Ordered: 01/22/2024 Initiate Oxygen Ther apy Protocol [facility] [place], [place] Comment on above: Daily until discontinued starting 2018 Daily until disconti nued starting 11/03/2018 Daily until disconti nued starting 11/18/2018 Daily until disconti nued starting 11/17/2018 End: 07-11-2024 Natriuretic peptide B [Mass/volume] in Blood BNP Lab Routine Nonrheumatic aortic valve stenosis Shortness of breath 1 Occurrences starting 07/12/2023 until 07/11/2024 [facility] Comment on above: 1 Occurrences starting 07/12/2023 until 07/11/2024 Noninvasive colorect al cancer DNA and occult blood screening [Presence] in Stool Cologuard colon cancer screening Lab Routine Screening for colon cancer Ordered: 03/14/2023 [facility] Comment on above: Ordered: 03/14/2023 End: 07-11-2024 Protime-INR Protime-INR Lab Routine Nonrheumatic aortic valve stenosis 1 Occurrences starting 07/12/2023 until 07/11/2024 [facility] Comment on above: 1 Occurrences starting 07/12/2023 until 07/11/2024 End: 07-11-2024 Type and screen(includes indirect abdirahman) Type and screen(includes indirect abdirahman) Blood Bank Routine Nonrheumatic aortic valve stenosis 1 Occurrences starting 07/12/2023 until 07/11/2024 [facility] Comment on above: 1 Occurrences starting 07/12/2023 until 07/11/2024 Immunizations Immunization Date Immunization Notes Care Provider Tasia panda 05-05-2024 Pneumococcal Conjuga te PCV 20 Sally Zhu TERRITORY ACCOUNT EXECUTIVE Work Phone: [facility] 11-23-2021 Influenza, High-dose , Quadrivalent Sally Zhu TERRITORY ACCOUNT EXECUTIVE Work Phone: [facility] 11-23-2021 influenza virus vaccine, unspecified formulation Sally Zhu TERRITORY ACCOUNT EXECUTIVE Work Phone: [facility] 03-21-2021 Influenza, injectabl e, Madin [place] Canine Kidney, preservative free, quadrivalent Sally Zhu TERRITORY ACCOUNT EXECUTIVE Work Phone: [facility] 11-10-2019 influenza, injectabl e, quadrivalent, preservative free Sally Zhu TERRITORY ACCOUNT EXECUTIVE Work Phone: [facility] 02-10-2019 zoster vaccine recombinant Sally Zhu TERRITORY ACCOUNT EXECUTIVE Work Phone: [facility] 10-24-2018 zoster vaccine recombinant Sally Zhu TERRITORY ACCOUNT EXECUTIVE Work Phone: [facility] 10-16-2018 influenza, injectabl e, quadrivalent, preservative free Sally Zhu TERRITORY ACCOUNT EXECUTIVE Work Phone: [facility] 11-29-2017 influenza, injectabl e, quadrivalent, contains preservative Sally Zhu TERRITORY ACCOUNT EXECUTIVE Work Phone: [facility] 11-29-2016 influenza, injectabl e, quadrivalent, contains preservative Sally Zhu TERRITORY ACCOUNT EXECUTIVE Work Phone: [facility] 11-29-2016 pneumococcal conjuga te vaccine, 13 valent Sally Zhu TERRITORY ACCOUNT EXECUTIVE Work Phone: [facility] 12-07-2015 influenza, injectabl e, quadrivalent, preservative free Sally Zhu TERRITORY ACCOUNT EXECUTIVE Work Phone: [facility] 12-12-2011 tetanus and diphther ia toxoids, adsorbed, preservative free, for adult use (5 Lf of tetanus toxoid and 2 Lf of diphtheria toxoid) Sally Maldonadozpatrick TERRITORY ACCOUNT EXECUTIVE Work Phone: [facility] 11-27-2006 influenza virus vaccine, whole virus Sally Maldonadozpatrick TERRITORY ACCOUNT EXECUTIVE Work Phone: [facility] Payers Date Payer Category Payer Medicaid [id number] 2023 Medicaid [id number] 2018 Medicare HUMANA MEDICARE HUMANA CHOICE-PPO MEDICARE xxxxxxxxx 2018-Present [address] [place] [id number] xxxxxxxxx [id number] 2017 Medicare (Managed Care) 1.2. [id number] 2017 Private Health Insurance HUMANA Member Subscriber Plan / Payer (Effective 2017-Present) Name: Devika Ellis Relation to Subscriber: Self Name: Devika Ellis Payer ID: [id number] ([facility]) Type: Not on file Address: [place] [id number] 2015 Medicare [id number] 2015 Medicare HMO [id number] 1959 Medicare [id number] 1955 Unknown [id number] 2.16.840.1.792210.3.579.2. 173 1956 Unknown [id number] 2.16.840.1.111020.3.579.2. 173 1956 Unknown [id number] 2.16.840.1.042927.3.579.2. 593 1956 Unknown [id number] 2.16.840.1.599913.3.579.2. 593 1956 Unknown [id number] 2.16.840.1.605879.3.579.2. 593 1956 Unknown [id number] 2.16.840.1.839682.3.579.2. 593 1956 Unknown [id number] 2.16.840.1.404185.3.579.2. 593 1956 Unknown [id number] 2.16.840.1.087455.3.579.2. 1285 1956 Unknown [id number] 2.16.840.1.587916.3.579.2. 1285 1956 Unknown [id number] 2.16.840.1.766888.3.579.2. 1285 1956 Unknown [id number] 2.16.840.1.375309.3.579.2. 1285 1956 Unknown [id number] 2.16.840.1.459489.3.579.2. 1285 1956 Unknown [id number] 2.16.840.1.930937.3.579.2. 1285 1956 Unknown [id number] 2.16.840.1.050920.3.579.2. 1285 1956 Unknown [id number] 2.16.840.1.181247.3.579.2. 1285 1956 Unknown [id number] 2.16.840.1.490058.3.579.2. 1285 1956 Unknown [id number] 2.16.840.1.234665.3.579.2. 1285 1956 Unknown [id number] 2.16.840.1.338916.3.579.2. 1285 1956 Unknown [id number] 2.16.840.1.952887.3.579.2. 1285 1956 Unknown [id number] 2.16.840.1.206703.3.579.2. 1259 1956 Unknown [id number] 2.16.840.1.285523.3.579.2. 1259 1956 Unknown [id number] 2.16.840.1.872872.3.579.2. 1259 1957 Unknown [id number] 2.16.840.1.684898.3.579.2. 1258 1956 Unknown [id number] 2.16.840.1.702531.3.579.2. 1258 1956 Unknown [id number] 2.16.840.1.374041.3.579.2. 1258 1956 Unknown [id number] 2.16.840.1.440085.3.579.2. 1258 1956 Unknown [id number] 2.16.840.1.572698.3.579.2. 1258 1956 Unknown [id number] 2.16.840.1.758933.3.579.2. 1258 1956 Unknown [id number] 2.16840.1.093954.3.579.2. 1258 1956 Unknown [id number] 2.16840.1.873087.3.579.2. 1258 1956 Unknown [id number] 2.16840.1.231238.3.579.2. 1258 1956 Unknown [id number] 2.16840.1.151282.3.579.2. 1258 1956 Unknown [id number] 2.16840.1.805137.3.579.2. 1258 1956 Unknown [id number] 2.16.840.1.257070.3.579.2. 1258 1956 Unknown [id number] 2.16840.1.904321.3.579.2. 1258 1956 Unknown [id number] 2.16.840.1.319804.3.579.2. 1258 1956 Unknown [id number] 2.16840.1.773298.3.579.2. 1258 1956 Unknown [id number] 2.16.840.1.563927.3.579.2. 1259 1956 Unknown [id number] 2.16.840.1.575159.3.579.2. 1259 1956 Unknown [id number] 2.16.840.1.214890.3.579.2. 1259 1956 Unknown [id number] 2.16.840.1.935613.3.579.2. 1259 Social History Date Type Detail Facility Start: 11-03-2018 End: 08-12-2023 Tobacco smoking status NHIS Former smoker [place] End: 02-11-2015 History of tobacco use Current [place]oker [place] End: 02-11-2015 History of tobacco use Cigar Smoker [place] Start: 11-03-2018 End: 07-02-2024 Alcohol intake Yes [place] Start: 08-01-2012 Alcohol Comment occasionally [place] Start: 1955 Sex Assigned At Not on file [place] End: 02-12-2012 History of tobacco use Cigarette Smoker [facility] Start: 12-18-2022 End: 07-02-2024 Cigarettes smoked current (pack per day) - Reported 1 [facility] Start: 12-18-2022 End: 08-12-2023 Tobacco use and exposure Smokeless tobacco non-user [facility] Start: 03-12-2023 End: 10-27-2024 Alcohol intake Ex-drinker (finding) [facility] How often to you hav e a drink containing alcohol? Monthly or less [facility] How many standard dr inks containing alcohol do you have on a typical day? 1 or 2 [facility] How often do you hav e 6 or more drinks on 1 occasion? Never [facility] Start: 08-26-2022 Education 13 [facility] Start: 01-22-2023 Alcohol Comment Alcohol: 1 or 2 drinks, 2 to 4 times a month; Caffeine: 1 cup a day [facility] Start: 04-25-2022 Gender identity Identifies as female gender (finding) [facility] Start: 06-26-2023 End: 09-30-2024 Alcoholic beverage intake Current drinker of alcohol (finding) [facility] Do you belong to any clubs or organizations such as uatsdin groups, unions, fraternal or athletic groups, or school groups? No [facility] Are you now , , , , never or living with a partner? Never [facility] How hard is it for y ou to pay for the very basics like food, housing, medical care, and heating Not hard at all [facility] Do you feel stress - tense, restless, nervous, or anxious, or unable to sleep at night because your mind is troubled all the time - these days [OSQ] To some extent [facility] Start: 08-27-2017 Alcohol Comment rare [facility] Start: 07-31-2023 Alcohol Comment social use [facility] Start: 03-24-2022 End: 04-23-2022 Exposure to SARS-CoV-2 (event) Not sure [facility] Start: 05-28-2024 Alcohol Comment Alcohol: 1 or 2 drinks, 2 to 4 times a week; Caffeine: 1 cup a day [facility] Start: 09-16-2014 Sex Female (finding) [facility] Medical Equipment Procedure Code Equipment Code Equipment Origin al Text Equipment Identifier Dates Lens Iol Envista Mx60 23.5d - [id number] Start: 11-03-2018 Lens Iol Envista Mx60 23.0d - [id number] Start: 11-17-2018 Wire Fx Krsh 2mm 150mm Troc Tip Ss Ns Rpl [id number] [id number] - [id number] Start: 09-20-2022 Plate Bn [id number] .5mm Std 3 Hle/Shft Lck Cmpr Precnt Lcp Cmbn - [id number] Start: 09-20-2022 Screw Bn 34mm 3. [address] Lck Strdr Cncl Hd Ss T15 Ft Ns - [id number] Start: 09-20-2022 Screw Bn 38mm 3. [address] Lck Strdr Cncl Hd Ss T15 Ft Ns Rpl [id number] - [id number] Start: 09-20-2022 Screw Bn 42mm 3. [address] Lck Strdr Cncl Hd Ss T15 Ft Ns - [id number] Start: 09-20-2022 Screw Bn 46mm 3. [address] Lck Strdr Cncl Hd Ss T15 Ft Ns Rpl [id number] - [id number] Start: 09-20-2022 Screw Bn 45mm 3. [address] Lp Hd Sm Hex Sckt Oc Ss 2.5mm - [id number] Start: 09-20-2022 Screw Bn 55mm 4m m Canc Ft - [id number] Start: 09-20-2022 Valve Aor Evolut Fx 29mm - [id number] Start: 07-31-2023 Goals Date Patient Goal Desired Activity /State Personal health goal Comment on above: Formatting of this n ote might be different from the original. Evaluation of progress towards goal: patient plans for a safe discharge to a [place] [facility] facility on discharge. Functional Status Date Assessment Result Facility 05-28-2024 Patient Health Quest ionnaire 2 item (PHQ-2) [Reported] [facility] 05-28-2024 PHQ-9 quick depressi on assessment panel [Reported.PHQ] [facility] Clinical Notes 10-12-2021 to 10-27-2024 Sally Zhu NP - 10/27/2024 3:00 PM Hubert Zhu NP - 10/27/2024 3:00 PM Hubert Zhu NP - 10/27/2024 3:00 PM Leslie Ryder MD - 09/30/2024 1:45 PM EDT Note Date & Type Note Facility 10-27-2024 History of Present illness Narrative Associated Problem(s): Chronic pain due to injury Associated Problem(s): Cognitive disorder Subjective ?Quick Links Last Note in Specialty [...] for physical therapy will be placed at [facility]. - If she does not receive a [...] Physical Therapy; Future documented in this encounter [facility] 10-13-2024 History of Present illness Narrative Prescription sent documented in this encounter [facility] 09-30-2024 History of Present illness Narrative Devika Ellis Date of visit: 09/30/2024 Date of : 1955 Age: 68 y.o. Patient Active Problem List Diagnosis Nonrheumatic aortic valve stenosis Hypokalemia Acute blood loss anemia Anxiety Arthritis Asthma Depression Fibromyalgia, primary Hypertension Hypothyroidism Infectious viral hepatitis Seizures (CMS-HCC) EUGENIO (iron deficiency anemia) Fall Displaced fracture of medial condyle of right femur, initial encounter for closed fracture ([facility]) Severe aortic stenosis S/p TAVR (transcatheter aortic valve replacement), bioprosthetic No Known Allergies Current Outpatient Medications Medication Sig Dispense Refill aspirin 81 mg chewable tablet Chew 1 tablet (81 mg total) and swallow in the morning. 30 tablet 11 atorvastatin (LIPITOR) 10 mg tablet Take 1 tablet (10 mg total) by mouth in the morning. buPROPion XL (WELLBUTRIN XL) 150 mg 24 hr tablet Take 1 tablet (150 mg total) by mouth in the morning. calcium carbonate-vitamin D3 (CALCIUM 500 + D) 500 mg(1,250mg) -200 units per tablet Take 1 tablet by mouth in the morning and 1 tablet in the evening. Take with meals. cholecalciferol 1,000 units tablet Take 1 tablet (1,000 Units total) by mouth in the morning. diphenhydrAMINE (BENADRYL) 50 mg capsule Take 1 capsule (50 mg total) by mouth every 6 (six) hours as needed for itching. ferrous sulfate 325 (65 FE) mg tablet Take 1 tablet (325 mg total) by mouth daily with breakfast. 30 tablet 0 furosemide (LASIX) 40 mg tablet Take 1 tablet (40 mg total) by mouth daily. (Patient taking differently: Take 1 tablet (40 mg total) by mouth 2 (two) times a day before meals.) lamoTRIgine (LaMICtal) 100 mg tablet Take 1 tablet (100 mg total) by mouth in the morning and 1 tablet (100 mg total) before bedtime. levothyroxine (SYNTHROID, LEVOTHROID) 200 MCG tablet Take 1 tablet (200 mcg total) by mouth in the morning. LYSINE HCL ORAL Take by mouth in the morning. omeprazole (PriLOSEC) 40 mg capsule Take 1 capsule (40 mg total) by mouth in the morning. 30 capsule 2 oxyCODONE (OxyCONTIN) 10 mg 12 hr tablet Take 1 tablet (10 mg total) by mouth every 6 (six) hours as needed. potassium chloride (K-TAB,KLOR-CON) 10 MEQ CR tablet Take 1 tablet (10 mEq total) by mouth in the morning. semaglutide, weight loss, (WEGOVY) 0.25 mg/0.5 mL pen injector Inject under the skin every 7 days. sertraline (ZOLOFT) 100 mg tablet Take 1.5 tablets (150 mg total) by mouth in the morning. spironolactone (ALDACTONE) 25 mg tablet Take 1 tablet (25 mg total) by mouth in the morning. 90 tablet 2 traZODone (DESYREL) 100 mg tablet Take 2 tablets (200 mg total) by mouth as needed. No current facility-administered medications for this visit. Chief Complaint Patient presents with Follow-up EST PT LS MS, ECHO KYLER, SCHED W/PT History of Present Illness Patient with history of TAVR, mild non obstructive coronary arterey disease at that time LAD 30-40% stenosis. Chronic left bundle branch block, iron-deficiency anemia, chronic heart failure with preserved ejection fraction morbid obesity Since last visit which was August 08 2023 patient doing well se no chest pain has mild shortness of breath no palpitation Past Medical History: Diagnosis Date Anxiety Aortic valve stenosis Arrhythmia Arthritis Asthma childhood Depression Fibromyalgia, primary Hypertension Hypothyroidism Infectious viral hepatitis hepatitis c, received treatment Seizures (CMS-HCC) x2 in life, one related to opiate withdrawal No data recorded No data recorded No data recorded Past Surgical History: Procedure Laterality Date BREAST BIOPSY Left 2014 CARPAL TUNNEL RELEASE Bilateral COLONOSCOPY N/A 07/20/2022 Performed by Lucia Hood MD at [facility] COLONOSCOPY N/A 08/29/2017 Performed by Matty Tejeda MD at [facility] Coronary angiogram only N/A 05/23/2023 Performed by Venessa Vizcaino MD at [facility] ESOPHAGOGASTRODUODENOSCOPY N/A 07/20/2022 Performed by Lucia Hood MD at [facility] HYSTERECTOMY 1988 OPEN REDUCTION INTERNAL FIXATION FEMUR DISTAL Right 09/20/2022 Performed by Giovanni Giles MD at [facility] Transcutaneous aortic valve replacement/Transfemoral/Medtronic N/A 07/31/2023 Performed by Venessa Vizcaino MD at [facility] TUBAL LIGATION Family History Problem Relation Age of Onset Cancer Mother Thyroid disease Mother Hypertension Father Heart disease Father Stroke Father Breast cancer Neg Hx Social History Socioeconomic History Marital status: Spouse name: Not on file Number of children: Not on file Years of education: Not on file Highest education level: Not on file Occupational History Not on file Tobacco Use Smoking status: Former Types: Cigarettes Smokeless tobacco: Never Vaping Use Vaping status: Some Days Substances: Nicotine Devices: Pre-filled or refillable cartridge Substance and Sexual Activity Alcohol use: Yes Comment: social use Drug use: No Sexual activity: Defer Other Topics Concern Caffeine Use Yes Social History Narrative Not on file Social Drivers of Health Financial Resource Strain: Low Risk (07/31/2023) Overall Financial Resource Strain (CARDIA) Difficulty of Paying Living Expenses: Not hard at all Food Insecurity: No Food Insecurity (09/30/2024) Hunger Screening Food Insecurity - Worry: Never True Food Insecurity - Inability: Never True Transportation Needs: No Transportation Needs (07/31/2023) PRAPARE - Transportation Lack of Transportation (Medical): No Lack of Transportation (Non-Medical): No Physical Activity: Sufficiently Active (04/20/2020) Exercise Vital Sign Days of Exercise per Week: 5 days Minutes of Exercise per Session: 60 min Stress: Stress Concern Present (04/20/2020) [place] - Occupational Stress Questionnaire Feeling of Stress : To some extent Social Connections: Socially Isolated (04/20/2020) Social Connection and Isolation Panel [NHANES] Frequency of Communication with Friends and Family: More than three times a week Frequency of Social Gatherings with Friends and Family: More than three times a week Attends Restoration Services: Never Active Member of Clubs or Organizations: No Attends Club or Organization Meetings: Never Marital Status: Never Interpersonal Safety: Not At Risk (07/31/2023) Humiliation, Afraid, Rape, and Kick questionnaire Fear of Current or Ex-Partner: No Emotionally Abused: No Physically Abused: No Sexually Abused: No Housing Instability: Low Risk (07/31/2023) Housing Instability Housing Instability: No Review of Systems Review of Systems Constitutional: Negative. HENT: Negative. Eyes: Negative. Cardiovascular: Negative. Respiratory: Negative. Endocrine: Negative. Hematologic/Lymphatic: Bruises/bleeds easily. Skin: Positive for rash. Musculoskeletal: Positive for back pain and joint swelling. Gastrointestinal: Negative. Genitourinary: Negative. Neurological: Positive for headaches. Psychiatric/Behavioral: Negative. Allergic/Immunologic: Positive for environmental allergies. Vascular: Negative. CARDIOVASCULAR: Please review HPI. Physical Examination General appearance: Alert, oriented and cooperative. In no acute distress. Skin: Warm and dry to touch. Head: Normocephalic, without obvious abnormality, atraumatic. Ears, Nose, Mouth, Throat: Throat clear without erythema or exudate. Dentition intact. Eyes: Conjunctivae unremarkable, EOM intact. Neck: No JVD, No carotid bruit. Neck supple, trachea midline. Respiratory: Clear to auscultation bilaterally, no use of accessory muscles. Cardiovascular: RRR with normal S1 and S2 with no murmurs. Gastrointestinal: Soft, non-tender. Bowel sounds normal. Musculoskeletal: No peripheral edema. Neurologic: Oriented to time, person and place, affect appropriate. No focal/major motor defects noted. Psychiatric: Appropriate mood, memory and judgement. VITAL SIGNS: BP 158/90 Pulse 75 Ht 165.1 cm (5' 5 ) Wt 96.2 kg (212 lb) SpO2 96% BMI 35.28 kg/m Orders Placed or Reconciled This Encounter Medications semaglutide, weight loss, (WEGOVY) 0.25 mg/0.5 mL pen injector Sig: Inject under the skin every 7 days. There are no discontinued medications. IMPRESSIONS/PLAN 1. Nonrheumatic aortic valve stenosis - POCT EKG 1 history of TAVR 2D echo showed normal functioning prosthetic valve 2 [id number] mitral stenosis per 2D echo August 06, 2024 Will repeat echo in 1 year for follow up 3 coronary arterey disease mild nonobstructive coronary arterey disease 30-40% lad disease no chest pain 4 chronic left bundle branch block 5 chronic heart failure with preserved EF well compensated Plan Repeat echo in 1 year Follow up in 1 year TODAYS ORDERS Orders Placed This Encounter Procedures POCT EKG FOLLOW UP Return in about 1 year (around 09/30/2025). PCP: Tran Manzo MD Referring Physician: Tran Manzo MD [address] [place] [address] documented in this encounter [facility] 09-29-2024 Miscellaneous Notes Called patient to remind them to bring their most current copy of their medication list with them to their appt. Patient verbalizes understanding. documented in this encounter [facility] 09-29-2024 Telephone encounter Note Called patient to remind them to bring their most current copy of their medication list with them to their appt. Patient verbalizes understanding. [facility] 09-02-2024 History of Present illness Narrative Prescription sent documented in this encounter [facility] 08-11-2024 History of Present illness Narrative Images from the original note were not included. Devika Ellis is a 68 y.o. female presents with chief complaint of Follow-up HPI: HPI Patient is present for HTN follow up. Patient also c/o recurrent vertigo. Patient states she fell yesterday due to dizziness. Patient states the vertigo is worse at night than it is during the day. Patient states she did call insurance and they are willing to cover [facility]. SUBJECTIVE: MEDICATIONS: Current Outpatient Medications Medication Instructions amLODIPine (NORVASC) 5 mg, Oral, Every morning atorvastatin (LIPITOR) 10 mg, Oral, Daily buPROPion XL (WELLBUTRIN XL) 150 mg, Oral, Every morning Calcium Carbonate-Vitamin D (Oyster Shell Calcium/D) 500-5 MG-MCG tablet 1 tablet, Daily cholecalciferol (VITAMIN D-3) 1,000 Units, Daily RT famotidine (PEPCID) 20 mg, Oral, Daily ferrous sulfate 325 (65 Fe) MG tablet TAKE 1 TABLET BY MOUTH EVERY DAY IN THE MORNING WITH MEALS furosemide (Lasix) 40 MG tablet TAKE 1 TABLET TWICE DAILY hydrOXYzine pamoate (VISTARIL) 25 mg, Every 8 hours PRN KLOR-CON 20 MEQ ER tablet 20 mEq, Oral, Daily lamoTRIgine (LAMICTAL) 150 mg, Oral, Daily levothyroxine (Synthroid, Levoxyl) 200 MCG tablet TAKE 1 TABLET BY MOUTH IN THE MORNING. TAKE BEFORE MEALS. magnesium oxide (MAG-OX) 400 mg, Oral, Daily montelukast (SINGULAIR) 10 mg, Oral, Nightly Naproxen DR 500 MG tablet delayed-release 1 tablet, 2 times daily PRN omeprazole (PRILOSEC) 40 mg, Oral, Daily RT pregabalin (LYRICA) 50 mg, Oral, 3 times daily sertraline (ZOLOFT) 150 mg, Oral, Daily spironolactone (ALDACTONE) 25 mg, Every morning traZODone (DESYREL) 300 mg, Oral, Nightly PRN I have reviewed and reconciled the history and medication list with the patient today. REVIEW OF SYMPTOMS: Review of Systems Constitutional: Negative for chills [...] gait problem. Skin: Negative. Neurological: Negative for dizziness and numbness. Endocrine: Negative. Allergic/Immunologic: Negative. OBJECTIVE: Visit Vitals Smoking Status Former Physical Exam Vitals reviewed. Cardiovascular: Rate and [...] is oriented to person, place, and time. ASSESSMENT AND PLAN: Assessment/Plan Diagnoses and all orders for this visit: Lump on neck-await results - US head neck soft tissue; Future Family history of thyroid cancer - US head neck soft tissue; Future New daily persistent headache Essential hypertension -stable continue on current medications. Acquired hypothyroidism-stable documented in this encounter [facility] 07-23-2024 History of Present illness Narrative Images from the original note were not included. Subjective Devika Ellis is a 68 y.o. female who presents for neuropathy and migraines vs new daily headaches History of Present Illness The patient presents for evaluation of neuropathy, headaches, and right shoulder pain. She continues to experience tingling sensations, which intensify during prolonged standing, necessitating periods of rest. Additionally, she reports restlessness at night and has recently begun experiencing muscle spasms below the knees, a symptom she has not encountered in years. These spasms are severe enough to disrupt her sleep, compelling her to rise from bed and ambulate. The onset of these symptoms was approximately one month ago. She does not report any neuropathic symptoms in her hands. She is currently on a low dose of Lyrica, which she reports as ineffective. She has a high tolerance to medications. The restlessness in her feet is severe enough to disrupt her sleep. She experiences cramps several times a week. She reports daily headaches, predominantly localized to the front of her head, which are present upon awakening. She has a history of multiple concussions and describes her headaches as constant pressure, lori to a pulsating sensation. She is uncertain if these symptoms are indicative of migraines. Her headaches are persistent, occurring regardless of stress levels. She has been managing her headaches with aspirin. She expresses a desire for a brain scan if the prescribed medication does not alleviate her headaches. She notes that her headaches have intensified over the past 2 years, following a fall that resulted in a broken leg. She continued to ambulate on the broken leg for 3 months until another fall occurred due to the bone giving way. She has a plate inserted in her leg and has noticed weight gain since the onset of her headaches. She reports persistent pain in her right shoulder, which she attributes to a fall. She underwent physical therapy for 3-1/2 months following her surgery and fall but continues to experience difficulty in performing tasks such as putting on a coat or shirt, and wearing a bra. PAST SURGICAL HISTORY: She has a plate inserted in her leg following a fall that resulted in a broken leg. MEDICATIONS CURRENT MEDS: Lyrica Aspirin Review of Systems Const: Denies appetite change, fever, chills. Allergy: Denies medication reaction. Ocular: Denies visual acuity change. ENT: Denies hearing change. Endoc: Denies weight loss. Resp: Denies dyspnoea, wheezing. Cardiac: Denies angina, palpitations. GI: Denies nausea, vomiting. Haem: Denies bleeding. : Denies incontinence. MSK: Denies arthralgias, joint oedema. Derm: Denies rash, hair loss. Neuro: Denies ataxia, tremor. Also see HPI for elements of ROS documented therein and for details of positive findings, which shall supersede the foregoing. Objective Blood pressure 168/81, pulse 85, height 5' 6 , weight 203 lb. Physical Exam GENERAL EXAMINATION Appearance: in no acute distress, well developed, well nourished. Head: normocephalic, atraumatic. Eyes: pupils equal, round, reactive to light and accommodation. Ears: normal. Mouth: mucosa moist. Throat: clear. Neck: neck supple, full range of motion, no cervical lymphadenopathy. Skin: no suspicious lesions, warm and dry. Heart: no murmurs, regular rate and rhythm, S1, S2 normal. Lungs: clear to auscultation bilaterally. Abdomen: normal, bowel sounds present, soft, nontender, nondistended. Extremities: no clubbing, cyanosis, or edema. NEUROLOGICAL EXAMINATION Mental Status: The patient is alert and oriented to person, place, and time. Except as noted, thought content, form, and comprehension was normal. Phonation, articulation, resonance, and prosody are normal. Cranial Nerves: Pupils were 4.0 millimeters, equal, round, and reactive to light and accommodation, both directly and consensually. Visual davis were full by confrontation. There was no ptosis; extra-ocular movements were full; and there was no nystagmus. Funduscopic exam is normal. Masseters are of normal strength. Facial movement is normal. Hearing is grossly intact. There is no dysarthria. The gag reflex is equal bilaterally. Sternocleidomastoids and trapezii are of normal strength. The tongue protrudes in the midline. Motor: Muscle testing was performed in all four extremities, including at least dramatic coach, finger abductors, biceps, triceps, deltoid, toe flexors and extensors, tibialis anterior, triceps surae, quadriceps femoris, biceps femoris, and iliopsoases. Tone is normal. Muscle bulk is normal. Fasciculations are not seen . Pronator drift was not evident. Sensory: Decreased sensation to touch, temperature, and vibration was abnormal in the arms, legs and face. Romberg is negative. Reflexes: Biceps, triceps, brachioradialis are 1/4 bilaterally. Patellar and Achilles reflexes are 1/4 bilaterally. Plantar responses were flexor bilaterally. Coordination: Dysmetria and dysdiadochokinesia are absent. Tremor is absent; dystonia is absent; chorea is absent. Gait And Station: Station and gait are normal. Apraxia and spasticity are not evident. Arm swing is normal. Toe, heel, and tandem walking are performed without difficulty. Musculoskeletal: Trigger-point tenderness was absent. There is no spasm of the trapezii or paraspinals. Results Assessment & Plan 1. Neuropathy: Idiopathic and progressive The current low dose of Lyrica is insufficient in managing her symptoms. The dosage of Lyrica will be increased to better control the restlessness in her feet. Additionally, magnesium will be added to her regimen to alleviate muscle cramps. The prescription will be sent to [facility] in [place]. 2. Headaches; New daily persistent headaches She experiences daily headaches, which have intensified over the past two years. Samples of Qulipta will be provided for her to take every other day for a month to assess its effectiveness in reducing her headaches. An MRI of the head will be ordered to rule out any underlying conditions. 3. Right shoulder pain: Rotator cuff syndrome She reports persistent pain in her right shoulder following a fall approximately two years ago. An MRI of the right shoulder will be ordered to evaluate for a potential rotator cuff tear. 4. I will obtain an MRI of the brain to assess for an intracranial process which may be contributing to the patient's symptoms including a mass lesion or structural lesion Follow-up The patient will follow up in 2 months. This clinical note was created utilizing [employer] documentation system. All information has been thoroughly reviewed, corrected as necessary, and authenticated by the provider to ensure accuracy and completeness. On occasion, [employer] documentation system erroneously drops words or replaces a spoken word with a similar sounding word. Please notify with any questions or concerns regarding this clinical note. documented in this encounter [facility] 07-21-2024 Telephone encounter Note Scheduled for nurse visit [facility] 07-21-2024 Miscellaneous Notes Scheduled for nurse visit Please see if patient can stop into the office this week for a nurse visit BP check. Last BP was elevated and Dr. Jackson would like checked. documented in this encounter [facility] 07-21-2024 Telephone encounter Note Please see if patient can stop into the office this week for a nurse visit BP check. Last BP was elevated and Dr. Jackson would like checked. [facility] 07-01-2024 History of Present illness Narrative Prescription sent documented in this encounter [facility] 06-09-2024 Miscellaneous Notes Attempted to contact multiple times to schedule 1YR TTE post TAVR voicemail full. Mailed attempt to contact letter 06/09/24. documented in this encounter [facility] 06-09-2024 Telephone encounter Note Attempted to contact multiple times to schedule 1YR TTE post TAVR voicemail full. Mailed attempt to contact letter 06/09/24. [facility] 05-05-2024 Miscellaneous Notes Let patient know her labs are stable except her cholesterol level was slightly elevated. (Patient was not fasting). documented in this encounter [facility] 05-05-2024 Progress note Formatting of t his note might be different from the original. Let patient know her labs are stable except her cholesterol level was slightly elevated. (Patient was not fasting). [facility] 04-16-2024 History of Present illness Narrative Images from the original note were not included. CHIEF COMPLAINT REASON FOR VISIT: Follow up HPI: Devika Ellis is a 68 y.o. female who presents for a follow up. Patient states she had a spell yesterday when she was at [facility] and she got dizzy and went down. She states she did not hit her head. She states she had a spell a couple months ago where she fell at another place. She states that she only gets the severe ones once every couple months. Pain level today is a 7/10. Gets worse as the day goes on. She states the pain is in her back, feet, shoulders and next primarily. She states she went to see pain management but is not going back. She states she thinks the nurtec helped slightly but headache came right back in a couple hours. CURRENT MEDICATIONS: ALLERGIES/DISCONTINUE MEDICATIONS Current Outpatient Medications Medication Instructions acetaminophen (TYLENOL) 500 mg, Oral, Every 6 hours PRN, OTC brand amLODIPine (NORVASC) 5 mg, Oral, Every morning aspirin 81 mg, Daily RT atorvastatin (LIPITOR) 10 mg, Oral, Daily buPROPion XL (WELLBUTRIN XL) 150 mg, Oral, Every morning Calcium Carbonate-Vitamin D (Oyster Shell Calcium/D) 500-5 MG-MCG tablet 1 tablet, Oral, Daily, OTC cholecalciferol (VITAMIN D-3) 1,000 Units, Daily RT famotidine (PEPCID) 20 mg, Oral, Daily ferrous sulfate 325 (65 Fe) MG tablet TAKE 1 TABLET BY MOUTH EVERY DAY IN THE MORNING WITH MEALS furosemide (Lasix) 40 MG tablet TAKE 1 TABLET TWICE DAILY hydrOXYzine pamoate (VISTARIL) 25 mg, Every 8 hours PRN KLOR-CON 20 MEQ ER tablet 20 mEq, Oral, Daily lamoTRIgine (LaMICtal) 200 MG tablet Oral, Daily levothyroxine (Synthroid, Levoxyl) 200 MCG tablet TAKE 1 TABLET BY MOUTH IN THE MORNING. TAKE BEFORE MEALS. Naproxen DR 500 MG tablet delayed-release 1 tablet, 2 times daily PRN omeprazole (PRILOSEC) 40 mg, Oral, Daily RT oxyCODONE (ROXICODONE) 10 mg, Every 4 hours PRN sertraline (ZOLOFT) 150 mg, Oral, Daily spironolactone (ALDACTONE) 25 mg, Every morning traZODone (DESYREL) 300 mg, Oral, Nightly PRN Allergies Allergen Reactions Seasonal Ic [Octacosanol] There are no discontinued medications. PAST MEDICAL HISTORY: SURGICAL/SOCIAL/FAMILY HISTORY DEPRESSION SCREEN: Past Medical History: Diagnosis Date Allergy-induced asthma (CMS/HCC) Anxiety Benign hypertension (CMS/HCC) Broken femur (CMS/HCC) Bulging lumbar disc Chronic pain Depression (CMS/HCC) Excoriation of periwound skin left cheek Gout H/O bilateral cataract extraction H/O tubal ligation Heart murmur Hepatitis C (CMS/HCC) History of being hospitalized 04/21/2020 overnight stay for edema in the lower legs History of carpal tunnel release History of lumbar surgery History of open reduction and internal fixation (ORIF) procedure History of selective injection of anesthetic agent around lumbar nerve root History of stomach ulcers History of tonsillectomy and adenoidectomy Hypothyroid (CMS/HCC) Liver disease Major depression (CMS/HCC) 08/28/2022 Obesity Seizure (CMS/HCC) Urinary problem Vision problem wears eye glasses Past Surgical History: Procedure Laterality Date BACK SURGERY 03/2022 low back CARPAL TUNNEL RELEASE CATARACT EXTRACTION, BILATERAL 10/2018 [facility] COLORECTAL SCREENING NÉSTOR 10 DNA MARKRS 2009 Colorectal Screening COLOGUARD 07/2017 COLONOSCOPY 08/2017 FEMUR FRACTURE SURGERY Right 09/20/2022 OTHER SURGICAL HISTORY ORIF OTHER SURGICAL HISTORY 2021 low back injections PARTIAL HYSTERECTOMY PA TONSILLECTOMY & ADENOIDECTOMY <AGE 13 TUBAL LIGATION US GUIDED BIOPSY LYMPH NODE SUPERFICIAL 01/14/2015 US GUIDED BIOPSY LYMPH NODE SUPERFICIAL 01/14/2015 VEIN SURGERY Social History Tobacco Use Smoking status: Former Current packs/day: 0.00 Types: Cigarettes Quit date: 2012 Years since quittin.1 Smokeless tobacco: Never Vaping Use Vaping status: Former Start date: 09/24/2022 Substances: Nicotine Devices: Disposable (Uses Vuse - goes through 1 pod/week) Substance Use Topics Alcohol use: Not Currently Comment: Alcohol: 1 or 2 drinks, 2 to 4 times a month; Caffeine: 1 cup a day Drug use: Never Family History Problem Relation Name Age of Onset Hypertension Father Bipolar disorder Father Bipolar disorder Sister Rosa Clotting disorder Sister Depression: At risk (12/17/2023) PHQ-2 PHQ-2 Score: 4 REVIEW OF SYMPTOMS: Review of Systems Constitutional: Negative for chills, diaphoresis, fatigue and fever. HENT: Negative for ear pain, tinnitus and trouble swallowing. Eyes: Negative for photophobia and visual disturbance. Respiratory: Negative for cough and shortness of breath. Cardiovascular: Negative for palpitations and leg swelling. Gastrointestinal: Negative for abdominal pain and nausea. Genitourinary: Negative for difficulty urinating and urgency. Musculoskeletal: Positive for back pain, gait problem, neck pain and neck stiffness. Negative for arthralgias and myalgias. Neurological: Positive for weakness and numbness. Negative for tremors and light-headedness. Psychiatric/Behavioral: Negative for agitation, confusion and suicidal ideas. OBJECTIVE: 04/16/2024 2:10 PM 01/22/2024 1:43 PM 12/31/2023 2:29 PM Vitals BMI 32.26 kg/m2 32.95 kg/m2 33.72 kg/m2 BSA (m2) 1.94 m2 1.96 m2 1.98 m2 Systolic 142 144 Diastolic 88 90 Temp 97.4 F Height (in) 5' 3.5 5' 3.5 Weight (lb) 185 189 193.4 Visit Report Report Report Report EXAM: Neurological Exam Mental Status Awake, alert and oriented to person, place and time. Oriented to person, place and time. Recent and remote memory are intact. Speech is normal. Language is fluent with no aphasia. Attention and concentration are normal. Cranial Nerves CN II: Visual acuity is normal. Visual davis full to confrontation. CN III, IV, : Extraocular movements intact bilaterally. Normal lids and orbits bilaterally. Pupils equal round and reactive to light bilaterally. CN V: Facial sensation is normal. CN VII: Full and symmetric facial movement. CN VIII: Hearing is normal. CN XII: Tongue midline without atrophy or fasciculations. Motor Normal muscle bulk throughout. Normal muscle tone. Right Left Wrist flexion 5 5 Wrist extension 5 5 Right Left Deltoid 5 5 Biceps 5 5 Triceps 5 5 Wrist flexor 5 5 Wrist extensor 5 5 Glutei 5 5 Iliopsoas 5 5 Quadriceps 5 5 Gastrocnemius 5 5 Anterior tibialis 5 5 Posterior tibialis 5 5 Sensory Light touch is normal in upper and lower extremities. Pinprick is normal in upper and lower extremities. Vibration is normal in upper and lower extremities. Reflexes Right Left Brachioradialis 2+ 2+ Biceps 2+ 2+ Patellar 2+ 2+ Achilles 2+ 2+ Right Plantar: downgoing Left Plantar: downgoing Right pathological reflexes: Pedrito's absent. Ankle clonus absent. Left pathological reflexes: Pedrito's absent. Ankle clonus absent. Coordination [id number], rapid alternating movements and [id number] normal bilaterally without dysmetria. Gait Normal casual, toe, heel and tandem gait. Romberg is absent. PROCEDURE: NONE ASSESSMENT AND PLAN: Devika Ellis is a 68 y.o. female that presents with cervical & lumbar pain. The possible etiologies include cervical degenerative disc disease or facet joint disease. The patient also complains of radicular pain and paresthesias into the lower extremities possibly due to lumbar radiculopathy, lumbosacral plexopathy or peripheral neuropathy. I will order an electromyograph evaluation of the upper extremities to assess for nerve damage such as cervical radiculopathy, brachial plexopathy, or entrapment mononeuropathy. EMG BUE (03/11/24)-Mild bilateral C6 radiculopathy EMG BLE (02/27/24)-sensory >motor peripheral neuropathy. This is axon loss in type and moderate in degree. Diagnoses and all orders for this visit: Neuropathy - pregabalin (Lyrica) 25 MG capsule; Take 1 capsule (25 mg) by mouth in the morning and 1 capsule (25 mg) in the evening and 1 capsule (25 mg) before bedtime. Start pregabalin 25 mg TID Discussed with patient that pain management will have to continue prescribing her pain medications. I counseled the patient on the possible side effects and interactions of medications. Follow up 3 months. This note was scribed by ROSY Gil acting under the direction of Sherita Horan MD. The content has been reviewed and confirmed for accuracy by Sherita Horan MD documented in this encounter [facility] 01-30-2024 Telephone encounter Note PT INFORMED. [facility] 01-30-2024 Miscellaneous Notes PT INFORMED. Approving but she needs to come in for repeat lipid panel, order is already in documented in this encounter [facility] 01-27-2024 Telephone encounter Note Approving but she needs to come in for repeat lipid panel, order is already in [facility] 01-22-2024 History of Present illness Narrative Images from the original note were not included. CHIEF COMPLAINT REASON FOR VISIT: Cervical stenosis HPI: Devika Ellis is a 68 y.o. female who presents for a new patient consultation for cervical stenosis referred by Katerine Nath NP [facility]. She states it is her neck and back that bother her. She states her right shoulder is bad as far as pain. She states she had a fall about a year and a half ago and ever since her fall is when the shoulder started getting bad. She states she had a large hematoma. She states she was seeing a doctor at the pain clinic in [place] but the doctor left so a TERRITORY ACCOUNT EXECUTIVE is filling her pain medications currently. Was on oxycodone and morphine in the past with pain management. She does have a lot of tightness when turning her head to the left and right. She states she used to get injections but last injections were about 4-5 months ago. She states she does have trouble with concentration and focus. She states she did have one in her back and it did seem to make it worse. She states she does get pain down into her legs. She states that she does not think she has ever had any nerve testing. She does her own ADL's, driving, takes/sets up own medications. She states she does get pain in the left shoulder but right is worse. Denies any other concerns. CURRENT MEDICATIONS: ALLERGIES/DISCONTINUE MEDICATIONS Current Outpatient Medications Medication Instructions amLODIPine (NORVASC) 5 mg, Oral, Every morning aspirin 81 mg, Daily RT atorvastatin (LIPITOR) 10 mg, Oral, Daily buPROPion XL (WELLBUTRIN XL) 150 mg, Oral, Every morning Calcium Carbonate-Vitamin D (Oyster Shell Calcium/D) 500-5 MG-MCG tablet 1 tablet, 2 times daily with meals cholecalciferol (VITAMIN D-3) 1,000 Units, Daily RT famotidine (PEPCID) 20 mg, Oral, Daily ferrous sulfate 325 mg, Oral, Daily with breakfast furosemide (Lasix) 40 MG tablet TAKE 1 TABLET TWICE DAILY hydrOXYzine pamoate (VISTARIL) 25 mg, Every 8 hours PRN KLOR-CON 20 MEQ ER tablet 20 mEq, Oral, Daily lamoTRIgine (LaMICtal) 200 MG tablet Oral, Daily levothyroxine (Synthroid, Levoxyl) 200 MCG tablet TAKE 1 TABLET BY MOUTH IN THE MORNING. TAKE BEFORE MEALS. Naproxen DR 500 MG tablet delayed-release 1 tablet, 2 times daily PRN omeprazole (PRILOSEC) 40 mg, Oral, Daily RT oxyCODONE (ROXICODONE) 10 mg, Every 4 hours PRN sertraline (ZOLOFT) 150 mg, Oral, Daily spironolactone (ALDACTONE) 25 mg, Every morning traZODone (DESYREL) 300 mg, Oral, Nightly PRN Allergies Allergen Reactions Seasonal Ic [Octacosanol] There are no discontinued medications. PAST MEDICAL HISTORY: SURGICAL/SOCIAL/FAMILY HISTORY DEPRESSION SCREEN: Past Medical History: Diagnosis Date Allergy-induced asthma (CMS/HCC) Anxiety Benign hypertension (CMS/HCC) Broken femur (CMS/HCC) Bulging lumbar disc Chronic pain Depression (CMS/HCC) Excoriation of periwound skin left cheek Gout H/O bilateral cataract extraction H/O tubal ligation Heart murmur Hepatitis C (CMS/HCC) History of being hospitalized 04/21/2020 overnight stay for edema in the lower legs History of carpal tunnel release History of lumbar surgery History of open reduction and internal fixation (ORIF) procedure History of selective injection of anesthetic agent around lumbar nerve root History of stomach ulcers History of tonsillectomy and adenoidectomy Hypothyroid (CMS/HCC) Liver disease Major depression (CMS/HCC) 08/28/2022 Obesity Seizure (CMS/HCC) Urinary problem Vision problem wears eye glasses Past Surgical History: Procedure Laterality Date BACK SURGERY 03/2022 low back CARPAL TUNNEL RELEASE CATARACT EXTRACTION, BILATERAL 10/2018 [facility] ONCOLOGY COLORECTAL SCREENING NÉSTOR 10 DNA MARKRS 2009 Colorectal Screening COLOGUARD 07/2017 COLONOSCOPY 08/2017 FEMUR FRACTURE SURGERY Right 09/20/2022 OTHER SURGICAL HISTORY ORIF OTHER SURGICAL HISTORY 2021 low back injections PARTIAL HYSTERECTOMY PA TONSILLECTOMY & ADENOIDECTOMY <AGE 13 TUBAL LIGATION US GUIDED BIOPSY LYMPH NODE SUPERFICIAL 01/14/2015 US GUIDED BIOPSY LYMPH NODE SUPERFICIAL 01/14/2015 VEIN SURGERY Social History Tobacco Use Smoking status: Former Current packs/day: 0.00 Types: Cigarettes Quit date: 2012 Years since quittin.9 Smokeless tobacco: Never Vaping Use Vaping status: Former Start date: 09/24/2022 Substances: Nicotine Devices: Disposable (Uses Vuse - goes through 1 pod/week) Substance Use Topics Alcohol use: Not Currently Comment: Alcohol: 1 or 2 drinks, 2 to 4 times a month; Caffeine: 1 cup a day Drug use: Never Family History Problem Relation Name Age of Onset Hypertension Father Bipolar disorder Father Bipolar disorder Sister Rosa Clotting disorder Sister Depression: At risk (12/17/2023) PHQ-2 PHQ-2 Score: 4 REVIEW OF SYMPTOMS: Review of Systems Constitutional: Negative for chills, diaphoresis, fatigue and fever. HENT: Negative for ear pain, tinnitus and trouble swallowing. Eyes: Negative for photophobia and visual disturbance. Respiratory: Negative for cough and shortness of breath. Cardiovascular: Negative for palpitations and leg swelling. Gastrointestinal: Negative for abdominal pain and nausea. Genitourinary: Negative for difficulty urinating and urgency. Musculoskeletal: Positive for back pain, gait problem, neck pain and neck stiffness. Negative for arthralgias and myalgias. Neurological: Positive for weakness. Negative for tremors and light-headedness. Psychiatric/Behavioral: Positive for decreased concentration. Negative for agitation, confusion and suicidal ideas. OBJECTIVE: 01/22/2024 1:43 PM 12/31/2023 2:29 PM 12/17/2023 2:11 PM Vitals BMI 32.95 kg/m2 33.72 kg/m2 33.48 kg/m2 BSA (m2) 1.96 m2 1.98 m2 1.98 m2 Systolic 144 146 Diastolic 90 86 Heart Rate 95 Temp 97.4 F Height (in) 5' 3.5 Weight (lb) 189 193.4 192 Visit Report Report Report Report EXAM: Neurological Exam Mental Status Awake, alert and oriented to person, place and time. Oriented to person, place and time. Recent and remote memory are intact. Speech is normal. Language is fluent with no aphasia. Attention and concentration are normal. Cranial Nerves CN II: Visual acuity is normal. Visual davis full to confrontation. CN III, IV, : Extraocular movements intact bilaterally. Normal lids and orbits bilaterally. Pupils equal round and reactive to light bilaterally. CN V: Facial sensation is normal. CN VII: Full and symmetric facial movement. CN VIII: Hearing is normal. CN XII: Tongue midline without atrophy or fasciculations. Motor Normal muscle bulk throughout. Normal muscle tone. Right Left Wrist flexion 5 5 Wrist extension 5 5 Right Left Deltoid 5 5 Biceps 5 5 Triceps 5 5 Wrist flexor 5 5 Wrist extensor 5 5 Glutei 5 5 Iliopsoas 5 5 Quadriceps 5 5 Gastrocnemius 5 5 Anterior tibialis 5 5 Posterior tibialis 5 5 Sensory Light touch is normal in upper and lower extremities. Pinprick is normal in upper and lower extremities. Vibration is normal in upper and lower extremities. Reflexes Right Left Brachioradialis 2+ 2+ Biceps 2+ 2+ Patellar 2+ 2+ Achilles 2+ 2+ Right Plantar: downgoing Left Plantar: downgoing Right pathological reflexes: Pedrito's absent. Ankle clonus absent. Left pathological reflexes: Pedrito's absent. Ankle clonus absent. Coordination [id number]-[id number], rapid alternating movements and [id number] normal bilaterally without dysmetria. Gait Normal casual, toe, heel and tandem gait. Romberg is absent. PROCEDURE: NONE ASSESSMENT AND PLAN: Devika Ellis is a 68 y.o. female that presents with cervical & lumbar pain. The possible etiologies include cervical degenerative disc disease or facet joint disease. The patient also complains of radicular pain and paresthesias into the lower extremities possibly due to lumbar radiculopathy, lumbosacral plexopathy or peripheral neuropathy. I will order an electromyograph evaluation of the upper extremities to assess for nerve damage such as cervical radiculopathy, brachial plexopathy, or entrapment mononeuropathy. I will order an electromyograph evaluation of the lower extremities to assess for nerve damage such as lumbar radiculopathy, lumbar plexopathy, or peripheral neuropathy. MRI Cervical Spine wo (09/24/2023) History: Cervical radiculopathy Exam/Technique: MRI images of the cervical spine were obtained in the sagittal and axial planes. Comparison: 02/20/2011. Findings: At C2-3, no osseous or disc abnormalities are identified. No spinal stenosis is seen. The neural foramina patent bilaterally. At C3-4, there is approximately 5 mm of anterolisthesis of C3 on C4. This results in a severe spinal stenosis at this level. There is a bilateral neural foraminal narrowing as well. At C4-5, mild broad-based disc osteophyte complex is effacing the anterior aspect of thecal sac and cervical cord. The neural foramen appear patent bilaterally. At C5-6, there is eccentric disc bulge to the right. There is effacement of the anterior and right anterior aspect of the thecal sac and cervical cord. There is a right-sided neural foraminal narrowing. At C6-7, broad-based disc bulges effacing the anterior aspect of thecal sac. No significant spinal stenosis is seen. There is a right-sided neural foraminal narrowing. At C7-T1, no osseous or disc abnormalities are identified. No spinal stenosis is seen. The neural foramen are patent bilaterally. IMPRESSION: * Severe spinal stenosis at C3-4 secondary to approximately 5 mm anterolisthesis at this level. * Eccentric disc bulge to the right at C5-6 producing a right-sided neural foraminal narrowing * Mild broad-based disc bulging and disc ossify complexes at C4-5 and C7-T1. MR LUMBAR SPINE WO CONT (10/10/2023) HISTORY: Lumbar radiculopathy, spinal stenosis, neurogenic claudication, chronic back pain COMPARISON: MRI lumbar spine 11/29/2020 TECHNIQUE: Multisequence, multiplanar images of the lumbar spine without intravenous contrast. FINDINGS: Posterior spinous process fixation hardware at the L4 vertebral levels. Adjacent susceptibility artifact. Unremarkable bone marrow signal. 5 mm (grade 1) anterolisthesis of L3 on L4. 2 mm retrolisthesis of L2 on L3. No compression deformities. Degenerative intervertebral disc space narrowing at all levels with disc desiccation. Modic type II changes at L5-S1. Multilevel Schmorl's nodes. The visualized cord is within normal limits. Normal appearance of the cauda equina nerve roots. The conus medullaris terminates at L1. Fatty atrophy of the bilateral paraspinous musculature. Visualized intra-abdominal contents are within normal limits. Left renal simple cyst. Level by level: T11-T12: Disc bulge which is partially evaluated, mild thecal sac stenosis. T12-L1: No significant disc herniation. No thecal sac stenosis. No neural foraminal narrowing. L1-2: Circumferential disc bulging with mild ligamentum flavum hypertrophy. Mild thecal sac stenosis. No neural foraminal narrowing. L2-3: Circumferential disc bulging, mild facet arthropathy and prominent dorsal epidural fat.. Mild thecal sac stenosis. Mild bilateral neural foraminal narrowing. L3-4: Disc bulge in combination with moderate facet hypertrophy, greater on the left side, and ligamentum flavum thickening. Mild to moderate thecal sac stenosis and mild to moderate bilateral neural foraminal narrowing. L4-5: Disc bulge and correlation with mild to moderate bilateral facet hypertrophy and ligamentum flavum thickening. Resultant mild thecal sac stenosis, mild right neural foraminal narrowing, and moderate left neural foraminal narrowing. L5-S1: Circumferential disc bulging with left foraminal zone disc protrusion, ligamentum flavum thickening, and facet arthropathy. Mild thecal sac stenosis. Moderate right and moderate to severe left neural foraminal narrowing with abutment of the exiting left L5 nerve root. IMPRESSION: * Multilevel degenerative changes of the lumbar spine without high-grade thecal sac stenosis throughout. Moderate to severe left neural foraminal stenosis at the L5-S1 level with abutment of the exiting nerve root. This has progressed compared to prior examination. Diagnoses and all orders for this visit: Chronic bilateral low back pain with bilateral sciatica - EMG 2 Extremities Cervical radiculopathy - EMG 2 Extremities Discussed with patient that pain management will have to continue prescribing her pain medications. EMG testing of uppers and lowers I counseled the patient on the possible side effects and interactions of medications. Total time 30 minutes spent reviewing records, performing medically appropriate exam, counseling , education, ordering medication, tests, and/or procedures, documenting health information into the health record, communicating results to the patient, and coordinating care. Follow up 6-8 weeks. documented in this encounter [facility] 12-31-2023 History of Present illness Narrative Images from the original note were not included. Devika Ellis is a 68 y.o. female presents with chief complaint of Follow-up HPI: HPI Patient is present for 1 month follow up for dizziness. Patient reports she is doing well. She states she is taking her iron tablets and she is having less dizziness. She states she feels she is walking better than she was last visit. SUBJECTIVE: MEDICATIONS: Current Outpatient Medications Medication Instructions amLODIPine (NORVASC) 5 mg, Oral, Every morning aspirin 81 mg, Daily RT atorvastatin (LIPITOR) 10 mg, Oral, Daily buPROPion XL (WELLBUTRIN XL) 150 mg, Oral, Every morning Calcium Carbonate-Vitamin D (Oyster Shell Calcium/D) 500-5 MG-MCG tablet 1 tablet, 2 times daily with meals cholecalciferol (VITAMIN D-3) 1,000 Units, Daily RT famotidine (PEPCID) 20 mg, Oral, Daily ferrous sulfate 325 mg, Oral, Daily with breakfast furosemide (Lasix) 40 MG tablet TAKE 1 TABLET TWICE DAILY hydrOXYzine pamoate (VISTARIL) 25 mg, Every 8 hours PRN KLOR-CON 20 MEQ ER tablet 20 mEq, Oral, Daily lamoTRIgine (LAMICTAL) 200 mg, Oral, Daily levothyroxine (Synthroid, Levoxyl) 200 MCG tablet TAKE 1 TABLET BY MOUTH IN THE MORNING. TAKE BEFORE MEALS. Naproxen DR 500 MG tablet delayed-release 1 tablet, 2 times daily PRN omeprazole (PRILOSEC) 40 mg, Oral, Daily RT oxyCODONE (ROXICODONE) 10 mg, Every 4 hours PRN sertraline (ZOLOFT) 150 mg, Oral, Daily spironolactone (ALDACTONE) 25 mg, Every morning traZODone (DESYREL) 300 mg, Oral, Nightly PRN I have reviewed and reconciled the history and medication list with the patient today. REVIEW OF SYMPTOMS: Review of Systems Constitutional: Negative for chills [...] gait problem. Skin: Negative. Neurological: Negative for dizziness and numbness. Endocrine: Negative. Allergic/Immunologic: Negative. OBJECTIVE: Visit Vitals Smoking Status Former Physical Exam Vitals reviewed. Cardiovascular: Rate and [...] is oriented to person, place, and time. ASSESSMENT AND PLAN: Assessment/Plan Diagnoses and all orders for this visit: Essential hypertension (CMS/HCC)-stable continue on current medicatons. Dizziness - CBC and differential; Future Iron deficiency anemia, unspecified iron deficiency anemia type-await results - CBC and differential; Future documented in this encounter [facility] 12-17-2023 History of Present illness Narrative Images from the original note were not included. Devika Ellis is a 68 y.o. female presents for Medication Management. HPI: Patient is here for medication follow up. Showed up with cane but was shakey and required a wheelchair. Patient decompensated since last appt. Patient required a wheelchair today due to being shaky. Mood is reported as not depressed but feeling down in the dumps. C/o of being dizzy and stated was treated for low iron. Anxiety is situational and fears having more falls. Sleeping interrupted. Medication compliant. No reported side effects. Feels like medications are helping.. Denies abuse of substances. Medical problems since last visit. Falls. Anemia. Chronic pain. Psychosocial stressors include hoarding behavior, physical limitations. SUBJECTIVE: PAST MEDICAL HISTORY: Past Medical History: Diagnosis Date Allergy-induced asthma (CMS/HCC) Anxiety Benign hypertension (CMS/HCC) Broken femur (CMS/HCC) Bulging lumbar disc Chronic pain Depression (CMS/HCC) Excoriation of periwound skin left cheek Gout H/O bilateral cataract extraction H/O tubal ligation Heart murmur Hepatitis C (CMS/HCC) History of being hospitalized 04/21/2020 overnight stay for edema in the lower legs History of carpal tunnel release History of lumbar surgery History of open reduction and internal fixation (ORIF) procedure History of selective injection of anesthetic agent around lumbar nerve root History of stomach ulcers History of tonsillectomy and adenoidectomy Hypothyroid (CMS/HCC) Liver disease Major depression (CMS/HCC) 08/28/2022 Obesity Seizure (CMS/HCC) Urinary problem Vision problem wears eye glasses ALLERGIES: Allergies Allergen Reactions Seasonal Ic [Octacosanol] SURGICAL HISTORY: Past Surgical History: Procedure Laterality Date BACK SURGERY 03/2022 low back CARPAL TUNNEL RELEASE CATARACT EXTRACTION, BILATERAL 10/2018 [facility] ONCOLOGY COLORECTAL SCREENING NÉSTOR 10 DNA MARKRS 2009 Colorectal Screening COLOGUARD 07/2017 COLONOSCOPY 08/2017 FEMUR FRACTURE SURGERY Right 09/20/2022 OTHER SURGICAL HISTORY ORIF OTHER SURGICAL HISTORY 2021 low back injections PARTIAL HYSTERECTOMY PA TONSILLECTOMY & ADENOIDECTOMY <AGE 13 TUBAL LIGATION US GUIDED BIOPSY LYMPH NODE SUPERFICIAL 01/14/2015 US GUIDED BIOPSY LYMPH NODE SUPERFICIAL 01/14/2015 VEIN SURGERY FAMILY HISTORY: Family History Problem Relation Name Age of Onset Hypertension Father Bipolar disorder Father Bipolar disorder Sister Rosa SOCIAL HISTORY: Social History Tobacco Use Smoking status: Former Current packs/day: 0.00 Types: Cigarettes Quit date: 2012 Years since quittin.8 Smokeless tobacco: Never Vaping Use Vaping status: Former Start date: 09/24/2022 Substances: Nicotine Devices: Disposable (Uses Vuse - goes through 1 pod/week) Substance Use Topics Alcohol use: Not Currently Comment: Alcohol: 1 or 2 drinks, 2 to 4 times a month; Caffeine: 1 cup a day Drug use: Never Depression: Not at risk (07/31/2023) Received from [facility] [employer] PHQ-2 Total Score: 0 REVIEW OF SYMPTOMS - MENTAL STATUS EXAM Appearance Appearance: Casual dress, normal grooming and hygiene Attitude Attitude: Cooperative, conversant, engaged, and with good eye contact. Behavior Cooperative, conversant, engaged, and with good eye contact. Speech Normal, clear, regular rate, rhythm and volume Affect Constricted Mood Depressed Thought Process Organized and Clear Thought Content No Suicidal Ideation and No Homicidal ideation Perception No perceptual abnormalities noted Orientation Appropriate to age, Person, Place, and Time Memory/Concentration Short term intact and intermediate card tender intact Insight/Judgement Fair OBJECTIVE: Visit Vitals Smoking Status Former No results found for: TSH Lab Results Component Value Date GLU 95 11/12/2023 CALCIUM 8.6 11/12/2023 NA 138 11/12/2023 K 3.1 (L) 11/12/2023 CO2 24 11/12/2023 CL 98 11/12/2023 BUN 18 11/12/2023 CREATININE 0.94 11/12/2023 Lab Results Component Value Date WBC 7.5 11/12/2023 HGB 10.1 (L) 11/12/2023 HCT 32.7 (L) 11/12/2023 MCV 90.1 11/12/2023 PLT 312 11/12/2023 Lab Results Component Value Date CHOL 244 (H) 03/14/2023 Lab Results Component Value Date HDL 139 03/14/2023 Lab Results Component Value Date LDLCALC 90 03/14/2023 Lab Results Component Value Date TRIG 66 03/14/2023 TRIG 55 11/01/2020 ASSESSMENT AND PLAN: Assessment/Plan Generalized anxiety disorder ([facility]/HCC) Bipolar II disorder ([facility]) Psych Medication List trazodone to 100mg -3 tabs daily prn insomnia Vistaril Capsule, 25 MG, 1-2 caps, Orally, q8 hours prn anxiety or itching Wellbutrin XL Tablet Extended Release 24 Hour, 300MG, 1 tablet, Orally, Once a day lamoTRIgine Tablet, 200mg daily 30 days-decrease in case dizziness Zoloft Tablet, 100 MG, 1 Orally, Once a day -100mg 11/2 daily Patient required wheel chair to get to car. Declines counseling. HIPAA updated REviewed chart documents and documentation, Visit time : 50min F/U 6-7 weeks documented in this encounter [facility] 12-03-2023 History of Present illness Narrative Images from the original note were not included. Devika Ellis is a 68 y.o. female presents with chief complaint of Follow-up HPI: HPI Patient is present for a follow up for dizziness. Patient reports she started taking iron again and states she is feeling more steady while walking this visit. Patient does still note some dizziness and unsteadiness. SUBJECTIVE: MEDICATIONS: Current Outpatient Medications Medication Instructions amLODIPine (NORVASC) 5 mg, Oral, Every morning aspirin 81 mg, Oral, Daily RT atorvastatin (LIPITOR) 10 mg, Oral, Daily buPROPion XL (WELLBUTRIN XL) 150 mg, Oral, Every morning Calcium Carbonate-Vitamin D (Oyster Shell Calcium/D) 500-5 MG-MCG tablet 1 tablet, Oral, 2 times daily with meals cholecalciferol (VITAMIN D-3) 1,000 Units, Oral, Daily RT famotidine (PEPCID) 20 mg, Oral, Daily ferrous sulfate 325 mg, Oral, Daily with breakfast furosemide (Lasix) 40 MG tablet TAKE 1 TABLET TWICE DAILY hydrOXYzine pamoate (VISTARIL) 25 mg, Oral, Every 8 hours PRN KLOR-CON 20 MEQ ER tablet 20 mEq, Oral, Daily lamoTRIgine (LAMICTAL) 150 mg, Oral, 2 times daily levothyroxine (Synthroid, Levoxyl) 200 MCG tablet TAKE 1 TABLET BY MOUTH IN THE MORNING. TAKE BEFORE MEALS. omeprazole (PRILOSEC) 40 mg, Oral, Daily RT oxyCODONE (ROXICODONE) 10 mg, Oral, Every 4 hours PRN sertraline (ZOLOFT) 150 mg, Oral, Daily spironolactone (ALDACTONE) 25 mg, Oral, Every morning traZODone (DESYREL) 300 mg, Oral, Nightly PRN I have reviewed and reconciled the history and medication list with the patient today. REVIEW OF SYMPTOMS: Review of Systems Constitutional: Negative for chills [...] gait problem. Skin: Negative. Neurological: Negative for dizziness and numbness. Endocrine: Negative. Allergic/Immunologic: Negative. OBJECTIVE: Visit Vitals Smoking Status Former Physical Exam Vitals reviewed. Cardiovascular: Rate and [...] is oriented to person, place, and time. ASSESSMENT AND PLAN: Assessment/Plan Diagnoses and all orders for this visit: Essential hypertension (CMS/HCC)-stable continue on current medications Interstitial pulmonary disease, unspecified (CMS/HCC)-stable Iron deficiency anemia, unspecified iron deficiency anemia type-patient feels better after starting back on her iron. Dizziness has improved. Patient is picking up a wheeled walker after appoitnment today. documented in this encounter [facility] 11-20-2023 Telephone encounter Note Suzanne from [employer] needs addendum added to most recent office note. 1- that she can use the rollator safely. 2-cane and walker are not safe for her to use. 3- this rollator will help with MRADL's such as grooming, dressing and cleaning. Any questions please call Suzanne [phone]. . I told her that you were out of the office and this would be taken care of middle of next week. Thank you. [facility] 11-20-2023 Miscellaneous Notes Suzanne from [employer] needs addendum added to most recent office note. 1- that she can use the rollator safely. 2-cane and walker are not safe for her to use. 3- this rollator will help with MRADL's such as grooming, dressing and cleaning. Any questions please call Suzanne [phone]. . I told her that you were out of the office and this would be taken care of middle of next week. Thank you. documented in this encounter [facility] 11-20-2023 History of Present illness Narrative Orders placed documented in this encounter [facility] 11-12-2023 History of Present illness Narrative Images from the original note were not included. Devika Ellis is a 68 y.o. female presents with chief complaint of Follow-up HPI: HPI Patient is present for a 3 month follow up. Patient is also requesting blood work for dizziness and unsteadiness when she walks. Patient reports she has been falling and she fell this past in her shower. fr SUBJECTIVE: MEDICATIONS: Current Outpatient Medications Medication Instructions amLODIPine (NORVASC) 5 mg, Oral, Every morning aspirin 81 mg, Oral, Daily RT atorvastatin (LIPITOR) 10 mg, Oral, Daily buPROPion XL (WELLBUTRIN XL) 150 mg, Oral, Every morning Calcium Carbonate-Vitamin D (Oyster Shell Calcium/D) 500-5 MG-MCG tablet 1 tablet, Oral, 2 times daily with meals cholecalciferol (VITAMIN D-3) 1,000 Units, Oral, Daily RT famotidine (PEPCID) 20 mg, Oral, Daily ferrous sulfate 325 mg, Oral, Daily with breakfast furosemide (Lasix) 40 MG tablet TAKE 1 TABLET TWICE DAILY hydrOXYzine pamoate (VISTARIL) 25 mg, Oral, Every 8 hours PRN KLOR-CON 20 MEQ ER tablet 20 mEq, Oral, Daily lamoTRIgine (LAMICTAL) 150 mg, Oral, 2 times daily levothyroxine (Synthroid, Levoxyl) 200 MCG tablet TAKE 1 TABLET BY MOUTH IN THE MORNING. TAKE BEFORE MEALS. omeprazole (PRILOSEC) 40 mg, Oral, Daily RT oxyCODONE (ROXICODONE) 10 mg, Oral, Every 4 hours PRN sertraline (ZOLOFT) 150 mg, Oral, Daily spironolactone (ALDACTONE) 25 mg, Oral, Every morning traZODone (DESYREL) 300 mg, Oral, Nightly PRN I have reviewed and reconciled the history and medication list with the patient today. REVIEW OF SYMPTOMS: Review of Systems Constitutional: Negative for chills [...] gait problem. Skin: Negative. Neurological: Negative for dizziness and numbness. Endocrine: Negative. Allergic/Immunologic: Negative. OBJECTIVE: Visit Vitals Smoking Status Former Physical Exam Vitals reviewed. Cardiovascular: Rate and [...] focal deficit present. Mental Status: She is alert and oriented to person, place, and time. Cranial Nerves: Cranial nerves 2-12 are intact. Motor: Motor function is intact. Coordination: Coordination is intact. Gait: Gait is intact. ASSESSMENT AND PLAN: Assessment/Plan Diagnoses and all orders for this visit: Dizziness - Comprehensive metabolic panel; Future - CBC and differential; Future - CT head wo IV contrast; Future - TSH W/REFLEX TO FT4; Future - POCT glucose manually resulted Essential hypertension (CMS/HCC)-stable continue on current medications Obesity (BMI 30.0-34.9) Generalized anxiety disorder (CMS/HCC)-stable continue on current medications Acute intractable headache, unspecified headache type - CT head wo IV contrast; Future Neuropathy documented in this encounter [facility] 11-12-2023 Miscellaneous Notes Let patient know her potassium is a little low. Is she taking her potassium? Also she is still a little anemic. Is she taking her iron? All other labs are stable documented in this encounter [facility] 11-12-2023 Progress note Formatting of t his note might be different from the original. Let patient know her potassium is a little low. Is she taking her potassium? Also she is still a little anemic. Is she taking her iron? All other labs are stable [facility] 11-04-2023 Telephone encounter Note Refills sent. [facility] 11-04-2023 Miscellaneous Notes Refills sent. documented in this encounter [facility] 10-21-2023 Telephone encounter Note She states that she has not been on a statin, but Atrovastatin is listed in her chart, if she needs it to go to [facility] 10-21-2023 Miscellaneous Notes She states that she has not been on a statin, but Atrovastatin is listed in her chart, if she needs [facility] to [facility] Has she been on a statin before? Her insurance is asking. If not, can we send one in for her? documented in this encounter [facility] 10-21-2023 Telephone encounter Note Has she been on a statin before? Her insurance is asking. If not, can we send one in for her? [facility] 10-04-2023 Miscellaneous Notes Patient referred from [facility] with recent MRI. Please review MRI to determine if patient should schedule with spine care or neurosurgery. MRI and office note in chart. Severe stenosis due to anterolisthesis. Neurosurgery Please call patient to schedule. Called and spoke to patient, verified insurance is [employer] [place]. Informed patient that office is not contracted with insurance and recommended referral be sent to [facility] or [facility] Neurosurgery. documented in this encounter [facility] 10-04-2023 Telephone encounter Note Patient referred from [facility] with recent MRI. Please review MRI to determine if patient should schedule with spine care or neurosurgery. MRI and office note in chart. [facility] 10-04-2023 Telephone encounter Note Severe stenosis due to anterolisthesis. Neurosurgery [facility] Work Phone: 10-04-2023 Telephone encounter Note Please call patient to schedule. [facility] 10-04-2023 Telephone encounter Note Called and spoke to patient, verified insurance is [employer] [place]. Informed patient that office is not contracted with insurance and recommended referral be sent to [facility] or [facility] Neurosurgery. [facility] 08-08-2023 History of Present illness Narrative Images from the original note were not included. [facility] Devika Saldana Caleb Date of visit: 08/08/2023 Date of : 1955 Age: 67 y.o. Chief Complaint Patient presents with Follow-up OV F/U W KKY TAVR 07/31/23-APPT SCHED W PT History of Present Illness 67 yo female who follows up in the clinic today after recent TAVR. She received a 29 mm Evolut FX via transfemoral approach on July 31, 2023 for management of severe symptomatic aortic stenosis. There were no apparent complications. She is known to have a left bundle branch block at baseline which was noted to be stable throughout her hospitalization with no evidence for high-degree AV block post TAVR. She was noted to be acutely volume overloaded with an LVEDP of 29 mmHg at time of TAVR and chest x-ray noting congestion. She did briefly undergo IV diuresis and her diuretic was increased at discharge. She was started on iron for her chronic iron deficiency anemia and advised to follow-up further with PCP. She is felt to be suitable for discharge to home on August 01, 2023. Today patient notes she is overall feeling better. States she continues to be limited functionally by knee and back pain, no CV complaints or concerns. Notes she is still urinating quite a bit with taking lasix. No groin concerns. Current Outpatient Medications Medication Sig Dispense Refill aspirin 81 mg chewable tablet Chew 1 tablet (81 mg total) and swallow in the morning. 30 tablet 11 atorvastatin (LIPITOR) 10 mg tablet Take 1 tablet (10 mg total) by mouth in the morning. buPROPion XL (WELLBUTRIN XL) 150 mg 24 hr tablet Take 1 tablet (150 mg total) by mouth in the morning. calcium carbonate-vitamin D3 (CALCIUM 500 + D) 500 mg(1,250mg) -200 units per tablet Take 1 tablet by mouth in the morning and 1 tablet in the evening. Take with meals. cholecalciferol 1,000 units tablet Take 1 tablet (1,000 Units total) by mouth in the morning. diphenhydrAMINE (BENADRYL) 50 mg capsule Take 1 capsule (50 mg total) by mouth every 6 (six) hours as needed for itching. ferrous sulfate 325 (65 FE) mg tablet Take 1 tablet (325 mg total) by mouth daily with breakfast. 30 tablet 0 lamoTRIgine (LaMICtal) 100 mg tablet Take 1 tablet (100 mg total) by mouth in the morning and 1 tablet (100 mg total) before bedtime. levothyroxine (SYNTHROID, LEVOTHROID) 200 MCG tablet Take 1 tablet (200 mcg total) by mouth in the morning. LYSINE HCL ORAL Take by mouth daily. omeprazole (PriLOSEC) 40 mg capsule Take 1 capsule (40 mg total) by mouth in the morning. 30 capsule 2 oxyCODONE (OxyCONTIN) 10 mg 12 hr tablet Take 1 tablet (10 mg total) by mouth every 6 (six) hours as needed. potassium chloride (K-TAB,KLOR-CON) 10 MEQ CR tablet Take 1 tablet (10 mEq total) by mouth in the morning. sertraline (ZOLOFT) 100 mg tablet Take 1.5 tablets (150 mg total) by mouth in the morning. spironolactone (ALDACTONE) 25 mg tablet Take 1 tablet (25 mg total) by mouth in the morning. 90 tablet 2 traZODone (DESYREL) 100 mg tablet Take 2 tablets (200 mg total) by mouth as needed. furosemide (LASIX) 40 mg tablet Take 1 tablet (40 mg total) by mouth daily. No current facility-administered medications for this visit. No Known Allergies Patient Active Problem List Diagnosis Nonrheumatic aortic valve stenosis Hypokalemia Acute blood loss anemia Anxiety Arthritis Asthma Depression Fibromyalgia, primary Hypertension Hypothyroidism Infectious viral hepatitis Seizures (CMS-HCC) EUGENIO (iron deficiency anemia) Fall Displaced fracture of medial condyle of right femur, initial encounter for closed fracture (CMS-HCC) Severe aortic stenosis S/p TAVR (transcatheter aortic valve replacement), bioprosthetic Past Medical History: Diagnosis Date Anxiety Aortic valve stenosis Arrhythmia Arthritis Asthma childhood Depression Fibromyalgia, primary Hypertension Hypothyroidism Infectious viral hepatitis hepatitis c, received treatment Seizures ([facility]) x2 in life, one related to opiate withdrawal Past Surgical History: Procedure Laterality Date BREAST BIOPSY Left 2015 CARPAL TUNNEL RELEASE Bilateral COLONOSCOPY N/A 07/20/2022 Performed by Lucia Hood MD at [facility] COLONOSCOPY N/A 08/29/2017 Performed by Matty Tejeda MD at [facility] Coronary angiogram only N/A 05/23/2023 Performed by Venessa Vizcaino MD at [facility] ESOPHAGOGASTRODUODENOSCOPY N/A 07/20/2022 Performed by Lucia Hood MD at [facility] HYSTERECTOMY 1988 OPEN REDUCTION INTERNAL FIXATION FEMUR DISTAL Right 09/20/2022 Performed by Giovanni Giles MD at [facility] Transcutaneous aortic valve replacement/Transfemoral/Medtronic N/A 07/31/2023 Performed by Venessa Vizcaino MD at [facility]ATH [facility] TUBAL LIGATION Family History Problem Relation Age of Onset Cancer Mother Thyroid disease Mother Hypertension Father Heart disease Father Stroke Father Breast cancer Neg Hx Social History Socioeconomic History Marital status: Spouse name: Not on file Number of children: Not on file Years of education: Not on file Highest education level: Not on file Occupational History Not on file Tobacco Use Smoking status: Former Types: Cigarettes Smokeless tobacco: Never Vaping Use Vaping status: Some Days Substances: Nicotine Devices: Pre-filled or refillable cartridge Substance and Sexual Activity Alcohol use: Yes Comment: social use Drug use: No Sexual activity: Defer Other Topics Concern Caffeine Use Yes Social History Narrative Not on file Social Determinants of Health Financial Resource Strain: Low Risk (07/31/2023) Overall Financial Resource Strain (CARDIA) Difficulty of Paying Living Expenses: Not hard at all Food Insecurity: No Food Insecurity (07/31/2023) Hunger Screening Food Insecurity - Worry: Never True Food Insecurity - Inability: Never True Transportation Needs: No Transportation Needs (07/31/2023) PRAPARE - Transportation Lack of Transportation (Medical): No Lack of Transportation (Non-Medical): No Physical Activity: Sufficiently Active (04/20/2020) Exercise Vital Sign Days of Exercise per Week: 5 days Minutes of Exercise per Session: 60 min Stress: Stress Concern Present (04/20/2020) [place] - Occupational Stress Questionnaire Feeling of Stress : To some extent Social Connections: Socially Isolated (04/20/2020) Social Connection and Isolation Panel [NHANES] Frequency of Communication with Friends and Family: More than three times a week Frequency of Social Gatherings with Friends and Family: More than three times a week Attends Restoration Services: Never Active Member of Clubs or Organizations: No Attends Club or Organization Meetings: Never Marital Status: Never Interpersonal Safety: Not At Risk (07/31/2023) Humiliation, Afraid, Rape, and Kick questionnaire Fear of Current or Ex-Partner: No Emotionally Abused: No Physically Abused: No Sexually Abused: No Housing Instability: Low Risk (07/31/2023) Housing Instability Housing Instability: No Current Outpatient Medications Medication Sig Dispense Refill aspirin 81 mg chewable tablet Chew 1 tablet (81 mg total) and swallow in the morning. 30 tablet 11 atorvastatin (LIPITOR) 10 mg tablet Take 1 tablet (10 mg total) by mouth in the morning. buPROPion XL (WELLBUTRIN XL) 150 mg 24 hr tablet Take 1 tablet (150 mg total) by mouth in the morning. calcium carbonate-vitamin D3 (CALCIUM 500 + D) 500 mg(1,250mg) -200 units per tablet Take 1 tablet by mouth in the morning and 1 tablet in the evening. Take with meals. cholecalciferol 1,000 units tablet Take 1 tablet (1,000 Units total) by mouth in the morning. diphenhydrAMINE (BENADRYL) 50 mg capsule Take 1 capsule (50 mg total) by mouth every 6 (six) hours as needed for itching. ferrous sulfate 325 (65 FE) mg tablet Take 1 tablet (325 mg total) by mouth daily with breakfast. 30 tablet 0 lamoTRIgine (LaMICtal) 100 mg tablet Take 1 tablet (100 mg total) by mouth in the morning and 1 tablet (100 mg total) before bedtime. levothyroxine (SYNTHROID, LEVOTHROID) 200 MCG tablet Take 1 tablet (200 mcg total) by mouth in the morning. LYSINE HCL ORAL Take by mouth daily. omeprazole (PriLOSEC) 40 mg capsule Take 1 capsule (40 mg total) by mouth in the morning. 30 capsule 2 oxyCODONE (OxyCONTIN) 10 mg 12 hr tablet Take 1 tablet (10 mg total) by mouth every 6 (six) hours as needed. potassium chloride (K-TAB,KLOR-CON) 10 MEQ CR tablet Take 1 tablet (10 mEq total) by mouth in the morning. sertraline (ZOLOFT) 100 mg tablet Take 1.5 tablets (150 mg total) by mouth in the morning. spironolactone (ALDACTONE) 25 mg tablet Take 1 tablet (25 mg total) by mouth in the morning. 90 tablet 2 traZODone (DESYREL) 100 mg tablet Take 2 tablets (200 mg total) by mouth as needed. furosemide (LASIX) 40 mg tablet Take 1 tablet (40 mg total) by mouth daily. No current facility-administered medications for this visit. Review of Systems Review of Systems Constitutional: Negative for malaise/fatigue. HENT: Negative for nosebleeds. Eyes: Negative for blurred vision and double vision. Respiratory: Negative for cough, shortness of breath and wheezing. Hematologic/Lymphatic: Bruises/bleeds easily. Skin: Negative for rash. Musculoskeletal: Negative for joint pain, joint swelling, muscle cramps and muscle weakness. Gastrointestinal: Negative for abdominal pain and heartburn. Genitourinary: Negative for hematuria. Neurological: Positive for dizziness, headaches and light-headedness. Negative for weakness. Psychiatric/Behavioral: Negative for depression. The patient is not nervous/anxious. CARDIOVASCULAR: Please review HPI. Physical Examination BP 134/64 Pulse 88 Ht 165.1 cm (5' 5 ) Wt 88.9 kg (196 lb) SpO2 97% BMI 32.62 kg/m CONSTITUTIONAL: cooperative, alert and oriented, well developed, well nourished, in no acute distress SKIN: warm and dry to touch HEAD:normocephalic, no tenderness EYES:conjuctivae and lids unremarkable, funduscopic exam and visual davis not performed, EOMS intact NECK: no JVD CHEST: clear to auscultation and percussion, normal A-P diameter, no use of accessory muscles CARDIAC: regular rhythm, S1, S2, no murmurs PERIPHERAL PULSES: pulses full and equal in all extremities, no bruits auscultated EXTREMITIES and BACK: no cyanosis present, no clubbing present, no edema present, right and left groin sites soft and non-tender without hematoma, ecchymsois or bruit PSYCHIATRIC: appropriate mood, memory and judgement NEUROLOGICAL: no gross motor or sensory deficits noted Cardiac Testing LAST ECHO (Within 2 Years) Echo complete W/O contrast Result Date: 08/01/2023 Left Ventricle: Left ventricle appears normal in size. There is moderate increased wall thickness/hypertrophy. Systolic function is low normal to mildly decreased with an ejection fraction of 50-55%. Right Ventricle: Systolic function is normal. Aortic Valve: There is no regurgitation or stenosis. S/P TAVR A 29mm Evolut FX valve is present in the aortic position Mitral Valve: There is mild regurgitation. There is moderate stenosis. The mean gradient is 8.00 mmHg. The peak gradient is 19.18 mmHg. Left Atrium: Left atrium is severely dilated. Echo complete W/O contrast Result Date: 03/11/2023 Aortic Valve: There is trace to mild regurgitation with eccentrically directed jet. There is severe stenosis. The calculated aortic valve peak gradient is 75.00 mmHg. The calculated aortic valve mean gradient is 47.00 mmHg. Left Ventricle: There is mild focal basal increased wall thickness/hypertrophy. Systolic function is low normal to mildly decreased with an ejection fraction of 50-55%. The quantitative EF by 2D Black biplane is 54%. See wall score diagram for wall motion abnormalities. Unable to assess diastolic function due to mitral stenosis and mitral annular calcification. Left Atrium is severely dilated Right Ventricle: Systolic function is normal. Mitral Valve: There is moderate regurgitation. There is mild stenosis. The mean gradient is 4.00 mmHg. The peak gradient is 10.00 mmHg. Echo complete W/O contrast Result Date: 04/23/2022 Left Ventricle: Systolic function is low normal to mildly decreased with an ejection fraction of 50-55%. The quantitative EF by 2D Black biplane is 53%. The quantitative EF by 3D imaging is 43%. There is abnormal septal motion consistent with left bundle branch block. Aortic Valve: There is mild regurgitation with eccentrically directed jet. There is moderate to severe stenosis. The calculated aortic valve area is 0.44 cm2. The calculated aortic valve peak gradient is 59.00 mmHg. The calculated aortic valve mean gradient is 36.00 mmHg. Mitral Valve: There is mild regurgitation with a centrally directed jet. There is mild stenosis. The mean gradient is 5.00 mmHg. The peak gradient is 10.00 mmHg. Tricuspid Valve: There is mild regurgitation. The tricuspid valve regurgitation jet is directed toward septum. There is no evidence of tricuspid valve stenosis. LAST STRESS (Within 2 Years) No results found. EKG: No results found. CATH: Transcutaneous aortic valve replacement Result Date: 07/31/2023 See dictated operative note Cardiac catheterization Result Date: 05/24/2023 Impression: 1. Known severe aortic stenosis 2. Mild nonobstructive coronary disease Recommendations: 1. Follow-up in structural heart (Within 2 Years) LAST LABS: CBC: Lab Results Component Value Date WBC 7.7 08/01/2023 HGB 7.9 (L) 08/01/2023 HCT 26.1 (L) 08/01/2023 MCV 74 (L) 08/01/2023 PLT 280 08/01/2023 BMP: Lab Results Component Value Date GLU 135 (H) 08/01/2023 CALCIUM 8.2 (L) 08/01/2023 SODIUM 138 08/01/2023 K 3.8 08/01/2023 CO2 26 08/01/2023 BUN 11 08/01/2023 CREATININE 0.95 08/01/2023 PT/INR: @INR3@ Lipids: Lab Results Component Value Date CHOL 186 11/01/2020 CHOL 201 (H) 06/11/2014 Lab Results Component Value Date HDL 106 11/01/2020 HDL 60 06/11/2014 Lab Results Component Value Date LDLCALC 69 11/01/2020 Lab Results Component Value Date TRIG 55 11/01/2020 Lab Results Component Value Date CHOLHDL 3 06/11/2014 Changes Made Orders Placed or Reconciled This Encounter Medications DISCONTD: furosemide (LASIX) 40 mg tablet Sig: Take 1 tablet (40 mg total) by mouth 2 (two) times a day before meals. furosemide (LASIX) 40 mg tablet Sig: Take 1 tablet (40 mg total) by mouth daily. Medications Discontinued During This Encounter Medication Reason furosemide (LASIX) 20 mg tablet furosemide (LASIX) 40 mg tablet IMPRESSIONS/PLAN Encounter Diagnoses Name Primary? S/p TAVR (transcatheter aortic valve replacement), bioprosthetic Yes Nonrheumatic aortic valve stenosis 1. Severe symptomatic nonrheumatic aortic stenosis status post 29 mm Evolut FX via transfemoral approach July 31, 2023 -Overall recovering well, groin sites unremarkable. Ok to slowly resume normal activities as tolerated. Plan to check an Echo at 30 days and 1 year post TAVR. Cardiac rehab referral was placed at time of recent discharge. 2. Chronic heart failure with preserved ejection fraction -Overall euvolemic, NYHA class II. Will decrease lasix to once daily. Continue to monitor for rapid weight gain or any other signs/symptoms of fluid retention 3. Acute on chronic iron deficiency anemia -Follow-up with PCP for further management. Patient states she has an appointment next week. 4. Mild nonobstructive coronary artery disease No further follow-up in the structural heart clinic is anticipated at this time. Patient is encouraged to continue to follow regularly in the general cardiology clinic. I have otherwise asked that she call if we can be of any further assistance. TODAYS ORDERS Orders Placed This Encounter Procedures Echo complete W/Strain Imaging FOLLOW UP No follow-ups on file. PCP: Tran Manzo MD Referring Physician: Tran Manzo MD [id number] [place] [address] AM Siegel 08/12/23 0933 documented in this encounter [facility] 08-01-2023 Miscellaneous Notes Dae from [facility] tati chaudhry for electrolyte replacement orders Juanjose Pearl at [facility] documented in this encounter [facility] 08-01-2023 Telephone encounter Note Dae from [facility] wants Micktoña chaudhry for electrolyte replacement orders [facility] 08-01-2023 Telephone encounter Note Juanjose Pearl at [facility] 07-29-2023 Miscellaneous Notes Called patient on Saturday07/26/23 and left message to call [facility]. Patient is scheduled for TAVR on 07/30 and her pre-procedure labs had not yet been completed. Patient returned call and states she was sick all week (vomiting/diarrhea), thinks it's food poisoning. She also mentions she has a toe wound and was prescribed antibiotics. She has a follow up with Dr. Salcedo on Friday 04/28 - which was the soonest she could be seen. Advised her to get her labs drawn as soon as possible so we can evaluate if any abnormal findings that would prohibit us from proceeding with TAVR. Otherwise, will discuss with PKR and await formal clearance from podiatry. documented in this encounter [facility] 07-29-2023 Telephone encounter Note Called patient on Saturday07/26/23 and left message to call [facility]. Patient is scheduled for TAVR on 07/30 and her pre-procedure labs had not yet been completed. Patient returned call and states she was sick all week (vomiting/diarrhea), thinks it's food poisoning. She also mentions she has a toe wound and was prescribed antibiotics. She has a follow up with Dr. Salcedo on Friday 04/28 - which was the soonest she could be seen. Advised her to get her labs drawn as soon as possible so we can evaluate if any abnormal findings that would prohibit us from proceeding with TAVR. Otherwise, will discuss with PKR and await formal clearance from podiatry. [facility] 06-28-2023 History of Present illness Narrative Images from the original note were not included. Pt scheduled for next avail TAVR [facility]: TAVR Procedure Procedure: Transcatheter Aortic Valve Replacement (TAVR) Physician: Charis Procedure Location: [facility] ([address] [place] [address]) Date/Time of Procedure: Monday July 31, 2023 at 1:00pm Registration Location: Entrance A, parking lot P1. Arrive by 11:00am (Please be aware that procedure dates/times are subject to change due to unforeseen emergencies) PRE OP REQUIREMENTS (All requirements must be completed prior to procedure or may result in cancellation) [x] Pre-Op Labs: To be completed at [facility] outpatient lab between 07/01/23-07/26/23. Orders are already in the computer. NO FASTING REQUIRED. Medication Instructions: Take all your medications the morning of the procedure with a small sip of water only. Fasting Instructions: [x] NO FOOD OR DRINK AFTER MIDNIGHT, THE NIGHT BEFORE PROCEDURE Other Instructions: [x] Hibiclens/surgery soap wash: SEE ATTACHED SHEET [x] You will be staying overnight at least one night for close observation. You must arrange to have someone drive you home when you are discharged. Important Information: Notify the [facility] of any illness, infection or COVID symptoms or a COVID positive result immediately at [phone] Please notify the [facility] if you have an allergy to contrast dye You will be staying overnight for at least one night for close observation. Please bring your most recent insurance card(s), photo ID, and current list of medications Please be aware, procedures are subject to date/time changes due to unforeseen schedule changes or emergencies at the hospital [facility] currently allows two visitors at the hospital for your procedure. All pre op requirements must be completed prior to your procedure or your procedure may be delayed or canceled. If you were unable to complete any or all of the pre op requirements, please call the [facility] as soon as possible If you have any questions or concerns about preparing for your procedure, please call the [facility] at [phone] Hibiclens/Surgery Soap Instructions Use Hibiclens (or dial antibacterial soap) skin cleanser on the night before or the morning of your procedure instead of your normal soap or body wash. Follow the package instructions. Generic equivalents are acceptable. Do NOT use any other soaps, lotions, creams, powders, sprays, deodorants, or other skin products after washing with surgery soap. Wear clean clothing after using surgery soap up until your procedure. Hibiclens or surgery soap can be found at your local pharmacy, drug store or grocery store's pharmacy section, usually along with First Aid and Antiseptic supplies. No prescription is needed. Post Procedure Instructions Discharge Instructions: Avoid lifting >10 pounds, deep bending, bath tubs, or hot tubs until your follow-up visit. You should do nothing more strenuous than very light walking until you are seen back in our clinic. Showering ok. Keep groin site(s) as clean and dry as possible. Remove any hospital applied bandages/dressings and do not reapply any bandaging of your own unless you are experiencing active oozing/bleeding of the site. Mild discomfort as well as mild to moderate amounts of bruising of the groin sites is normal after TAVR. Notify the [facility] immediately of any signs of infection including any redness, drainage or oozing of procedure site(s). Should bleeding occur, apply pressure and seek evaluation in nearest ER if unable to stop the bleeding. No driving for 72 hours after this procedure. Please seek evaluation in your nearest ER should you experience any new or worsening vision changes, numbness, weakness, severe headache, or speech or memory problems as these are NOT expected symptoms after a TAVR. Follow-up Visit/Care: Follow-up after your recent surgery includes a 1 week follow-up visit in the Structural [facility] Clinic with our Physician Extrusion Press Adjuster (SRIRAM). An echocardiogram will be completed in about 30 days and again in 1 year. Plan to schedule a follow-up appointment with your regular Human Resource Statistician in about 3 months. Be sure to notify your dentist before any dental procedures in the future as you now will require prophylactic antibiotics. Should you ever require an MRI in the future, be sure to advise the radiology staff that your heart valve is MRI conditional. Be sure to notify the [facility] should you require any surgical or dental work within the next 3 months. You should receive a wallet card in the mail with information regarding your new heart valve in about 6-8 weeks. Contact Information: Please call the [facility] with any questions or concerns related to your recent surgery at [phone]. Our clinic is open 8 am to 4:30 pm Saturday through Saturday. If your call is sent to a voice message system, please be sure to leave a detailed message with your name and callback number. If you have an urgent need, please call 911 or utilize your nearest Emergency Room. For non-urgent needs after hours, you may call [phone]. documented in this encounter [facility] 06-28-2023 Miscellaneous Notes ----- Message from Venessa Vizcaino MD sent at 06/28/2023 10:10 AM EDT ----- yes ----- Message ----- From: SRIRAM Siegel Sent: 06/28/2023 9:26 AM EDT To: Venessa Vizcaino MD Ok to schedule TAVR at this time? ----- Message ----- From: Reyna Lizama RN Sent: 06/27/2023 3:03 PM EDT To: SRIRAM Siegel Patient scheduled for TAVR on 07/31/23 documented in this encounter [facility] 06-28-2023 Telephone encounter Note ----- Message from Venessa Vizcaino MD sent at 06/28/2023 10:10 AM EDT ----- yes ----- Message ----- From: SRIRAM Siegel Sent: 06/28/2023 9:26 AM EDT To: Venessa Vizcaino MD Ok to schedule TAVR at this time? ----- Message ----- From: Reyna Lizama RN Sent: 06/27/2023 3:03 PM EDT To: SRIRAM Siegel [facility] Work Phone: 06-28-2023 Telephone encounter Note Patient scheduled for TAVR on 07/31/23 [facility] 06-26-2023 History of Present illness Narrative CV surgery consult note I am asked to render opinion regarding a 67-year-old female with critical symptomatic aortic stenosis patient's echo shows a peak gradient of 75 mmHg a mean gradient of 47 mmHg. She also has moderate mitral regurgitation with preserved left ventricular function. Cardiac catheterization shows mild nonobstructive coronary disease. The patient's main symptoms are severe shortness of breath and fatigue. The patient has severe mobility issues. She is broke her femur twice she walks short distances with a cane but is very unsteady on her feet. I had an opportunity to observe her walking both to her appointment and at the end and she really unsteady on her gait. Past medical history medications and allergies are as listed in her chart Physical exam Blood pressure 149/65 pulse is 90 temperature is 36.2 Lungs clear PA lateral Heart regular rate and rhythm 3/6 systolic murmur no clear 2nd heart sounds Impression Critical symptomatic aortic stenosis. Plan Patient has been seen and examined relevant studies have been reviewed. I think this patient has critical symptomatic aortic stenosis. Given her severe limited mobility issues I think that the TAVR approach if feasible is her best option. I did discuss the potential for surgery because this maybe a bicuspid valve and the patient has told me that she has not 100% sure she would go down the surgical route. I think given her mobility issues she is likely to end up in a senior living. Will discuss with Cardiology. Hopefully a TAVR approach will be a good option for her. documented in this encounter [facility] 04-26-2023 Miscellaneous Notes Per PKR at [facility] pt scheduled for TAVR CT next avail 05-08-23 @ 9am at [facility]. Instructions will be sent to pts mychart and mailed to pt. documented in this encounter [facility] 04-26-2023 Telephone encounter Note Per PKR at [facility] pt scheduled for TAVR CT next avail 05-08-23 @ 9am at [facility]. Instructions will be sent to pts mychart and mailed to pt. [facility] 04-26-2023 History of Present illness Narrative Images from the original note were not included. Per PKR pt scheduled for Cath next avail 05-16-23 @9:30with BD. Instructions listed below sent to pts [employer]hart and mailed to pt. [facility]: Cardiac Cath Procedure: Cardiac Cath Physician: Malika Vasquez Location: [place] [address]) Date/Time of Procedure: May at 9:30am Registration Location: Entrance C, parking lot P3, ARRIVE BY 8:00am (Please be aware that procedure dates/times are subject to change due to unforeseen emergencies) PRE PROCEDURE REQUIREMENTS (All requirements must be completed prior to procedure or may result in cancellation) Fasting Instructions: [x] NO FOOD OR DRINK for 6 HOURS PRIOR TO PROCEDURE Medication Instructions: Take all your medications with a small sip of water only Other Instructions: [x] Must have a wheelchair van driver as you will be unable to drive once discharged Important Information Notify the [facility] of any illness, infection or COVID symptoms or a COVID positive result immediately at [phone] Please notify the [facility] if you have an allergy to contrast dye You may or may not go home the same day of your procedure. Please prepare an overnight bag in case you do stay overnight Please bring your most recent insurance card(s), photo ID, and current list of medications Please be aware, procedures are subject to date/time changes due to unforeseen schedule changes or emergencies at the hospital [facility] currently allows two visitors. If you have any questions or concerns about preparing for your procedure, please call the [facility] at [phone] documented in this encounter [facility] 04-26-2023 History of Present illness Narrative Images from the original note were not included. [facility] [address] [place] [address] TELEHEALTH VIRTUAL ENCOUNTER Verbal consent was obtained for this TeleHealth encounter. This was both an audio and visual visit. Location of patient: at home on video visit CHIEF COMPLAINT / REASON FOR ENCOUNTER Severe HISTORY OF PRESENT ILLNESS 67 y/o woman with chronic back pain, did not have her pain meds for her back pain, had withdrawal from pain meds and feel and likely broke her femur. She did not know she broke it, instead thought she was having a seizure due to her opiate withdrawal. The second time she had a fall, she was trying to feed her raccoons that live in her garage and got her foot caught in the door and then she fell. The patient tells me she has 50 raccoons. She subsequently went to ER in [place], was transferred to [place] and had leg surgery 09/2022 at [facility]. The patient is having a phone visit because she does not get around well after the femur surgery She is on chronic oxycodone for chronic pain which is prescribed by her pain doctor. I let the patient know that given her relatively young age and the fact this could be a bicuspid aortic valve, then we certainly would consider a surgical approach to her aortic valve disease. The patient became emotional, and the video call was dropped on her end. I then called her back and then we resumed the phone/video visit Talking to the patient she initially said she felt fine but she is doing less and she is fatigued and I think it is because her aortic stenosis has progressed. I would recommend she have a coronary angiogram and a CTA. Subsequently I think she should come to [place] for a visit with the cardiac surgeons and me. 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 SOCIAL HISTORY Social History Socioeconomic History Marital status: Spouse name: Not on file Number of children: Not on file Years of education: Not on file Highest education level: Not on file Occupational History Not on file Tobacco Use Smoking status: Former Smokeless tobacco: Never Vaping Use Vaping Use: Every day Substances: Nicotine Devices: Pre-filled or refillable cartridge Substance and Sexual Activity Alcohol use: Yes Comment: rare Drug use: No Sexual activity: Defer Other Topics Concern Caffeine Use Yes Social History Narrative Not on file Social Determinants of Health Financial Resource Strain: Low Risk (04/20/2020) Overall Financial Resource Strain (CARDIA) Difficulty of Paying Living Expenses: Not hard at all Food Insecurity: No Food Insecurity (10/22/2022) Hunger Screening Food Insecurity - Worry: Never True Food Insecurity - Inability: Never True Transportation Needs: Unknown (04/20/2020) PRAPARE - Transportation Lack of Transportation (Medical): Patient declined Lack of Transportation (Non-Medical): Patient declined Physical Activity: Sufficiently Active (04/20/2020) Exercise Vital Sign Days of Exercise per Week: 5 days Minutes of Exercise per Session: 60 min Stress: Stress Concern Present (04/20/2020) [employer] - Occupational Stress Questionnaire Feeling of Stress : To some extent Social Connections: Socially Isolated (04/20/2020) Social Connection and Isolation Panel [NHANES] Frequency of Communication with Friends and Family: More than three times a week Frequency of Social Gatherings with Friends and Family: More than three times a week Attends Restoration Services: Never Active Member of Clubs or Organizations: No Attends Club or Organization Meetings: Never Marital Status: Never Interpersonal Safety: Unknown (04/20/2020) Humiliation, Afraid, Rape, and Kick questionnaire Fear of Current or Ex-Partner: Patient declined Emotionally Abused: Patient declined Physically Abused: Patient declined Sexually Abused: Patient declined Housing Instability: Low Risk (09/24/2022) Housing Instability Housing Instability: No FAMILY HISTORY family history includes Cancer in her mother; Heart disease in her father; Hypertension in her father; Stroke in her father; Thyroid disease in her mother. MEDICATIONS Prior to Admission medications Medication Sig Start Date End Date Taking? Authorizing Provider amitriptyline (ELAVIL) 25 mg tablet Take 1 tablet (25 mg total) by mouth nightly. Not In System Ref Prov atorvastatin (LIPITOR) 10 mg tablet Take 1 tablet (10 mg total) by mouth in the morning. Patient not taking: Reported on 10/22/2022 Not In System Ref Prov buPROPion XL (WELLBUTRIN XL) 150 mg 24 hr tablet Take 1 tablet (150 mg total) by mouth in the morning. Not In System Ref Prov calcium carbonate-vitamin D3 (CALCIUM 500 + D) 500 mg(1,250mg) -200 units per tablet Take 1 tablet by mouth in the morning and 1 tablet in the evening. Take with meals. Not In System Ref Prov cholecalciferol 1,000 units tablet Take 1 tablet (1,000 Units total) by mouth in the morning. Not In System Ref Prov diphenhydrAMINE (SOMINEX) 25 mg tablet Take 1 tablet (25 mg total) by mouth nightly as needed for sleep. Not In System Ref Prov docusate sodium (COLACE) 100 mg capsule Take 1 capsule (100 mg total) by mouth in the morning and 1 capsule (100 mg total) before bedtime. Not In System Ref Prov enoxaparin (LOVENOX) 40 mg/0.4 mL syringe Inject under the skin daily. Not In System Ref Prov fluticasone (VERAMYST) 27.5 mcg/actuation nasal spray Administer 1 spray into each nostril in the morning. Patient not taking: Reported on 10/22/2022 Not In System Ref Prov furosemide (LASIX) 20 mg tablet Take 1 tablet (20 mg total) by mouth daily. Not In System Ref Prov lamoTRIgine (LaMICtal) 100 mg tablet Take 1.5 tablets (150 mg total) by mouth in the morning and 1.5 tablets (150 mg total) before bedtime. Not In System Ref Prov levothyroxine (SYNTHROID, LEVOTHROID) 200 MCG tablet Take 1 tablet (200 mcg total) by mouth in the morning. Not In System Ref Prov LYSINE HCL ORAL Take by mouth daily. Not In System Ref Prov omeprazole (PriLOSEC) 40 mg capsule Take 1 capsule (40 mg total) by mouth in the morning. 08/03/22 Lucia Hood MD oxyCODONE (OxyCONTIN) 10 mg 12 hr tablet Take 1 tablet (10 mg total) by mouth every 6 (six) hours as needed. Max Daily Amount: 40 mg Not In System Ref Prov sertraline (ZOLOFT) 100 mg tablet Take 1.5 tablets (150 mg total) by mouth in the morning. Not In System Ref Prov spironolactone (ALDACTONE) 25 mg tablet Take 1 tablet (25 mg total) by mouth in the morning. 09/24/22 Gemma Haider MD traZODone (DESYREL) 100 mg tablet Take 2 tablets (200 mg total) by mouth as needed. Not In System Ref Prov ALLERGIES Patient has no known allergies. REVIEW OF SYSTEMS Review of Systems Constitutional: Negative for malaise/fatigue. HENT: Negative for nosebleeds. Eyes: Negative for blurred vision and double vision. Respiratory: Negative for cough, shortness of breath and wheezing. Hematologic/Lymphatic: Does not bruise/bleed easily. Skin: Negative for rash. Musculoskeletal: Positive for arthritis and muscle cramps. Negative for joint pain, joint swelling and muscle weakness. Gastrointestinal: Positive for heartburn. Negative for abdominal pain, nausea and vomiting. Genitourinary: Negative for hematuria. Neurological: Positive for headaches. Negative for dizziness, light-headedness and weakness. Psychiatric/Behavioral: Negative for depression. The patient is not nervous/anxious. OBJECTIVE PHYSICAL VISUAL EXAM Constitutional: Awake, alert, normal development, well-nourished Head: Normocephalic, without obvious abnormality, atraumatic Eyes: Conjunctivae and lids appear unremarkable Neck: No thyroid enlargement on inspection or evidence of JVD Respiratory: Normal respiratory effort, no accessory muscle use Skin: Skin color, turgor normal, no rashes or lesions Neurologic: Grossly normal, no focal deficits Psych: Oriented x3, appropriate affect and mood ASSESSMENT Severe , symptomatic, likely bicuspid valve Chronic pain issues on chronic oxycontin, follows in pain clinic Recent fall with fracture if her femur in 2 locations, the 1st time she thought she was having a seizure and did not seek medical attention, the 2nd time she fell while trying to feed her pet raccoons and then ended up having surgery after being transferred to [facility] Left bundle-branch block on EKG Low normal LV systolic function Recommendations: I would recommend she have a coronary angiogram I would recommend she have a CTA TAVR protocol After the testing is done she should see a cardiac surgeon and me. Given her young age we should have consideration for a surgical approach to her aortic valve disease. She has not considered a candidate for surgery then we could consider potential transcatheter options. Dr. Charis Carolina CNA documented in this encounter [facility] 03-21-2023 Miscellaneous Notes [facility] tracker documented in this encounter [facility] 03-21-2023 Telephone encounter Note [facility] tracker [facility] 03-14-2023 History of Present illness Narrative Devika Ellis is a 67 y.o. female presents with chief complaint of Medicare Annual Wellness Visit Subsequent HPI: HPI Over the past 2 weeks, how often have you been bothered by any of the following problems? Little interest or pleasure in doing things: Not at all Feeling down, depressed, or hopeless: Not at all Patient Health Questionnaire-2 Score: 0 Over the past 2 weeks, how often have you been bothered by any of the following problems? Trouble falling or staying asleep, or sleeping too much: More than half the days Feeling tired or having little energy: Not at all Poor appetite or overeating: Not at all Feeling bad about yourself - or that you are a failure or have let yourself or your family down: Several days Trouble concentrating on things, such as reading the newspaper or watching television: Several days Moving or speaking so slowly that other people could have noticed? Or the opposite - being so fidgety or restless that you have been moving around a lot more than usual.: Not at all Thoughts that you would be better off or hurting yourself in some way: Not at all Patient Health Questionnaire-9 Score: 4 Hill Fall Risk History of Falling, Immediate or Within 3 Months: Yes Secondary Diagnosis: Yes Ambulatory Aid: Crutches/cane/walker Intravenous Therapy/Heparin Lock: No Gait/Transferring: Impaired Mental Status: Oriented to own ability Hill Fall Risk Score: 75 Health Risk Assessment Form Do you need help eating, bathing, using the toilet, dressing, or getting around your home?: No Can you prepare your own meals?: Yes Can you do your own housework without help?: Yes (with help) Can you shop for groceries or clothes without help?: Yes Do you exercise for about 20 minutes 3 or more days a week?: No How confident are you that you can control and manage most of your health problems?: Somewhat confident Can you mange your money, credit cards and accounts, pay bills and taxes?: Yes Vision Screening: Yes, patient was advised to have yearly eye exam Hearing Screening: Yes, no gross abnormalities Cognitive Screening Self Assessment: No overt cognitive deficiency is apparent by direct observation Clock Drawing: Inability or Refusal to Draw Clock - 0 Pain Assessment Pain Score: 8 SUBJECTIVE: MEDICATIONS: Current Outpatient Medications Medication Instructions amLODIPine (NORVASC) 5 mg, Oral, Daily atorvastatin (LIPITOR) 10 mg, Oral, Daily buPROPion XL (WELLBUTRIN XL) 150 mg, Oral, Every morning, Do not crush, chew, or split. Calcium Carbonate-Vitamin D (Oyster Shell Calcium/D) 500-5 MG-MCG tablet 1 tablet, Oral, 2 times daily with meals cholecalciferol (VITAMIN D-3) 1,000 Units, Oral, Daily RT furosemide (Lasix) 40 MG tablet TAKE 1 TABLET TWICE DAILY hydrOXYzine pamoate (VISTARIL) 25 mg, Oral, Every 8 hours PRN lamoTRIgine (LAMICTAL) 150 mg, Oral, 2 times daily levothyroxine (SYNTHROID, LEVOXYL) 200 mcg, Oral, Daily before breakfast omeprazole (PRILOSEC) 40 mg, Oral, Daily RT oxyCODONE (ROXICODONE) 10 mg, Oral, Every 4 hours PRN potassium chloride CR (Klor-Con M20) 20 MEQ ER tablet 20 mEq, Oral, Daily sertraline (ZOLOFT) 150 mg, Oral, Daily spironolactone (ALDACTONE) 25 mg, Oral, Every morning traZODone (DESYREL) 200 mg, Oral, Nightly REVIEW OF SYMPTOMS: Review of Systems Constitutional: Negative for chills [...] gait problem. Skin: Negative. Neurological: Negative for dizziness and numbness. Endocrine: Negative. Allergic/Immunologic: Negative. OBJECTIVE: Visit Vitals BP 152/90 (BP Location: Right arm, Patient Position: Sitting, BP Cuff Size: Small adult) Pulse 100 Resp 20 Ht 5' 3.5 Wt 197 lb BMI 34.35 kg/m Smoking Status Former BSA 2 m Physical Exam Vitals reviewed. Constitutional: Appearance: Normal appearance. HENT: Head: Normocephalic. Right Ear: Hearing and tympanic membrane normal. Left Ear: Hearing and tympanic membrane normal. Nose: Nose normal. Right Turbinates: Not enlarged. Left Turbinates: Not enlarged. Right Sinus: No maxillary sinus tenderness or frontal sinus tenderness. Left Sinus: No maxillary sinus tenderness or frontal sinus tenderness. Mouth/Throat: Lips: [place]. Mouth: Mucous membranes are moist. Pharynx: Oropharynx is clear. Uvula midline. Tonsils: No tonsillar exudate. Eyes: General: Lids are normal. Vision grossly intact. Gaze aligned appropriately. Extraocular Movements: Extraocular movements intact. Conjunctiva/sclera: Conjunctivae normal. Neck: Thyroid: No thyroid mass or thyromegaly. Vascular: No carotid bruit. Trachea: Trachea normal. Cardiovascular: Rate and Rhythm: Normal rate and regular rhythm. Pulses: Normal pulses. Heart sounds: Normal heart sounds. Pulmonary: Effort: Pulmonary effort is normal. Breath sounds: Normal breath sounds and air entry. Abdominal: General: Abdomen is flat. Bowel sounds are normal. Palpations: Abdomen is soft. Musculoskeletal: Cervical back: Full passive range of motion without pain, normal range of motion and neck supple. Lymphadenopathy: Cervical: No cervical adenopathy. Skin: General: Skin is warm. Capillary Refill: Capillary refill takes less than 2 seconds. Neurological: Mental Status: She is alert and oriented to person, place, and time. Sensory: Sensation is intact. Motor: Motor function is intact. Coordination: Coordination is intact. Psychiatric: Attention and Perception: Attention and perception normal. Mood and Affect: Mood and affect normal. Speech: Speech normal. Behavior: Behavior is cooperative. Thought Content: Thought content normal. ASSESSMENT AND PLAN: Assessment/Plan Diagnoses and all orders for this visit: Encounter for wellness examination - Lipid panel; Future - TSH W/REFLEX TO FT4; Future\ Wellness performed at [facility] today. Height, weight, BMI, problem list, and immunizations records reviewed. Dental care discussed with patient. Encouraged annual vision screenings and semi-annual dental care. Encouraged healthy eating habits, limit or eliminate junk food and sources of excess calories. Encouraged regular periods of exercise, 150 minutes of exercise weekly or amount appropriate to current level of function. Discussed family/friend/social support and importance of maintaining emotional connections. Follow up annually and as needed. Encounter for screening mammogram for breast cancer - Bilateral screening mammogram with tomosynthesis; Future Screening for colon cancer - Cologuard colon cancer screening Seizure (CMS/HCC)-stable follows with neuro Cognitive disorder-stable follows with neuro Neuropathy-stable follows with neuro Hereditary and idiopathic neuropathy, unspecified Chronic pain due to injury-stable follows with pain management Prurigo nodularis-stable Asthma, unspecified asthma severity, unspecified whether complicated, unspecified whether persistent (CMS/HCC-stable Nonrheumatic aortic valve stenosis-stable follows with cardio. Essential hypertension (CMS/HCC)Discussed current management plan. Goal BP less then 130/80. Discussed heart healthy diet, increase fruits and vegetables, limit salt intake. Encouraged increase physical exercise, try to be as active as possible at least 150 mins per week. Importance of weight management with a goal BMI less then 27 discussed. Discussed complications of uncontrolled blood pressure. Patient instructed to monitor BP's 1-2 times a week, keep a log, and bring to next visit. Barriers to care and medication compliance discussed. Patient voices understanding of meds. Heart murmur-stable follows with cardio Peripheral vascular disease (CMS/HCC)-stable Hepatitis C virus infection without hepatic coma, unspecified chronicity (CMS/HCC)-stable follows with GI Infectious viral hepatitis-stable Iron deficiency anemia, unspecified iron deficiency anemia type-stable Bipolar II disorder (CMS/HCC)-stable follows with psychiatry Generalized anxiety disorder (CMS/HCC)-stabke History of hysterectomy Acquired hypothyroidism (CMS/HCC)-stable Obesity (BMI 30.0-34.9) Acquired hallux valgus of left foot-stable Acute idiopathic gout of right foot-stable Arthritis-stable Fibromyalgia, primary-stable Arthralgia of shoulder, unspecified laterality-stable Displaced fracture of medial condyle of right femur, initial encounter for closed fracture (CMS/HCC)-stable follows with ortho Major depressive disorder, remission status unspecified, unspecified whether recurrent (CMS/HCC)-stable Mixed hyperlipidemia (CMS/HCC)-await results Mood disorder (CMS/HCC)-stable Other orders - T4, free documented in this encounter [facility] 03-13-2023 Miscellaneous Notes ----- Message from Wilmar Pope MD sent at 03/11/2023 8:13 PM EST ----- Just send to structural for severe with combined surgical visit,fairly quick increase in gradients documented in this encounter [facility] 03-13-2023 Telephone encounter Note ----- Message from Wilmar Pope MD sent at 03/11/2023 8:13 PM EST ----- Just send to [facility] for severe with combined surgical visit,fairly quick [facility] Miscellaneous Notes Devika's surgery was re-scheduled from 04/06/2022 to Saturday04/09/2022 at 11:45am because she is going to have a back procedure on - 04/05/2022. Devika called to cancel her surgery. She is in a lot of pain and would like to call us when she is ready to reschedule. [facility] Telephone encounter Note Devika's surgery was re-scheduled from 04/06/2022 to Saturday04/09/2022 at 11:45am because she is going to have a back procedure on 04/05/2022. [facility]22 Telephone encounter Note Devika called to cancel her surgery. She is in a lot of pain and would like to call us when she is ready to reschedule. [facility] 10-12-2021 Note PROCEDURE: XR FOOT L T MIN 3 VIEWS HISTORY: Pain in left foot ; left second toe curling; skin inflammation COMPARISON: XR foot bilateral 09/22/2020 FINDINGS: BONES:Persistent flexion of the toes all images. Moderate degenerative changes of the tarsal-metatarsal joints. Loss of plantar arch. Calcaneal plantar spur. No fracture or dislocation. SOFT TISSUES:No visible soft tissue swelling. EFFUSION:None visible. OTHER: Negative. IMPRESSION: 1. Chronic degenerative changes. 2. Persistent curling of the toes as described in patient history. Electronically authenticated by: RUBEN ANTHONY Date: 2021-10-12 12:49 [facility] Evaluation note Diagnosis Encounter for wellness examination- Primary Encounter for screening mammogram for breast cancer Screening for colon cancer Special screening for malignant neoplasms, colon Seizure (CMS/HCC) Other convulsions Cognitive disorder Unspecified persistent mental disorders due to conditions classified elsewhere Neuropathy Mononeuritis of unspecified site Hereditary and idiopathic neuropathy, unspecified Chronic pain due to injury Chronic pain due to trauma Prurigo nodularis Lichenification and lichen simplex chronicus Asthma, unspecified asthma severity, unspecified whether complicated, unspecified whether persistent (CMS/HCC) Nonrheumatic aortic valve stenosis Essential hypertension (CMS/HCC) Unspecified essential hypertension Heart murmur Undiagnosed cardiac murmurs Peripheral vascular disease (CMS/HCC) Unspecified peripheral vascular disease Hepatitis C virus infection without hepatic coma, unspecified chronicity (CMS/HCC) Infectious viral hepatitis Viral hepatitis A without mention of hepatic coma Acute blood loss anemia Acute posthemorrhagic anemia Iron deficiency anemia, unspecified iron deficiency anemia type Bipolar II disorder (CMS/HCC) Other bipolar disorders Generalized anxiety disorder (CMS/HCC) Generalized anxiety disorder Abnormal finding on screening procedure Anxiety Anxiety state, unspecified History of hysterectomy Acquired absence of both cervix and uterus Acquired hypothyroidism (CMS/HCC) Unspecified hypothyroidism Obesity (BMI 30.0-34.9) Acquired hallux valgus of left foot Acute idiopathic gout of right foot Arthritis Unspecified arthropathy, site unspecified Fibromyalgia, primary Arthralgia of shoulder, unspecified laterality Displaced fracture of medial condyle of right femur, initial encounter for closed fracture (CMS/HCC) Major depressive disorder, remission status unspecified, unspecified whether recurrent (CMS/HCC) Mixed hyperlipidemia (CMS/HCC) Mixed hyperlipidemia Mood disorder (CMS/HCC) Unspecified episodic mood disorder [facility] Diagnosis Dizziness- Primary Dizziness and giddiness Essential hypertension (CMS/HCC) Unspecified essential hypertension Obesity (BMI 30.0-34.9) Generalized anxiety disorder (CMS/HCC) Generalized anxiety disorder Acute intractable headache, unspecified headache type Neuropathy Mononeuritis of unspecified site Pulmonary hypertension, unspecified (CMS/HCC) Acute intractable headache, unspecified headache type Dizziness Dizziness and giddiness [facility]* Diagnosis Hypokalemia- Primary Hypopotassemia [facility]* Diagnosis Essential hypertension ([facility])- Primary Unspecified essential hypertension Interstitial pulmonary disease, unspecified ([facility]) Iron deficiency anemia, unspecified iron deficiency anemia type [facility]* Diagnosis Bipolar II disorder ([facility]) Other bipolar disorders [facility]* Diagnosis Chronic bilateral low back pain with bilateral sciatica- Primary Cervical radiculopathy Brachial neuritis or radiculitis nos documented [facility]* Diagnosis Essential hypertension ([facility]) Unspecified essential hypertension [facility]* Diagnosis Gastroesophageal reflux disease without esophagitis Esophageal reflux [facility]* Diagnosis Essential hypertension ([facility])- Primary Unspecified essential hypertension Dizziness Dizziness and giddiness Iron deficiency anemia, unspecified iron deficiency anemia type documented [facility]* Diagnosis Hypokalemia Hypopotassemia documented [facility]* Diagnosis Mixed hyperlipidemia ([facility]) Mixed hyperlipidemia [facility]* Diagnosis Iron deficiency anemia, unspecified iron deficiency anemia type documented [facility]* Diagnosis Dyspepsia Dyspepsia and other specified disorders of function of stomach [facility]* Diagnosis Severe aortic stenosis- Primary Aortic valve disorders [facility] this [facility] Diagnosis Nonrheumatic aortic valve stenosis- Primary documented in this encounter [facility]* Diagnosis Nonrheumatic aortic valve stenosis- Primary Shortness of breath Severe aortic stenosis- Primary Aortic valve disorders Severe aortic stenosis Aortic valve disorders [facility]* Diagnosis S/p TAVR (transcatheter aortic valve replacement), bioprosthetic- Primary Nonrheumatic aortic valve stenosis [facility]* Diagnosis Nonrheumatic aortic valve stenosis [facility]* Diagnosis Nonrheumatic aortic valve stenosis- Primary [facility] Diagnosis S/p TAVR (transcatheter aortic valve replacement), bioprosthetic- Primary [facility]* Diagnosis Neuropathy- Primary Mononeuritis of unspecified site Chronic bilateral low back pain with bilateral sciatica [facility]* Diagnosis Acute left otitis media- Primary [facility]* Diagnosis Need for vaccination- Primary Need for prophylactic vaccination and inoculation against unspecified single disease Encounter for annual wellness exam in Medicare patient Bipolar II disorder ([facility]) Other bipolar disorders Generalized anxiety disorder ([facility]) Generalized anxiety disorder Acquired hypothyroidism ([facility]) Unspecified hypothyroidism Asthma, unspecified asthma severity, unspecified whether complicated, unspecified whether persistent ([facility]) Essential hypertension ([facility]) Unspecified essential hypertension Hepatitis C virus infection without hepatic coma, unspecified chronicity ([facility]) Major depressive disorder, remission status unspecified, unspecified whether recurrent ([facility]) Mixed hyperlipidemia ([facility]) Mixed hyperlipidemia Mood disorder ([facility]) Unspecified episodic mood disorder Peripheral vascular disease ([facility]) Unspecified peripheral vascular disease Acute blood loss anemia Acute posthemorrhagic anemia Fibromyalgia, primary Heart murmur Undiagnosed cardiac murmurs S/p TAVR (transcatheter aortic valve replacement), bioprosthetic Pulmonary hypertension, unspecified ([facility]) Seizure ([facility]) Other convulsions Vitamin D deficiency Interstitial pulmonary disease, unspecified Emphysema, unspecified Chronic systolic (congestive) heart failure [facility]* Diagnosis Acquired hypothyroidism ([facility]) Unspecified hypothyroidism documented [facility]* Diagnosis Bipolar II disorder ([facility])- Primary Other bipolar disorders Insomnia, uncontrolled Generalized anxiety disorder ([facility]) Generalized anxiety disorder documented [facility]* Diagnosis S/p TAVR (transcatheter aortic valve replacement), bioprosthetic- Primary [facility]* Diagnosis Seasonal allergies- Primary Allergic rhinitis, cause unspecified [facility]* Diagnosis Dyspepsia Dyspepsia and other specified disorders of function of stomach Iron deficiency anemia, unspecified iron deficiency anemia type documented [facility]* Diagnosis New daily persistent headache- Primary Neuropathy Mononeuritis of unspecified site Traumatic incomplete tear of right rotator cuff, subsequent encounter [facility]* Diagnosis Lump on neck- Primary Swelling, mass, or lump in head and neck Family history of thyroid cancer Family history of other specified malignant neoplasm New daily persistent headache Essential hypertension Unspecified essential hypertension Acquired hypothyroidism Unspecified hypothyroidism [facility]* Diagnosis Obesity (BMI 30.0-34.9)- Primary documented [facility]* Diagnosis Bipolar II disorder (HCC) Other bipolar disorders Generalized anxiety disorder Generalized anxiety disorder documented [facility]* Diagnosis Essential hypertension Unspecified essential hypertension Obesity (BMI 30.0-34.9) Mixed hyperlipidemia Mixed hyperlipidemia documented [facility]* Diagnosis Nonrheumatic aortic valve stenosis- Primary documented in this encounter [facility] Diagnosis Essential hypertension Unspecified essential hypertension documented [facility]* Diagnosis Bipolar II disorder (HCC) Other bipolar disorders Generalized anxiety disorder Generalized anxiety disorder [facility]* Diagnosis Chronic pain due to injury- Primary Chronic pain due to trauma Cognitive disorder Unspecified persistent mental disorders due to conditions classified elsewhere At high risk for injury related to fall Unsteady gait Abnormality of gait documented in this encounter [facility] filedocumented [facility] on filedocumented in this encounterPro[facility] SystemInstructionsNot on filedocumented in this encounterProMed[facility] SystemInstructionsNot on filedocumented in this [facility] InstructionsNot on filedocumented in this [facility] InstructionsNot on filedocumented in this [facility] InstructionsNot on filedocumented in this [facility] InstructionsNot on filedocumented in this [facility] InstructionsNot on filedocumented in this encounterProMedica Health SystemReason for referral (narrative)* Consultation (Routine) - Pending Review Specialty Diagnoses / Procedures Referred By Rosalind gallardo Referred To Contact Cardiology Diagnoses Nonrheumatic aortic valve stenosis Wilmar Pope MD [address] [place] [address] [facility] [address] [place] [address] Referral ID Status Reason Start Date Expiration Date Visits Requested Visits Authorized [id number] Pending Review Specialty Services Required 03/13/2023 03/12/2024 1 1 [facility] Discharge Instructions * Instructions* Shaan Thornton MD - 11/03/2018 [facility] DISCHARGE INSTRUCTIONS Do not remove eye patch/shield today. Protect the operated eye during sleep by covering it with clear plastic shield. Tape the shield securely to the face before retiring . Do this for one week after surgery. Avoid bumping the operated eye during the daytime. Sensitivity to light and watering of the eye is normal during the first month. Wearing of dark glasses will help these symptoms and this is optional. Minor crusting and discharge adherent to the lid margins will persist till the incision heals. Cleanse the lids by application of a warm compress several times a day as needed. Use of either the operated eye or unoperated eye is not harmful. Until the new glasses are prescribed, the operated eye may be out of focus and may not see details clearly. Vision maybe clearer in the operated eye without glasses. You may do everything necessary to care for yourself, including hair care, tooth brushing, dressing, etc. Light work,including stooping over and lifting, is not harmful. Please phone if any problems arise during the healing period. The office number is [phone]. Dr. Thornton's home phone is [phone]. Take surgery bag and all eye drops to Dr. Thornton's office tomorrow 1:00 PM. You may resume your normal diet. Start your eye drops tomorrow after your post-op appointment: Ofloxacin/Polytrim one drop to the operated eye 4 times daily Prednisolone one drop to the operated eye 4 times daily documented in this encounter* Instructions* Shaan Thornton MD - 11/17/2018 [facility] DISCHARGE INSTRUCTIONS Do not remove eye patch/shield today. Protect the operated eye during sleep by covering it with clear plastic shield. Tape the shield securely to the face before retiring . Do this for one week after surgery. Avoid bumping the operated eye during the daytime. Sensitivity to light and watering of the eye is normal during the first month. Wearing of dark glasses will help these symptoms and this is optional. Minor crusting and discharge adherent to the lid margins will persist till the incision heals. Cleanse the lids by application of a warm compress several times a day as needed. Use of either the operated eye or unoperated eye is not harmful. Until the new glasses are prescribed, the operated eye may be out of focus and may not see details clearly. Vision maybe clearer in the operated eye without glasses. You may do everything necessary to care for yourself, including hair care, tooth brushing, dressing, etc. Light work,including stooping over and lifting, is not harmful. Please phone if any problems arise during the healing period. The office number is [phone]. Dr. Thornton's home phone is [phone]. Take surgery bag and all eye drops to Dr. Thornton's office tomorrow 1:00 pm. You may resume your normal diet. Start your eye drops tomorrow after your post-op appointment: Ofloxacin/Polytrim one drop to the operated eye 4 times daily Prednisolone one drop to the operated eye 4 times daily documented in this encounter History of Present Illness * Brice Joy RN - 11/03/2018 11:15 AM EDT Discharge Criteria Inpatients must meet Criteria 1 through 7. All other patients are either YES or N/A. If a NO is chosen then Anesthesia or Surgeon must be notified. 1. Minimum 30 minutes after last dose of sedative medication, minimum 120 minutes after last dose of reversal agent. Yes 2. Systolic BP stable within 20 mmHg for 30 minutes & systolic BP between 90 & 180 or within 10 mmHg of baseline. Yes 3. Pulse between 60 and 100 or within 10 bpm of baseline. Yes 4. Spontaneous respiratory rate >/= 10 per minute. Yes 5. SaO2 >/= 95 or >/= baseline. Yes 6. Able to cough and swallow or return to baseline function. Yes 7. Alert and oriented or return to baseline mental status. Yes 8. Demonstrates controlled, coordinated movements, ambulates with steady gait, or return to baseline activity function. Yes 9. Minimal or no pain or nausea, or at a level tolerable and acceptable to patient. Yes 10. Takes and retains oral fluids as allowed. Yes 11. Procedural / perioperative site stable. Minimal or no bleeding. Yes 12. If GI endoscopy procedure, minimal or no abdominal distention or passing flatus. N/A 13. Written discharge instructions and emergency telephone number provided. Yes 14. Accompanied by a responsible adult. Yes Adult patient discharged from facility without responsible person meets above criteria plus the following: a) remains awake without stimulus for 30 minutes b) oriented appropriate for age c) all vital signs stable d) no significant risk of losing protective reflexes e) able to maintain pre-procedure mobility without assistance f) no nausea or dizziness g) transportation arrangements that do not require patient to operate motor Vehicle. N/A * Brice Joy RN - 11/03/2018 11:08 AM EDT Discharge instructions given to patient and sister with understanding voiced, questions answered. * Maggi Bro RN - 11/03/2018 10:30 AM EDT Report given to Pat RN documented in this encounter* Sherley Hummel RN - 11/17/2018 10:52 AM EDT Discharge instructions given to patient and sister, Rosa, verbalized understanding, no further questions at this time. Pt stated readiness for discharge. Discharge Criteria Inpatients must meet Criteria 1 through 7. All other patients are either YES or N/A. If a NO is chosen then Anesthesia or Surgeon must be notified. 1. Minimum 30 minutes after last dose of sedative medication, minimum 120 minutes after last dose of reversal agent. Yes 2. Systolic BP stable within 20 mmHg for 30 minutes & systolic BP between 90 & 180 or within 10 mmHg of baseline. Yes 3. Pulse between 60 and 100 or within 10 bpm of baseline. Yes 4. Spontaneous respiratory rate >/= 10 per minute. Yes 5. SaO2 >/= 95 or >/= baseline. Yes 6. Able to cough and swallow or return to baseline function. Yes 7. Alert and oriented or return to baseline mental status. Yes 8. Demonstrates controlled, coordinated movements, ambulates with steady gait, or return to baseline activity function. Yes 9. Minimal or no pain or nausea, or at a level tolerable and acceptable to patient. Yes 10. Takes and retains oral fluids as allowed. Yes 11. Procedural / perioperative site stable. Minimal or no bleeding. Yes 12. If GI endoscopy procedure, minimal or no abdominal distention or passing flatus. N/A 13. Written discharge instructions and emergency telephone number provided. Yes 14. Accompanied by a responsible adult. Yes Adult patient discharged from facility without responsible person meets above criteria plus the following: a) remains awake without stimulus for 30 minutes b) oriented appropriate for age c) all vital signs stable d) no significant risk of losing protective reflexes e) able to maintain pre-procedure mobility without assistance f) no nausea or dizziness g) transportation arrangements that do not require patient to operate motor Vehicle. 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 Latest Code Status on File Code Status Date Activated Date Inactivated Comments Full Code 11/03/2018 10:50 AM Full Code 11/03/2018 9:33 AM 11/03/2018 10:45 AM Latest Code Status on File Code Status Date Activated Date Inactivated Comments Full Code 11/17/2018 10:41 AM Full Code 11/17/2018 9:26 AM 11/17/2018 10:41 AM Full Code 11/03/2018 10:50 AM 11/03/2018 1:24 PM Date Activated Date Inactivated Comments 09/19/2022 5:57 AM 09/24/2022 6:07 PM Date Activated Date Inactivated Comments 03/01/2022 5:50 PM 03/03/2022 4:09 PM Date Activated Date Inactivated Comments 04/21/2020 8:00 AM 04/21/2020 6:00 PM Latest Code Status on File Code Status Date Activated Date Inactivated Comments Full Code 09/19/2022 5:57 AM 09/24/2022 6:07 PM Code Status History Code Status Date Activated Date Inactivated Comments Full Code 03/01/2022 5:50 PM 03/03/2022 4:09 PM Full Code 04/21/2020 8:00 AM 04/21/2020 6:00 PM Date Activated Date Inactivated Comments 09/19/2022 5:57 AM 09/24/2022 6:07 PM Date Activated Date Inactivated Comments 03/01/2022 5:50 PM 03/03/2022 4:09 PM Date Activated Date Inactivated Comments 04/21/2020 8:00 AM 04/21/2020 6:00 PM Latest Code Status on File Code Status Date Activated Date Inactivated Comments Full Code 09/19/2022 5:57 AM 09/24/2022 6:07 PM Code Status History Code Status Date Activated Date Inactivated Comments Full Code 03/01/2022 5:50 PM 03/03/2022 4:09 PM Full Code 04/21/2020 8:00 AM 04/21/2020 6:00 PM Date Activated Date Inactivated Comments 08/01/2023 1:01 PM 08/01/2023 6:12 PM Date Activated Date Inactivated Comments 09/19/2022 5:57 AM 09/24/2022 6:07 PM Date Activated Date Inactivated Comments 03/01/2022 5:50 PM 03/03/2022 4:09 PM Date Activated Date Inactivated Comments 04/21/2020 8:00 AM 04/21/2020 6:00 PM Date Activated Date Inactivated Comments 08/01/2023 1:01 PM 08/01/2023 6:12 PM Date Activated Date Inactivated Comments 09/19/2022 5:57 AM 09/24/2022 6:07 PM Date Activated Date Inactivated Comments 03/01/2022 5:50 PM 03/03/2022 4:09 PM Date Activated Date Inactivated Comments 04/21/2020 8:00 AM 04/21/2020 6:00 PM Summary Purpose Family History No Family History Records FoundNo Family History Records FoundNo Family History Records FoundNo Family History Records FoundNo Family History Records Found Reason for Referral Specialty Diagnoses / Procedures Referred By Rosalind gallardo Referred To Contact Radiology Diagnoses Acute intractable headache, unspecified headache type Dizziness Procedures CT head wo IV contrast Sally Zhu NP [address] [place] [address] [place] [address] Referral ID Status Reason Start Date Expiration Date Visits Re quested Visits Authorized [id number] Closed 11/12/2023 05/10/2024 1 1 Specialty Diagnoses / Procedures Referred By Contac t Referred To Contact Diagnoses Nonrheumatic aortic valve stenosis Procedures Echo Lmtd (Structural Heart) wocon w Doppler Dakota Luis, PA Jesica [facility] [address] [place] [id number] Referral ID Status Reason Start Date Expiration Date V isits Requested Visits Authorized [id number] Pending Review 07/12/2023 07/11/2024 1 1 Specialty Diagnoses / Procedures Referred By Contac t Referred To Contact Diagnoses S/p TAVR (transcatheter aortic valve replacement), bioprosthetic Procedures Echo complete W/Strain Imaging Dakota Luis PA [address] [address] [address] Referral ID Status Reason Start Date Expiration Date V isits Requested Visits Authorized [id number] Pending Review 08/08/2023 08/07/2024 1 1 Specialty Diagnoses / Procedures Referred By Contac t Referred To Contact Radiology Diagnoses Nonrheumatic aortic valve stenosis Procedures CT CTA TAVR Dakota Luis PA Nalini ZHAO [address] [place] [id number] [id number] Referral ID Status Reason Start Date Expiration Date V isits Requested Visits Authorized [id number] Pending Review 04/26/2023 04/25/2024 1 1 Specialty Diagnoses / Procedures Referred By Contac t Referred To Contact Diagnoses S/p TAVR (transcatheter aortic valve replacement), bioprosthetic Procedures Echo complete W/O contrast Dakota Luis PA [address] [address] Referral ID Status Reason Start Date Expiration Date V isits Requested Visits Authorized [id number] Pending Review 09/19/2023 09/18/2024 1 1 Additional Source Comments Reason for Visit (unrecogniz ed section and content) Status Reason Specialty Diagnoses / Procedures Re ferred By Contact Referred To Contact Diagnoses Cataract COMBINED FORMS OF AGE RELATED CATARACT Procedures PA REMV CATARACT EXTRACAP,INSERT LENS EYE CATARACT EMULSIFICATION IOL IMPLANT Shaan Thornton MD [address] [place] [address] [facility] Status Reason Specialty Diagnoses / Procedures Re ferred By Contact Referred To Contact Diagnoses Cataract COMBINED FORMS OF AGE RELATED CATARACT - LEFT Procedures PA REMV CATARACT EXTRACAP,INSERT LENS EYE CATARACT EMULSIFICATION IOL IMPLANT Shaan Thornton MD [address] [place] [address] [facility] Reason Comments Medicare Annual Wellness Visit Subsequen t Reason Comments Follow-up Reason Comments Follow-up Reason Comments Med Management Follow-up Reason Comments Med Refill Reason Onset Date Comments TAVR Instructions 06/28/2023 Reason Comments Follow-up OV F/U W KKY TAVR -APPT SCHED W PT Reason Comments 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 Dr. Tim Vaughan in [place], . full set of dentures. Specialty Diagnoses / Procedures Referred By Rosalind gallardo Referred To Contact Cardiology Diagnoses Nonrheumatic aortic valve stenosis Wilmar Pope MD [address] [place] [address] [facility] [address] [place] [address] Referral ID Status Reason Start Date Expiration Date Visits Requested Visits Authorized [id number] Pending Review Specialty Services Required 03/13/2023 03/12/2024 1 1 Reason Onset Date Comments shc cath 04/26/2023 Reason Onset Date Comments sh ct 04/26/2023 Reason Comments Follow-up EST PT LS MS, ECHO F RE, SCHED W/PT INFORMATION SOURCE (unrecogn ized section and content) DATE CREATED AUTHOR 11/17/2018 Airam Malik [facility] DATE CREATED AUTHOR AUTHOR'S ORGANIZ ATION 05/02/2022 [facility] DATE CREATED AUTHOR AUTHOR'S ORGANIZ ATION 08/10/2023 [facility] DATE CREATED AUTHOR AUTHOR'S ORGANIZ ATION 10/02/2024 [facility] DATE CREATED AUTHOR AUTHOR'S ORGANIZ ATION 10/28/2024 [facility] dical Specialists EPIC Care Teams (unrecognized sec tion and content) Rib Chopper Relationship Specialty Start Date End Date Delilah Jackson MD [address] [place] [address] PCP - General Family Medicine 07/19/22 Melvina Salomon, FISH LIVER SORTER-EVENT DECORATOR AND DESIGNER [address] [address] Nurse Practitioner Behavioral Health 07/19/22 Rosy Rodriguez, RN [address] [place] [address] Registered Nurse Family Medicine 12/24/22 Rib Chopper Relationship Specialty Start Date End Date Delilah Jackson MD [address] [place] [address] PCP - General Family Medicine 07/19/22 Melvina Salomon, FISH LIVER SORTER-EVENT DECORATOR AND DESIGNER [address] [address] Nurse Practitioner Behavioral Health 07/19/22 Rosy Rodriguez, RN [address] [facility] [place] [address] Registered Nurse Family Medicine 12/24/22 Rib Chopper Relationship Specialty Start Date End Date Delilah Jackson MD [address] [facility] [place] [address] PCP - General Family Medicine 07/19/22 Melvina Salomon, [facility] [address] [facility] [address] [place] [address] Nurse Practitioner Behavioral Health 07/19/22 Rosy Rodriguez RN [address] [facility] [place] [address] Registered Nurse Family Medicine 12/24/22 Myesha Bell LSW End Lathe Operator Family Medicine 04/15/23 Rib Chopper Relationship Specialty Start Date End Date Delilah Jackson MD [address] [facility] [place] [address] PCP - General Family Medicine 07/19/22 Melvina Salomon, [facility] 112 [facility] [address] [place] [address] Nurse Practitioner Behavioral Health 07/19/22 Rosy Rodriguez RN [address] [facility] [place] [address] Registered Nurse Family Medicine 12/24/22 Myesha Bell LSW End Lathe Operator Family Medicine 04/15/23 Rib Chopper Relationship Specialty Start Date End Date Delilah Jackson MD [address] [facility] [place] [address] PCP - General Family Medicine 07/19/22 Melvina Salomon, FISH LIVER SORTER-EVENT DECORATOR AND DESIGNER 112 [facility] [address] [place] [address] Nurse Practitioner Behavioral Health 07/19/22 Rosy Rodriguez, RN [address] [place] [address] Registered Nurse Family Medicine 12/24/22 Myesha Bell, [facility] End Lathe Operator Family Medicine 04/15/23 Rib Chopper Relationship Specialty Start Date End Date Delilah Jackson MD [facility] [place] [address] PCP - General Family Medicine 07/19/22 Melvina Salomon, FISH LIVER SORTER-EVENT DECORATOR AND DESIGNER 112 [facility] [address] [place] [address] Nurse Practitioner Behavioral Health 07/19/22 Rosy Rodriguez RN [address] [facility] [place] [address] Registered Nurse Family Medicine 12/24/22 Myesha Bell, [facility] End Lathe Operator [facility] Medicine 04/15/23 Rib Chopper Relationship Specialty Start Date End Date Delilah Jackson MD [address] [place] [address] PCP - General Family Medicine 07/19/22 Melvina Salomon, FISH LIVER SORTER-EVENT DECORATOR AND DESIGNER [address] [facility] [address] [place] [address] Nurse Practitioner Behavioral Health 07/19/22 Rosy Rodriguez, RN [address] [place] [address] Registered Nurse Family Medicine 12/24/22 Myesha Bell, [facility] End Lathe Operator Family Medicine 04/15/23 Rib Chopper Relationship Specialty Start Date End Date Delilah Jackson MD [address] [place] [address] PCP - General Family Medicine 07/19/22 Melvina Salomon, FISH LIVER SORTER-EVENT DECORATOR AND DESIGNER 112 [facility] [address] [place] [address] Nurse Practitioner Behavioral Health 07/19/22 Rosy Rodriguez RN [address] [place] [address] Registered Nurse Family Medicine 12/24/22 Myesha Bell, [facility] End Lathe Operator Family Medicine 04/15/23 Rib Chopper Relationship Specialty Start Date End Date Delilah Jackson MD [address] [place] [address] PCP - General Family Medicine 07/19/22 Melvina Salomon, FISH LIVER SORTER-EVENT DECORATOR AND DESIGNER 112 [facility] [address] [place] [address] Nurse Practitioner Behavioral Health 07/19/22 Rosy Rodriguez RN [address] [place] [address] Registered Nurse Family Medicine 12/24/22 Myesha Bell, [facility] End Lathe Operator Family Medicine 04/15/23 Rib Chopper Relationship Specialty Start Date End Date Delilah Jackson MD [address] [place] [address] PCP - General Family Medicine 07/19/22 Melvina Salomon, FISH LIVER SORTER-EVENT DECORATOR AND DESIGNER 112 [facility] [address] [place] [address] Nurse Practitioner Behavioral Health 07/19/22 Rosy Rodriguez RN [address] [place] [address] Registered Nurse Family Medicine 12/24/22 Myesha Bell, CULTURE MEDIA LABORATORY ASSISTANT End Lathe Operator Family Medicine 04/15/23 Rib Chopper Relationship Specialty Start Date End Date Delilah Jackson MD [address] [place] [address] PCP - General Family Medicine 07/19/22 Melvina Salomon, [facility] 112 [facility] [address] [place] [address] Nurse Practitioner Behavioral Health 07/19/22 Rosy Rodriguez RN [address] [place] [address] Registered Nurse Family Medicine 12/24/22 Myesha Bell, [facility] End Lathe Operator Family Medicine 04/15/23 Rib Chopper Relationship Specialty [place] [address] [place] [address] PCP - General Family Medicine 07/19/22 Melvina Salomon, [facility] 112 [facility] [address] [place] [address] Nurse Practitioner Behavioral Health 07/19/22 Rosy Rodriguez RN [address] [place] [address] Registered Nurse Family Medicine 12/24/22 Myesha Bell, CULTURE MEDIA LABORATORY ASSISTANT End Lathe Operator Family Medicine 04/15/23 Rib Chopper Relationship Specialty Start Date End Date Delilah Jackson MD [address] [place] [address] PCP - General Family Medicine 07/19/22 Melvina Salomon, [facility] [employer] [address] [facility] [address] [place] [address] Nurse Practitioner Behavioral Health 07/19/22 Rosy Rodriguez, RN [address] [place] [address] Registered Nurse Family Medicine 12/24/22 Myesha Bell LSW End Lathe Operator Family Medicine 04/15/23 Rib Chopper Relationship Specialty Start Date End Date Delilah Jackson MD [address] [place] [address] PCP - General Family Medicine 07/19/22 Melvina Salomon, [facility] [address] [facility] [address] [place] [address] Nurse Practitioner Behavioral Health 07/19/22 Rosy Rodriguez, RN [address] [place] [address] Registered Nurse Family Medicine 12/24/22 Myesha Bell [facility] End Lathe Operator Family Medicine 04/15/23 Rib Chopper Relationship Specialty Start Date End Date Tran Manzo MD [address] [place] [address] PCP - General Family Medicine 09/18/22 Rib Chopper Relationship Specialty Start Date End Date Tran Manzo MD [address] [place] [address] PCP - General Family Medicine 09/18/22 Rib Chopper Relationship Specialty Start Date End Date Tran Manzo MD [address] [facility] [place] [address] PCP - General Family Medicine 09/18/22 Rib Chopper Relationship Specialty Start Date End Date Tran Manzo MD [address] [facility] [place] [address] PCP - General Family Medicine 09/18/22 Rib Chopper Relationship Specialty Start Date End Date Tran Manzo MD [address] [facility] [place] [address] PCP - General Family Medicine 09/18/22 Rib Chopper Relationship Specialty Start Date End Date Tran Manzo MD [address] [facility] [place] [address] PCP - General Family Medicine 09/18/22 Rib Chopper Relationship Specialty Start Date End Date Tran Manzo MD [address] [facility] [address] PCP - General Family Medicine 09/18/22 Rib Chopper Relationship Specialty Start Date End Date Tran Manzo MD [address] [facility] [place] [address] PCP - General Family Medicine 09/18/22 Rib Chopper Relationship Specialty Start Date End Date Tran Manzo MD [address] [facility] [place] [address] PCP - General Family Medicine 09/18/22 Rib Chopper Relationship Specialty Start Date End Date Tran Manzo MD [address] [facility] [place] [address] PCP - General Family Medicine 09/18/22 Rib Chopper Relationship Specialty Start Date End Date Tran Manzo MD [address] [place] [address] PCP - General Family Medicine 09/18/22 Rib Chopper Relationship Specialty Start Date End Date Tran Manzo MD PCP - General Family Medicine 09/18/22 Rib Chopper Relationship Specialty Start Date End Date Delilah Jackson MD [address] [place] [address] PCP - General Family Medicine 07/19/22 Melvina Salomon APRN-EVENT DECORATOR AND DESIGNER 112 [facility] [address] [place] [address] Nurse Practitioner Behavioral Health 07/19/22 Rosy Rodriguez RN [address] [place] [address] Registered Nurse Family Medicine 12/24/22 Myesha Bell, JESSIE End Lathe Operator Family Medicine 04/15/23 Rib Chopper Relationship Specialty Start Date End Date Delilah Jackson MD [address] [place] [address] PCP - General Family Medicine 07/19/22 Melvina Salomon FISH LIVER SORTER-EVENT DECORATOR AND DESIGNER [address] [address] Nurse Practitioner Behavioral Health 07/19/22 Rosy Rodriguez RN [address] [facility] [address] Registered Nurse Family Medicine 12/24/22 Myesha Bell LSW End Lathe Operator Family Medicine 04/15/23 Rib Chopper Relationship Specialty Start Date End Date Delilah Jackson MD [address] [place] [address] PCP - General Family Medicine 07/19/22 Melvina Salomon, FISH LIVER SORTER-EVENT DECORATOR AND DESIGNER 112 [facility] [address] [place] [address] Nurse Practitioner Behavioral Health 07/19/22 Rosy Rodriguez RN [address] [place] [address] Registered Nurse Family Medicine 12/24/22 Myesha Bell, [facility] End Lathe Operator Family Medicine 04/15/23 Rib Chopper Relationship Specialty Start Date End Date Delilah Jackson MD [facility] [place] [address] PCP - General Family Medicine 07/19/22 Melvina Salomon, [facility] 112 [facility] [address] [place] [address] Nurse Practitioner Behavioral Health 07/19/22 Rosy Rodriguez RN [address] [place] [address] Registered Nurse Family Medicine 12/24/22 Myesha Bell, [facility] End Lathe Operator Family Medicine 04/15/23 Rib Chopper Relationship Specialty Start Date End Date Tran Manzo MD PCP - General Family Medicine 09/18/22 Rib Chopper Relationship Specialty Start Date End Date Tran Manzo MD PCP - General Family Medicine 09/18/22 Rib Chopper Relationship Specialty Start Date End Date Tran Manzo MD PCP - General Family Medicine 09/18/22 Rib Chopper Relationship Specialty Start Date End Date Delilah Jackson MD [address] [place] [address] PCP - General Family Medicine 07/19/22 Melvina Salomon, FISH LIVER SORTER-EVENT DECORATOR AND DESIGNER [address] [facility] [address] [place] [address] Nurse Practitioner Behavioral Health 07/19/22 Rosy Rodriguez, RN [address] [place] [address] Registered Nurse Family Medicine 12/24/22 Rib Chopper Relationship Specialty Start Date End Date Delilah Jackson MD [address] [facility] [place] [address] PCP - General Family Medicine 07/19/22 Melvina Salomon, FISH LIVER SORTER-EVENT DECORATOR AND DESIGNER [address] [facility] [address] [place] [address] Nurse Practitioner Behavioral Health 07/19/22 Rosy Rodriguez, RN [address] [place] [address] Registered Nurse Family Medicine 12/24/22 Rib Chopper Relationship Specialty Start Date End Date Delilah Jackson MD [address] [place] [address] PCP - General Family Medicine 07/19/22 Melvina Salomon, FISH LIVER SORTER-EVENT DECORATOR AND DESIGNER 112 [facility] [address] [place] [address] Nurse Practitioner Behavioral Health 07/19/22 Rosy Rodriguez, RN [address] [facility] [place] [address] Registered Nurse Family Medicine 12/24/22 Rib Chopper Relationship Specialty Start Date End Date Delilah Jackson MD [address] [facility] [place] [address] PCP - General Family Medicine 07/19/22 Melvina Salomon, FISH LIVER SORTER-EVENT DECORATOR AND DESIGNER 112 [facility] [address] [place] [address] Nurse Practitioner Behavioral Health 07/19/22 Rosy Rodriguez, VANDANA [address] [facility] [place] [address] Registered Nurse Family Medicine 12/24/22 Rib Chopper Relationship Specialty Start Date End Date Delilah Jackson MD [address] [facility] [address] PCP - General Family Medicine 07/19/22 Melvina Salomon, FISH LIVER SORTER-EVENT DECORATOR AND DESIGNER 112 [facility] [address] [place] [address] Nurse Practitioner Behavioral Health 07/19/22 Rosy Rodriguez, RN [address] [facility] [place] [address] Registered Nurse Family Medicine 12/24/22 Rib Chopper Relationship Specialty Start Date End Date Delilah Jackson MD [address] [facility] [address] PCP - General Family Medicine 07/19/22 Melvina Salomon, FISH LIVER SORTER-EVENT DECORATOR AND DESIGNER 112 [facility] [address] [place] [address] Nurse Practitioner Behavioral Health 07/19/22 Rosy Rodriguez RN [address] [place] [address] Registered Nurse Family Medicine 12/24/22 Rib Chopper Relationship Specialty Start Date End Date Delilah Jackson MD [address] [place] [address] PCP - General Family Medicine 07/19/22 Melvina Salomon, [facility] 112 [facility] [address] [place] [address] Nurse Practitioner Behavioral Health 07/19/22 Rosy Rodriguez RN [address] [place] [address] Registered Nurse Family Medicine 12/24/22 Rib Chopper Relationship Specialty [place] [address] [place] [address] PCP - General Family Medicine 07/19/22 Melvina Salomon, FISH LIVER SORTER-EVENT DECORATOR AND DESIGNER [address] [address] Nurse Practitioner Behavioral Health 07/19/22 Rosy Rodriguez RN [address] [place] [address] Registered Nurse Family Medicine 12/24/22 Rib Chopper Relationship Specialty Start Date End Date Delilah Jackson MD [address] [place] [address] PCP - General Family Medicine 07/19/22 Melvina Salomon, [facility] [employer] [address] [facility] [address] [place] [address] Nurse Practitioner Behavioral Health 07/19/22 Rosy Rodriguez RN [address] [place] [address] Registered Nurse Family Medicine 12/24/22 Rib Chopper Relationship Specialty Start Date End Date Tran Manzo MD PCP - General Family Medicine 09/18/22 Rib Chopper Relationship Specialty Start Date End Date Delilah Jackson MD [address] [place] [address] PCP - General Family Medicine 07/19/22 Melvina Salomon, [facility] [employer] [address] [facility] [address] [place] [address] Nurse Practitioner Behavioral Health 07/19/22 Rosy Rodriguez RN [address] [place] [address] Registered Nurse [facility] 12/24/22 Rib Chopper Relationship Specialty Start Date End Date Delilah Jackson MD [address] [facility] [address] PCP - General Family Medicine 07/19/22 Melvina Salomon, FISH LIVER SORTER-EVENT DECORATOR AND DESIGNER [address] [facility] [address] [place] [address] Nurse Practitioner Behavioral Health 07/19/22 Rosy Rodriguez RN [address] [facility] [place] [address] Registered Nurse Family Medicine 12/24/22 Rib Chopper Relationship Specialty Start Date End Date Delilah Jackson MD [address] [facility] [place] [address] PCP - General Family Medicine 07/19/22 Tran Manzo MD [facility] [place] [address] PCP - [employer] 12/12/17 Melvina Salomon FISH LIVER SORTER-EVENT DECORATOR AND DESIGNER 112 [facility] [address] [place] [address] Nurse Practitioner Behavioral Health 07/19/22 Rosy Rodriguez RN [address] [place] [address] Registered Nurse Family Medicine 12/24/22 Rib Chopper Relationship Specialty Start Date End Date Delilah Jackson MD [address] [place] [address] [place] [address] PCP - General Family Medicine 07/19/22 Tran Manzo MD [address] [place] [address] [place] [address] PCP - [employer] 12/12/17 Melvina Salomon FISH LIVER SORTER-EVENT DECORATOR AND DESIGNER 112 [facility] [address] [place] [address] Nurse Practitioner Behavioral Health 07/19/22 Rosy Rodriguez RN [address] [place] [address] Registered Nurse Family Medicine 12/24/22 FOR RECORDS PERTAINING TO PATIENTS WHO ARE OR HAVE BEEN ENROLLED IN A CHEMICAL DEPENDENCY/SUBSTANCEABUSE PROGRAM, SOME INFORMATION MAY BE OMITTED. This clinical summary was aggregated from multiple sources. Caution should be exercised in using it in the provision of clinical care. This summary normalizes information from multiple sources, and as a consequence, information in this document may materially change the coding, format and clinical context of patient data. In addition, data may be omitted in some cases. CLINICAL DECISIONS SHOULD BE BASED ON THE PRIMARY CLINICAL RECORDS. [facility]. provides no warranty or guarantee of the accuracy or completeness of information in this document.
--- OUTSIDE RECORDS SUMMARY | 2024-11-05 15:15 | XMS_ITS | Encounter Summary ---
Author Organization [email or web address] Address [id number] [address] [place] [address] Care Team Providers Care Video Intern Name Role Phone Tran Manzo MD Primary Care Provider [phone] Reason for Visit * Reason Comments Med Change Request Encounter Details Date Type Department Care Team (Late st Contact Info) Description 08/30/2023 Refill [facility] [address] [place] [phone] Eloise Luis, PA [address] [id number] Med Change Request Social History Tobacco Use Types Packs/Day Years Used Date Smoking Tobacco: Former Cigarettes Smokeless Tobacco: Never Alcohol Use Standard Drinks/Week Comments Yes 0 (1 standard drink = 0.6 oz pur e alcohol) social use [employer] Answer Date Recorded In the past 12 months has [employer], gas, oil, or water [employer] threatened to shut off services in your [...] often do you attend chur ch or yarsani services? Never 04/20/2020 Do you belong to any clubs o r organizations such as hindu groups, unions, fraternal or athletic groups, or [...] Answer Date Recorded Total Score 0 07/31/2023 [facility] - Occupational Stress [...] Recorded Do you need help finding a [place] [employer] and/or a training program? No [...] RN - 08/30/2023 1:32 PM EDT 08/08/23 offc note; She was started on iron for her chronic iron deficiency anemia and advised to follow-up further with PCP PCP to address further documented in this encounter Plan of Treatment Not on file documented as of this encounter Goals Goal Patient Goal Type Associated Problems Recent Progress Patient-Stated? Author <enter goal here> General Yes Amaya Menard, RN Note: Evaluation of progress towards goal: patient plans for a safe discharge to a [facility] facility on discharge. documented as of this encounter Visit Diagnoses Not on filedocumented in this encounter Additional Health Concerns Assessment Noted Time PHQ-9 Depression Total Score: 0 07/31/19 24 6:16 PM EDT documented as of this encounter Care Teams Video Intern Relationship Specialty Start Date End Date Tran Manzo MD PCP - General Family Medicine 09/18/22 documented as of this encounter
--- OUTSIDE RECORDS SUMMARY | 2024-11-05 15:15 | XMS_ITS | Encounter Summary ---
Author Organization [employer] Address [id number] [address] [place] [address] Care Team Providers Care Bottling Attendant Name Role Phone Tran Manzo MD Primary Care Provider [phone] Encounter Details Date Type Department Care Team (Late st Contact Info) Description 08/01/2023 Telephone [facility] [facility] [address] [place] [phone] Milagros Griffin Social History Tobacco Use Types Packs/Day Years Used Date Smoking Tobacco: Former Cigarettes Smokeless Tobacco: Never Alcohol Use Standard Drinks/Week Comments Yes 0 (1 standard drink = 0.6 oz pur e alcohol) social use [employer] Utilities Answer Date Recorded In the past 12 months has [employer] electric, gas, oil, or water company threatened [...] often do you attend chur ch or samaritan services? Never 04/20/2020 Do you belong to [...] Answer Date Recorded Total Score 0 07/31/2023 [facility] [place] of Occupat ional Health - Occupational Stress [...] as of this encounter Plan of Treatment Not on file documented as of this encounter Goals Goal Patient Goal Type Associated Problems Recent Progress Patient-Stated? Author <enter goal here> General Yes Amaya Menard, RN Note: Evaluation of progress towards goal: patient plans for a safe discharge to a intermediate facility on discharge. documented as of this encounter Visit Diagnoses Not on filedocumented in this encounter Additional Health Concerns Assessment Noted Time PHQ-9 Depression Total Score: 0 07/31/19 24 6:16 PM EDT documented as of this encounter Care Teams Bottling Attendant Relationship Specialty Start Date End Date Tran Manzo MD PCP - General Family Medicine 09/18/22 documented as of this encounter
--- OUTSIDE RECORDS SUMMARY | 2024-11-05 15:15 | XMS_ITS | Clinical Summary ---
Author Organization [facility] Address [address], [address] [place] [address] Care Team Providers Care Procurement Agent Name Role Phone ZhuSally chaudhry MOLDING LINE OPERATOR - CHURN DRILLER HELPER Primary Care P rovider Allergies No known [...] on file Medical Devices Implanted Type Area Chief Engineering Division Device Identifier Shelf Expiration Date Model / Serial / Lot Lens Iol Envista Mx60 23.5d - [id number] Implanted:Qty: 1 on 11/03/2018 by Shaan Mensah MD at [facility] Eye Right: Eye [employer] 05/11/2021 MX60 23.5D / [id number] / Lens Iol Envista Mx60 23.0d - [id number] Implanted:Qty: 1 on 11/17/2018 by Shaan Mensah MD at [facility] Eye Left: Eye [employer]PMM 06/10/2021 MX60 23.0D / [id number] / Insurance [facility] MEDICARE Advance Directives * Full Code (Latest [...] 9:33 AM 11/03/2018 10:45 AM Care Teams Procurement Agent Relationship Specialty Start Date End Date Sally Zhu APRN - CHURN DRILLER HELPER [address] [place] [address] PCP - General Nurse Practitioner, Family 10/28/18
--- OUTSIDE RECORDS SUMMARY | 2024-11-05 15:16 | XMS_ITS | Clinical Summary ---
Author Organization [facility] Address [address] [place] [address] Care Team Providers Care Box Strapper Name Role Phone Delilah Jackson MD Primary Care Provider [phone] Justina Maddox COOKING INSTRUCTOR-MANAGER CONVENTION Unavailable Rosy Rodriguez RN Unavailable [phone] Tran Manzo MD Unavailable Allergies Active Allergy Reactions Criticality Noted Date Comments Octacosanol 07/24/2022 Medications Calcium Carbonate-Vitamin D (Oyster Shell Calcium/D) 500-5 MG-MCG tablet Take 1 tablet by mouth Daily OTC Active spironolactone (Aldactone) 25 MG tablet Take 25 mg by mouth in the morning. 2 Active cholecalciferol (Vitamin D-3) 25 MCG (1000 UT) tablet Take 1,000 Units by mouth in the morning. Active amLODIPine (Norvasc) 5 MG tabletIndications: Essential hypertension TAKE 1 TABLET BY MOUTH EVERY DAY IN THE MORNING 90 tablet [address] 500 MG tablet delayed-release Take 1 tablet by mouth as needed in the morning and 1 tablet as needed in the evening. 4 Active KLOR-CON 20 MEQ ER tabletIndications: Hypokalemia TAKE 1 TABLET BY MOUTH DAILY 90 tablet 1 5 Active traZODone (Desyrel) 100 MG tabletIndications: Insomnia, uncontrolled Take 3 tablets (300 mg) by mouth as needed at bedtime for sleep 90 tablet 2 5 Active montelukast (Singulair) 10 MG tabletIndications: Seasonal allergies Take 1 tablet (10 mg) by mouth at bedtime 30 tablet 11 5 07/02/19 26 Active famotidine (Pepcid) 20 MG tabletIndications: Dyspepsia TAKE 1 TABLET BY MOUTH EVERY DAY 90 tablet 5 Active ferrous sulfate 325 (65 Fe) MG tabletIndications: Iron deficiency anemia, unspecified iron deficiency anemia type TAKE 1 TABLET BY MOUTH EVERY DAY IN THE MORNING WITH MEALS 90 tablet 1 5 Active pregabalin (Lyrica) 50 MG capsuleIndications :Neuropathy Take 1 capsule (50 mg) by mouth in the morning and 1 capsule (50 mg) in the evening and 1 capsule (50 mg) before bedtime. 90 capsule 2 5 Active magnesium oxide (Mag-Ox) 400 mg tabletIndications: Neuropathy Take 1 tablet (400 mg) by mouth Daily 30 tablet 2 5 Active omeprazole (PriLOSEC) [address] capsuleIndications :Gastroesophageal reflux disease without esophagitis Take 1 capsule (40 mg) by mouth in the morning. 90 capsule 1 5 Active levothyroxine (Synthroid, Levoxyl) 200 MCG tabletIndications: Acquired hypothyroidism TAKE 1 TABLET BY MOUTH IN THE MORNING. TAKE BEFORE MEALS. 90 tablet 5 Active atorvastatin (Lipitor) 10 MG tabletIndications: Mixed hyperlipidemia TAKE 1 TABLET (10 MG) BY MOUTH DAILY. 90 tablet 1 5 Active furosemide (Lasix) 40 MG tabletIndications: Essential hypertension Take 1 tablet (40 mg) by mouth in the morning and 1 tablet (40 mg) before bedtime. 180 tablet 3 5 Active hydrOXYzine pamoate (Vistaril) 25 MG capsuleIndications :Generalized anxiety disorder Take 1 capsule (25 mg) by mouth every 8 (eight) hours if needed for anxiety (1-2 cap) 30 capsule 1 5 Active buPROPion XL (Wellbutrin XL) 150 MG 24 hr tabletIndications: Bipolar II disorder (HCC) Take 1 tablet (150 mg) by mouth in the morning. 90 tablet 5 Active lamoTRIgine (LaMICtal) 150 MG tabletIndications: Bipolar II disorder (HCC) Take 1 tablet (150 mg) by mouth Daily 90 tablet 5 01/18/20 25 Active sertraline (Zoloft) 100 MG tabletIndications: Bipolar II disorder (HCC),Generalized anxiety disorder Take 1.5 tablets (150 mg) by mouth Daily 135 tablet 5 01/18/20 25 Active Semaglutide-Weight Management (Wegovy) 0.25 MG/0.5ML solution auto-injectorIndic ations:Essential hypertension,Obesi ty (BMI 30.0-34.9),Mixed hyperlipidemia Inject 0.25 mg under the skin 1 (one) time per week 2 mL 1 5 Active magnesium oxide (Mag-Ox) 400 MG tabletIndications: Polyneuropathy, unspecified TAKE 1 TABLET BY MOUTH EVERY DAY 30 tablet 2 5 Active hydrOXYzine pamoate (Vistaril) 25 MG capsule Take 25 mg by mouth every 8 (eight) hours if needed for anxiety (1-2 cap) 2 10/20/19 25 Discontin ued(Reord er) furosemide (Lasix) 40 MG tabletIndications: Essential hypertension TAKE 1 TABLET TWICE DAILY 180 tablet 3 4 10/14/19 25 Discontin ued(Reord er) buPROPion XL (Wellbutrin XL) 150 MG 24 hr tabletIndications: Bipolar II disorder (HCC) Take 1 tablet (150 mg) by mouth in the morning. 90 tablet 5 10/20/19 25 Discontin ued(Reord er) lamoTRIgine (LaMICtal) 150 MG tabletIndications: Bipolar II disorder (HCC) Take 1 tablet (150 mg) by mouth Daily 30 tablet 2 5 10/20/19 25 Discontin ued(Reord er) sertraline (Zoloft) 100 MG tabletIndications: Bipolar II disorder (HCC),Generalized anxiety disorder Take 1.5 tablets (150 mg) by mouth Daily 135 tablet 5 10/20/19 25 Discontin ued(Reord er) Semaglutide-Weight Management (Wegovy) 0.25 MG/0.5ML solution auto-injectorIndic ations:Essential hypertension,Obesi ty (BMI 30.0-34.9),Mixed hyperlipidemia Inject 0.25 mg under the skin 1 (one) time per week 2 mL 1 5 10/30/19 25 Discontin ued(Reord er) Active Problems Problem Noted Date Diagnosed Date [...] 08/28/2022 Chronic pain due to injury 08/28/2022 Assessment & Plan (10/27/2024 3:37 PM EDT): Cognitive disorder 08/28/2022 Assessment & Plan (10/27/2024 3:37 PM EDT): Heart murmur 08/28/2022 Hepatitis C virus infection [...] Encounters Date Type Department Care Team Description 11/01/2024 [facility] [address] [address] Josef Horan MD Polyneuropathy, unspecified (Primary Dx) 10/29/2024 Refill [facility] [address] [place] [address] Delilah Jackson MD Essential hypertension ; Obesity (BMI 30.0-34.9); Mixed hyperlipidemia 10/27/2024 3:00 PM EDT [facility] [address] [place] [address] Zhu, Sally A, GOLD NIB GRINDER 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); Cognitive disorder; At high risk for injury related to fall; Unsteady gait 10/27/2024 Bamboo flowsheet [facility] [address] [place] [address] Sally Zhu NP 10/27/2024 Travel 10/22/2024 Patient Outreach [facility] [address] [place] [address] Rosy Rodriguez RN 10/19/2024 3:30 PM EDT Office Visit [facility] [address] [facility] [address] [place] [address] Justina Maddox, COOKING INSTRUCTOR-MANAGER CONVENTION Bipolar II disorder (HCC); Generalized anxiety disorder 10/19/2024 Bamboo flowsheet [facility] [address] [facility] [address] [place] [phone] Justina Maddox COOKING INSTRUCTOR-MANAGER CONVENTION 10/19/2024 Travel 10/13/2024 Orders Only [facility] [address] [place] [address] Sally Zhu NP Essential hypertension 10/13/2024 Patient Outreach [facility] [address] [place] [address] Rosy Rodriguez RN 09/23/2024 [facility]ill [facility] [address] [place] [address] Delilah Jackson MD Essential hypertension ; Obesity (BMI 30.0-34.9); Mixed hyperlipidemia 09/22/2024 Telephone [facility] [address] [place] [address] Rosy Rodriguez RN 09/18/2024 Orders Only [facility] [address] [place] [address] Delilah Lind MA 09/15/2024 Patient Outreach [facility] [address] [place] [address] Rosy Rodriguez RN 09/09/2024 [facility] [address] [place] [address] Sally Zhu NP Essential hypertension ; Obesity (BMI 30.0-34.9); Mixed hyperlipidemia 09/08/2024 [facility] [address] [facility] [place] [address] Sally Zhu NP Obesity (BMI 30.0-34.9) 09/08/2024 Patient Outreach [facility] [address] [place] [address] Rosy Rodriguez RN 09/07/2024 1:00 PM EDT Office Visit [facility] [address] [place] [address] MelaJustina Bangura, COOKING INSTRUCTOR-MANAGER CONVENTION Bipolar II disorder (HCC); Generalized anxiety disorder 09/07/2024 Refill [facility] [address] [place] [address] Sally Zhu NP Obesity (BMI 30.0-34.9) 09/07/2024 Refill [facility] [address] [place] [address] Mela-Justina Stuart, COOKING INSTRUCTOR-MANAGER CONVENTION Bipolar II disorder (HCC); Generalized anxiety disorder 09/07/2024 [facility] [address] [place] [address] Isaura Walter NP Mixed hyperlipidemia 09/07/2024 Bamboo flowsheet [facility] [address] [place] [address] Mela-Justina Stuart, COOKING INSTRUCTOR-MANAGER CONVENTION 09/07/2024 Travel 09/02/2024 Orders Only [facility] [address] [place] [address] Sally Zhu NP Obesity (BMI 30.0-34.9) (Primary Dx) 09/02/2024 Patient Outreach [facility] [address] [place] [address] Rosy Rodriguez, RN 08/28/2024 Refill [facility] [address] [facility] [address] [place] [address] Mela-Justina Stuart M, COOKING INSTRUCTOR-MANAGER CONVENTION Bipolar II disorder (HCC); Insomnia, uncontrolled 08/27/2024 Refill [facility] [address] [facility] [address] [place] [phone] Mela-Justina Stuart M, COOKING INSTRUCTOR-MANAGER CONVENTION Bipolar II disorder (HCC); Generalized anxiety disorder 08/19/2024 Results Follow-Up [facility] [address] [place] [address] Isaura Walter NP US head neck soft tissue 08/19/2024 Refill [facility] [address] [place] [address] Odette Blue NP Acquired hypothyroidism 08/18/2024 9:30 AM EDT Ancillary Procedure [facility] [address] [facility] [address] [place] [address] Lump on neck; Family history of thyroid cancer 08/18/2024 Travel 08/17/2024 Refill [facility] [address] [place] [address] Delilah Jackson MD Gastroesophageal reflux disease without esophagitis; Hiatal hernia 08/13/2024 Patient Outreach [facility] [address] [place] [address] Rosy Rodriguez, RN 08/12/2024 Telephone [facility] [address] [place] [address] Delilah Jackson MD 08/11/2024 11:00 AM EDT Ancillary Procedure [facility] [address] [facility] [address] [place] [address] New daily persistent headache 08/11/2024 10:15 AM EDT Ancillary Procedure [facility] [address] [facility] [address] [place] [address] Traumatic incomplete tear of right rotator cuff, subsequent encounter 08/11/2024 9:30 AM EDT Office Visit [facility] Medicine [address] [place] [address] Sally Zhu NP Lump on neck (Primary Dx); Family history of thyroid cancer; New daily persistent headache; Essential hypertension ; Acquired hypothyroidism 08/11/2024 Bamboo flowsheet [facility] [address] [place] [address] Sally Zhu NP 08/11/2024 Travel from Last 3 Months Immunizations Immunization Administration [...] F) 10/27/2024 3:07 PM EDT Respiratory Rate 20 03/14/2023 3:04 PM EST Oxygen Saturation 98% 10/27/2024 3:07 PM EDT Inhaled Oxygen Concentration - - Weight 94.8 kg (209 lb) 10/27/2024 3:07 PM EDT Height 167.6 cm (5' 6 ) 07/23/2024 2:49 PM EDT Body Mass Index 33.73 07/23/2024 2:49 PM EDT Plan of Treatment Upcoming Encounters Date Type Department Care Team (Late st Contact Info) Description 11/10/2024 2:00 PM EDT Office Visit [facility] [address] [place] [address] Sally Zhu NP [address] [place] [address] 11/11/2024 11:30 AM EDT Evaluation [facility] [address] [facility] [address] [place] [address] Ina Perez, PT 12/03/2024 2:30 PM EDT Office Visit [facility] [address] [place] [address] Jenifer Rust, COOKING INSTRUCTOR-MANAGER DATA [address] [facility] [place] [address] 12/14/2024 3:00 PM EST Office [facility] [address] [facility] [address] [place] [address] Justina Maddox, COOKING INSTRUCTOR-MANAGER CONVENTION [address] [facility] [address] [place] [address] 01/28/2025 2:00 PM EST Office Visit [facility] [address] [place] [address] Sally Zhu NP [address] [place], [place] [phone] Health Maintenance Due Date Last Done Comments CT Colonography 1956 FIT 1956 FOBT 1956 Sigmoidoscopy 1956 FIT-DNA 07/08/2020 07/08/2017 Influenza Vaccine (#1) 2024 , 03/21/2021, 11/10/2019, Additional history exists Mammogram 05/05/2025 05/05/2024, 03/14, 03/22/2022, Additional history exists Colonoscopy 07/20/2032 07/20/2022, 08/29/2017 [...] Data System (TI- RADS) established by the [employer] to help provide guidance regarding management of thyroid nodules based on their appearance. These are offered in an attempt to assist the referring physician in their decision process and help address the current over diagnosis of thyroid cancer. These guidelines are considered recommendations and guidance and do not represent rules or absolute standards of care ELECTRONICALLY SIGNED BY: MD Usha Montoya 08/18/2024 1:13 PM EDT EXAMINATION: THYROID ULTRASOUND [...] and Data System (TI- RADS) establishedby the [employer] [employer] to help provide guidance [...] mastoid air cell effusions. Procedure Note Ced Muñiz, - 08/11/2024 EXAM: MR BRAIN WO CONTRAST [...] Ced Muñiz DO us Josef Horan MD IMG MRI PROCEDURES Final Resu lt * MR [...] glenohumeral joint effusion . Procedure Note Ced Muñiz DO - 08/11/2024 EXAM: MR SHOULDER RIGHT [...] tendinosis. ELECTRONICALLY SIGNED BY: Ced Muñiz DO us Josef Horan MD IMG MRI PROCEDURES Final [...] BY: Jose Elias Hancock M.D. Sally Zhu GOLD NIB GRINDER IMG BI PROCEDURES Final Result * Colonoscopy (08/29/2017 12:00 PM EDT) Anatomical Region Laterality Modality Endoscopy 08/29/2017 12:0 0 PM EDT Narrative 03/06/2022 12:00 PM EST PERFORMED AT [facility] LOCATION:[id number] Procedure Note CONVERSION, GENERIC - 06/27/2022 PERFORMED AT [facility] LOCATION:[id number] Delilah Jackson MD ENDOSCOPY PROCEDURE ORDERABLE S Final Result from Last 3 Months or Most Recently Relevant to Health Maintenance Insurance [facility] MEDICARE ADVANTAGE MEDICAID [place] Care Teams Box Strapper Relationship Specialty Start Date End Date Delilah Jackson MD [facility] [place] [address] PCP - General Family Medicine 07/19/22 [place] [address] [place] [address] [place] [address] PCP - [employer] 12/12/17 Justina Maddox APRN-MANAGER CONVENTION [address] [address] Nurse Practitioner Behavioral Health 07/19/22 Rosy Rodriguez, RN [address] [facility] [place] [address] Registered Nurse Family Medicine 12/24/22
--- OUTSIDE RECORDS SUMMARY | 2024-11-05 15:16 | XMS_ITS | Encounter Summary ---
Author Organization [facility] Address [address] [place] [address] Care Team Providers Care Dry Dip Worker Name Role Phone Delilah Jackson MD Primary Care Provider [phone] Justina Maddox FRAME COVERER-ADOBE LAYER Unavailable Rosy Rodriguez RN Unavailable [phone] Myesha Bell DRAW FIRE OPERATOR Unavailable [phone] Tran Manzo MD Unavailable Reason for Visit * Reason Comments Med Refill Encounter Details Date Type Department Care Team ([facility] Contact Info) Description 10/07/2022 [facility]ill [facility] [address] [place] [address] Sally Zhu HAND BUFFING WHEEL FORMER [address] [place] [address] Essential hypertension (Primary Dx) Social [...] Telephone Encounter - Delilah Jackson MD - 10/08/2022 3:52 PM EDT Approving, but needs appt for additional refills. documented in this encounter Plan of Treatment Upcoming Encounters Date Type Department Care Team (Late st Contact Info) Description 11/10/2024 2:00 PM EDT Office Visit [facility] [address] [place] [address] Sally Zhu NP [address] [place], [place] [phone] 11/11/2024 11:30 AM EDT Evaluation [facility] [address] [place] [address] Ina Perez, RORY 12/03/2024 2:30 PM EDT Office Visit [facility] [place] [facility] [address] [place] [address] Jenifer Rust, MUSHTAQ-OFFSET PRESS OPERATOR APPRENTICE [address] [place] [address] 12/14/2024 3:00 PM EST Office Visit [facility] [address] [place] [address] Justina Maddox, FRAME COVERER-ADOBE LAYER 112 [facility] [address] [place] [address] 01/28/2025 2:00 PM EST Office Visit [facility] 14[address] [facility] [place] [address] Sally Zhu HAND BUFFING WHEEL FORMER [address] [facility] [place] [address] documented as of this encounter Visit Diagnoses Diagnosis Essential hypertension- Primary Unspecified essential hypertension documented in this encounter Care Teams Dry Dip Worker Relationship Specialty Start Date End Date Delilah Jackson MD [address] [facility] [place] [address] PCP - General Family Medicine 07/19/22 Tran Manzo MD 14[address] [facility] [place] [address] PCP - [employer] 12/12/17 Justina Maddox, FRAME COVERER-ADOBE LAYER 112 [facility] [address] [place] [address] Nurse Practitioner Behavioral Health 07/19/22 Rosy Rodriguez, RN [address] [place] [address] Registered Nurse Family Medicine 12/24/22 Myesha Bell, JESSIE [address] [place] [address] Manager [employer]s Family Medicine 04/15/23 06/15/24 documented as of this encounter
--- OUTSIDE RECORDS SUMMARY | 2024-11-05 15:16 | XMS_ITS | Encounter Summary ---
Author Organization [facility] Address [address] [place] [address] Care Team Providers Care Atomic Process Engineer Name Role Phone Delilah Jackson MD Primary Care Provider Justina Maddox CAR HOPPER-SCHOOL MANAGER Unavailable Rosy Rodriguez RN Unavailable [phone] Tran Manzo MD Unavailable Reason for Visit * Reason Comments Med Change Request Encounter Details Date Type Department Care Team (Late st Contact Info) Description 09/08/2024 Refill [facility] Family Medicine [address] [place] [address] Sally Zhu, WELDER 2ND SHIFT [address] [place] [address] Obesity (BMI 30.0-34.9) Social History Tobacco Use [...] Office Visit [facility] [address] [place] [phone] Sally Zhu NP [address] [place], [place] [address] 11/11/2024 11:30 AM EDT Evaluation [facility] [address] [facility] [address] [place] [address] Ina Perez, RORY 12/03/2024 2:30 PM EDT Office Visit [facility] [address] [place] [address] Jenifer Rust, CAR HOPPER-COOK CAMP [address] [facility] [place] [address] 12/14/2024 3:00 PM EST Office Visit [facility] 112 [facility] 160 [place] [address] Justina Maddox, CAR HOPPER-SCHOOL MANAGER [address] [facility] [address] [place] [address] 01/28/2025 2:00 PM EST Office Visit [facility] [address] [place] [address] Sally Zhu NP [address] [place] [address] documented as of this encounter Visit Diagnoses Diagnosis Obesity (BMI 30.0-34.9) documented in this encounter Additional Health Concerns Assessment Noted Time PHQ-9 Depression Total Score: 10 025 1:04 PM EDT documented as of this encounter Care Teams Atomic Process Engineer Relationship Specialty Start Date End Date Delilah Jackson MD [address] [place], [place] [phone] PCP - General Family Medicine 07/19/22 Tran Manzo MD [address] [place], [place] [address] PCP - [employer] 12/12/17 Justina Maddox, CAR HOPPER-SCHOOL MANAGER [address] [place] [address] Nurse Practitioner Behavioral Health 07/19/22 Rosy Rodriguez, RN [address] [facility] [place] [address] Registered Nurse Family Medicine 12/24/22 documented as of this encounter
--- OUTSIDE RECORDS SUMMARY | 2024-11-05 15:16 | XMS_ITS | Encounter Summary ---
Author Organization [facility] Address [address] [place] [address] Care Team Providers Care Almond Paste Mixer Name Role Phone Delilah Jackson MD Primary Care Provider [phone] Justina Maddox COUNTERSINKER-INFRASTRUCTURE PROJECT MANAGER Unavailable Rosy Rodriguez RN Unavailable [phone] Myesha Bell DRESS MARKER Unavailable [phone] Tran Manzo MD Unavailable Reason for Visit * Reason Comments Med Refill Encounter Details Date Type Department Care Team ([facility] Contact Info) Description 06/30/2023 Refill [facility] 112 [facility] 160 [place] [address] Justina Maddox, COUNTERSINKER-INFRASTRUCTURE PROJECT MANAGER 112 [facility] 160 [place] [address] Bipolar II disorder (HCC) Social History Tobacco [...] Visit [facility] [address] [place] [address] Sally Zhu NP [address] [place] [address] 11/11/2024 11:30 AM EDT Evaluation [facility] [address] [email or web address] 170 [place] [address] Ina Perez, RORY 12/03/2024 2:30 PM EDT Office Visit [facility] [address] [place] [address] Jenifer Rust, COUNTERSINKER-DIRECTOR OF REHABILITATION AND WELLNESS 5319 [facility] [address] 12/14/2024 3:00 PM EST Office Visit [facility] [address] [facility] [[email or web address] [address] [place] [address] Justina Maddox, COUNTERSINKER-INFRASTRUCTURE PROJECT MANAGER [address] [facility] 160 [place] [address] 01/28/2025 2:00 PM EST Office [facility] 14[address] [place] [address] Sally Zhu NP [address] [place] [address] documented as of this encounter Visit Diagnoses Diagnosis Bipolar II disorder (HCC) Other bipolar disorders documented in this encounter Additional Health Concerns Assessment Noted Time PHQ-9 Depression Total Score: 4 03/14/19 24 3:00 PM EST documented as of this encounter Care Teams Almond Paste Mixer Relationship Specialty Start Date End Date Delilah Jackson MD [address] [place] [address] PCP - General Family Medicine 07/19/22 Tran Manzo MD [address] [place] [address] PCP - [employer] 12/12/17 Justina Maddox, COUNTERSINKER-INFRASTRUCTURE PROJECT MANAGER [address] [facility] 160 [place] [address] Nurse Practitioner Behavioral Health 07/19/22 Rosy Rodriguez, RN [address] [place] [address] Registered Nurse Family Medicine 12/24/22 Myesha Bell LSW [address] [place] [address] Refining Still Operator Family Medicine 04/15/23 06/15/24 documented as of this encounter
--- OUTSIDE RECORDS SUMMARY | 2024-11-05 15:16 | XMS_ITS | Encounter Summary ---
Author Organization [facility] Address [address] [place] [address] Care Team Providers Care Employment Office Clerk Name Role Phone Delilah Jackson MD Primary Care Provider [phone] Justina Maddox CRISIS MENTAL HEALTH THERAPIST-CURRICULUM SPECIALIST Unavailable Rosy Rodriguez RN Unavailable [phone] Myesha Bell SENIOR RISK ANALYST Unavailable [phone] Tran Manzo MD Unavailable Encounter Details Date Type Department Care Team (Late st Contact Info) Description 09/24/2022 Abstract [facility] [address] [place] [address] Tran Manzo MD [address] [place] [address] Social History Tobacco Use Types [...] Office Visit [facility] 14[address] [place] [address] Sally Zhu NP 1479 [facility] [place] [address] 11/11/2024 11:30 AM EDT Evaluation [facility] [address] [facility] 170 [place] [address] Ina Perez, PT 12/03/2024 2:30 PM EDT Office Visit [facility] [address] [place] [address] Jenifer Rust, CRISIS MENTAL HEALTH THERAPIST-DIRECTOR TRAFFIC AND PLANNING [address] [facility] [place] [address] 12/14/2024 3:00 PM EST Office Visit [facility] [address] [facility] 160 [place] [address] Justina Maddox, CRISIS MENTAL HEALTH THERAPIST-CURRICULUM SPECIALIST [address] [facility] 160 [place] [address] 01/28/2025 2:00 PM EST Office Visit [facility] [address] [place] [address] Sally Zhu NP [address] [place] [address] documented as of this encounter Visit Diagnoses Not on filedocumented in this encounter Care Teams Employment Office Clerk Relationship Specialty Start Date End Date Delilah Jackson MD [address] [place] [id number] PCP - General Family Medicine 07/19/22 Tran Manzo MD [facility]9 [place], [place] [address] PCP - [employer] 12/12/17 Justina Maddox APRN-CURRICULUM SPECIALIST 112 [facility] 160 [place] [address] Nurse Practitioner Behavioral Health 07/19/22 Rosy Rodriguez, RN [address] [place] [address] Registered Nurse Family Medicine 12/24/22 Myesha Bell LSW [address] [place] [address] Continuous Improvement Consultant Family Medicine 04/15/23 06/15/24 documented as of this encounter
--- OUTSIDE RECORDS SUMMARY | 2024-11-05 15:16 | XMS_ITS | Encounter Summary ---
Author Organization [facility] Address [address] [place] [address] Care Team Providers Care Detective Supervisor Name Role Phone Delilah Jackson MD Primary Care Provider [phone] Justina Maddox FRONT COUNTER CLERK-OVEN HEATER HELPER Unavailable Rosy Rodriguez RN Unavailable [phone] Myesha Bell MACHINIST JOB SETTER Unavailable [phone] Tran Manzo MD Unavailable Reason for Visit * Reason Comments Med Refill Encounter Details Date Type Department Care Team ([facility] Contact Info) Description 11/23/2022 Refill [facility] 112 [facility] 160 [place] [address] Justina Maddox, FRONT COUNTER CLERK-OVEN HEATER HELPER 112 [facility] [place] [facility] 160 [place] [address] Bipolar II disorder (HCC) Social History Tobacco [...] Office Visit [facility] 14[address] [place] [address] Sally Zhu NP [address] [place] [address] 11/11/2024 11:30 AM EDT Evaluation [facility] [address] [facility] 170 [place] [address] Ina Perez, RORY 12/03/2024 2:30 PM EDT Office Visit [facility] [address] [place] [address] Jenifer Rust, FRONT COUNTER CLERK-OLEO HASHER AND RENDERER 5[address] [facility] [place] [address] 12/14/2024 3:00 PM EST Office Visit [facility] [address] [facility] 160 [place] [address] Justina Maddox, FRONT COUNTER CLERK-OVEN HEATER HELPER [address] [facility] 160 [place] [address] 01/28/2025 2:00 PM EST Office Visit [facility] [address] [place] [address] Sally Zhu NP [address] [place] [address] documented as of this encounter Visit Diagnoses Diagnosis Bipolar II disorder (HCC) Other bipolar disorders documented in this encounter Care Teams Detective Supervisor Relationship Specialty Start Date End Date Delilah Jackson MD [facility] [place] [address] PCP - General Family Medicine 07/19/22 Tran Manzo MD [facility]9 [place] [address] PCP - [employer] 12/12/17 Justina Maddox APRN-OVEN HEATER HELPER [address] [place] [address] Nurse Practitioner Behavioral Health 07/19/22 Rosy Rodriguez, RN [address] [place] [address] Registered Nurse Family Medicine 12/24/22 Myesha Bell LSW [address] [place] [address] Statement Clerk Family Medicine 04/15/23 06/15/24 documented as of this encounter
--- OUTSIDE RECORDS SUMMARY | 2024-11-05 15:16 | XMS_ITS | Encounter Summary ---
Author Organization [facility] Address [address] [place] [address] Care Team Providers Care Coding Quality Analyst Name Role Phone Delilah Jackson MD Primary Care Provider [phone] Justina Maddox HEAD LINEMAN-MANAGER GAME Unavailable Rosy Rodriguez RN Unavailable [phone] Myesha Bell EQUIPMENT COORDINATOR Unavailable [phone] Tran Manzo MD Unavailable Encounter Details Date Type Department Care Team (Late st Contact Info) Description 10/25/2023 [facility] [address] [place] [address] Delilah Jackson MD [address] [place] [address] Mixed hyperlipidemia (Primary Dx) Social [...] Office Visit [facility] [address] [place] [address] Sally Zhu NP [address] [place] [address] 11/11/2024 11:30 AM EDT Evaluation [facility] [address] [facility] [address] [place] [address] Ina Perez, RORY 12/03/2024 2:30 PM EDT Office Visit [facility] [address] [facility] 310 [place] [address] Jenifer Rust, HEAD LINEMAN-PRECISION MARKET INSIGHTS 6142 [facility] [place] [address] 12/14/2024 3:00 PM EST Office Visit [facility] 112 [facility] [address] [place] [address] Justina Maddox, HEAD LINEMAN-MANAGER GAME [address] [facility] 160 [place] [address] 01/28/2025 2:00 PM EST Office Visit [facility] [address] [place] [address] Sally Zhu NP [address] [place] [address] documented as of this encounter Visit Diagnoses Diagnosis Mixed hyperlipidemia- Primary documented in this encounter Additional Health Concerns Assessment Noted Time PHQ-9 Depression Total Score: 4 03/14/19 24 3:00 PM EST documented as of this encounter Care Teams Coding Quality Analyst Relationship Specialty Start Date End Date Delilah Jackson MD [facility]9 [place] [address] PCP - General Family Medicine 07/19/22 Tran Manzo MD [facility]9 [place] [address] PCP - [employer] 12/12/17 Justina Maddox, HEAD LINEMAN-MANAGER GAME [address] [facility] 160 [place] [address] Nurse Practitioner Behavioral Health 07/19/22 Rosy Rodriguez, RN 14[address] [place] [address] Registered Nurse Family Medicine 12/24/22 Myesha Bell LSW [address] [place] [address] Home Teaching Grades 9 Thru 12 Teacher Family Medicine 04/15/23 06/15/24 documented as of this encounter
--- OUTSIDE RECORDS SUMMARY | 2024-11-05 15:16 | XMS_ITS | Encounter Summary ---
Author Organization [facility] Address [address] [place] [address] Care Team Providers Care Crossing Gateman Name Role Phone Delilah Jackson MD Primary Care Provider [phone] Justina Maddox BRIDGES AND BUILDINGS SUPERVISOR-LOAN EXPEDITOR Unavailable Rosy Rodriguez RN Unavailable [phone] Myesha Bell MELTING OPERATOR Unavailable [phone] Tran Manzo MD Unavailable Encounter Details Date Type Department Care Team (Late st Contact Info) Description 10/30/2022 Abstract [facility] [address] [place] [address] Tiny Ho MD 112 [facility] 110 [place] [address] Social History Tobacco Use Types Packs/Day Years [...] Office Visit [facility] 14[address] [place] [address] Sally Zhu NP 1479 [facility] [place] [address] 11/11/2024 11:30 AM EDT Evaluation [facility] [address] [facility] 170 [place] [address] Ina Perez, RORY 12/03/2024 2:30 PM EDT Office Visit [facility] [address] [place] [address] Jenifer Rust, BRIDGES AND BUILDINGS SUPERVISOR-GENERAL ACCOUNTING MANAGER 5319 [facility] [place], [place] [address] 12/14/2024 3:00 PM EST Office Visit [facility] [address] [facility] 160 [place] [address] Justina Maddox, BRIDGES AND BUILDINGS SUPERVISOR-LOAN EXPEDITOR [address] [facility] 160 [place] [address] 01/28/2025 2:00 PM EST Office Visit [facility] 1479 [facility] [place] [address] Sally Zhu SMALL PRODUCTS I ASSEMBLER 14[address] [place] [address] documented as of this encounter Visit Diagnoses Not on filedocumented in this encounter Care Teams Crossing Gateman Relationship Specialty Start Date End Date Delilah Jackson MD [facility]9 [place] [address] PCP - General Family Medicine 07/19/22 Tran Manzo MD [facility]9 [place] [address] PCP - [employer] 12/12/17 Justina Maddox, BRIDGES AND BUILDINGS SUPERVISOR-LOAN EXPEDITOR 112 [facility] [address] [place] [address] Nurse Practitioner Behavioral Health 07/19/22 Rosy Rodriguez, RN [address] [place] [address] Registered Nurse Family Medicine 12/24/22 Myesha Bell LSW [address] [place] [address] Appointment Clerk Family Medicine 04/15/23 06/15/24 documented as of this encounter
--- OUTSIDE RECORDS SUMMARY | 2024-11-05 15:16 | XMS_ITS | Encounter Summary ---
Author Organization [facility] Address [address] [place] [address] Care Team Providers Care Computer Systems Security Analyst Name Role Phone Delilah Jackson MD Primary Care Provider [phone] Justina Maddox RURAL SERVICE ENGINEER-TICKETING AGENT Unavailable Rosy Rodriguez RN Unavailable [phone] Myesha Bell SPRAGGER Unavailable [phone] Tran Manzo MD Unavailable Reason for Visit * Reason Comments Med Refill Encounter Details Date Type Department Care Team ([facility] Contact Info) Description 04/26/2024 Refill [facility] 112 [facility] 160 [place] [address] Justina Maddox, RURAL SERVICE ENGINEER-TICKETING AGENT 112 [facility] 160 [place] [address] Generalized anxiety disorder ; Bipolar II disorder [...] Office Visit [facility] 14[address] [place] [address] Sally Zhu NP [address] [place] [address] 11/11/2024 11:30 AM EDT Evaluation [facility] [address] [facility] 170 [place] [address] Ina Perez, RORY 12/03/2024 2:30 PM EDT Office Visit [facility] [address] [facility] 310 [place] [address] Jenifer Rust, RURAL SERVICE ENGINEER-AUXILIARY EQUIPMENT OPERATOR [address] [facility] [place] [address] 12/14/2024 3:00 PM EST Office Visit [facility] [address] [facility] 160 [place] [address] Justina Maddox, RURAL SERVICE ENGINEER-TICKETING AGENT [address] [facility] 160 [place] [address] 01/28/2025 2:00 PM EST [facility] 14[address] [place] [address] Sally Zhu NP 14[address] [place] [address] documented as of this encounter Visit Diagnoses Diagnosis Generalized anxiety disorder Bipolar II disorder (HCC) Other bipolar disorders documented in this encounter Additional Health Concerns Assessment Noted Time PHQ-9 Depression Total Score: 13 024 2:18 PM EST documented as of this encounter Care Teams Computer Systems Security Analyst Relationship Specialty Start Date End Date Delilah Jackson MD 14[address] [place] [address] PCP - General Family Medicine 07/19/22 Tran Manzo MD [address] [place] [address] PCP - [employer] 12/12/17 Justina Maddox APRN-TICKETING AGENT [address] [address] Nurse Practitioner Behavioral Health 07/19/22 Rosy Rodriguez, RN [address] [place] [address] Registered Nurse Family Medicine 12/24/22 Myesha Bell LSW [address] [place] [address] Instrument Lens Inspector Family Medicine 04/15/23 06/15/24 documented as of this encounter
--- OUTSIDE RECORDS SUMMARY | 2024-11-05 15:17 | XMS_ITS | Clinical Summary ---
Author Organization [facility] Address [id number] [address] [place] [address] Care Team Providers Care Machine Ceramic Coater Name Role Phone Tran Manzo MD Primary Care Provider [phone] Allergies No known active allergies Medications lamoTRIgine [...] Active LYSINE HCL ORAL Take by mouth in the morning. Active omeprazole (PriLOSEC) 40 mg capsule Take 1 capsule (40 mg total) by mouth in the morning. 30 capsule 2 3 Active spironolactone (ALDACTONE) 25 mg tablet Take 1 tablet (25 mg total) by mouth in the morning. 90 tablet 2 3 Active atorvastatin (LIPITOR) 10 mg tablet Take [...] swallow in the morning. 30 tablet 11 4 Active ferrous sulfate 325 (65 FE) mg tablet Take 1 tablet (325 mg total) by mouth daily with breakfast. 30 tablet 4 Active furosemide (LASIX) 40 mg tablet Take 1 tablet (40 mg total) by mouth daily. 4 Active Additional Information Patient taking differently:40 mg oral2 times daily before meals, Reported on 09/30/2024 semaglutide, weight loss, (WEGOVY) 0.25 mg/0.5 mL pen injector Inject under the skin every 7 days. Active Active Problems Problem Noted Date Diagnosed [...] Encounters Date Type Department Care Team Description 09/30/2024 1:45 PM EDT Office Visit [facility] [address] [place] [address] [place] [address] Gretta Ryder MD Nonrheumatic aortic valve stenosis (Primary Dx) 09/30/2024 Travel 09/29/2024 Telephone [facility] [address] [place] [address] [place] [address] Maggi Bower CMA 08/06/2024 12:56 PM EDT - 08/06/2024 11:59 PM EDT Hospital Encounter [facility] - Cardiovascular [address] [place] [address] Venessa Vizcaino MD S/p TAVR (transcatheter aortic valve replacement), bioprosthetic Discharge Disposition: Home 08/06/2024 Travel from Last 3 Months Immunizations Immunization [...] 0.6 oz pur e alcohol) social use [facility] Utilities Answer Date Recorded In the past 12 months has th e electric, gas, oil, or water company threatened [...] often do you attend chur ch or druze services? Never 04/20/2020 Do you belong to any clubs o r organizations such as mosque groups, unions, fraternal or athletic groups, or [...] Answer Date Recorded Total Score 0 07/31/2023 [facility] [place] [facility] Occup[facility] ional [facility] - Occupational Stress [...] Recorded Do you need help finding a [facility] career center and/or a training program? No 04/20/2020 Hunger Screening Answer Date Recorded Within the past 12 months we worried whether our food would run out before we got money to buy more. Never True 09/30/2024 Within the past 12 months th e food we bought just didn't last and we didn't have money to get more. Never True 09/30/2024 Purpose - Life Answer Date Recorded I have a purpose and direction in my life. Stron gly Agree 04/20/2020 Comments No Sex and Gender Information Value Date Recorded Sex Assigned at Not on file Legal Sex Female 11:28 AM EDT Gender Identity Not on file Sexual Orientation Not on file Last Filed Vital Signs Vital Sign Reading Time Taken Comments Blood Pressure 158/90 09/30/2024 1:23 PM EDT Pulse 75 09/30/2024 1:23 PM EDT Temperature 37.1 C (98.8 F) 08/01/2023 11:00 AM EDT Respiratory Rate 18 08/01/2023 2:00 PM EDT Oxygen Saturation 96% 09/30/2024 1:23 PM EDT Inhaled Oxygen Concentration - - Weight 96.2 kg (212 lb) 09/30/2024 1:23 PM EDT Height 165.1 cm (5' 5 ) 09/30/2024 1:23 PM EDT Body Mass Index 35.28 09/30/2024 1:23 PM EDT Plan of Treatment Health Maintenance Due Date Last Done Comments Adult BMI Follow Up Plan 1974 Fall Risk Screening 2021 DTaP,Tdap and Td Vaccines (2 - Td or Tdap) 12/11/2021 12/12/2011 Depression Screening 07/30/2024 07/31/2023 COVID-19 Vaccine (5 - 2024-2 6 season) 2024 11/23/2021, 03/21/2021, 07/29/2020, Additional history exists Influenza Vaccine 10/12/2024 11/23/2021, , 11/10/2019, Additional history exists Adult BMI Screening 09/30/2025 09/30/2024 Tobacco Screening 09/30/2025 09/30/2024 Zoster (Shingles) Vaccine Completed 02/10/2019, Goals Goal Patient Goal Type Associated Problems Recent Progress Patient-Stated? Author <enter goal here> General Yes Amaya Menard RN Note: Evaluation of progress towards goal: patient plans for a safe discharge to a care home facility on discharge. Medical Devices Implanted Type Area Diagnostic Sales Specialist Device Identifier Shelf Expiration Date Model / Serial / Lot Valve Aor Evolut Fx 29mm - [id number] Implanted:Qty : 1 on 07/31/2023 by Venessa Vizcaino MD at Implant Valve [employer] 11/14/2024 EVOLUT FX- 29 / / Wire Fx Krsh 2mm 150mm Troc Tip Ss Ns Rpl [id number]+Cmt - [id number] Implanted:Qty : 2 on 09/20/2022 by Giovanni Giles MD at Orthopedic Implant [employer] 292.20 / / Plate Bn [id number] Std 3 Hle/Shft Lck Cmpr Precnt Lcp Cmbn - [id number] Implanted:Qty : 1 on 09/20/2022 by Giovanni Giles MD at Plate [employer] 241.901 / / Screw Bn 34mm 3.5mm 2.[address] St Lck Strdr Cncl Hd Ss T15 Ft Ns - [id number] Implanted:Qty : 1 on 09/20/2022 by Giovanni Giles MD at Screw [employer] 212.113 / / Screw Bn 38mm 3.5mm 2[address] Lck Strdr Cncl Hd Ss T15 Ft Ns Rpl [id number] - [id number] Implanted:Qty : 1 on 09/20/2022 by Giovanni Giles MD at Screw [employer] 212.116 / / Screw Bn 42mm 3.5mm 2[address] Lck Strdr Cncl Hd Ss T15 Ft Ns - [id number] Implanted:Qty : 1 on 09/20/2022 by Giovanni Giles MD at Screw [employer] 212.118 / / Screw Bn 46mm 3.5mm 2[address] Lck Strdr Cncl Hd Ss T15 Ft Ns Rpl [id number] - [id number] Implanted:Qty : 1 on 09/20/2022 by Giovanni Giles MD at Screw [employer] 212.136 / / Screw Bn 45mm 3.5mm [address] Lp Hd Sm Hex Sckt Oc Ss 2.5mm - [id number] Implanted:Qty : 1 on 09/20/2022 by Giovanni Giles MD at Screw [employer] 204.845 / / Screw Bn 55mm 4mm Canc Ft - [id number] Implanted:Qty : 1 on 09/20/2022 by Giovanni Giles MD at Screw [employer] 206.055 / / Procedures Procedure Name Priority Date/Time Associated Diagnosis Comments POCT EKG Routine 09/30/2024 Nonrheumatic aortic valve stenosis ECHO COMPLETE W CONTRAST Routine 08/06/2024 2:07 PM EDT S/p TAVR (transcatheter aortic valve replacement), bioprosthetic from Last 3 Months Results * POCT EKG (09/30/2024) us Gretta Ryder MD ECG ORDERABLES Final Res ult MANUALLY TRANSCRIBED RESULTS * Echo complete W/ contrast (08/06/2024 2:07 PM EDT) GLS -10 % XCELERA GLS triplane (3P) A4C -[id number] % XCELERA GLS triplane (3P) A3C -[id number] % XCELERA GLS triplane (3P) A2C -11.960646 [id number] % XCELERA TDI 10.10 cm/s XCELERA MV [...] 8:00 AM 04/21/2020 6:00 PM Care Teams Machine Ceramic Coater Relationship Specialty Start Date End Date Tran Manzo MD PCP - General Family Medicine 09/18/22
--- OUTSIDE RECORDS SUMMARY | 2024-11-05 15:17 | XMS_ITS | Encounter Summary ---
Author Organization [facility] Address [address] [place] [address] Care Team Providers Care Aircraft Engine Mechanic Overhaul Name Role Phone Delilah Jackson MD Primary Care Provider [phone] Justina Maddox BOXING TRAINER-LOCK FITTER Unavailable Rosy Rodriguez RN Unavailable [phone] Myesha Bell SYSTEM ADMINISTRATION MANAGER Unavailable [phone] Tran Manzo MD Unavailable Encounter Details Date Type Department Care Team (Late st Contact Info) Description 07/01/2023 Abstract [facility] [address] [place] [address] Myesha Bell, SYSTEM ADMINISTRATION MANAGER [address] [place], [place] [phone] Social History Tobacco Use Types Packs/Day Years [...] Office Visit [facility] 14[address] [place] [address] Sally Zhu NP 14[address] [place], [place] [phone] 11/11/2024 11:30 AM EDT Evaluation [facility] [address] [facility] [address] [place] [address] Ina Perez, RORY 12/03/2024 2:30 PM EDT Office Visit [facility] [address] [place] [address] Jenifer Rust, BOXING TRAINER-LICENSED WEIGHER 5317 [facility] [place] [address] 12/14/2024 3:00 PM EST Office Visit [facility] [address] [facility] 160 [place] [address] Justina Maddox, BOXING TRAINER-LOCK FITTER [address] [facility] 160 [place] [address] 01/28/2025 2:00 PM EST Office Visit [facility] [address] [place] [address] Sally Zhu, WHARF OPERATOR 14[address] [place] [address] documented as of this encounter Visit Diagnoses Not on filedocumented in this encounter Additional Health Concerns Assessment Noted Time PHQ-9 Depression Total Score: 4 03/14/19 24 3:00 PM EST documented as of this encounter Care Teams Aircraft Engine Mechanic Overhaul Relationship Specialty Start Date End Date Delilah Jackson MD [facility]9 [place] [address] PCP - General Family Medicine 07/19/22 Tran Manzo MD [address] [place] [address] PCP - [employer] 12/12/17 Justina Maddox APRN-LOCK FITTER [address] [place] [address] Nurse Practitioner Behavioral Health 07/19/22 Rosy Rodriguez, RN 1479 [place] [address] Registered Nurse Family Medicine 12/24/22 Myesha Bell LSW [address] [place] [address] Skip Locator Family Medicine 04/15/23 06/15/24 documented as of this encounter
--- OUTSIDE RECORDS SUMMARY | 2024-11-05 15:17 | XMS_ITS | Encounter Summary ---
Author Organization [facility] Address [address] [place] [address] Care Team Providers Care Transport Pilot Name Role Phone Delilah Jackson MD Primary Care Provider [phone] Justina Maddox CHRISTMAS TREE FARM WORKER-JOINT MAKER MACHINE Unavailable Rosy Rodriguez RN Unavailable [phone] Myesha Bell SALES AND LEASING AGENT Unavailable [phone] Tran Manzo MD Unavailable Reason for Visit * Reason Comments Med Refill Encounter Details Date Type Department Care Team ([facility] Contact Info) Description 02/26/2024 Refill [facility] [place] [facility] 112 [facility] 160 [place] [address] Justina Maddox, CHRISTMAS TREE FARM WORKER-JOINT MAKER MACHINE 112 [facility] 160 [place] [address] Insomnia, uncontrolled Social History Tobacco Use Types [...] Office Visit [facility] 1479 [place] [address] Sally Zhu NP 1479 [place] [address] 11/11/2024 11:30 AM EDT Evaluation [facility] [address] [facility] 170 [place] [address] Ina Perez, RORY 12/03/2024 2:30 PM EDT Office Visit [facility] [address] [place] [address] Jenifer Rust, CHRISTMAS TREE FARM WORKER-DIVISION ORDER ANALYST 5319 [facility] [address] 12/14/2024 3:00 PM EST Office Visit [facility] [place] [facility] [address] [facility] 160 [place] [address] Justina Maddox, CHRISTMAS TREE FARM WORKER-JOINT MAKER MACHINE [address] [facility] 160 [place] [address] 01/28/2025 2:00 PM EST Office Visit [facility] [address] [facility] [place] [address] Sally Zhu NP [address] [facility] [place] [address] documented as of this encounter Visit Diagnoses Diagnosis Insomnia, uncontrolled documented in this encounter Additional Health Concerns Assessment Noted Time PHQ-9 Depression Total Score: 13 024 2:18 PM EST documented as of this encounter Care Teams Transport Pilot Relationship Specialty Start Date End Date Delilah Jackson MD 14[address] [facility] [place] [address] PCP - General Family Medicine 07/19/22 Tran Manzo MD [address] [place] [address] PCP - [employer] 12/12/17 Justina Maddox APRN-JOINT MAKER MACHINE [address] [facility] 160 [place] [address] Nurse Practitioner Behavioral Health 07/19/22 Rosy Rodriguez, RN [address] [facility] [address] Registered Nurse Family Medicine 12/24/22 Myesha Bell LSW [address] [facility] [place] [address] Script Writer Family Medicine 04/15/23 06/15/24 documented as of this encounter
--- OUTSIDE RECORDS SUMMARY | 2024-11-05 15:17 | XMS_ITS | Encounter Summary ---
Author Organization [facility] Address [address] [place] [address] Care Team Providers Care Repairer Welding Systems And Equipment Name Role Phone Delilah Jackson MD Primary Care Provider [phone] Justina Maddox GLOBAL SECURITY ARCHITECT-COMMISSARY SUPERINTENDENT Unavailable Rosy Rodriguez RN Unavailable [phone] Myesha Bell BUNDLE COLLECTOR Unavailable [phone] Tran Manzo MD Unavailable Reason for Visit * Reason Comments Med Refill Encounter Details Date Type Department Care Team ([facility] Contact Info) Description 04/11/2024 Refill [facility] [place] [facility] 112 [facility] 160 [place] [address] Justina Maddox, GLOBAL SECURITY ARCHITECT-COMMISSARY SUPERINTENDENT 112 [facility] 160 [place] [address] Bipolar II disorder (HCC) Social History Tobacco [...] Visit [facility] [address] [place] [address] Sally Zhu NP [address] [place] [address] 11/11/2024 11:30 AM EDT Evaluation [facility] [address] [facility] 170 [place] [address] Ina Perez, RORY 12/03/2024 2:30 PM EDT Office Visit [facility] [address] [place] [address] Jenifer Rust, GLOBAL SECURITY ARCHITECT-HAZARDOUS MATERIALS DRIVER 5319 [facility] [place] [address] 12/14/2024 3:00 PM EST Office Visit [facility] [address] [facility] 160 [place] [address] Justina Maddox, GLOBAL SECURITY ARCHITECT-COMMISSARY SUPERINTENDENT [address] [facility] 160 [place] [address] 01/28/2025 2:00 PM EST Office [facility] [address] [place] [address] Sally Zhu NP 14[address] [place] [address] documented as of this encounter Visit Diagnoses Diagnosis Bipolar II disorder (HCC) Other bipolar disorders documented in this encounter Additional Health Concerns Assessment Noted Time PHQ-9 Depression Total Score: 13 024 2:18 PM EST documented as of this encounter Care Teams Repairer Welding Systems And Equipment Relationship Specialty Start Date End Date Delilah Jackson MD [address] [place] [address] PCP - General Family Medicine 07/19/22 Tran Manzo MD [address] [place] [address] PCP - [employer] 12/12/17 Justina Maddox, GLOBAL SECURITY ARCHITECT-COMMISSARY SUPERINTENDENT [address] [facility] 160 [place] [address] Nurse Practitioner Behavioral Health 07/19/22 Rosy Rodriguez, RN 1479 [place] [address] Registered Nurse Family Medicine 12/24/22 Myesha Bell LSW [address] [place] [address] Distribution Analyst Family Medicine 04/15/23 06/15/24 documented as of this encounter
--- OUTSIDE RECORDS SUMMARY | 2024-11-05 15:17 | XMS_ITS | Encounter Summary ---
Author Organization [facility] [facility] Address [id number] [address] [place] [address] Care Team Providers Care Cube Cutter Name Role Phone Tran Manzo MD Primary Care Provider [phone] Encounter Details Date Type Department Care Team (Late st Contact Info) Description 03/05/2022 Orders Only [facility] Patient Blood Management Outpatient [address] [place] [address] Rosa Gardner, PROTOTYPE TECHNICIAN-RIPRAP PLACER [address] [place] [address] Acute blood loss anemia Social History Tobacco [...] often do you attend chur ch or voodoo services? Never 04/20/2020 Do you belong to any clubs o r organizations such as episcopal groups, unions, fraternal or athletic groups, or [...] Answer Date Recorded Total Score 0 04/20/2020 [facility] - Occupational [...] Recorded Do you need help finding a [facility] career center and/or a training program? No [...] on file documented as of this encounter Procedures Procedure Name Priority Date/Time Associated Diagnosis Comments RETICULOCYTES Add-On 03/03/2022 5:53 AM EST VITAMIN B12 Add-On 03/03/2022 5:53 AM EST documented in this encounter Results * (ABNORMAL) Reticulocytes (03/03/2022 5:53 AM EST) Reticulocyte 2.7(H) 0.4 - 2.2 % 03/05/2022 2:30 PM EST [facility] Blood / Unknown 03/03/2022 5 :53 AM EST 03/03/2022 9:08 AM EST us Rosa RUBIO [facility] BLOOD ORDERABLES Final Result [facility] [address] [address] * Vitamin B12 (03/03/2022 5:53 AM EST) Vitamin B-12 332 180 - 914 pg/mL 03/05/2022 3:06 PM EST [facility] Serum / Unknown 03/03/2022 5 :53 AM EST 03/03/2022 9:08 AM EST us Rosa Gardner [facility] BLOOD ORDERABLES Final Result [facility] [address] [place] [address] documented in this encounter Visit Diagnoses Diagnosis Acute blood loss anemia Acute posthemorrhagic anemia documented in this encounter Additional Health Concerns Assessment Noted Time PHQ-9 Depression Total Score: 0 04/21/19 21 8:00 PM EST documented as of this encounter Care Teams Cube Cutter Relationship Specialty Start Date End Date Tran Manzo MD PCP - General Family Medicine 09/18/22 documented as of this encounter
--- OUTSIDE RECORDS SUMMARY | 2024-11-05 15:17 | XMS_ITS | Encounter Summary ---
Author Organization [facility] Address [address] [place] [address] Care Team Providers Care Spray Crew Name Role Phone Delilah Jackson MD Primary Care Provider [phone] Justina Maddox ASSISTANT PRESS OPERATOR OFFSET-TECHNICAL ADJUSTER Unavailable Rosy Rodriguez RN Unavailable [phone] Myesha Bell PARTS SALES ADVISOR Unavailable [phone] Tran Manzo MD Unavailable Reason for Visit * Reason Comments Med Refill Encounter Details Date Type Department Care Team ([facility] Contact Info) Description 04/27/2024 Refill [facility] [place] [facility] 112 [facility] 160 [place] [address] Justina Maddox, ASSISTANT PRESS OPERATOR OFFSET-TECHNICAL ADJUSTER 112 [facility] 160 [place] [address] Bipolar II disorder (HCC) Social History Tobacco [...] Visit [facility] [address] [place] [address] Sally Zhu NP [address] [place] [address] 11/11/2024 11:30 AM EDT Evaluation [facility] [address] [facility] 170 [place] [address] Ina Perez, RORY 12/03/2024 2:30 PM EDT Office Visit [facility] [address] [place] [address] Jenifer Rust, ASSISTANT PRESS OPERATOR OFFSET-PROPOSAL DEVELOPMENT MANAGER 5319 [facility] [place] [address] 12/14/2024 3:00 PM EST Office Visit [facility] [address] [facility] 160 [place] [address] Justina Maddox, ASSISTANT PRESS OPERATOR OFFSET-TECHNICAL ADJUSTER [address] [facility] 160 [place] [address] 01/28/2025 2:00 PM EST Office Visit [facility] 14[address] [place] [address] Sally Zhu NP [address] [place] [address] documented as of this encounter Visit Diagnoses Diagnosis Bipolar II disorder (HCC) Other bipolar disorders documented in this encounter Additional Health Concerns Assessment Noted Time PHQ-9 Depression Total Score: 13 024 2:18 PM EST documented as of this encounter Care Teams Spray Crew Relationship Specialty Start Date End Date Delilah Jackson MD [address] [place] [address] PCP - General Family Medicine 07/19/22 Tran Manzo MD [address] [place] [address] PCP - [employer] 12/12/17 Justina Maddox, ASSISTANT PRESS OPERATOR OFFSET-TECHNICAL ADJUSTER [address] [facility] 160 [place] [address] Nurse Practitioner Behavioral Health 07/19/22 Rosy Rodriguez, RN [address] [place] [address] Registered Nurse Family Medicine 12/24/22 Myesha Bell LSW [address] [place] [address] Proof Plate Maker Family Medicine 04/15/23 06/15/24 documented as of this encounter
--- OUTSIDE RECORDS SUMMARY | 2024-11-05 15:18 | XMS_ITS | Encounter Summary ---
Author Organization [facility] Address [address] [place] [address] Care Team Providers Care Rivet Hammer Machine Operator Name Role Phone Delilah Jackson MD Primary Care Provider [phone] Justina Maddox CREATIVE SPECIALIST-CABLE SPLICER ASSISTANT Unavailable Rosy Rodriguez RN Unavailable [phone] BUILDER Unavailable [phone] Tran Manzo MD Unavailable Reason for Visit * Reason Comments Med Refill Encounter Details Date Type Department Care Team ([facility] Contact Info) Description 08/10/2023 Refill [facility] Medicine 14[address] [place] [address] Delilah Jackson MD [address] [place] [address] Dyspepsia Social History Tobacco Use [...] 11/10/2024 2:00 PM EDT Office Visit [facility] 14[address] [place] [address] Sally Zhu, TORSION SPRING COILING MACHINE SETTER [address] [place] [address] 11/11/2024 11:30 AM EDT Evaluation [facility] [address] [place] [address] Ina Perez, PT 12/03/2024 2:30 PM EDT Office Visit [facility] [address] [place] [address] Jenifer Rust, MUSHTAQ-REALTY LOAN SPECIALIST [address] [facility] [place] [address] 12/14/2024 3:00 PM EST Office Visit [facility] [address] [place] [address] Justina Maddox, CREATIVE SPECIALIST-CABLE SPLICER ASSISTANT 112 [facility] 160 [place] [address] 01/28/2025 2:00 PM EST Office Visit [facility] 14[address] [place] [address] Sally Zhu NP [address] [place] [address] documented as of this encounter Visit Diagnoses Diagnosis Dyspepsia Dyspepsia and other specified disorders of function of stomach documented in this encounter Additional Health Concerns Assessment Noted Time PHQ-9 Depression Total Score: 4 03/14/19 3:00 PM EST documented as of this encounter Care Teams Rivet Hammer Machine Operator Relationship Specialty Start Date End Date Delilah Jackson MD [address] [place] [address] PCP - General Family Medicine 07/19/22 Tran Manzo MD [address] [place] [address] PCP - [employer] 12/12/17 Justina Maddox, CREATIVE SPECIALIST-CABLE SPLICER ASSISTANT [address] [address] [place] [address] Nurse Practitioner Behavioral Health 07/19/22 Rosy Rodriguez, RN 14[address] [place] [address] Registered Nurse Family Medicine 12/24/22 Myesha Bell LSW 1479 [facility] [place] [address] Medical Auditor Family Medicine 04/15/23 06/15/24 documented as of this encounter
--- OUTSIDE RECORDS SUMMARY | 2024-11-05 15:18 | XMS_ITS | Encounter Summary ---
Author Organization [facility] Address [address] [place] [address] Care Team Providers Care Pmo Consultant Name Role Phone Delilah Jackson MD Primary Care Provider [phone] Justina Maddox UPTWISTER TENDER-LAST WAXER Unavailable Rosy Rodriguez RN Unavailable [phone] Tran Manzo MD Unavailable Encounter Details Date Type Department Care Team (Late st Contact Info) Description 08/19/2024 Results Follow-Up [facility] Family Medicine [address] [place] [address] sIaura Walter NP [address] [place], [place] [address] head neck soft tissue Social History Tobacco Use Types Packs/Day Years [...] Office Visit [facility] 14[address] [place] [address] Sally Zhu NP [address] [place], [place] [phone] 11/11/2024 11:30 AM EDT Evaluation [facility] [address] [facility] 170 [place] [address] Ina Perez, RORY 12/03/2024 2:30 PM EDT Office Visit [facility] [address] [place] [address] Jenifer Rust, UPTWISTER TENDER-SALES AGENT TRADING STAMPS 5319 [facility] [place] [address] 12/14/2024 3:00 PM EST Office Visit [facility] [address] [facility] 160 [place] [address] Justina Maddox, UPTWISTER TENDER-LAST WAXER [address] [facility] 160 [place] [address] 01/28/2025 2:00 PM EST Office Visit [facility] [address] [place] [address] Sally Zhu NP [address] [place], [place] [address] documented as of this encounter Visit Diagnoses Not on filedocumented in this encounter Additional Health Concerns Assessment Noted Time PHQ-9 Depression Total Score: 10 025 1:04 PM EDT documented as of this encounter Care Teams Pmo Consultant Relationship Specialty Start Date End Date Delilah Jackson MD [address] [place], [place] [address] PCP - General Family Medicine 07/19/22 Tran Manzo MD [address] [place], [place] [address] PCP - [employer] 12/12/17 Justina Maddox, UPTWISTER TENDER-LAST WAXER [address] [place] [address] Nurse Practitioner Behavioral Health 07/19/22 Rosy Rodriguez, RN [address] [place] [address] Registered Nurse Family Medicine 12/24/22 documented as of this encounter
--- OUTSIDE RECORDS SUMMARY | 2024-11-05 15:18 | XMS_ITS | Clinical Summary ---
Author Organization [facility] Address [address] [place], [place] [address] Care Team Providers Care Bag Sorter Name Role Phone Angelica Duncan MD, Ramos [...] VIRAL LOAD (07/13/1999 11:11 AM EDT) Pathologist [facility] HCV RNA by PCR 905,000 [facility] Comment: IU/mL 2,397,027 copies/ml of Hepatitis C virus RNA detected. Please note reporting change. HCV RNA results are now reported in IU/mL (International Units/mL), the WHO International Standard. Copies/mL will continue to be reported along with the new IU/mL designation for approximately 3 months. This test was developed and its performance characteristics determined by the Clinical Laboratories of the [facility]. It has not been cleared or approved by the US Food and Drug Administration. The FDA has determined that such clearance or approval is not necessary. 07/13/1999 11:1 1 AM EDT us [facility] Eloise wallace Result [facility] [address] [place] [address] from Last 3 Months or Most Recently Relevant to Health Maintenance Insurance [employer] Care Teams Bag Sorter Relationship Specialty Start Date End Date Ramos Dominguez Jr., MD [address] [place] [address] PCP - General 05/21/00
--- OUTSIDE RECORDS SUMMARY | 2024-11-05 15:18 | XMS_ITS | Encounter Summary ---
Author Organization [facility] Address [address] [place] [address] Care Team Providers Care Typing Bookkeeper Name Role Phone Delilah Jackson MD Primary Care Provider [phone] Justina Maddox WEB DEVELOPMENT INSTRUCTOR-GREENS PICKER Unavailable Rosy Rodriguez RN Unavailable [phone] Myesha Bell CERTIFIED MARINE MECHANIC Unavailable [phone] Tran Manzo MD Unavailable Encounter Details Date Type Department Care Team (Late st Contact Info) Description 09/16/2023 Abstract [facility] [address] [place] [address] Myesha Bell, CERTIFIED MARINE MECHANIC [address] [place], [place] [address] Social History Tobacco Use Types Packs/Day Years [...] Office Visit [facility] 14[address] [place] [address] Sally Zhu NP [address] [place], [place] [address] 11/11/2024 11:30 AM EDT Evaluation [facility] [address] [facility] [address] [place] [address] Ina Perez, RORY 12/03/2024 2:30 PM EDT Office Visit [facility] [address] [place] [address] Jenifer Rust, WEB DEVELOPMENT INSTRUCTOR-FISCAL TECHNICIAN [address] [place] [address] 12/14/2024 3:00 PM EST Office Visit [facility] [address] [facility] 160 [place] [address] Justina Maddox, WEB DEVELOPMENT INSTRUCTOR-GREENS PICKER [address] [facility] 160 [place] [address] 01/28/2025 2:00 PM EST Office Visit [facility] 14[address] [place] [address] Sally Zhu, SLITTER OPERATOR 14[address] [place] [address] documented as of this encounter Visit Diagnoses Not on filedocumented in this encounter Additional Health Concerns Assessment Noted Time PHQ-9 Depression Total Score: 4 03/14/19 24 3:00 PM EST documented as of this encounter Care Teams Typing Bookkeeper Relationship Specialty Start Date End Date Delilah Jackson MD [facility]9 [place] [address] PCP - General Family Medicine 07/19/22 Tran Manzo MD 14[address] [place] [address] PCP - [employer] 12/12/17 Justina Maddox APRN-GREENS PICKER [address] [place] [address] Nurse Practitioner Behavioral Health 07/19/22 Rosy Rodriguez, RN 1479 [place] [address] Registered Nurse Family Medicine 12/24/22 Myesha Bell LSW 14[address] [place] [address] Wood Grinder Operator Family Medicine 04/15/23 06/15/24 documented as of this encounter
--- OUTSIDE RECORDS SUMMARY | 2024-11-05 15:18 | XMS_ITS | Encounter Summary ---
Author Organization [facility] Address [address] [place] [address] Care Team Providers Care Supply Room Clerk Name Role Phone Delilah Jackson MD Primary Care Provider [phone] Justina Maddox FARMER VEGETABLE-MANUFACTURING JOB TITLES Unavailable Rosy Rodriguez RN Unavailable [phone] Myesha Bell TRENCH PIPE LAYER HELPER Unavailable [phone] Tran Manzo MD Unavailable Encounter Details Date Type Department Care Team (Late st Contact Info) Description 06/20/2022 Orders Only [facility] [address] [facility] [address] [place] [phone] Marilyn Garcia LPN Social History Tobacco Use [...] 11/10/2024 2:00 PM EDT Office Visit [facility] [address] [place] [phone] Sally Zhu NP [address] [place] [address] 11/11/2024 11:30 AM EDT Evaluation [facility] [address] [facility] [address] [place] [phone] Ina Perez, RORY 12/03/2024 2:30 PM EDT Office Visit [facility] [address] [place] [address] Jenifer Rust, FARMER VEGETABLE-PSYCHOLOGICAL TESTS SALES AGENT [address] [facility] [place] [address] 12/14/2024 3:00 PM EST Office Visit [facility] [address] [place] [phone] Justina Maddox, FARMER VEGETABLE-MANUFACTURING JOB TITLES [address] [place] [address] 01/28/2025 2:00 PM EST Office Visit [facility] [address] [facility] [place] [place] [address] Sally Zhu NP [address] [facility] [place] [address] documented as of this encounter Visit Diagnoses Not on filedocumented in this encounter Care Teams Supply Room Clerk Relationship Specialty Start Date End Date Delilah Jackson MD [address] [facility] [place] [address] PCP - General Family Medicine 07/19/22 Tran Manzo MD [address] [facility] [place] [address] PCP - [employer] 12/12/17 Justina Maddox, FARMER VEGETABLE-MANUFACTURING JOB TITLES [address] [address] Nurse Practitioner Behavioral Health 07/19/22 Rosy Rodriguez, RN [address] [facility] [place] [address] Registered Nurse Family Medicine 12/24/22 Myesha Bell LSW [address] [place] [address] Upholstery Tech Family Medicine 04/15/23 06/15/24 documented as of this encounter
--- OUTSIDE RECORDS SUMMARY | 2024-11-05 15:18 | XMS_ITS | Encounter Summary ---
Author Organization [facility] Address [id number] [address] [place] [address] Care Team Providers Care Ditch Cleaner Name Role Phone Tran Manzo MD Primary Care Provider [phone] Encounter Details Date Type Department Care Team (Late st Contact Info) Description 11/01/2022 Telephone [facility] [address] [place] [address] Yamel Prajapati, PAMarciaC [address] [place] [address] Social History Tobacco Use Types [...] often do you attend chur ch or scientologist services? Never 04/20/2020 Do you belong to any clubs o r organizations such as judaism groups, unions, fraternal or athletic groups, or [...] Answer Date Recorded Total Score 0 09/19/2022 [facility] [place] of Occupat ional Health - Occupational Stress [...] plans for a safe discharge to a assisted facility on discharge. documented as of this encounter Visit Diagnoses Not on filedocumented in this encounter Additional Health Concerns Assessment Noted Time PHQ-9 Depression Total Score: 0 09/20/19 23 11:04 AM EDT documented as of this encounter Care Teams Ditch Cleaner Relationship Specialty Start Date End Date Tran Manzo MD PCP - General Family Medicine 09/18/22 documented as of this encounter
--- OUTSIDE RECORDS SUMMARY | 2024-11-05 15:18 | XMS_ITS | Encounter Summary ---
Author Organization [facility] [facility] Address [id number] [address] [place] [address] Care Team Providers Care Mobile Home Park Manager Name Role Phone Tran Manzo MD Primary Care Provider [phone] Encounter Details Date Type Department Care Team (Late st Contact Info) Description 11/01/2022 Orders Only [facility] [address] [place] [address] Ref Prov, [place] [address] Social History Tobacco Use Types Packs/Day Years [...] often do you attend chur ch or restoration services? Never 04/20/2020 Do you belong to any clubs o r organizations such as gnosticist groups, unions, fraternal or athletic groups, or [...] Answer Date Recorded Total Score 0 09/19/2022 [facility] of Occupat ional Health - Occupational Stress [...] Recorded Do you need help finding a [facility] career center and/or a training program? [...] plans for a safe discharge to a alf facility on discharge. documented as of this encounter Procedures Procedure Name Priority Date/Time Associated Diagnosis Comments XR FEMUR RT 2+ VIEWS Routine 10/25/2022 10:10 AM EDT documented in this encounter Results * X-ray femur right 2+ views (10/25/2022 10:10 AM EDT) Anatomical Region Laterality Modality Lower Extremities, MSK, Femur Right Co mputed Radiography us Not In System Ref Prov IMG DIAGNOSTIC IMAGING OR DERABLES Final Result documented in this encounter Visit Diagnoses Not on filedocumented in this encounter Additional Health Concerns Assessment Noted Time PHQ-9 Depression Total Score: 0 09/20/19 23 11:04 AM EDT documented as of this encounter Care Teams Mobile Home Park Manager Relationship Specialty Start Date End Date Tran Manzo MD PCP - General Family Medicine 09/18/22 documented as of this encounter
--- OUTSIDE RECORDS SUMMARY | 2024-11-05 15:19 | XMS_ITS | Encounter Summary ---
Author Organization [facility] Address [address] [place] [address] Care Team Providers Care Road Engineer Name Role Phone Delilah Jackson MD Primary Care Provider [phone] Justina Maddox FILM WAXER-TEXTILE COLORIST FORMULATOR Unavailable Rosy Rodriguez RN Unavailable Tran Manzo MD Unavailable Reason for Visit * Reason Comments Med Refill Encounter Details Date Type Department Care Team (Late st Contact Info) Description 08/27/2024 Refill [facility] 112 [facility] 160 [place] [address] Justina Maddox, FILM WAXER-TEXTILE COLORIST FORMULATOR 112 [facility] 160 [place] [address] Bipolar II disorder (HCC); Generalized anxiety disorder [...] Office Visit [facility] [address] [place] [phone] Sally Zhu NP [address] [place] [address] 11/11/2024 11:30 AM EDT Evaluation [facility] [address] [facility] [address] [place] [address] Ina Perez, PT 12/03/2024 2:30 PM EDT Office Visit [facility] [address] [facility] [address] [place] [address] Jenifer Rust, FILM WAXER-BACK SHOE CUTTER [address] [facility] [place] [address] 12/14/2024 3:00 PM EST Office [facility] 112 [facility] [address] [place] [phone] Justina Maddox, FILM WAXER-TEXTILE COLORIST FORMULATOR [address] [facility] 160 [place] [address] 01/28/2025 2:00 PM EST Office Visit [facility] [address] [place] [address] aSlly Zhu NP [address] [place] [address] documented as of this encounter Visit Diagnoses Diagnosis Bipolar II disorder (HCC) Other bipolar disorders Generalized anxiety disorder documented in this encounter Additional Health Concerns Assessment Noted Time PHQ-9 Depression Total Score: 10 025 1:04 PM EDT documented as of this encounter Care Teams Road Engineer Relationship Specialty Start Date End Date Delilah Jackson MD [facility] [place] [address] PCP - General Family Medicine 07/19/22 Tran Manzo MD [facility] [place] [address] PCP - [employer] 12/12/17 Justina Maddox APRN-TEXTILE COLORIST FORMULATOR [address] [facility] 160 [place] [address] Nurse Practitioner Behavioral Health 07/19/22 Rosy Rodriguez, RN [address] [facility] [place] [place] [address] Registered Nurse Family Medicine 12/24/22 documented as of this encounter
--- OUTSIDE RECORDS SUMMARY | 2024-11-05 15:19 | XMS_ITS | Encounter Summary ---
Author Organization [facility] Address [facility] [id number] [address] [place] [address] Care Team Providers Care Legal Activity Adjudicator Name Role Phone Tran Manzo MD Primary Care Provider [phone] Reason for Visit * Reason Comments Med Refill Encounter Details Date Type Department Care Team (Late st Contact Info) Description 09/03/2018 Refill [facility] [address] [place] [phone] Sally Zhu, JERKER-PARTY PLAN SALES DIRECTOR [address] [place] [address] Social History Tobacco Use Types Packs/Day Years [...] on file documented as of this encounter Visit Diagnoses Not on filedocumented in this encounter Care Teams Legal Activity Adjudicator Relationship Specialty Start Date End Date Tran Manzo MD PCP - General Family Medicine 09/18/22 documented as of this encounter
--- OUTSIDE RECORDS SUMMARY | 2024-11-05 15:19 | XMS_ITS | Encounter Summary ---
Author Organization [facility] Address [address] [place] [address] Care Team Providers Care Motion Picture Set Up Worker Name Role Phone Delilah Jackson MD Primary Care Provider [phone] Justina Maddox GASKET MAKER-CAMERA PROTOTYPING ENGINEER Unavailable Rosy Rodriguez RN Unavailable [phone] Tran Manzo MD Unavailable Reason for Visit * Reason Comments Med Refill Encounter Details Date Type Department Care Team (Late st Contact Info) Description 08/28/2024 Refill [facility] 112 [facility] 160 [place] [address] Justina Maddox, GASKET MAKER-CAMERA PROTOTYPING ENGINEER 112 [facility] 160 [place] [address] Bipolar II disorder (HCC); Insomnia, uncontrolled Social [...] Office Visit [facility] [address] [place] [address] Sally Zhu, PERFORATOR [address] [place] [address] 11/11/2024 11:30 AM EDT Evaluation [facility] [address] [place] [address] Ina Perez, RORY 12/03/2024 2:30 PM EDT Office Visit [facility] [address] [place] [address] Jenifer Rust APRN-HYDRAULIC PRESS OPERATOR [address] [facility] [address] [place], [place] [address] 12/14/2024 3:00 PM EST Office Visit [facility] [address] [place] [address] Justina Maddox, GASKET MAKER-CAMERA PROTOTYPING ENGINEER 112 [facility] [address] [place] [address] 01/28/2025 2:00 PM EST Office Visit [facility] [address] [place] [phone] Sally Zhu NP [address] [place] [address] documented as of this encounter Visit Diagnoses Diagnosis Bipolar II disorder (HCC) Other bipolar disorders Insomnia, uncontrolled documented in this encounter Additional Health Concerns Assessment Noted Time PHQ-9 Depression Total Score: 10 025 1:04 PM EDT documented as of this encounter Care Teams Motion Picture Set Up Worker Relationship Specialty Start Date End Date Delilah Jackson MD [address] [place] [address] PCP - General Family Medicine 07/19/22 Tran Manzo MD [address] [place] [address] PCP - [employer] 12/12/17 Justina Maddox, GASKET MAKER-CAMERA PROTOTYPING ENGINEER 112 [facility] [address] [place] [address] Nurse Practitioner Behavioral Health 07/19/22 Rosy Rodriguez, RN [address] [place] [address] Registered Nurse Family Medicine 12/24/22 documented as of this encounter
--- OUTSIDE RECORDS SUMMARY | 2024-11-05 15:19 | XMS_ITS | Encounter Summary ---
Author Organization [facility] Address [address] [place] [address] Care Team Providers Care Processor Helper Name Role Phone Delilah Jackson MD Primary Care Provider [phone] Justina Maddox JOURNEYMAN PRESSMAN-EDGE BURNISHER UPPERS Unavailable Rosy Rodriguez RN Unavailable [phone] Myesha Bell LOGISTICIAN Unavailable [phone] Tran Manzo MD Unavailable Reason for Visit * Reason Comments Med Refill Encounter Details Date Type Department Care Team ([facility] Contact Info) Description 07/24/2022 Refill [facility] [address] [facility] [address] [place] [address] Justina Maddox, JOURNEYMAN PRESSMAN-EDGE BURNISHER UPPERS 112 [facility] 160 [place] [address] Social History Tobacco Use Types Packs/Day Years [...] Office Visit [facility] [address] [place] [address] Sally Zhu NP [address] [place] [address] 11/11/2024 11:30 AM EDT Evaluation [facility] [address] [facility] [address] [place] [address] Ina Perez, RORY 12/03/2024 2:30 PM EDT Office Visit [facility] [address] [place] [address] Jenifer Rust, JOURNEYMAN PRESSMAN-SOFTWARE DESIGN MANAGER [address] [facility] [place] [place] [address] 12/14/2024 3:00 PM EST Office [facility] 112 [facility] 160 [place] [address] Justina Maddox, JOURNEYMAN PRESSMAN-EDGE BURNISHER UPPERS 112 [facility] 160 [place] [address] 01/28/2025 2:00 PM EST Office Visit [facility] [address] [place] [address] Sally Zhu NP [address] [place], [place] [phone] documented as of this encounter Visit Diagnoses Not on filedocumented in this encounter Care Teams Processor Helper Relationship Specialty Start Date End Date Delilah Jackson MD [address] [place] [address] PCP - General Family Medicine 07/19/22 Tran Manzo MD [address] [place] [address] PCP - [employer] 12/12/17 Justina Maddox, JOURNEYMAN PRESSMAN-EDGE BURNISHER UPPERS 112 [facility] 160 [place] [address] Nurse Practitioner Behavioral Health 07/19/22 Rosy Rodriguez, RN [address] [place] [address] Registered Nurse Family Medicine 12/24/22 Myesha Bell LSW [address] [place] [address] Trimmer Machine Family Medicine 04/15/23 06/15/24 documented as of this encounter
--- NOTE | 2024-11-05 15:30 | PM.WCHP ---
Wound Care H&P: HPI History of Present Illness Narrative: Mrs. Ellis is a 69 year old with history of severe bilateral bunion and hammertoe deformity who presents for routine nail care. Her hammertoes have caused ulcers in the past but she has no ulcers at this time. Exam Narrative: Exam Narrative: Dermatologic: Partial-thickness ulcer on the dorsum of the left fourth toe with no sign of infection. Ulcer is dry. Skin is thin, atrophic, and dry. Toenails 1-10 are elongated, thickened, and mycotic. Musculoskeletal: Bilateral bunion, bilateral hammertoe deformity Vascular exam: PT pulses are nonpalpable bilaterally. Dorsalis pedis pulses are 1/4 bilaterally. Capillary refill is less than 3 seconds. Varicosities are present. The skin is warm. There is no edema. Digital hair is absent bilaterally. Neurologic: Vibratory sensation is present but decreased bilaterally, Achilles deep tendon reflex is 0+ bilaterally.? Protective sensation was tested with a monofilament and is present in 1/5 areas tested on the right and 0/5 areas tested on the left.? 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 Follow-up in 2-3 months, sooner if any issues arise. Acute Procedures Podiatry Nail Debridement Class B Findings Absent posterior tibial pulse: bilateral Advanced trophic changes as evidenced by any three of the following: decreased hair growth, nail changes (thickening), pigmentary changes (discoloring) and skin texture (thin or shiny) Class C Findings Claudication: No Temperature changes: Yes Edema: No Nail debridement paresthesia (abnormal spontaneous sensations in the feet): No Burning: No Qualifies If: Qualifiers If:: A patient qualifies for nail debridement if they have: 1 class A finding (Q7) 2 class B findings (Q8) OR 1 class B & 2 class C findings in addition to a primary condition (Q9) Nail Procedure Nail Procedure Time out: Yes Nail procedure: other (Toenail debridement) Number of affected nails: 10 Location (toes): left and right Procedure successful: Yes Patient tolerated procedure: well and no complications Additional comments: Toenails 1 through 10 were sharply debrided with nail nippers without incident.
== END 2024-11-05 15:10 | disposition home or self-care (01) ==
LOC: WC 15:10
PROVIDERS: Visit Provider Physician Assistant
DX: L60.8 Other nail disorders (principal); R26.89 Other abnormalities of gait and mobility; R09.89 Other specified symptoms and signs involving the circulatory and respiratory systems; B35.1 Tinea unguium; M20.42 Other hammer toe(s) (acquired), left foot; M20.41 Other hammer toe(s) (acquired), right foot; G62.89 Other specified polyneuropathies
CPT/HCPCS: 11721